=== PATIENT | male | born 1945 | race Caucasian/White ===

== ENCOUNTER → 2016-12-25 | Outpatient (CLI) | payer MEDICARE | END | disposition home or self-care (01) | LOC: LABWHC1 13:49 | PROVIDERS: ATTEND Orthopaedic Surgery | DX: Z01.812 Encounter for preprocedural laboratory examination (principal) | CPT/HCPCS: 87070 ==

== ENCOUNTER 2017-01-03 06:58 | Inpatient (IN) | payer MEDICARE ==
[2017-01-02 08:53] VITALS: BMI 37.3
[~2017-01-03 06:58] MED LIST: ACETAMINOPHEN TAB 500 MG TAB PO ONE; DEXAMETHASONE SOD PHOSPHATE 10 MG/ML 1 ML VIAL IV ONE; HYDROmorphone 1 MG/ML 1 ML SYRINGE IVP PRN; LIDOCAINE 1% 20 ML VIAL (10MG/ML) FOR IV START INTRADERMA PRN; MELOXICAM 7.5 MG TAB PO ONE; MIDAZOLAM 2 MG/2 ML VIAL IV PRN; ONDANSETRON 4 MG/2 ML VIAL IVP ONE; SCOPOLAMINE 1.5MG/72HR PATCH TRANSDERM ONE; TRANEXAMIC ACID 1,000 MG in SODIUM CHLORIDE 0.9% 100 ML IVPB ONE; ceFAZolin 2 GM in SODIUM CHLORIDE 0.9% 100 ML IVPB ONE
[2017-01-03] MEDS ORDERED: FAMOTIDINE 20 MG/2 ML VIAL IV ONE (08:42)
[2017-01-03] MEDS: LACTATED RINGERS 1,000 ML IV SCH (08:45)
[2017-01-03 08:48] LABS: Glucose,Whole Blood 103 mg/dL (75-99)
[2017-01-03] MEDS ORDERED: MIDAZOLAM 2 MG/2 ML VIAL IVP ONE (08:52)
[2017-01-03] MEDS ORDERED: ROPIVACAINE 1,100 MG, SODIUM CHLORIDE 0.9% 330 ML MISCELLANE PRN ×2 (09:13)
--- NOTE | 2017-01-03 09:14 | P.ONQ ---
Anesthesiology Proc Note - PNB - Peripheral Nerve Block Performed Left Adductor Canal Infusion Time Out Performed: Yes Procedure Start Time: 09:00 Procedure Stop Time: 09:15 Indication: Analgesia Sedation Type: Sedate with meaningful contact maintained Preparation: Sterile Prep Position: Supine Catheter: Indwelling Needle Types: On-Q Needle Size: 100mm (4") Needle Gauge: 20 Technique: Ultrasound Injectate: 0.5% Ropivacaine (see comment for volume) Blood Aspirated: No Pain Paresthesia on Injection Noted: No Resistance on Injection: Normal Events: Uneventful and Well Tolerated
[2017-01-03] MEDS: LACTATED RINGERS 1,000 ML IV ONE ×2 (09:58→14:28)
[2017-01-03] MEDS ORDERED: SODIUM CHLORIDE 0.9% 100 ML BAG ONE (10:02)
[2017-01-03] MEDS ORDERED: PROPOFOL 10 MG/ML 20 ML VIAL IV ONE (10:02)
[2017-01-03] MEDS ORDERED: SUCCINYLCHOLINE CHLORIDE 100 MG/5 ML SYR IV ONE (10:02)
[2017-01-03] MEDS ORDERED: fentaNYL (PF) 50 MCG/ML 2 ML AMP ONE (10:02)
[2017-01-03] MEDS ORDERED: MIDAZOLAM 2 MG/2 ML VIAL ONE (10:02)
[2017-01-03] MEDS ORDERED: TRANEXAMIC ACID 1,000 MG/10 ML VIAL ONE (10:02)
[2017-01-03] MEDS ORDERED: HYDROmorphone (PF) 1 MG/ML ONE (10:02)
[2017-01-03] MEDS ORDERED: ceFAZolin 3,000 MG in SODIUM CHLORIDE 0.9% IRRIGATIO 3,000 ML IRRIGATION ONE (10:02)
[2017-01-03] MEDS ORDERED: KETOROLAC 30 MG/ML 1 ML VIAL ONE (10:02)
[2017-01-03] MEDS ORDERED: LIDOCAINE 1% INJ 10MG/ML (20 ML MDV) ONE (10:02)
[2017-01-03] MEDS: ROPIVACAINE 246.25 MG, EPINEPHrine 0.5 MG, KETOROLAC 30 MG, cloNIDine HCL/PF 80 MCG, WA... MISCELLANE ONE ×10 (10:22→11:01)
--- NOTE | 2017-01-03 11:18 | P.OP ---
Date of Procedure: 01/03/17 Preoperative Diagnosis: Severe osteoarthritis left knee Postoperative Diagnosis: Severe Osteoarthritis left knee Procedure(s) Performed: Left total knee arthroplasty Implants: Galo and Nephew Oxinium femoral component size 7, left Galo & Nephew Padma II left nonporous tibial baseplate size 7 Galo [employer] Nephew size 9 mm Legion XLPE high flexion articular insert, size 7-8 Galo [employer] Nephew Padma II resurfacing patellar component, 35 mm All components were cemented using Mi bone cement.. The articulation is ceramic on polyethylene. Anesthesia: spinal Surgeon: Benji Paulino 3Rd Mate #1: Beba Henderson 3Rd Mate #2: Andreina Keyes Estimated Blood Loss (ml): 50 Pathology: other (Bone and cartilage) Condition: stable Disposition: PACU Indications for Procedure: After failure of conservative treatment we discussed the surgical and nonsurgical treatment options at length. Patient wishes to proceed with a total knee arthroplasty. Complications specific to this procedure were discussed at length, including but not limited to infection, bleeding, stiffness , and nerve injury. Patient is aware of all these complications and informed consent was obtained Operative Findings: The operative findings are consistent with severe osteoarthritis of the left knee Description of Procedure: Patient was seen in the preoperative area consent was reviewed and operative site was marked with a skin marker. An adductor canal pain catheter was placed by anesthesia in the preoperative area. Patient was then brought to the operating room and given preoperative antibiotics intravenously. A spinal anesthetic was administered by the anesthesia department. A Jaquez catheter was then placed by the nursing staff. A tourniquet was placed on the upper thigh and the lower extremity was prepped and draped in usual sterile fashion. A gram of transexamic acid was given. A universal timeout was then performed which confirmed the patient's name, surgical site, ALLERGIES, and consent. The lower extremity was then exsanguinated and tourniquet was inflated to 250 mmHg. A standard and anterior midline approach to the knee was performed. The skin and subcutaneous tissue was dissected down to the patellar tendon. A medial parapatellar arthrotomy was then performed. The knee was then extended, the patellar was everted, and the knee was again flexed. Anterior horns of both menisci were excised, and a release was performed to the posterior medial aspect of the knee. On gross visual inspection, there was complete loss of articular cartilage in the medial and patellofemoral joint spaces. There was also significant cartilage damage in the lateral compartment. There were multiple periarticular osteophytes which were then removed with a Ronguer. The femoral canal was then opened with the appropriate drill, and the intramedullary femoral cutting guide was then placed and set for 4 of valgus. The distal femoral cutting block was then pinned in place, and the distal femur was then cut. The cutting block was then removed and the cut was checked for flatness. Next, the sizing guide was then placed and set for 3 external rotation based off of the epicondylar axis and Whitesides line. After the femur was sized, the appropriate 4-in-1 cutting block was then pinned in place. The anterior condyles were cut without notching. The posterior and chamfer cuts were performed while protecting the collateral ligaments. The cutting block was then removed, and the femoral canal was plugged with autologous bone. Attention was then directed to the tibia. The remaining ACL was removed with a Ronguer, and the tibia was then gently subluxed forward with a large bent knee retractor. Any remaining menisci was excised. The posterior lateral corner was cauterized in order to cauterize the lateral geniculate artery. The extra medullary tibial cutting guide was then placed, set for the appropriate rotation , slope, and depth of resection. The proximal tibia cutting guide was then pinned in place. Proximal tibia was then cut and sized. Next trials were then placed with the appropriate-sized insert. The knee was able to fully extend and flex to 130 and was stable throughout all range of motion. The knee was then extended, patella everted. Patella was then measured, and then using an osteotomy guide, the patella was cut at the appropriate level. The patella was then measured and drilled and the patella trial was then placed. The knee was then taken through range of motion with the patella trial and the patella tracked normally. The knee was then extended patella trial was then removed and the patella was everted. Knee was then flexed and lug holes were drilled through the femoral trial and the femoral trial was then removed. The tibial was then exposed, and the tibial broach guide was then pinned in place after it was set for the appropriate rotation to allow for the most coverage without overhang. The tibia was then reamed and broached. The cut surfaces of bone were then irrigated with pulsatile lavage. The posterior structures were injected with the ropivacaine solution. The knee was also irrigated with Irrisept solution. The components were then opened, the cement was mixed, and the components were then cemented in place. The cement was allowed to harden with the knee in full extension. While the cement was hardening, the remaining soft tissues were then injected with a ropivacaine solution, which consisted of 246.25 mg of ropivacaine, 0.5 mg of epinephrine, 30 mg of Toradol, 80 g of clonidine, and 48.45 mL of sterile water, for a total of 100 mL of fluid injected. After the cemented hardened. The tourniquet was released, and hemostasis was obtained. A second gram of transexamic acid was given. The knee was again irrigated. The knee was again taken through range of motion and found to be stable throughout all range of motion of 0-130 , and the patella tracked normally. The fascia was then closed with #2 strata fix suture. The subcutaneous tissue was closed with 3-0 Vicryl and 3-0 strata fix. Dermabond tape was used for the skin and placed with the knee in flexion. The patient was placed in a sterile dressing. Patient was then transferred to recovery room in stable condition. The assistant brand manager MARYAM Machuca was required due the complexity surgery and the need for a skilled surgical attendant. She assisted in positioning, draping , retraction, and closure of the wound.
[2017-01-03] MEDS ORDERED: MAGNESIUM HYDROXIDE 2,400 MG/10 ML CUP PO PRN (11:41)
[2017-01-03] MEDS ORDERED: BISACODYL 10 MG SUPP RECTAL PRN (11:41)
[2017-01-03] MEDS ORDERED: HYDROmorphone 1 MG/ML 1 ML SYRINGE IVP PRN ×3 (11:41)
[2017-01-03] MEDS ORDERED: HYDROcodone/APAP 5-325MG 1 EACH TAB PO PRN (11:41)
[2017-01-03] MEDS ORDERED: DIAZEPAM 5 MG TAB PO PRN ×2 (11:41)
[2017-01-03] MEDS ORDERED: NA PHOS,M-B/NA PHOS,DI-BA 133 ML ENEMA RECTAL PRN (11:41)
[2017-01-03] MEDS ORDERED: ONDANSETRON 4 MG/2 ML VIAL IVP PRN (11:41)
[2017-01-03] MEDS ORDERED: NALOXONE 0.4 MG/ML 1 ML VIAL IV PRN (11:41)
[2017-01-03] MEDS ORDERED: hydrOXYzine PAMOATE 25 MG CAP PO PRN (11:41)
--- NOTE | 2017-01-03 12:09 | XR ---
EXAMINATION TYPE: XR knee limited LT DATE OF EXAM: 01/03/2017 12:03 PM CLINICAL HISTORY: Left knee pain and arthritis status post total knee replacement. TECHNIQUE: Portable AP and crosstable lateral views of the left knee are obtained immediately postop eratively. COMPARISON: None FINDINGS: Metallic hardware from total left knee arthroplasty is seen and appears satisfactory in al ignment and position. There is evidence of recent surgery with diffuse subcutaneous gas and soft tis elisabeth swelling noted. Prominent spur from the superior anterior patella is noted. IMPRESSION: METALLIC HARDWARE FROM TOTAL LEFT KNEE ARTHROPLASTY IS SATISFACTORY IN ALIGNMENT.
[2017-01-03] MEDS: SODIUM CHLORIDE 0.9% 1,000 ML IV SCH (15:46)
[2017-01-03] MEDS: ceFAZolin 2 GM in SODIUM CHLORIDE 0.9% 100 ML IVPB SCH (15:47)
--- NOTE | 2017-01-03 17:13 | CONS ---
DATE OF CONSULTATION: REASON FOR CONSULTATION: Perioperative complication management. Patient underwent left knee arthroplasty. Patient is clinically doing well post surgery. Patient's pain has been being managed by primary service and Anesthesiology. Patient denied any fever or chills. Patient denied any nausea or vomiting or dysuria. REVIEW OF SYSTEMS: CONSTITUTIONAL: No fever, no malaise, no fatigue. HEENT: No recent visual problems or hearing problems. Denied any sore throat. CARDIOVASCULAR: No chest pain, orthopnea, PND, no palpitations, no syncope. PULMONARY: No shortness of breath, no cough, no hemoptysis. GASTROINTESTINAL: No diarrhea, no nausea, no vomiting, no abdominal pain. Normoactive bowel sounds. NEUROLOGICAL: No headaches, no weakness, no numbness. HEMATOLOGICAL: Denies any bleeding or petechiae. GENITOURINARY: Denies any burning micturition, frequency, or urgency. MUSCULOSKELETAL/RHEUMATOLOGICAL: Denies any joint pain, swelling, or any muscle pain. ENDOCRINE: Denies any polyuria or polydipsia. The rest of the 14 point review of systems is negative. Past medical history is significant for: 1. Obesity. 2. Patient apparently had diabetes mellitus, although patient is not on any medications at this point of time. Hemoglobin A1c will be obtained. 3. Osteoarthritis. 4. Hernia repair. 5. Joint replacement surgery. 6. Orthopedic surgery. SOCIAL HISTORY: Denied any smoking, alcohol abuse or any drug abuse. FAMILY HISTORY: Denied any family history of hypertension or diabetes mellitus. PHYSICAL EXAMINATION: VITAL SIGNS: Temperature 97.7, pulse of 88, respiratory rate of 18. Blood pressure is 148/72. Saturating at 96% on 2 L of oxygen by nasal cannula. GENERAL: The patient is alert and oriented x3, not in any acute distress. Well developed, well nourished. HEENT: Pupils are round and equally reacting to light. EOMI. No scleral icterus. No conjunctival pallor. Normocephalic, atraumatic. No pharyngeal erythema. No thyromegaly. CARDIOVASCULAR: S1 and S2 present. No murmurs, rubs, or gallops. PULMONARY: Chest is clear to auscultation, no wheezing or crackles. ABDOMEN: Soft, nontender, nondistended, normoactive bowel sounds. No palpable organomegaly. MUSCULOSKELETAL: Deferred to Orthopedic Surgery. EXTREMITIES: No cyanosis, clubbing, or pedal edema. NEUROLOGICAL: Gross neurological examination did not reveal any focal deficits. SKIN: No rashes. LABORATORY DATA: None available. ASSESSMENT AND PLAN: 1. Right knee arthroplasty, postoperative day #1. Pain management and DVT prophylaxis as per primary service. Considering his age, probably we need to cut down on the narcotic medications he is taking. 2. Questionable history of diabetes mellitus. Will obtain hemoglobin A1c. 3. Obesity. Counseling was provided. Patient may need sleep study as an outpatient. Will continue to follow the patient only on an as-needed basis. Thank you for letting me participate in this patient's care.
[2017-01-03] MEDS: HYDROcodone/APAP 5-325MG 1 EACH TAB PO PRN (20:12)
[2017-01-03] MEDS: ASPIRIN 325 MG TAB PO SCH (20:12)
[2017-01-03] MEDS ORDERED: SENNOSIDES-DOCUSATE SODIUM 1 EACH TAB PO SCH (21:00)
[2017-01-04] MEDS: ceFAZolin 2 GM in SODIUM CHLORIDE 0.9% 100 ML IVPB SCH (00:18)
[2017-01-04] MEDS: HYDROcodone/APAP 5-325MG 1 EACH TAB PO PRN ×2 (05:11→14:33)
[2017-01-04] MEDS: SODIUM CHLORIDE 0.9% 1,000 ML IV SCH (05:40)
[2017-01-04] MEDS: LACTATED RINGERS 1,000 ML IV SCH (05:40)
[2017-01-04] MEDS: ASPIRIN 325 MG TAB PO SCH (07:26)
[2017-01-04] MEDS ORDERED: MELOXICAM 7.5 MG TAB PO SCH (09:00)
--- NOTE | 2017-01-04 09:13 | P.PN ---
Subjective pod 1 with on q pump in place; doing ok Objective - Vital Signs Vital signs: Vital Signs Temp 97.9 F 01/04/17 01:45 Pulse 85 01/04/17 01:45 Resp 16 01/04/17 01:45 BP 134/64 01/04/17 01:45 Pulse Ox 95 01/04/17 01:45 Intake & Output 01/03/17 01/04/17 01/04/17 18:59 06:59 18:59 Intake Total 1701 590 Output Total 50 Balance 1651 590 Intake: IV 1701 Oral 590 Output: Estimated Blood Loss 50 Other: # Voids 1
[2017-01-04 09:19] VITALS: BP 140/67; PULSE 69; RESP 18; TEMP 97
[2017-01-04 10:23] LABS: Hemoglobin A1C 5.3 % (4.2-6.1)
[2017-01-04 11:20] LABS: Basophils % (A) 0 %; CHCM 33.3; Eosinophils % (A) 0 %; HCT 35.2 % (39.0-53.0); HDW 2.34; Luc # (Auto) 0.17; Luc % (Auto) 2; Lymphocytes # (A) 1.1 k/uL (1.0-4.8); Lymphocytes % (A) 10 %; MCHC 33.2 g/dL (31.0-37.0); MCV 96.5 fL (80.0-100.0); Mean Platelet Volume 7.6; Monocytes # (A) 0.7 k/uL (0-1.0); Monocytes % (A) 7 %; Neutrophils % (A) 82 %; RBC 3.65 m/uL (4.30-5.90); RDW 12.9 % (11.5-15.5); WBC (Perox) 10.99
[2017-01-04 11:21] LABS: HGB 11.7 gm/dL (13.0-17.5)
--- NOTE | 2017-01-04 11:41 | P.DS ---
Providers Date of admission: 01/03/17 07:49 Expected date of discharge: 01/04/17 Attending physician: Benji Paulino Consults: 01/03/17 11:41 Consult Physician Routine Consulting Provider: Yolette Porter Consult Reason/Comments: medical management Do you want consulting provider notified?: Yes Primary care physician: Stated None - Discharge Diagnosis(es) (1) Osteoarthritis of left knee Patient was admitted to the OR yesterday 01/03/2017 to undergo left total knee arthroplasty per Dr. Paulino. He had failed conservative measures as an outpatient and desired to proceed with surgical intervention after given informed consent. He underwent the above procedure which he tolerated well without complication. His postoperative hospital course has remained without complication. On day of discharge he is afebrile, vital signs stable, labs within acceptable ranges, wound is benign, neurovascular status is intact, calf is soft nontender, abdomen is soft and nontender and he is denying any new complaints. He is tolerating by mouth meds and diet. Voiding without difficulty and passing flatus. Pain is controlled with oral pain medication. He denies numbness and tingling. He denies abdomen pain or calf pain. Review of systems negative for fever, chills, chest pain, shortness breath, nausea, vomiting, dizziness, headaches, slurred speech or other. Current Visit: Yes Status: Acute Priority: Medium Procedures: Total left knee arthroplasty Patient Condition at Discharge: Good Plan - Discharge Summary New Discharge Prescriptions: Aspirin 325 mg PO BID #60 tab HYDROcodone/APAP 7.5-325MG [[place] 7.5-325] 1 - 2 each PO Q6HR PRN #90 tab PRN Reason: Pain Discharge Medication List Ascorbic Acid [Vitamin C] 500 mg PO DAILY 01/02/17 [History] Cholecalciferol [Vitamin D3] 1,000 unit PO DAILY 01/02/17 [History] Meloxicam [Mobic] 15 mg PO DAILY 01/02/17 [History] Multivitamins, Thera [Multivitamin (formulary)] 1 tab PO DAILY 01/02/17 [History ] [place]-3 Fatty Acids [[place]-3] 1,000 mg PO DAILY 01/02/17 [History] Vitamin B-12 (Unknown Dose) 1 tab PO DAILY 01/02/17 [History] Aspirin 325 mg PO BID #60 tab 01/04/17 [Rx] HYDROcodone/APAP 7.5-325MG [[place] 7.5-325] 1 - 2 each PO Q6HR PRN #90 tab [Rx] Follow up Appointment(s)/Referral(s): Benji Paulino DO [Doctor of Osteopathic Medicine] - 2 Weeks Ambulatory/Diagnostic Orders: Continuous Passive Motion (CPM) Machine [DME.AMB1] Location: Determined By Patient Patient Instructions/Handouts: Knee Replacement (DC) Activity/Diet/Wound Care/Special Instructions: Weight-bear as tolerated Take meds as directed Follow up with Dr. Paulino in office [phone] Keep wound clean and dry Discharge Disposition: HOME WITH HOME HEALTH SERVICES
== END 2017-01-04 15:15 | disposition home health service (06) | DRG 470 ==
LOC: 2ORMAIN 07:49 → 3SUR 11:58
PROVIDERS: ADMIT Orthopaedic Surgery; ATTEND Orthopaedic Surgery
PROC: 0SRD0J9 Replacement of Left Knee Joint with Synthetic Substitute, Cemented, Open Approach (ICD-10-PCS; principal; 2017-01-03 09:35)
DX: M17.12 Unilateral primary osteoarthritis, left knee (principal); E66.9 Obesity, unspecified
CPT/HCPCS: 83036; 85025; 88300

== ENCOUNTER 2024-10-29 05:57 | Day surgery (SDC) | payer MEDICARE ==
[2024-10-29] MEDS ORDERED: ALPRAZolam 0.5 MG TAB PO PRN (06:22)
[2024-10-29] MEDS ORDERED: NITROGLYCERIN SL TABS 0.4 MG TAB SUBLINGUAL PRN (06:22)
[2024-10-29] MEDS ORDERED: ALPRAZolam 0.25 MG TAB PO PRN (06:22)
[2024-10-29] MEDS: SODIUM CHLORIDE 0.9% 1,000 ML in EMPTY BAG 1 BAG IV SCH (06:41)
[2024-10-29] MEDS: ASPIRIN 325 MG TAB PO STA (06:41)
[2024-10-29] MEDS: IV FLUID CONTINUATION 1,000 ML IV ONE ×2 (06:43→10:21)
[2024-10-29] MEDS: MIDAZOLAM 2 MG/2 ML VIAL IVP ONE (07:33)
[2024-10-29] MEDS: LIDOCAINE 1% INJ 10MG/ML (20 ML MDV) SQ ONE (07:33)
[2024-10-29] MEDS: fentaNYL (PF) 50 MCG/1 ML VIAL IVP ONE (07:33)
[2024-10-29] MEDS: VERAPAMIL SYRINGE (5 MG/10 ML) INTRAARTER ONE (07:36)
[2024-10-29] MEDS: HEPARIN SODIUM,PORCINE (1 ML) 2,500 UNIT in SODIUM CHLORIDE 0.9% 250 ML IRRIGATION PRN (07:37)
[2024-10-29] MEDS: HEPARIN SODIUM,PORCINE 10,000 UNIT in SODIUM CHLORIDE 0.9% 1,000 ML IRRIGATION PRN (07:37)
[2024-10-29] MEDS: HEPARIN SODIUM 1,000 UN/ML (10ML VL) IVP ONE (07:41)
[2024-10-29] MEDS: IOPAMIDOL-370 100ML BTL INJ ONE (07:55)
[2024-10-29] MEDS ORDERED: RX INFO: IV CONTRAST WAS GIVEN 1 EACH MISC MISCELLANE PRN (08:01)
--- NOTE | 2024-10-29 08:25 | CC ---
CARDIAC CATHETERIZATION REPORT INDICATION: Unstable angina. PROCEDURE NOTE: After obtaining informed consent, left heart catheterization and coronary angiogram were performed via the right radial artery using standard Elia catheters. The patient tolerated the procedure well without any obvious immediate complications. The patient received moderate conscious sedation. Total sedation time was 15 minutes. Right radial artery access was obtained using Seldinger technique, 6-[place] sheath was placed. Catheters and wires were floated into the ascending aorta under fluoroscopic guidance. Verapamil and heparin were given per protocol. FINDINGS: 1. HEMODYNAMICS: Left ventricular end-diastolic pressure is 20 mm. There is no significant gradient across the aortic valve. 2. LEFT VENTRICULOGRAM: Left ventriculogram is not performed. 3. ANGIOGRAPHIC DATA: a.Left main coronary artery appears calcified with diffuse disease, divides into left anterior descending coronary artery and circumflex coronary artery. There is a 90% stenosis right at the origin of the LAD and also a 90% stenosis involving the ostium of the circumflex coronary artery. The distal left main also has significant disease. b.Right coronary artery is a dominant vessel, small caliber with mild to moderate diffuse disease involving proximal and mid portion with the PDA very distally showing 60% stenosis. CONCLUSIONS: Three-vessel coronary artery disease as described above with distal left main ostial LAD and ostial circumflex coronary artery stenosis. PLAN: I reviewed angiographic data with the on-call medicine assistant. The patient ideally should undergo bypass surgery. I spoke to Dr. Reddy, the Cardiothoracic Surgeon, who is rounding here today to evaluate the patient and advise on surgical revascularization. MMODL / IJN: [id number] /
--- NOTE | 2024-10-29 11:16 | CA ---
Transthoracic Echo Report Name: Negrito Pederson Age: 79 Gender: M : 1945 Exam Date: 10/29/2024 08:08 Exam Location: [facility] Ht (in): 70 Wt (lb): 253 Ordering Physician: Imtiaz Baxter MD ([id number]) Attending/Referring Phys: Vee AKERS Design Chief Marti Macias RDCS Procedure CPT: Indications: Open heart consult Cardiac Hx: Technical Quality: Technically difficult study Contrast 1: Definity Total Dose (mL): 3 Contrast 2: Total Dose (mL): MEASUREMENTS (Male / Female) Normal Values 2D ECHO LV Diastolic Diameter PLAX 5.5 cm 4.2 - 5.9 / 3.9 - 5.3 cm LV Systolic Diameter PLAX 3.3 cm IVS Diastolic Thickness 0.8 cm 0.6 - 1.0 / 0.6 - 0.9 cm LVPW Diastolic Thickness 0.9 cm 0.6 - 1.0 / 0.6 - 0.9 cm LV Relative Wall Thickness 0.3 LVOT Diameter 2.1 cm LV Diastolic Volume MOD BP 126.9 cm??? 67 - 155 / 56 - 104 cm??? LV Systolic Volume MOD BP 47.4 cm??? 22 - 58 / 19 - 49 cm??? LV Ejection Fraction MOD BP 62.6 % >= 55 % LV Cardiac Index MOD BP 2360.9 cm???/min???m??? LV Diastolic Volume MOD 4C 138.2 cm??? LV Systolic Volume MOD 4C 47.4 cm??? LV Ejection Fraction MOD 4C 65.7 % LV Cardiac Index MOD 4C 2696.6 cm???/min???m??? LV Diastolic Length 4C 8.0 cm LV Systolic Length 4C 6.5 cm LV Diastolic Volume MOD 2C 113.0 cm??? LV Systolic Volume MOD 2C 42.9 cm??? LV Ejection Fraction MOD 2C 62.0 % LV Cardiac Index MOD 2C 2081.0 cm???/min???m??? LV Diastolic Length 2C 8.3 cm LV Systolic Length 2C 7.2 cm LA Volume 68.0 cm??? 18 - 58 / 22 - 52 cm??? LA Volume Index 28.0 cm???/m??? 16 - 28 cm???/m??? Ascending Aorta Diameter 3.8 cm DOPPLER AV Peak Velocity 166.9 cm/s AV Peak Gradient 11.1 mmHg AV Mean Velocity 112.6 cm/s AV Mean Gradient 5.9 mmHg AV Velocity Time Integral 38.7 cm LVOT Peak Velocity 109.3 cm/s LVOT Peak Gradient 4.8 mmHg LVOT Velocity Time Integral 28.0 cm LVOT Stroke Volume 100.7 cm??? LVOT Stroke Volume Index 43.7 ml/m??? LVOT Cardiac Index 2990.5 cm???/min???m??? AV Area Cont Eq vti 2.6 cm??? AV Area Cont Eq pk 2.4 cm??? MV Peak Velocity 111.9 cm/s MV Peak Gradient 5.0 mmHg MV Mean Velocity 59.7 cm/s MV Mean Gradient 1.8 mmHg MV Velocity Time Integral 34.0 cm MV Area PHT 4.4 cm??? Mitral E Point Velocity 76.1 cm/s Mitral A Point Velocity 87.0 cm/s Mitral E to A Ratio 0.9 MV Deceleration Time 170.9 ms TR Peak Velocity 220.0 cm/s TR Peak Gradient 19.4 mmHg PV Peak Velocity 85.2 cm/s PV Peak Gradient 2.9 mmHg FINDINGS Left Ventricle Left ventricular ejection fraction is estimated at 60 %. Left ventricular cavity size normal. Left ventricular wall thickness normal. No obvious regional wall motion abnormalities. Right Ventricle Mild right ventricular dilatation. Normal right ventricular global systolic function. Right Atrium Normal right atrial size. Left Atrium Mildly increased left atrial volume. Mildly increased left atrial area. Mitral Valve Structurally normal mitral valve. No mitral stenosis, regurgitation or prolapse. Aortic Valve Trileaflet aortic valve. No aortic valve stenosis or regurgitation. Tricuspid Valve Structurally normal tricuspid valve. No tricuspid stenosis. Mild tricuspid regurgitation. Pulmonic Valve Structurally normal pulmonic valve. No pulmonic stenosis. Trace pulmonic regurgitation. Pericardium No pericardial effusion. Aorta Normal size aortic root and proximal ascending aorta. CONCLUSIONS Normal biventricular systolic function No significant valvular abnormalities noted. The aortic valve is sclerotic Mild RV enlargement No pericardial effusion Previewed by: Dr. David Ricardo MD (Electronically Signed) Final Date: 29 October 2024 11:15
[2024-10-29] MEDS: SODIUM CHLORIDE 0.9% 1,000 ML IV SCH (11:18)
[2024-10-29 12:04] LABS: Basophils % (A) 0 %; Eosinophils # (A) 0.2 k/uL (0-0.7); Eosinophils % (A) 3 %; HCT 36.2 % (39.0-53.0); HGB 12.3 gm/dL (13.0-17.5); Lymphocytes # (A) 1.6 k/uL (1.0-4.8); Lymphocytes % (A) 27 %; MCH 31.9 pg (25.0-35.0); MCV 93.7 fL (80.0-100.0); Mean Platelet Volume 7.5; Monocytes # (A) 0.3 k/uL (0-1.0); Monocytes % (A) 5 %; Neutrophils # (A) 3.5 k/uL (1.3-7.7); Neutrophils % (A) 62 %; Platelet Count 163 k/uL (150-450); RBC 3.86 m/uL (4.30-5.90); RDW 12.8 % (11.5-15.5); WBC 5.7 k/uL (3.8-10.6)
[2024-10-29 12:14] LABS: Partial Thromboplastin Time 24.2 sec (22.0-30.0); Prothrombin Time 10.6 sec (10.0-12.5)
[2024-10-29 12:21] LABS: ALT 15 U/L (4-49); AST 32 U/L (17-59); African American GFR (CKD) >90 (>60 ml/min/1.73 sqM); Alkaline Phosphatase 69 U/L (38-126); Anion Gap 9 mmol/L; Blood Urea Nitrogen 19 mg/dL (9-20); Calcium 8.8 mg/dL (8.4-10.2); Carbon Dioxide 26 mmol/L (22-30); Chloride 105 mmol/L (98-107); Glucose 95 mg/dL (74-99); Magnesium 2.1 mg/dL (1.6-2.3); Non-African American GFR(CKD) 82 (>60 ml/min/1.73 sqM); Potassium 4.1 mmol/L (3.5-5.1); Sodium 140 mmol/L (137-145); Total Bilirubin 1.4 mg/dL (0.2-1.3); Total Protein 6.8 g/dL (6.3-8.2)
--- NOTE | 2024-10-29 12:48 | US ---
EXAMINATION TYPE: Pre-Operative Non-Invasive Evaluation of the hand for Potential Radial Artery Bennett rodriguez, Measurements only DATE OF EXAM: 10/29/2024 12:37 PM CLINICAL INDICATION: Male, 79 years old with history of Pre-Op Cardiac Surgery; , Preop- Cardiac Surg michael TECHNIQUE:Grayscale and color Doppler imaging of the radial artery(s) SIDE PERFORMED: Left FINDINGS: Dominant hand: Right Duplex Findings: Radial Artery: Color flow seen Measurements in mm, transverse view: Left Radial Proximal: 2.7 x 2.9 mm Mid: 2.9 x 3.0 mm Distal: 3.2 x 3.2 mm IMPRESSION: 1. No evidence for vascular occlusion. 2. Measurements as described above. [facility], , 10/29/2024 12:46 PM
--- NOTE | 2024-10-29 13:00 | US ---
EXAMINATION TYPE: US vein mapping BILAT DATE OF EXAM: 10/29/2024 12:37 PM COMPARISON: NONE CLINICAL INDICATION: Male, 79 years old with history of PreOp Cardiac Surgery; , Preop- Cardiac Surge ry TECHNIQUE: Grayscale and color Doppler imaging of the lower extremity venous system. SIDE PERFORMED: Bilateral FINDINGS: PATIENT HISTORY: Smoker: No Heart Disease: Yes Previous DVT: N/A Vascular Surgery: N/A Discoloration: bilateral Hypertension: N/A Diabetes: N/A Paralysis: N/A Edema: Seen bilateral ankles DUPLEX FINDINGS: Greater Saphenous: Color flow seen Lesser Saphenous: Color flow seen Measurements in mm: Right Greater Saphenous: Groin: 7.6 x 6.5 mm High Thigh: 4.2 x 3.9 mm Mid Thigh: 4.9 x 4.4 mm Above Knee: 4.8 x 4.4 mm Knee: 4.8 x 4.6 mm Below Knee: 4.6 x 3.3 mm Mid Calf: 2.3 x 1.9 mm At Ankle: 3.7 x 2.6 mm Left Greater Saphenous: Groin: 5.3 x 5.6 mm High Thigh: 5.4 x 5.6 mm Mid Thigh: 5.5 x 5.0 mm Above Knee: 6.2 x 4.6 mm Knee: 2.9 x 2.8 mm Below Knee: 2.6 x 2.6 mm Mid Calf: 3.2 x 3.5 mm- Possible calcs seen At Ankle: 3.2 x 2.5 mm IMPRESSION: 1. No evidence for occlusion. 2. GSV measurements listed above. 3. Performing surgeon to determine viability as conduit. [facility], , 10/29/2024 12:58 PM
--- NOTE | 2024-10-29 13:01 | US ---
EXAMINATION TYPE: US carotid duplex BILAT DATE OF EXAM: 10/29/2024 COMPARISON: NONE CLINICAL INDICATION: Male, 79 years old with history of Pre-Op Cardiac Surgery; PreOp, nonsmoker Additional History: .... TECHNIQUE: Grayscale, color Doppler and spectral Doppler evaluation of the bilateral carotid systems and vertebral arteries. Indirect Doppler criteria was utilized. FINDINGS: EXAM MEASUREMENTS: RIGHT: Peak Systolic Velocity (PSV) cm/sec ----- Right CCA: 93.4 ----- Right ICA: 99.5 ----- Right ECA: 185.6 ICA/CCA ratio: 1.1 RIGHT: End Diastole cm/sec ----- Right CCA: 8.6 ----- Right ICA: 21.9 ----- Right ECA: 11.4 LEFT: Peak Systolic Velocity (PSV) cm/sec ----- Left CCA: 91.9 ----- Left ICA: 302.6 ----- Left ECA: 222.7 ICA/CCA ratio: 3.3 LEFT: End Diastole cm/sec ----- Left CCA: 10.6 ----- Left ICA: 56.9 ----- Left ECA: 0.0 VERTEBRALS (direction of flow): Right Vertebral: Antegrade Left Vertebral: Antegrade Rhythm: Normal CONSTRUCTION GRIP NOTES: Elevated bilateral ECA and left ICA velocities. Wall thickening. Color Doppler imaging shows patency with blood flow throughout the carotid artery. Spectral waveforms are within normal limits. IMPRESSION: Right: Less than 50% stenosis of the carotid bifurcation. Left: Greater than 70% stenosis of the carotid bifurcation. Criteria for Assigning % of Stenosis / Diameter reduction (Estimation based on the indirect measurements of the internal carotid artery velocities (ICA PSV). 1. Normal (no stenosis)=ICA PSV < 125 cm/s: ratio < 2.0: ICA EDV<40 cm/s. 2. Less than 50% stenosis=ICA PSV < 125 cm/s: ratio < 2.0: ICA EDV<40 cm/s. 3. 50 to 69% stenosis=ICA PSV of 125 to 230 cm/s: ration 2.0 ? 4.0: ICA EDV 40-100 cm/s. 4. Greater than 70% stenosis to near occlusion= ICA PSV > 230 cm/s: ratio > 4.0: ICA EDV > 100 cm/s. 5. Near occlusion= ICA PSV velocities may be low or undetectable: variable ratio and ICA EDV. 6. Total occlusion=unable to detect flow. [facility], , 10/29/2024 12:59 PM
--- NOTE | 2024-10-29 13:20 | P.CONS ---
History of Present Illness - Reason for Consult Consult date: 10/29/24 Medical management Requesting physician: Imtiaz Baxter - Chief Complaint Chest pressure - History of Present Illness Very pleasant 79-year-old patient follows with Dr. Mendoza. Chronic stable medical condition include hypertension, osteoarthritis, prior history of prostate cancer, varicose veins, hard of hearing. Patient been having achiness in the chest for 6 to 8 months. Patient's exercise tolerance somewhat limited though patient is able to get around. Patient did have a scheduled catheterization by Dr. Lc Baxter. Patient was found to have three-vessel CAD with distal left main ostial disease more details in his notes. Patient being evaluated for coronary bypass. Review of systems: GEN.: None EYES: None HEENT: Hard of hearing NECK: None RESPIRATORY: None CARDIOVASCULAR: As above] GASTROINTESTINAL: None GENITOURINARY: None MUSCULOSKELETAL: [Joint pains LYMPHATICS: None HEMATOLOGICAL: None PSYCHIATRY: None NEUROLOGICAL: None Social history: Retired from [employer]. . Non-smoker. Alcohol rarely. Physical examination: VITAL SIGNS: Afebrile, 64, 16, 134 x 70, 94% room air GENERAL: BMI 36.3, reclining bed awake comfortable. EYES: Pupils equal. Conjunctiva julian l. HEENT: External appearance of nose and ears normal, oral cavity grossly normal. Hard of hearing NECK: JVD not raised; masses not palpable. HEART: First and second heart sounds are normal; no edema. LUNGS: Respiratory rate normal; clear to auscultation. ABDOMEN: Soft, nontender, liver spleen not palpable, no masses palpable. PSYCH: Alert and oriented x3; mood and affect julian l. MUSCULOSKELETAL:No Clubbing/cyanosis;muscles-grossly intact. OA in several r joints NEUROLOGICAL: Cranial nerves grossly intact; no facial asymmetry, power and sensation grossly intact. LYMPHATICS: No lymph nodes palpable in the axilla and neck INVESTIGATIONS, reviewed in the clinical context: October 29, 2024: White count 5.7 hemoglobin 12.3 platelets 163 sodium 140 potassium 4.1 BUN 19 creatinine 0.86 TSH 2.9 Carotid Doppler: Less than 50% stenosis of the carotid bifurcation on the right. Greater than 70% stenosis of the carotid bifurcation on the left. EKG tracing personally reviewed by me-normal sinus rhythm. 2D echocardiogram: EF 60%. Assessment plan: -Unstable angina. Patient been having cardiac symptoms for about 6 to 8 months. Decided to come in for a cardiac cath. Cardiac cath results as above -Triple-vessel coronary artery disease per cardiac cath by Dr. Lc Baxter. Cardiothoracic team has been consulted for coronary bypass -Essential hypertension Toprol-XL 25 mg a day. Imdur ER 30 mg a day benazepril -Prostate cancer Casodex -Hard of hearing, hearing aids that do not work too well -Obesity BMI 36.3 Weight loss measures -Primary osteoarthritis of multiple joints Tylenol as needed -Full code Care was discussed with patient. Questions answered. Past Medical History Past Medical History: Cancer, Chest Pain / Angina, Hypertension, Osteoarthritis (OA), Prostate Disorder Additional Past Medical History / Comment(s): VARICOSE VEINS. ELEVATED PSA. prostate cancer History of Any Multi-Drug Resistant Organisms: None Reported Past Surgical History: Cholecystectomy, Hernia Repair, Joint Replacement, Orthopedic Surgery Additional Past Surgical History / Comment(s): RIGHT SHOULDER, UMBILICAL HERNIA & ABDOMINAL HERNIA REPAIR, RIGHT TOTAL KNEE. Additional Past Anesthesia/Blood Transfusion Reaction / Comm: STATES DIFFICULTY BREATHING AFTER SHOULDER SURGERY. Smoking Status: Never smoker - Past Family History Mother Family Medical History: No Reported History Medications and Allergies Home Medications Medication Instructions Recorded Confirmed Type Ascorbic Acid [Vitamin C] 500 mg PO DAILY 01/02/17 10/29/24 History Cholecalciferol [Vitamin D3] 1,000 unit PO DAILY 01/02/17 10/29/24 History Multivitamins, Thera [Multivitamin 1 tab PO DAILY 01/02/17 10/29/24 History (formulary)] [place]-3 Fatty Acids [[place]-3] 1,000 mg PO DAILY 01/02/17 10/29/24 History Vitamin B-12 (Unknown Dose) 1 tab PO DAILY 01/02/17 10/29/24 History Aspirin 81 mg PO BID 10/27/24 10/29/24 History Benazepril HCl 40 mg PO DAILY 10/27/24 10/29/24 History Bicalutamide [Casodex] 50 mg PO DAILY 10/27/24 10/29/24 History Isosorbide Mononitrate ER [Imdur] 30 mg PO DAILY 10/27/24 10/29/24 History Metoprolol Succinate (ER) [Toprol 25 mg PO DAILY 10/27/24 10/29/24 History Xl] Nitroglycerin Sl Tabs [Nitrostat] 0.4 mg PO DIRECTED PRN 10/27/24 10/27/24 History Allergies Allergy/AdvReac Type Severity Reaction Status Date / Time No Known Allergies Allergy Verified 10/27/24 11:18 Physical Exam Vitals: Vital Signs Temp Pulse Resp BP BP Pulse Ox 10/29/24 12:00 64 134/70 10/29/24 10:46 59 L 138/78 94 L 10/29/24 10:35 59 L 16 10/29/24 10:15 62 16 138/63 97 10/29/24 09:42 63 16 135/63 98 10/29/24 09:16 60 16 131/61 98 10/29/24 09:00 60 16 132/63 97 10/29/24 08:46 58 L 16 113/63 97 10/29/24 08:26 60 16 103/55 97 10/29/24 08:05 81 16 145/63 98 10/29/24 06:49 97.1 F L 84 16 142/70 149/72 97 Intake and Output 10/28/24 10/29/24 10/29/24 22:59 06:59 14:59 Intake Total 450 580 Output Total 200 Balance 450 380 Intake: IV 450 580 Output: Urine 200 Other: Weight 114.9 kg Results CBC & Chem 7: 10/29/24 10:52 10/29/24 10:52 Labs: Abnormal Lab Results - Last 24 Hours (Table) 10/29/24 10/29/24 Range/Units 10:52 10:52 RBC 3.86 L (4.30-5.90) m/uL Hgb 12.3 L (13.0-17.5) gm/dL Hct 36.2 L (39.0-53.0) % Total Bilirubin 1.4 H (0.2-1.3) mg/dL
--- NOTE | 2024-10-29 13:52 | CT ---
EXAMINATION TYPE: CT chest wo con DATE OF EXAM: 10/29/2024 1:36 PM COMPARISON: Chest radiograph from same day. CLINICAL INDICATION: Male, 79 years old with history of Evaluate aorta pre op CABG;, Evaluate aorta p re op CABG TECHNIQUE: Multiple axial images were obtained through the chest. Sagittal and coronal reformats were created for review. MIP was performed on a separate workstation. Contrast used: mL of (None if empty) Oral contrast used: (None if empty) CT DLP: 557.1 mGycm, Automated exposure control for dose reduction was used. FINDINGS: LUNGS/ PLEURA: No focal consolidation, pneumothorax or pleural effusion. AIRWAY: Patent and unremarkable. HEART: Size within normal limits aortic valve calcifications. Moderate severe coronary artery calcifi ed plaque. MEDIASTINUM: No gross evidence of adenopathy. VASCULATURE: No aortic aneurysm. There is mild to moderate calcified plaque of the aortic arch and d escending thoracic aorta. MUSCULOSKELETAL: No acute osseous abnormalities SOFT TISSUES/LYMPH NODES: Unremarkable. LOWER NECK: No significant findings. UPPER ABDOMEN: Gallbladder surgically absent. IMPRESSION: 1. Mild to moderate atherosclerotic calcified plaque of the aortic arch and descending thoracic aort a. No evidence for aortic aneurysm. 2. Moderate severe calcified plaque of the coronary arteries. 3. Mild aortic valve calcifications. [facility], , 10/29/2024 1:49 PM
--- NOTE | 2024-10-29 14:24 | US ---
EXAMINATION TYPE: US arterial LE single level DATE OF EXAM: 10/29/2024 2:00 PM COMPARISONS: None. CLINICAL INDICATION: Male, 79 years old with history of Ankle Brachial Index (JERRI) ; JERRI TECHNIQUE: Systolic pressures were taken of the upper and lower extremity arteries with ankle-brachia l indices and toe brachial indices calculated bilaterally. History of: Smoker: No Hypertension: NO Diabetic: No Hyperlipidemia: No TIA/CVA: No Previous Vascular Surgery: No CAD: No VT: No Vascular Ulcers: No Claudication: No Gangrene: No FINDINGS: Doppler Waveforms: Right: Multiphasic Left: Multiphasic Brachial Artery systolic pressure: Right: def due to heart cath this morning Left: 126 Posterior Tibial artery systolic pressure: Right: 105 Left: 109 Dorsalis Pedis artery systolic pressure: Right: 117 Left: 98 Ankle-Brachial Indices: Right: 0.93 Left: 0.87 IMPRESSION: JERRI: Right: Normal 0.9 - 1.4, Recommendation: None Left: Mild Arterial Disease 0.8 - 0.9, Recommendation: None [facility], , 10/29/2024 2:22 PM
--- NOTE | 2024-10-29 14:57 | P.GSCN ---
History of Present Illness Consult date: 10/29/24 Reason for Consult: 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 Requesting physician: Imtiaz Baxter History of present illness: This is an 79-year-old gentleman who follows on an outpatient basis for his primary care with Dr. Iam Mendoza and follows with Dr. Satish Baxter for his cardiology care. The patient has a past medical history significant for hypertension, hard of hearing wearing bilateral hearing aids, prostate cancer with hormone therapy, osteoarthritis, is a lifetime non-smoker and obesity with a BMI of 36.3 kg/m. The patient reports over the past 6 months he has been having some soreness to the middle of his chest, denies any recent fever, chills, nausea, vomiting, diarrhea, constipation, palpitations, diaphoresis, presyncope, syncope, headache, or visual disturbances. The patient states when he is doing activity he gets this soreness to the middle of his chest, which is usually relieved by rest. He denies any episodes of chest soreness when resting. He also reports the pain did not radiate to his jaw, back, or to his arms. The patient states that the episodes of soreness to his chest have been present off and on for the past 6 months. He recently saw Dr. Baxter in the [facility] due to the episodes of chest pain, and he was started on [facility] medical management. The patient reports since he has been started on the medicines he has had no further episodes of chest soreness. While being evaluated by Dr. Baxter he was recommended to undergo an elective cardiac catheterization which was completed today. The cardiac catheterization revealed his left main coronary artery appears calcified with diffuse disease, divides into the left anterior descending coronary artery and circumflex coronary artery. It showed a 90% stenosis right at the origin of the LAD and a 90% stenosis involving the ostium of the circumflex coronary artery with significant distal left main di sease. The right coronary artery revealed mild to moderate diffuse disease involving the proximal and midportion with the PDA very distally showing a 60% stenosis. The patient also underwent a transthoracic 2D echocardiogram which demonstrated his left ventricular ejection fraction to be estimated at 60%, no obvious regional wall motion abnormalities, mild tricuspid valve regurgitation, trace pulmonic valve regurgitation, and no pericardial effusion. It also demonstrated a normal size aortic root and proximal ascending aorta. Subsequently, due to the findings on the cardiac catheterization a consult was placed to Dr. Manohar Reddy for further evaluation and treatment recommendations including myocardial vascularization surgery. Review of Systems A review of systems was completed and was negative except as mentioned in the HPI. Past Medical History Past Medical History: Cancer, Chest Pain / Angina, Hypertension, Osteoarthritis (OA), Prostate Disorder Additional Past Medical History / Comment(s): VARICOSE VEINS. ELEVATED PSA. prostate cancer History of Any Multi-Drug Resistant Organisms: None Reported Past Surgical History: Cholecystectomy, Hernia Repair, Joint Replacement, Orthopedic Surgery Additional Past Surgical History / Comment(s): RIGHT SHOULDER, UMBILICAL HERNIA & ABDOMINAL HERNIA REPAIR, RIGHT TOTAL KNEE. Additional Past Anesthesia/Blood Transfusion Reaction / Comm: STATES DIFFICULTY BREATHING AFTER SHOULDER SURGERY. Smoking Status: Never smoker Past Alcohol Use History: Rare Past Drug Use History: None Reported - Past Family History Mother Family Medical History: Respiratory Disorder (Pulmonary fibrosis) Father Family Medical History: Vascular Disorder Additional Family Medical History / Comment(s): Abdominal aortic aneurysm rupture Medications and Allergies Home Medications Medication Instructions Recorded Confirmed Type Ascorbic Acid [Vitamin C] 500 mg PO DAILY 01/02/17 10/29/24 History Cholecalciferol [Vitamin D3] 1,000 unit PO DAILY 01/02/17 10/29/24 History Multivitamins, Thera [Multivitamin 1 tab PO DAILY 01/02/17 10/29/24 History (formulary)] [place]-3 Fatty Acids [[place]-3] 1,000 mg PO DAILY 01/02/17 10/29/24 History Vitamin B-12 (Unknown Dose) 1 tab PO DAILY 01/02/17 10/29/24 History Aspirin 81 mg PO BID 10/27/24 10/29/24 History Benazepril HCl 40 mg PO DAILY 10/27/24 10/29/24 History Bicalutamide [Casodex] 50 mg PO DAILY 10/27/24 10/29/24 History Isosorbide Mononitrate ER [Imdur] 30 mg PO DAILY 10/27/24 10/29/24 History Metoprolol Succinate (ER) [Toprol 25 mg PO DAILY 10/27/24 10/29/24 History Xl] Nitroglycerin Sl Tabs [Nitrostat] 0.4 mg PO DIRECTED PRN 10/27/24 10/27/24 History Allergies Allergy/AdvReac Type Severity Reaction Status Date / Time No Known Allergies Allergy Verified 10/27/24 11:18 Surgical - Exam Vital Signs Temp Pulse Resp BP Pulse Ox 97.1 F L 84 16 142/70 97 10/29/24 06:49 10/29/24 06:49 10/29/24 06:49 10/29/24 06:49 10/29/24 06:49 - General well developed, well nourished, no distress, no pain, obese - Eyes PERRL, normal ocular movement, no pale, no icteric - ENT normal pinna, normal nares, normal mucosa, decreased hearing, dentures - Neck Neck is supple, no lymphadenopathy. no masses, no bruits, trachea midline, no venous distension - Respiratory Lung sounds essentially clear throughout. No wheezes, rhonchi or crackles. Respirations are symmetrical and nonlabored. - Cardiovascular Regular rhythm and rate. S1 and S2 present, negative for S3, gallop or murmur. - Abdomen Abdomen is soft, nontender and nondistended. Active bowel sounds present all 4 abdominal quadrants. No guarding or rigidity. No organomegaly appreciated. - Genitourinary Deferred - Rectum Deferred - Integumentary Skin is warm and dry. No clubbing or cyanosis is present. Hemosiderin staining staining to his lower extremities. no rash, no growths, no abnormal pigmentation - Neurologic No focal deficits. normal coordination, normal sensation - Musculoskeletal Moves all 4 extremities with equal strength bilateral. normal gait - Psychiatric oriented to time, oriented to person, oriented to place, speech is normal, memory intact Results - Labs 10/29/24 10:52 10/29/24 10:52 Abnormal Lab Results - Last 24 Hours (Table) 10/29/24 10/29/24 Range/Units 10:52 10:52 RBC 3.86 L (4.30-5.90) m/uL Hgb 12.3 L (13.0-17.5) gm/dL Hct 36.2 L (39.0-53.0) % Total Bilirubin 1.4 H (0.2-1.3) mg/dL Diabetes panel 10/29/24 Range/Units 10:52 Sodium 140 (137-145) mmol/L Potassium 4.1 (3.5-5.1) mmol/L Chloride 105 (98-107) mmol/L Carbon Dioxide 26 (22-30) mmol/L BUN 19 (9-20) mg/dL Creatinine 0.86 (0.66-1.25) mg/dL Glucose 95 (74-99) mg/dL Calcium 8.8 (8.4-10.2) mg/dL AST 32 (17-59) U/L ALT 15 (4-49) U/L Alkaline Phosphatase 69 (38-126) U/L Total Protein 6.8 (6.3-8.2) g/dL Albumin 4.0 (3.5-5.0) g/dL Thyroid panel 10/29/24 Range/Units 10:52 TSH 2.930 (0.465-4.680) mIU/L Calcium panel 10/29/24 Range/Units 10:52 Calcium 8.8 (8.4-10.2) mg/dL Albumin 4.0 (3.5-5.0) g/dL Pituitary panel 10/29/24 Range/Units 10:52 Sodium 140 (137-145) mmol/L Potassium 4.1 (3.5-5.1) mmol/L Chloride 105 (98-107) mmol/L Carbon Dioxide 26 (22-30) mmol/L BUN 19 (9-20) mg/dL Creatinine 0.86 (0.66-1.25) mg/dL Glucose 95 (74-99) mg/dL Calcium 8.8 (8.4-10.2) mg/dL TSH 2.930 (0.465-4.680) mIU/L Adrenal panel 10/29/24 Range/Units 10:52 Sodium 140 (137-145) mmol/L Potassium 4.1 (3.5-5.1) mmol/L Chloride 105 (98-107) mmol/L Carbon Dioxide 26 (22-30) mmol/L BUN 19 (9-20) mg/dL Creatinine 0.86 (0.66-1.25) mg/dL Glucose 95 (74-99) mg/dL Calcium 8.8 (8.4-10.2) mg/dL Total Bilirubin 1.4 H (0.2-1.3) mg/dL AST 32 (17-59) U/L ALT 15 (4-49) U/L Alkaline Phosphatase 69 (38-126) U/L Total Protein 6.8 (6.3-8.2) g/dL Albumin 4.0 (3.5-5.0) g/dL - Imaging Additional studies: Cardiac catheterization films reviewed by Dr. Manohar Reddy. Assessment and Plan Assessment: 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 Hypertension Prostate cancer history with current hormone therapy treatment Lifetime non-smoker Osteoarthritis Obesity with a BMI of 36.3 kg/m Hard of hearing Plan: The patient was seen and examined at his bedside in the extended stay unit in conjunction with Dr. Manohar Reddy. His chart and diagnostics were reviewed. Dr. Reddy met with the patient and his family members present at his bedside, Dr. Reddy discussed the findings on the cardiac catheterization with the patient and the family. Treatment options were discussed with the patient including myocardial revascularization surgery. Risks and benefits of surgery were discussed with the patient, and knowing and understanding the risks the patient would like to proceed with the surgical option. Preoperative testing and preoperative teaching have been initiated. Timing of surgery pending results of preoperative testing. Once his preoperative testing has been collected and obtained an STS risk or will be calculated and discussed with the patient. A clinical frailty score was calculated which equals 3. Once the patient is able to ambulate a 5 m walk test will be completed with the patient. Continue to maximize medical management with aspirin statin and beta-phillip. Medical management per internal medicine and cardiology for other comorbidities. More recommendations to follow based on patient's clinical course and once his preoperative testing has been completed. Thank you Dr. Baxter for this consult and we look forward to working with you in the care of this patient. I have personally seen and examined the patient, performed the documentation and the assessment and plan as written. Number of minutes spent on the visit: 30. LAURENCE Ruiz
--- NOTE | 2024-10-29 15:46 | XR ---
EXAMINATION TYPE: XR chest 2V DATE OF EXAM: 10/29/2024 3:42 PM COMPARISON: Chest radiographs from 04/10/2010, CT chest 10/29/2024 TECHNIQUE: XR chest 2V Frontal and lateral views of the chest. CLINICAL INDICATION:Male, 79 years old with history of PreOp Cardiac Surgery; FINDINGS: Lungs/Pleura: There is no evidence of pleural effusion, focal consolidation, or pneumothorax. Pulmonary vascularity: Unremarkable. Heart/mediastinum: Cardiomediastinal silhouette is unremarkable. Atherosclerotic calcifications are seen in the aorta. Musculoskeletal: Multiple level degenerative disc disease changes seen throughout the spine. IMPRESSION: No acute cardiopulmonary disease/process. [facility], , 10/29/2024 3:43 PM
[2024-10-29] MEDS: ENOXAPARIN 40 MG/0.4 ML SYRINGE SQ SCH (17:25)
[2024-10-29 17:41] LABS: Appearance,Urine Clear (Clear); Bilirubin,Urine Negative (Negative); Blood,Urine Negative (Negative); Color,Urine Yellow; Glucose,Urine (UA) Negative (Negative); Ketones,Urine Negative (Negative); Leukocyte Esterase,Urine Negative (Negative); Nitrite,Urine Negative (Negative); PH, Urine 5.5 (5.0-8.0); Protein,Urine Negative (Negative); Specific Gravity,Urine 1.033 (1.001-1.035); Urobilinogen,Urine <2.0 mg/dL (<2.0)
[2024-10-29 18:52] LABS: Chol/HDL Ratio 3.88 Ratio; LDL Cholesterol,Calculated 93.2 mg/dL (0.0-131.0)
[2024-10-29 19:06] LABS: Hepatitis A Antibody IgM Nonreactive (Nonreactive); Hepatitis B Core IgM Nonreactive (Nonreactive); Hepatitis B Surface Antigen Nonreactive (Nonreactive); Hepatitis C IgG Antibody Nonreactive (Nonreactive)
[2024-10-29] MEDS: ATORVASTATIN 80 MG TAB PO SCH (20:12)
[2024-10-29] MEDS: MUPIROCIN 2% OINT 22 GM TUBE NASAL SCH (20:40)
[2024-10-30 07:26] LABS: HCT 39.3 % (39.0-53.0); HGB 12.9 gm/dL (13.0-17.5); MCH 30.9 pg (25.0-35.0); MCHC 32.7 g/dL (31.0-37.0); MCV 94.5 fL (80.0-100.0); Mean Platelet Volume 7.2; Platelet Count 174 k/uL (150-450); RBC 4.15 m/uL (4.30-5.90); RDW 12.4 % (11.5-15.5); WBC 5.2 k/uL (3.8-10.6)
[2024-10-30 07:45] LABS: African American GFR (CKD) >90 (>60 ml/min/1.73 sqM); Anion Gap 7 mmol/L; Blood Urea Nitrogen 14 mg/dL (9-20); Calcium 9.1 mg/dL (8.4-10.2); Carbon Dioxide 27 mmol/L (22-30); Chloride 107 mmol/L (98-107); Glucose 110 mg/dL (74-99); Non-African American GFR(CKD) 82 (>60 ml/min/1.73 sqM); Potassium 4.5 mmol/L (3.5-5.1); Sodium 141 mmol/L (137-145)
[2024-10-30 08:35] VITALS: RESP 16; TEMP 98.1
[2024-10-30] MEDS: CYANOCOBALAMIN 500 MCG TAB PO SCH (08:35)
[2024-10-30] MEDS: METOPROLOL SUCCINATE (ER) 25 MG TAB.ER.24H PO SCH (08:35)
[2024-10-30] MEDS: ASPIRIN 81 MG PO SCH (08:35)
[2024-10-30] MEDS: ISOSORBIDE MONONITRATE ER 30 MG TAB.ER.24H PO SCH (08:35)
[2024-10-30] MEDS: MULTIVITAMINS, THERA 1 EACH TAB PO SCH (08:35)
[2024-10-30] MEDS: ASCORBIC ACID 500 MG TAB PO SCH (08:35)
[2024-10-30] MEDS: lisinopriL 20 MG TAB PO SCH (08:35)
[2024-10-30] MEDS: BICALUTAMIDE 50 MG TAB PO SCH (08:36)
[2024-10-30] MEDS ORDERED: CHOLECALCIFEROL 25 MCG (1000 IU) TABLET PO SCH (09:00)
--- NOTE | 2024-10-30 11:28 | P.PN ---
Subjective Progress Note Date: 10/30/24 Principal diagnosis: 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. Medical history significant for hypertension, hard of hearing wearing bilateral hearing aids, prostate cancer on hormone therapy, osteoarthritis, is a lifetime non-smoker and obesity with a BMI of 36.3 kg/m. The patient was seen and examined in follow-up today October 30, 2024 at his bedside on the third floor cardiac stepdown unit. He is currently sitting up to the bedside edge, is awake, alert, oriented x 3 and is in no acute apparent distress. He denies any episodes of chest pain, pain or shortness of breath. He reports he has been asymptomatic with any type of chest pain or chest pressure since he was started on medical management by Dr. Baxter. Dr. Brennan met with the patient this morning, treatment options were discussed with the patient including off-pump myocardial vascularization surgery. Risks and benefits of surgery were discussed with the patient by Dr. Brennan and knowing and understanding the risks the patient wishes to proceed with the surgical option. The patient reports he would like to go home to tie up some loose ends and come back for surgery on November 08, 2024. He will be scheduled for surgery on November 08, 2024, and is scheduled to undergo an off-pump myocardial revascularization surgery, with left internal mammary artery, endoscopic left radial artery harvest, possible endoscopic greater saphenous vein harvest, exclusion of left atrial appendage and intraoperative transesophageal echocardiogram to be completed by Dr. Iam Brennan. Remote telemetry is showing normal sinus rhythm heart rate 79 bpm. Oxygen saturations are 97% on room air and he is achieving 2500 mL on his incentive spirometry with encouragement. Bedside FEV1 was completed which showed 1.95 L which is 83% of predicted value. A 5 m walk test was completed with the patient yesterday October 29 by logistics operations manager, time 1: 4.26 seconds, time 2: 4.30 seconds and time 3: 4.56 seconds. The patient tolerated the 5 m walk test without any complaints of pain or shortness of breath. An STS risk or was completed and discussed with the patient and his present at his bedside. Preoperative testing has been completed, his carotid duplex study revealed a less than 50% stenosis to his right ICA and a greater than 70% stenosis to his left ICA. Objective - Vital Signs Vital signs: Vital Signs Temp 98.1 F 10/30/24 08:32 Pulse 74 10/30/24 08:32 Resp 16 10/30/24 08:32 BP 151/69 10/30/24 08:32 Pulse Ox 97 10/30/24 08:32 FiO2 Intake & Output 10/29/24 10/30/24 10/30/24 18:59 06:59 18:59 Intake Total 580 Output Total 200 Balance 380 Weight 113.6 kg Intake: IV 580 Output: Urine 200 Other: # Voids 3 - Exam CONSTITUTIONAL: Appears comfortable, cooperative, no acute distress RESPIRATORY: Lungs sounds clear bilaterally. Respirations symmetrical, nonlabored. Currently on room air with oxygen saturation 97%. Strong cough. Achieving 2500 mL on his incentive spirometry with encouragement. CARDIOVASCULAR: S1, S2 present. Regular rate and rhythm, sinus rhythm on telemetry. Palpable peripheral pulses bilaterally. 1+ edema present to his bilateral lower extremities. No calf pain or tenderness noted. GASTROINTESTINAL: Abdomen soft, nontender, nondistended. Active bowel sounds present 4 quadrants. Bowel movement this a.m. GENITOURINARY: Continues to void. INTEGUMENTARY: Skin is warm and dry. No clubbing or cyanosis present. Hemosiderin staining to his bilateral lower extremities. NEUROLOGIC: Cranial nerves II through XII intact; essential tremors present MUSKULOSKELETAL: Able to move all extremities, strength equal bilaterally, gait normal. PSYCHIATRIC: Alert and oriented to person place and time, appropriate affect, intact judgment and insight. - Allied health notes Allied health notes reviewed: nursing - Labs CBC & Chem 7: 10/30/24 07:01 10/30/24 07:01 Labs: Abnormal Lab Results - Last 24 Hours (Table) 10/29/24 10/29/24 10/30/24 Range/Units 10:52 10:52 07:01 RBC 3.86 L (4.30-5.90) m/uL Hgb 12.3 L (13.0-17.5) gm/dL Hct 36.2 L (39.0-53.0) % Glucose 110 H (74-99) mg/dL Total Bilirubin 1.4 H (0.2-1.3) mg/dL Triglycerides 165.00 H (0.00-149.00) mg/dL 10/30/24 Range/Units 07:01 RBC 4.15 L (4.30-5.90) m/uL Hgb 12.9 L (13.0-17.5) gm/dL Hct (39.0-53.0) % Glucose (74-99) mg/dL Total Bilirubin (0.2-1.3) mg/dL Triglycerides (0.00-149.00) mg/dL - Imaging and Cardiology Chest x-ray: report reviewed, image reviewed CT scan - chest: report reviewed, image reviewed Transthoracic 2D echocardiogram results reviewed. FEV1 results reviewed. Carotid duplex study results reviewed. 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 Iam Brennan, he will be scheduled for off-pump myocardial vascularization surgery with left internal mammary artery, endoscopic left radial artery harvest, possible endoscopic greater saphenous vein harvest, exclusion left atrial appendage and intraoperative transesophageal echocardiogram. STS risk or has been calculated and discussed with the patient and his family. Encourage use of incentive spirometry 10 times every hour while awake. Continue to maximize medical management with aspirin, statin, beta-phillip and Imdur. The patient is requesting to be discharged home as he has some things to take care of prior to surgery. A 5 m walk test was completed and documented by logistics operations manager. A clinical frailty score was calculated which equaled 3. An left Fernando's test was completed and was positive with return of circulation less than 8 seconds. Preoperative teaching has been completed with the patient and family members, preoperative cardiac surgery booklet given to the patient and reviewed. More recommendations to follow based on patient's clinical course. Time with Patient: Greater than 30
[2024-10-30 12:06] VITALS: BP 130/60; PULSE 78
[2024-10-30] MEDS: METOPROLOL SUCCINATE (ER) 25 MG TAB.ER.24H PO STA (12:06)
[2024-10-30] MEDS: ISOSORBIDE MONONITRATE ER 30 MG TAB.ER.24H PO STA (12:06)
[2024-10-30] MEDS: CHOLECALCIFEROL 25 MCG (1000 IU) TABLET PO SCH (12:06)
--- NOTE | 2024-10-30 13:04 | P.DS ---
Providers Attending physician: Imtiaz Baxter Consults: 10/29/24 08:02 Consult Physician Routine Consulting Provider: Manohar Reddy Consult Reason/Comments: triple vessel disease Do you want consulting provider notified?: Yes 10/29/24 10:34 Consult to Anesthesia Routine Consulting Provider: Anesthesia,Services Consult Reason/Comments: Cardiac Surgery Pre-Op 10/29/24 11:45 Consult Physician Routine Consulting Provider: Alonzo Branch Consult Reason/Comments: medical mangment, pt of Dr. Mendoza Do you want consulting provider notified?: Yes Primary care physician: [facility] Course: This is an 79-year-old male who underwent elective cardiac catheterization yesterday with Dr. Baxter revealing three-vessel coronary artery disease with distal left main ostial LAD and ostial circumflex coronary arteries. Patient stayed overnight and was evaluated by CT surgery. Plan is for patient to be discharged home today and return on 11/08/2024 for CABG. Echocardiogram completed revealing ejection fraction 60%, mild TR. Patient examined this morning. He is doing well. He denies chest pain or pressure. Denies shortness of breath. Vital signs are stable. Patient's Imdur was increased to 60 mg daily and his metoprolol succinate was increased to 50 mg daily. The patient was deemed stable for discharge home today from a cardiac standpoint. Please see EMR for further hospital course details. Discharge diagnosis Chest pain, status post cardiac catheterization revealing three-vessel coronary artery disease with distal left main ostial LAD and ostial circumflex coronary arteries Hypertension Hyperlipidemia Carotid stenosis, Doppler revealed 50% right ICA stenosis and greater than 70% left ICA stenosis History of prostate cancer Obesity: BMI 35.9 Hard of hearing Nurse practitioner note has been reviewed by physician. Signing provider agrees with the documented findings, assessment, and plan of care documented by MVA REACTOR OPERATOR as a scribe. Plan - Discharge Summary Discharge Rx Participant: No New Discharge Prescriptions: New Isosorbide Mononitrate ER [Imdur] 60 mg PO DAILY #30 tab Aspirin 81 mg PO DAILY #30 tab Atorvastatin [Lipitor] 80 mg PO HS #30 tab Metoprolol Succinate (ER) [Toprol XL] 50 mg PO DAILY #30 tab Continue Nitroglycerin Sl Tabs [Nitrostat] 0.4 mg PO DIRECTED PRN PRN Reason: Chest Pain Benazepril HCl 40 mg PO DAILY Discontinued Aspirin 81 mg PO BID Isosorbide Mononitrate ER [Imdur] 30 mg PO DAILY Metoprolol Succinate (ER) [Toprol Xl] 25 mg PO DAILY No Action Cholecalciferol [Vitamin D3] 1,000 unit PO DAILY Ascorbic Acid [Vitamin C] 500 mg PO DAILY Multivitamins, Thera [Multivitamin (formulary)] 1 tab PO DAILY Vitamin B-12 (Unknown Dose) 1 tab PO DAILY Rocky Comfort-3 Fatty Acids [Rocky Comfort-3] 1,000 mg PO DAILY Bicalutamide [Casodex] 50 mg PO DAILY Discharge Medication List Ascorbic Acid [Vitamin C] 500 mg PO DAILY 01/02/17 [History] Cholecalciferol [Vitamin D3] 1,000 unit PO DAILY 01/02/17 [History] Multivitamins, Thera [Multivitamin (formulary)] 1 tab PO DAILY 01/02/17 [History] Rocky Comfort-3 Fatty Acids [Rocky Comfort-3] 1,000 mg PO DAILY 01/02/17 [History] Vitamin B-12 (Unknown Dose) 1 tab PO DAILY 01/02/17 [History] Benazepril HCl 40 mg PO DAILY 10/27/24 [History] Bicalutamide [Casodex] 50 mg PO DAILY 10/27/24 [History] Nitroglycerin Sl Tabs [Nitrostat] 0.4 mg PO DIRECTED PRN 10/27/24 [History] Aspirin 81 mg PO DAILY #30 tab 10/30/24 [Rx] Atorvastatin [Lipitor] 80 mg PO HS #30 tab 10/30/24 [Rx] Isosorbide Mononitrate ER [Imdur] 60 mg PO DAILY #30 tab 10/30/24 [Rx] Metoprolol Succinate (ER) [Toprol XL] 50 mg PO DAILY #30 tab 10/30/24 [Rx] Follow up Appointment(s)/Referral(s): Imtiaz Baxter MD [STAFF PHYSICIAN] - 11/04/24 3:45 pm (FOLLOW UP APPOINTMENT MADE. ) Patient Instructions/Handouts: *Surgery [facility] - After Heart Catheterization - Screw Machine Setter Instructions, Moderate Sedation (DC), After Radial Heart Catheterization (GEN)
[2024-10-31] MEDS ORDERED: ISOSORBIDE MONONITRATE ER 60 MG TAB.ER.24H PO SCH (09:00)
[2024-10-31] MEDS ORDERED: METOPROLOL SUCCINATE (ER) 50 MG TAB.ER.24H PO SCH (09:00)
== END 2024-10-30 14:08 | disposition home or self-care (01) ==
LOC: CATHCVL 05:57 → 3SCARD 10:13 → CATHCVL 10-30 14:08
PROVIDERS: ATTEND Internal Medicine Cardiovascular Disease
DX: I25.110 Atherosclerotic heart disease of native coronary artery with unstable angina pectoris (principal); I65.23 Occlusion and stenosis of bilateral carotid arteries; I70.0 Atherosclerosis of aorta; I11.9 Hypertensive heart disease without heart failure; E78.5 Hyperlipidemia, unspecified; E66.9 Obesity, unspecified; M19.90 Unspecified osteoarthritis, unspecified site; Z85.46 Personal history of malignant neoplasm of prostate; Z90.49 Acquired absence of other specified parts of digestive tract; Z98.890 Other specified postprocedural states; Z79.899 Other long term (current) drug therapy
CPT/HCPCS: 94150; 93458; 80061; 80053; 80048; 80074; 84443; 83735; 85025; 85027; 85610; 85730; 81003; 87070; 83036; 71046; 93931; 93970; 93922; 93880; 71250; 99152; C8929; C1769; C1894; J2250; J1644 ×3; J2003; J1650 ×2; Q9957; Q9967; J3010; 93306

== ENCOUNTER → 2024-11-04 | Outpatient (CLI) | payer MEDICARE | END | disposition home or self-care (01) | LOC: LABWHC1 14:20 | PROVIDERS: ATTEND Thoracic Surgery (Cardiothoracic Vascular Surgery) | DX: Z53.9 Procedure and treatment not carried out, unspecified reason (principal) | CPT/HCPCS: 86850; 86900; 86901; 86920 ==

== ENCOUNTER 2024-11-08 05:37 | Inpatient (IN) | payer MEDICARE ==
[2024-11-08] MEDS: IV FLUID CONTINUATION 1,000 ML IV ONE (06:30)
[2024-11-08 06:31] LABS: Glucose,Whole Blood 101 mg/dL (70-110)
[2024-11-08] MEDS: LACTATED RINGERS 1,000 ML IV ONE (06:48)
[2024-11-08] MEDS ORDERED: POTASSIUM CHLORIDE OPEN HEART 20 MEQ/50 ML BAG IVPB ONE (07:44)
[2024-11-08] MEDS ORDERED: VECURONIUM 10 MG VIAL IV ONE (07:44)
[2024-11-08] MEDS ORDERED: PROTAMINE SULFATE 10 MG/ML 25 ML VIAL IV ONE (07:44)
[2024-11-08] MEDS ORDERED: PROPOFOL 10 MG/ML 20 ML VIAL IV ONE (07:44)
[2024-11-08] MEDS ORDERED: HEPARIN SODIUM,PORCINE 10,000 UNIT/ML 1 ML VIAL ONE (07:44)
[2024-11-08] MEDS ORDERED: fentaNYL (PF) 50 MCG/ML 50 ML VIAL ONE (07:44)
[2024-11-08] MEDS ORDERED: HEPARIN SODIUM,PORCINE 5,000 UNIT/ML 1 ML VIAL ONE (07:44)
[2024-11-08] MEDS ORDERED: ALBUMIN HUMAN 5% (25gm) 500 ML VIAL IVPB ONE (07:44)
[2024-11-08] MEDS ORDERED: ePHEDrine 50 MG/ML 1 ML VIAL ONE (07:44)
[2024-11-08] MEDS ORDERED: MIDAZOLAM HCL 10 MG/10 ML VIAL ONE (07:44)
[2024-11-08] MEDS: SODIUM CHLORIDE 0.9% 500 ML 500 ML with HEPARIN SODIUM,PORCINE (1 ML) 5,000 UNIT IV ONE (09:08)
[2024-11-08] MEDS: ceFAZolin 1,000 MG in SODIUM CHLORIDE 0.9% 1,000 ML IRRIGATION ONE (09:09)
[2024-11-08] MEDS: PAPAVERINE 360 MG in SODIUM CHLORIDE 0.9% 90 ML IV ONE (09:09)
[2024-11-08] MEDS: DILTIAZEM 125 MG in SODIUM CHLORIDE 0.9% 100 ML IV ONE (09:09)
[2024-11-08 09:23] LABS: Glucose,Whole Blood 114 mg/dL (70-110)
[2024-11-08 09:53] LABS: ABG Hematocrit 31 % (34.0-46.0); ABG Oxygen Saturation 98.5 % (94-97); ABG PH 7.39 (7.35-7.45); ABG PO2 124 mmHg (83-108); ABG Sodium Whole Blood 143 mmol/L (135-146); Allen Test Performed? Yes
--- NOTE | 2024-11-08 10:09 | P.ANPRN ---
Procedure Note - Anesthesia - Invasive Line Right Central Line Time Out Performed: Yes (0731) Date of Procedure: 11/08/24 Time of Procedure: 07:32 Location of Patient: Phase I Preparation: Sterile Prep, Sterile Dressing Arterial Line Location: Radial Central Line Location: Internal Jugular (right) Ultrasound Used: Yes Purpose - Visualization and Identification of Vasculature: Yes Needle Guage: 18g angio Narrative: Invasive line placement per sterile protocol utilized. Anesthesia note Procedure: Right internal jugular central venous catheter insertion: 8.5-Marshallese Cordis Sterile protocol followed. Right neck prepped. Ultrasound used. Lidocaine 1% used. Using ultrasound local anesthetic was instilled site over right Internal Jugular vein. Angiocath was used to gain access via ultrasound. Once free flow non-pulsatile blood flow was confirmed, 12 inch extension tubing was then placed on Angiocath. Once central venous pressure was confirmed, J-wire was then placed through Angiocath. Angiocath was then withdrawn. Local was instilled at J-wire site. Small skin paco was then made with provided sterile scalpel. 8.5- Marshallese Cordis was then inserted over the wire while maintaining control of wire at all times. Uneventful insertion with dilation. Free flow nonpulsatile blood flow through Cordis. Hooked up to IV tubing. Secured with suture. Dressings applied. Drapes Removed. Attempts x1.
--- NOTE | 2024-11-08 10:11 | P.ANPRN ---
Procedure Note - Anesthesia - Invasive Line Right Sharon Cecilia Time Out Performed: Yes (0731) Date of Procedure: 11/08/24 Time of Procedure: 07:41 Location of Patient: PreOp Preparation: Sterile Prep, Sterile Dressing Sharon Cecilia Line Location: Internal Jugular (Right) Ultrasound Used: No Purpose - Visualization and Identification of Vasculature: No Image Stored and Saved: No Narrative: Invasive line placement per sterile protocol utilized. Anesthesia note Procedure right Sharon-Cecilia catheter placed through right internal jugular central venous catheter Sterile protocol maintained from previous procedure. Sharon-Cecilia catheter sterilely placed in sheath and flushed prior to insertion. After advancing 15 cm Sharon-Cecilia catheter was then slowly inserted with balloon up. Advanced through CVP, RV to PA waveform. Sharon-Cecilia catheter wedged around 55cm. Balloon down. Catheter withdrawn 5 cm. . No wedge. Proximal and distal sites locked on sheath. Attempts x4. Sterile drapes removed and dressings applied. Patient tolerated procedure well
--- NOTE | 2024-11-08 10:12 | P.ANPRN ---
Procedure Note - Anesthesia - AYAZ Intraop Pre Bypass AYAZ Intraop - Anesthesia Indication: Coronary artery disease Date of Procedure: 11/08/24 Pre-operative Diagnosis: Coronary artery disease Post-operative Diagnosis: Same Surgeon: Iam Brennan Left Ventricle: wnl Ejection Fraction: Normal Regional Wall Motion Abnormalities: None Left Ventricle Hypertrophy: No R. Ventricle Function: Normal Anatomy: Trileaflet Aortic Stenosis: None Aortic Regurgitation: None Mitral Stenosis: None Mitral Regurgitation: None Tricuspid Stenosis: None Tricuspid Regurgitation: None Pulmonic Stenosis: None Pulmonic Regurgitation: None R. Atrial Dilation: No R. Atrial PFO: No L. Atrial Dilation: No Aortic Dissection: No Aortic Calcification: Mild Plural Effusion: None
[2024-11-08 10:26] LABS: Glucose,Whole Blood 122 mg/dL (70-110)
[2024-11-08 10:31] LABS: ABG Hematocrit 31 % (34.0-46.0); ABG Oxygen Saturation 98.4 % (94-97); ABG PH 7.36 (7.35-7.45); ABG PO2 147 mmHg (83-108); ABG Potassium Whole Blood 3.9 mmol/L (3.4-4.5); ABG Sodium Whole Blood 143 mmol/L (135-146); Allen Test Performed? Yes
[2024-11-08 11:28] LABS: ABG Hematocrit 29 % (34.0-46.0); ABG Oxygen Saturation 94.1 % (94-97); ABG PH 7.37 (7.35-7.45); ABG PO2 68 mmHg (83-108); ABG Potassium Whole Blood 3.8 mmol/L (3.4-4.5); ABG Sodium Whole Blood 142 mmol/L (135-146); Allen Test Performed? Yes
[2024-11-08 11:36] LABS: ABG Glucose Whole Blood 117 mg/dL (75-99); ABG HCO3 25 mmol/L (21-25); ABG PCO2 42 mmHg (35-45); ABG TCO2 24 mmol/L (19-24)
[2024-11-08 11:37] LABS: ABG Ionized Calcium 4.6 mg/dL (4.5-5.3)
[2024-11-08 11:38] LABS: ABG Base Excess -1.1 mmol/L; ABG Glucose Whole Blood 125 mg/dL (75-99); ABG HCO3 25 mmol/L (21-25); ABG Ionized Calcium 4.6 mg/dL (4.5-5.3); ABG PCO2 44 mmHg (35-45); ABG TCO2 23 mmol/L (19-24)
[2024-11-08 11:39] LABS: ABG HCO3 25 mmol/L (21-25); ABG PCO2 43 mmHg (35-45); ABG TCO2 24 mmol/L (19-24)
[2024-11-08 11:40] LABS: ABG Base Excess -0.4 mmol/L; ABG Glucose Whole Blood 123 mg/dL (75-99); ABG Ionized Calcium 4.9 mg/dL (4.5-5.3); ABG Lactic Acid Whole Blood 1.1 mmol/L (0.5-1.6)
[2024-11-08] MEDS ORDERED: ONDANSETRON 4 MG/2 ML VIAL IVP PRN (12:01)
[2024-11-08] MEDS ORDERED: DEXMEDETOMIDINE/0.9% NACL(PMX) 400 MCG in EMPTY BAG 1 BAG IV SCH (12:01)
[2024-11-08] MEDS ORDERED: Magnesium Replacement Protocol 1 EACH MISC MISCELLANE PRN (12:01)
[2024-11-08] MEDS ORDERED: Potassium Replacement Protocol 1 EACH MISC MISCELLANE PRN (12:01)
[2024-11-08] MEDS ORDERED: DEXTROSE 50% SYRINGE 50 ML IVP PRN ×2 (12:01)
[2024-11-08] MEDS ORDERED: METOCLOPRAMIDE 5 MG/ML 2 ML VIAL IVP PRN (12:01)
[2024-11-08] MEDS ORDERED: hydrALAZINE HCL 20 MG/ML 1 ML VIAL IVP PRN (12:01)
[2024-11-08] MEDS ORDERED: IPRATROPIUM-ALBUTEROL 3 ML NEB INHALATION PRN (12:01)
--- NOTE | 2024-11-08 12:15 | P.ANPRN ---
Procedure Note - Anesthesia - AYAZ Intraop Post Bypass AYAZ Intraop Post Bypass Procedure Performed: off pump cabg Left Ventricle: wnl Ejection Fraction: Normal Regional Wall Motion Abnormalities: None R. Ventricle Function: Normal Aortic Valve: Unchanged Mitral Valve: Unchanged Tricuspid: Unchanged Pulmonic: Unchanged Aortic Dissection: No
--- NOTE | 2024-11-08 12:38 | P.OP ---
Date of Procedure: 11/08/24 Preoperative Diagnosis: Coronary artery disease Postoperative Diagnosis: Same Procedure(s) Performed: Off-pump coronary artery bypass grafting x 3 with PIERSON to LAD, sequential radial artery graft to first and second obtuse marginal coronary arteries as T graft off PIERSON, left radial artery endovascular harvest, occlusion of the left atrial appendage with 35mm AtriCure clip. Implants: 35 mm AtriCure clip. Anesthesia: GETA Surgeon: Iam Brennan Senior Data Mining Analyst #1: Geoff Espinal Senior Data Mining Analyst #2: Torsten Dennis Estimated Blood Loss (ml): 200 IV fluids (ml): 1,800 Urine output (ml): 500 Pathology: none sent Condition: stable Disposition: ICU Indications for Procedure: 79-year-old male who presented with chest discomfort. He was on minimal medication. He was stabilized medically. Cardiac catheterization revealed distal left main, tight ostial LAD and circumflex disease with moderate disease of the right coronary artery system. Patient requested discharge home prior to surgery and this was felt to be medically appropriate. The patient was scheduled for surgery early the following week. Radial artery testing was good but the saphenous vein was extremely large. The patient has chronic venous stasis disease. Operative Findings: Arterial conduits were excellent. Coronary targets were good. Left ventricular function and valvular function were normal by AYAZ. Left atrial clip was placed with complete occlusion of the base of the left atrial appendage. Description of Procedure: Patient was brought to the operating room and placed supine on the operating table. General anesthesia was induced. Patient was intubated. AYAZ probe was placed. The anterior torso bilateral lower extremities and left upper extremity were sterilely prepped and draped in standard fashion. Left radial artery was harvested with endovascular technique and was an excellent conduit. On completion of the harvest the incision sites were closed and dressed and the arm was tucked at the side after completion of the mammary artery harvest. Simultaneous sternotomy was performed the left hemisternum retracted upwards and the left internal mammary artery harvested on a vascularized pedicle left intact on its origin from the subclavian and divided distally. It was an excellent conduit. Left pleural space was drained with a 32 Hebrew chest tube. Standard sternal retractor was placed. The pericardium was opened the midline of the heart was exposed with pericardial sutures. Patient was systemically hepa rinized and ACT's were maintained greater than 250 during grafting. We began by placing the left atrial appendage clip at the base of the left atrial appendage. A 35 mm AtriCure clip was used. Next the PIERSON was tunneled into the pericardial space. The end was prepared appropriately. The LAD was grafted in its midportion. Here it was a soft anterior vessel with some back wall disease and had a 2 mm lumen. Blood flow was controlled with a 2 mm flow-through. End-to-side anastomosis between the PIERSON and the LAD was performed with running 8-0 Prolene suture. On completion the anastomosis the flow through was removed effectively probing the proximal and distal portion of the anastomosis. Suture was tied with good resultant hemostasis. Inflow was opened. The TAMMI pedicle was tacked surrounding epicardium with 6-0 silk sutures. Next the inferior lateral wall of the heart was exposed. Second obtuse marginal was a large vessel just on the lateral inferior surface of the heart. The PDA was a small vessel which was diffusely diseased. We we stabilized and opened the posterior lateral branch of the circumflex (OM 2). He had a 1.75 mm lumen. Blood flow was controlled a 1.5 mm flow-through. End-to-side anastomosis between the radial artery and the OM 2 was performed with running 7-0 Prolene suture. On completion the anastomosis the flow through was removed effectively probing the proximal distal portion of the anastomosis. Suture was tied with good result and hemostasis. Good backbleeding was noted into the radial artery. There was no kinking. Next the stabilizer was moved to the first obtuse marginal coronary artery. Bulldog clamp was placed on the radial artery distally near the OM 2 anastomosis and it was opened longitudinally in an appropriate distance for a sequential graft to the OM1. The OM1 was opened longitudinally and blood flow controlled with a 1.5 mm flow-through was a good 1.75 mm vessel [id number] anastomosis between the radial artery and the OM1 was performed with running 7-0 Prolene suture. On completion the anastomosis the flow through was removed effectively probing the proximal distal portion of the anastomosis. Suture was tied with good result and hemostasis. Good backbleeding was noted into the radial artery. Bulldog clamp was removed from distally. The heart was lowered in anatomic position. The bulldog clamp was replaced proximally. The radial artery was a little short to reach the ascending aorta and it was decided to drop it off the PIERSON. It was cut to appropriate length. Bulldog clamps were placed proximally and distally on the PIERSON and it was opened longitudinally as it entered the pericardial space. Side to end anastomosis between the PIERSON and the left radial artery was performed with running 8-0 Prolene suture. On completion of the anastomosis it was de-aired by backbleeding from both the radial and the PIERSON and the suture was tied. The inflow was opened. The graft was noted to lay well with good hemostasis. Distal anastomoses were checked. Good hemostasis was present throughout. Heparin was reversed with protamine. Mediastinum was drained with a 36 Hebrew chest tube. Chest was irrigated with antibiotic solution. Sternum was closed with 8 sternal wires. Fascia was closed with 0 Ethibond. Subcutaneous and subcuticular layers were closed with layers of Vicryl suture. Patient was transferred to ICU in stable condition. He was on no inotropic support having received no blood transfusions.
[2024-11-08 12:51] LABS: Glucose,Whole Blood 122 mg/dL (70-110)
[2024-11-08] MEDS: IPRATROPIUM-ALBUTEROL 3 ML NEB INHALATION SCH ×2 (13:01→20:59)
[2024-11-08 13:10] LABS: Ionized Calcium 5.2 mg/dL (4.5-5.3)
[2024-11-08 13:14] LABS: INR 1.2 (<1.2); Partial Thromboplastin Time 23.4 sec (22.0-30.0); Prothrombin Time 12.8 sec (10.0-12.5)
--- NOTE | 2024-11-08 13:15 | XR ---
EXAMINATION TYPE: XR chest 1V portable DATE OF EXAM: 11/08/2024 1:08 PM COMPARISON: Chest radiographs from 10/29/2024 TECHNIQUE: XR chest 1V portable Portable AP radiograph of the chest. CLINICAL INDICATION:Male, 79 years old with history of Post Operative Cardiac Surgery; FINDINGS: Lungs/Pleura: Blunting of both costophrenic angles with pulmonary vascular congestion. Bibasilar atel ectasis. No sizable pneumothorax. Heart/mediastinum: Cardiomediastinal silhouette is enlarged. Postsurgical changes. Atherosclerotic ca lcifications are seen in the aorta. Left atrial appendage occlusion devices present. Musculoskeletal: No acute osseous pathology. Midline sternotomy wires. Other findings: None Lines/Tubes: Endotracheal tube with distal tip 2.1 cm above the dominga Nasogastric tube with its distal tip and side-port within the mid to distal esophagus. Left sided chest tube directed towards the lung apex. Right IJ Coinjock-Cecilia catheter with distal tip in the region of the main pulmonary artery. Inferior approach mediastinal drain is identified. IMPRESSION: 1. Post cardiac surgery change without evidence of pneumothorax. 2. Support lines and tubes as described above. NG tube needs to be advanced approximately 20 cm. 3. Small bilateral pleural effusions with pulmonary vascular congestion and associated atelectasis. [facility], , 11/08/2024 1:13 PM
[2024-11-08] MEDS: ACETAMINOPHEN IV (For NPO) 1,000 MG in EMPTY BAG 1 BAG IVPB SCH (13:17)
[2024-11-08] MEDS: NITROGLYCERIN-D5W PMX 50 MG in DEXTROSE/WATER 1 250ML.BAG IV SCH (13:19)
[2024-11-08] MEDS: SODIUM CHLORIDE 0.9% 1,000 ML IV SCH (13:19)
[2024-11-08] MEDS: ALBUMIN HUMAN 5% 250 ML in EMPTY BAG 1 BAG IVPB PRN (13:20)
[2024-11-08] MEDS: INSULIN REGULAR 100 UNIT in SODIUM CHLORIDE 0.9% 100 ML IV SCH (13:23)
[2024-11-08 13:32] LABS: ABG Base Excess -0.7 mmol/L; ABG HCO3 25 mmol/L (21-25); ABG Oxygen Saturation 99.9 % (94-97); ABG PCO2 43 mmHg (35-45); ABG PH 7.37 (7.35-7.45); ABG PO2 275 mmHg (83-108); ABG TCO2 26 mmol/L (19-24)
[2024-11-08 13:32] LABS: ALT 15 U/L (4-49); AST 30 U/L (17-59); African American GFR (CKD) >90 (>60 ml/min/1.73 sqM); Albumin 3.6 g/dL (3.5-5.0); Alkaline Phosphatase 49 U/L (38-126); Anion Gap 7 mmol/L; Blood Urea Nitrogen 19 mg/dL (9-20); Calcium 9.2 mg/dL (8.4-10.2); Carbon Dioxide 25 mmol/L (22-30); Chloride 107 mmol/L (98-107); Glucose 113 mg/dL (74-99); Magnesium 1.8 mg/dL (1.6-2.3); Non-African American GFR(CKD) 83 (>60 ml/min/1.73 sqM); Potassium 4.3 mmol/L (3.5-5.1); Sodium 139 mmol/L (137-145); Total Bilirubin 1.4 mg/dL (0.2-1.3); Total Protein 5.9 g/dL (6.3-8.2)
[2024-11-08 13:37] LABS: Glucose,Whole Blood 116 mg/dL (70-110)
[2024-11-08] MEDS: CLEVIDIPINE BUTYRATE 25 MG in EMPTY BAG 1 BAG IV PRN (13:45)
[2024-11-08 13:56] LABS: Basophils % (A) 0 %; Eosinophils # (A) 0.1 k/uL (0-0.7); Eosinophils % (A) 1 %; HCT 33.3 % (39.0-53.0); HGB 10.8 gm/dL (13.0-17.5); Lymphocytes # (A) 1.1 k/uL (1.0-4.8); Lymphocytes % (A) 11 %; MCH 30.9 pg (25.0-35.0); MCHC 32.5 g/dL (31.0-37.0); MCV 95.1 fL (80.0-100.0); Mean Platelet Volume 7.9; Monocytes # (A) 0.4 k/uL (0-1.0); Monocytes % (A) 4 %; Neutrophils # (A) 8.1 k/uL (1.3-7.7); Neutrophils % (A) 83 %; Platelet Count 115 k/uL (150-450); RBC 3.51 m/uL (4.30-5.90); WBC 9.7 k/uL (3.8-10.6)
[2024-11-08] MEDS: DEXTROSE 5% IN WATER 100 ML with AMIODARONE 150 MG IV PRN (14:12)
[2024-11-08 14:17] LABS: Glucose,Whole Blood 135 mg/dL (70-110)
[2024-11-08] MEDS: AMIODARONE 360 MG in DEXTROSE 5% IN WATER 200 ML IV PRN (14:22)
[2024-11-08 15:01] LABS: Glucose,Whole Blood 133 mg/dL (70-110)
--- NOTE | 2024-11-08 15:08 | P.CNPUL ---
History of Present Illness Consult date: 11/08/24 Requesting physician: Iam Brennan Reason for consult: other Chief complaint: ICU management. History of present illness: Pulmonary consult dated November 08, 2024. 79-year-old male status post three-vessel bypass surgery, done by Dr. Brennan today, off-pump. The patient is seen in the intensive care unit, room 267. The patient is currently on the ventilator, with settings of volume assist-control, rate 12, tidal volume 500, FiO2 100%, PEEP of 10. Initial blood gases show pO2 275, pCO2 33, pH is 7.37. The FiO2 was dropped from 100%, down to 50%. Currently, his cardiac output 6.4, index is 2.7. Pulmonary artery pressures 36/18 with a wedge pressure of 8. Currently, the patient is on propofol at 20 mcg/kg/min, 0.9 at 50 cc an hour, amiodarone at 1 mg/min, insulin at 1.5 units an hour, and nitroglycerin at 5 mcg/min. Current laboratory data includes a white count 9.7, hemoglobin 10.8, hematocrit 33.3, and a platelet count of 115,000. Sodium 139, potassium 4.3, chlorides 107, CO2 25, BUN 19, creatinine 0.82. Glucose is 133. Chest x-ray shows postsurgical changes, with appropriate support lines and endotracheal tube. Small bilateral pleural effusions are noted. Review of Systems REVIEW OF SYSTEMS: CONSTITUTIONAL: [Negative.] NEUROLOGIC: [ Negative.] HEENT: [ Negative.] CARDIAC: Chest pain. PULMONARY: [Negative.] GI: [Negative.] : [Negative.] RHEUMATOLOGIC: [ Negative.] IMMUNOLOGIC: [ Negative.] ENDOCRINE: [Negative. ] DERMATOLOGIC: [Negative.] Past Medical History Past Medical History: Cancer, Chest Pain / Angina, Hearing Disorder / Deafness, Hyperlipidemia, Hypertension, Osteoarthritis (OA), Prostate Disorder Additional Past Medical History / Comment(s): VARICOSE VEINS. hx. prostate cancer 6 yrs. ago-had tx., now PSA is elevated again-current hormone tx. for, ankle swelling History of Any Multi-Drug Resistant Organisms: None Reported Past Surgical History: Cholecystectomy, Heart Catheterization, Hernia Repair, Joint Replacement, Orthopedic Surgery Additional Past Surgical History / Comment(s): RIGHT SHOULDER, UMBILICAL HERNIA & ABDOMINAL HERNIA REPAIR, RIGHT TOTAL KNEE. recent cardiac cath. Past Anesthesia/Blood Transfusion Reactions: Previous Problems w/ Anesthesia Additional Past Anesthesia/Blood Transfusion Reaction / Comment(s): STATES DIFFICULTY BREATHING AFTER SHOULDER SURGERY-not sure why, other surgeries after had no problems Smoking Status: Never smoker - Past Family History Mother Family Medical History: Respiratory Disorder Father Family Medical History: Vascular Disorder Additional Family Medical History / Comment(s): Abdominal aortic aneurysm rupture Medications and Allergies Home Medications Medication Instructions Recorded Confirmed Type Cholecalciferol [Vitamin D3 (25 5,000 unit PO DAILY 01/02/17 11/08/24 History Mcg = 1000 Iu)] Multivitamins, Thera [Multivitamin 1 tab PO DAILY 01/02/17 11/08/24 History (formulary)] Benazepril HCl 40 mg PO DAILY 10/27/24 11/08/24 History Bicalutamide [Casodex] 50 mg PO DAILY 10/27/24 11/08/24 History Nitroglycerin Sl Tabs [Nitrostat] 0.4 mg PO DIRECTED PRN 10/27/24 11/08/24 History Aspirin 81 mg PO DAILY #30 tab 10/30/24 11/08/24 Rx Atorvastatin [Lipitor] 80 mg PO HS #30 tab 10/30/24 11/08/24 Rx Isosorbide Mononitrate ER [Imdur] 60 mg PO DAILY #30 tab 10/30/24 11/08/24 Rx Metoprolol Succinate (ER) [Toprol 50 mg PO DAILY #30 tab 10/30/24 11/08/24 Rx XL] Cider Vinegar [Apple Cider Vinegar] 450 mg PO DAILY 11/04/24 11/08/24 History Flaxseed Oil 1,000 mg PO DAILY 11/04/24 11/08/24 History L.acidoph,Paracasei, B.lactis 1 each PO DAILY 11/04/24 11/08/24 History [Probiotic] Magnesium Citrate and Oxide 400 mg PO DAILY 11/04/24 11/08/24 History [Magnesium] Potassium Citrate 99 mg PO DAILY 11/04/24 11/08/24 History Turmeric Root Extract [Turmeric] 1,500 mg PO DAILY 11/04/24 11/08/24 History Vitamin B Complex 1 each PO DAILY 11/04/24 11/08/24 History Allergies Allergy/AdvReac Type Severity Reaction Status Date / Time No Known Allergies Allergy Verified 11/08/24 05:58 Physical Exam Osteopathic Statement: *. No significant issues noted on an osteopathic structural exam other than those noted in the History and Physical/Consult. Vitals: Vital Signs Temp Pulse Pulse Resp BP Pulse Ox FiO2 11/08/24 14:43 50 11/08/24 14:00 96.8 F L 69 54 H 100 11/08/24 13:45 71 68 H 100 11/08/24 13:35 60 11/08/24 13:30 66 54 H 100 11/08/24 13:27 62 12 11/08/24 13:15 58 L 48 H 100 11/08/24 13:01 57 L 12 11/08/24 13:00 95.4 F L 60 16 100 100 11/08/24 12:55 100 11/08/24 12:40 100 11/08/24 06:00 97.3 F L 73 16 171/75 98 Intake and Output 11/08/24 11/08/24 11/08/24 06:59 14:59 22:59 Intake Total 413.333 Output Total 1215 Balance -801.667 Intake: IV 412 Albumin Human 5% 250 ml 250 In Empty Bag 1 bag @ 250 mls/hr IVPB Q1HR PRN Rx#: [id number] CO/CI 40 Lines 18 Sodium Chloride 0.9% 1, 100 000 ml @ 50 mls/hr IV . Q20H [facility] Rx#:[id number] Intake, IV Titration 1.333 Amount Clevidipine Butyrate 25 0.9 mg In Empty Bag 1 bag @ 1 MG/HR 2 mls/hr IV .Q24H PRN Rx#:[id number] Insulin Regular 100 unit 0.433 In Sodium Chloride 0.9% 100 ml @ Per Protocol IV .Q0M [facility] Rx#:[id number] Output: Chest Tube Drainage 300 Left Pleural 180 Mediastinal 120 Urine 615 Estimated Blood Loss 300 Other: Voiding Method Indwelling Catheter Weight 116.4 kg ABP, PAP, CO, CI - Last 8 Hours Arterial Blood Pressure 160/60 Arterial Blood Pressure 157/58 Arterial Blood Pressure 125/48 Arterial Blood Pressure 116/48 Arterial Blood Pressure 118/51 Pulmonary Artery Pressure 36/18 Pulmonary Artery Pressure 31/16 Pulmonary Artery Pressure 26/13 Pulmonary Artery Pressure 29/15 Cardiac Output 6.4 Cardiac Output 6.5 Cardiac Output 5.2 Cardiac Index 2.7 Cardiac Index 2.8 Cardiac Index 2.2 No acute distress, sedated, with an orally placed endotracheal tube. HEENT examination is grossly unremarkable. Mucous membranes are moist. No oral lesions. Neck supple. Full range of motion. No adenopathy thyromegaly or neck vein distention. Cardiovascular examination reveals regular rhythm rate. S1-S2 normal. No S3 or S4. No discernible murmur noted. Lungs reveal clear breath sounds. Breath sounds are equal bilaterally. No adv entitious lung sounds including wheezes rhonchi or crackles. Abdomen soft without bowel sounds. No masses. Extremities are intact. No cyanosis clubbing or edema. Skin is without rash or lesion. Neurologic examination cannot be evaluated at this time. Results - Laboratory Findings CBC and BMP: 11/08/24 12:50 11/08/24 12:50 ABG ABG pH 7.37 (7.35-7.45) 11/08/24 13:30 ABG pCO2 43 mmHg (35-45) 11/08/24 13:30 ABG pO2 275 mmHg (83-108) H 11/08/24 13:30 ABG O2 Saturation 99.9 % (94-97) H 11/08/24 13:30 PT/INR, D-dimer PT 12.8 sec (10.0-12.5) H 11/08/24 12:50 INR 1.2 (<1.2) H 11/08/24 12:50 Abnormal lab findings: Abnormal Labs 11/04/24 11/08/24 11/08/24 14:41 09:22 09:56 RBC Hgb Hct Plt Count Neutrophils # PT INR ABG pO2 124 H ABG Total CO2 ABG O2 Saturation 98.5 H ABG Hematocrit 31 L ABG Glucose 117 H Hemoglobin 10.2 L Glucose POC Glucose (mg/dL) 114 H Total Bilirubin Total Protein Arterial Blood Glucose 117 H Crossmatch See Detail 11/08/24 11/08/24 11/08/24 10:25 10:33 12:49 RBC Hgb Hct Plt Count Neutrophils # PT INR ABG pO2 147 H ABG Total CO2 ABG O2 Saturation 98.4 H ABG Hematocrit 31 L ABG Glucose 125 H Hemoglobin 10.1 L Glucose POC Glucose (mg/dL) 122 H 122 H Total Bilirubin Total Protein Arterial Blood Glucose 125 H Crossmatch 11/08/24 11/08/24 11/08/24 12:50 12:50 12:50 RBC 3.51 L Hgb 10.8 L Hct 33.3 L Plt Count 115 L Neutrophils # 8.1 H PT 12.8 H INR 1.2 H ABG pO2 ABG Total CO2 ABG O2 Saturation ABG Hematocrit ABG Glucose Hemoglobin Glucose 113 H POC Glucose (mg/dL) Total Bilirubin 1.4 H Total Protein 5.9 L Arterial Blood Glucose Crossmatch 11/08/24 11/08/24 11/08/24 13:30 13:35 14:15 RBC Hgb Hct Plt Count Neutrophils # PT INR ABG pO2 275 H ABG Total CO2 26 H ABG O2 Saturation 99.9 H ABG Hematocrit ABG Glucose Hemoglobin 10.6 L Glucose POC Glucose (mg/dL) 116 H 135 H Total Bilirubin Total Protein Arterial Blood Glucose Crossmatch - Diagnostic Findings Chest x-ray: image reviewed Assessment and Plan Assessment: Postoperative day # 0, S/P off-pump three-vessel bypass surgery, for coronary artery disease, in a patient with chest pain. Routine postoperative ventilator management. History of hypertension. History of osteoarthritis. History of prostate cancer. Lifelong non-smoker. Plan: Plan dated November 08, 2024. The patient is seen today in room 267. The patient's initial blood gases are excellent, and the FiO2 was, 100%, down to 50%. Labs, x-rays, and medications are reviewed. The patient is currently on propofol for sedation, amiodarone, for A-fib/flutter, insulin, for elevated blood glucose, and nitroglycerin. The patient is also on saline at 50 cc an hour. The patient was on Cleviprex for an elevated blood pressure, but that has been turned off. Cardiac output 6.4. In dex is 2.7. We will continue to follow make recommendations. All labs, x-rays, and medications are reviewed. Dictation was produced using [employer] software. Please excuse any grammatical, word or spelling errors. Time with Patient: Greater than 30
[2024-11-08 15:54] LABS: Glucose,Whole Blood 136 mg/dL (70-110)
[2024-11-08 16:03] LABS: Basophils % (A) 0 %; Eosinophils # (A) 0.1 k/uL (0-0.7); Eosinophils % (A) 1 %; HCT 33.2 % (39.0-53.0); Lymphocytes # (A) 1.3 k/uL (1.0-4.8); Lymphocytes % (A) 13 %; MCH 31.7 pg (25.0-35.0); MCHC 33.2 g/dL (31.0-37.0); MCV 95.4 fL (80.0-100.0); Mean Platelet Volume 8.8; Monocytes # (A) 0.5 k/uL (0-1.0); Monocytes % (A) 5 %; Neutrophils % (A) 80 %; Platelet Count 136 k/uL (150-450); RBC 3.48 m/uL (4.30-5.90); RDW 12.6 % (11.5-15.5)
[2024-11-08] MEDS: HEPARIN SODIUM,PORCINE 5,000 UNIT/ML 1 ML VIAL SQ SCH (16:17)
[2024-11-08] MEDS: MAGNESIUM SULFATE-D5W PMX 1 GM in DEXTROSE/WATER 1 100ML.BAG IVPB ONE (16:18)
[2024-11-08 16:42] LABS: ABG Base Excess -1.9 mmol/L; ABG HCO3 24 mmol/L (21-25); ABG Oxygen Saturation 94.5 % (94-97); ABG PCO2 45 mmHg (35-45); ABG PH 7.34 (7.35-7.45); ABG PO2 75 mmHg (83-108); ABG TCO2 26 mmol/L (19-24)
[2024-11-08 17:07] LABS: Glucose,Whole Blood 170 mg/dL (70-110)
[2024-11-08 18:01] LABS: Glucose,Whole Blood 161 mg/dL (70-110)
[2024-11-08 18:52] LABS: Glucose,Whole Blood 152 mg/dL (70-110)
[2024-11-08 19:04] LABS: Basophils % (A) 0 %; Eosinophils % (A) 0 %; HCT 34.1 % (39.0-53.0); HGB 11.3 gm/dL (13.0-17.5); Lymphocytes # (A) 0.5 k/uL (1.0-4.8); Lymphocytes % (A) 6 %; MCH 31.2 pg (25.0-35.0); MCHC 33.1 g/dL (31.0-37.0); MCV 94.1 fL (80.0-100.0); Mean Platelet Volume 9.2; Monocytes # (A) 0.4 k/uL (0-1.0); Monocytes % (A) 4 %; Neutrophils # (A) 7.4 k/uL (1.3-7.7); Neutrophils % (A) 89 %; Platelet Count 122 k/uL (150-450); RBC 3.63 m/uL (4.30-5.90); RDW 13.2 % (11.5-15.5); WBC 8.3 k/uL (3.8-10.6)
[2024-11-08 20:17] LABS: Glucose,Whole Blood 122 mg/dL (70-110)
[2024-11-08] MEDS: SENNOSIDES-DOCUSATE SODIUM 1 EACH TAB PO SCH (20:24)
[2024-11-08] MEDS: BENZOCAINE/MENTHOL LOZENG 1 EACH LOZENGE MUCOUS MEM PRN (20:25)
[2024-11-08] MEDS: AMIODARONE 450 MG in DEXTROSE 5% IN WATER 250 ML IV PRN (20:32)
[2024-11-08 21:18] LABS: Glucose,Whole Blood 112 mg/dL (70-110)
[2024-11-08 22:11] LABS: Glucose,Whole Blood 124 mg/dL (70-110)
[2024-11-08 23:16] LABS: Glucose,Whole Blood 131 mg/dL (70-110)
[2024-11-09 00:20] LABS: Glucose,Whole Blood 142 mg/dL (70-110)
[2024-11-09 01:10] LABS: Glucose,Whole Blood 142 mg/dL (70-110)
[2024-11-09 02:09] LABS: Glucose,Whole Blood 119 mg/dL (70-110)
[2024-11-09 02:58] LABS: Glucose,Whole Blood 110 mg/dL (70-110)
[2024-11-09 04:03] LABS: Glucose,Whole Blood 126 mg/dL (70-110)
[2024-11-09 04:36] LABS: Basophils % (A) 0 %; Eosinophils % (A) 0 %; HCT 34.2 % (39.0-53.0); HGB 11.3 gm/dL (13.0-17.5); Lymphocytes # (A) 0.9 k/uL (1.0-4.8); Lymphocytes % (A) 11 %; MCH 31.3 pg (25.0-35.0); MCV 94.7 fL (80.0-100.0); Mean Platelet Volume 8.1; Monocytes # (A) 0.6 k/uL (0-1.0); Monocytes % (A) 7 %; Neutrophils # (A) 6.6 k/uL (1.3-7.7); Neutrophils % (A) 80 %; Platelet Count 139 k/uL (150-450); RBC 3.61 m/uL (4.30-5.90); RDW 13.1 % (11.5-15.5); WBC 8.2 k/uL (3.8-10.6)
[2024-11-09 04:41] LABS: Ionized Calcium 4.7 mg/dL (4.5-5.3)
[2024-11-09 04:51] LABS: ALT 14 U/L (4-49); AST 43 U/L (17-59); African American GFR (CKD) >90 (>60 ml/min/1.73 sqM); Albumin 3.6 g/dL (3.5-5.0); Alkaline Phosphatase 51 U/L (38-126); Anion Gap 7 mmol/L; Blood Urea Nitrogen 17 mg/dL (9-20); Calcium 8.7 mg/dL (8.4-10.2); Carbon Dioxide 23 mmol/L (22-30); Chloride 104 mmol/L (98-107); Glucose 125 mg/dL (74-99); Magnesium 1.9 mg/dL (1.6-2.3); Non-African American GFR(CKD) 83 (>60 ml/min/1.73 sqM); Potassium 4.3 mmol/L (3.5-5.1); Sodium 134 mmol/L (137-145); Total Bilirubin 1.7 mg/dL (0.2-1.3); Total Protein 5.9 g/dL (6.3-8.2)
[2024-11-09] MEDS ORDERED: Magnesium Replacement Protocol 1 EACH MISC MISCELLANE PRN (05:11)
[2024-11-09] MEDS: MAGNESIUM SULFATE-D5W PMX 1 GM in DEXTROSE/WATER 1 100ML.BAG IVPB ONE (06:19)
[2024-11-09 06:54] LABS: Glucose,Whole Blood 144 mg/dL (70-110)
[2024-11-09] MEDS: KETOROLAC 15 MG/ML 1 ML VIAL IVP SCH (07:15)
--- NOTE | 2024-11-09 07:54 | P.PN ---
Subjective Progress Note Date: 11/09/24 Principal diagnosis: 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, unstable angina. History of hypertension, left internal carotid artery stenosis, mild peripheral arterial disease, prostate cancer with hormone therapy treatment, osteoarthritis, obesity, extremely hard of hearing, and lifelong non-smoker POD #1 off-pump coronary artery bypass grafting x 3 with PIERSON to LAD, sequential radial artery graft to first and second obtuse marginal coronary arteries as T graft off PIERSON, left radial artery endovascular harvest, occlusion of the left atrial appendage with 35mm AtriCure clip Postoperative acute blood loss anemia and thrombocytopenia, expected given he modilution Brief paroxysmal atrial fibrillation after surgery, somewhat expected as it is a known common occurrence after open heart surgery The patient was seen and examined this morning sitting up in recliner in the intensive care unit in no acute distress. He was successfully extubated last [facility] [place] at 1655. Remains in sinus rhythm, hemodynamically stable, currently on 2 L nasal cannula with oxygen saturation in the mid 90s. States pain is mostly controlled on current medication regimen, only achieving 500 mL on his incentive spirometry, very weak cough without great effort. Right internal jugular [place]/Cordis, right radial arterial line, mediastinal/left pleural chest tubes all remain. IV amiodarone infusing for A-fib prophylaxis. Objective - Vital Signs Vital signs: Vital Signs Temp 100.8 F H 11/09/24 00:00 Pulse 82 11/09/24 07:00 Resp 20 11/09/24 07:00 BP 102/48 11/09/24 06:00 Pulse Ox 94 L 11/09/24 07:00 FiO2 50 11/08/24 17:00 Intake & Output 11/08/24 11/09/24 11/09/24 18:59 06:59 18:59 Intake Total 8470.530 8249.941 Output Total 1865 1220 Balance -745.146 -117.059 Weight 114.8 kg Intake: IV 1057 758 ACETAMINOPHEN IV (For NPO 100 ) 1,000 mg In Empty Bag 1 bag @ 400 mls/hr IVPB Q6HR [facility] Rx#:[id number] Albumin Human 5% 250 ml 250 In Empty Bag 1 bag @ 250 mls/hr IVPB Q1HR PRN Rx#: [id number] CO/CI 140 100 Lines 63 108 Magnesium Sulfate-D5w Pmx 100 1 gm In Dextrose/Water 1 100ml.bag @ 100 mls/hr IVPB ONCE ONE Rx#: [id number] Sodium Chloride 0.9% 1, 350 550 000 ml @ 30 mls/hr IV . Q24H [facility] Rx#:[id number] ceFAZolin 2 gm In Sodium 50 Chloride 0.9% 50 ml @ 100 mls/hr IVPB Q8HR [facility] Rx# :[id number] Intake, IV Titration 62.854 44.941 Amount Clevidipine Butyrate 25 21.567 13.717 mg In Empty Bag 1 bag @ 1 MG/HR 2 mls/hr IV .Q24H PRN Rx#:[id number] Insulin Regular 100 unit 10.383 31.224 In Sodium Chloride 0.9% 100 ml @ Per Protocol IV .Q0M [facility] Rx#:[id number] propofoL 1,000 mg In 30.904 Empty Bag 1 bag @ Titrate IV .Q0M [facility] Rx#: [id number] Oral 50 Albumin 250 Albumin Human 5% 250 ml 250 In Empty Bag 1 bag @ 250 mls/hr IVPB Q1HR PRN Rx#: [id number] Output: Chest Tube Drainage 590 530 Left Pleural 300 250 Mediastinal 290 280 Urine 975 690 Estimated Blood Loss 300 Other: Voiding Method Indwelling Catheter Indwelling Catheter ABP, PAP, CO, CI - Last Documented Arterial Blood Pressure 115/41 Pulmonary Artery Pressure 27/14 Cardiac Output 5.5 Cardiac Index 2.4 - Exam CONSTITUTIONAL: Appears mostly comfortable, cooperative, no acute distress RESPIRATORY: Lungs sounds diminished bilaterally, left greater than right. Respirations even, nonlabored. Currently on 2 L nasal cannula with oxygen saturation 94%. Able to achieve 500 mL on incentive spirometry. Weak cough. CARDIOVASCULAR: S1, S2 present. Regular rate and rhythm, sinus rhythm on telemetry. Sternum stable. Palpable peripheral pulses bilaterally. Trace bilateral lower extremity edema present. No calf pain or tenderness noted. Heart hugger in place with patient demonstrating appropriate use. Antiembolism stockings, SCDs present. GASTROINTESTINAL: Abdomen soft, nontender, nondistended. Hypoactive bowel sounds present 4 quadrants. Tolerating clear liquids. Denies flatus GENITOURINARY: Jaquez present draining clear, yellow urine. Output overnight 40-75 mL per hour INTEGUMENTARY: Skin is warm and dry with evidence of good perfusion. Anterior chest incision well approximated and covered with dry intact dressing. Left radial artery harvest site well approximated without redness or drainage. NEUROLOGIC: Cranial nerves II through XII intact MUSKULOSKELETAL: Able to move all extremities, strength equal bilaterally PSYCHIATRIC: Alert and oriented to person place and time, appropriate affect, intact judgment and insight INVASIVE LINES AND TUBES: Mediastinal/left pleural chest tubes present and connected to wall suction, no air leaks present. Mediastinal tube with 150 mL serosanguineous drainage overnight, 550 mL since surgery. Left pleural chest tube with 200 mL serosanguineous drainage overnight, 570 mL since surgery. R ight internal jugular [place]/Cordis, right radial arterial line present. Last CO/CI 5.5/2.4, PA 02/06, CVP 5. - Allied health notes Allied health notes reviewed: nursing - Labs CBC & Chem 7: 11/09/24 04:10 11/09/24 04:10 Labs: Abnormal Lab Results - Last 24 Hours (Table) 11/04/24 11/08/24 11/08/24 Range/Units 14:41 09:22 09:56 RBC (4.30-5.90) m/uL Hgb (13.0-17.5) gm/dL Hct (39.0-53.0) % Plt Count (150-450) k/uL Neutrophils # (1.3-7.7) k/uL Lymphocytes # (1.0-4.8) k/uL PT (10.0-12.5) sec INR (<1.2) ABG pH (7.35-7.45) ABG pO2 124 H (83-108) mmHg ABG Total CO2 (19-24) mmol/L ABG O2 Saturation 98.5 H (94-97) % ABG Hematocrit 31 L (34.0-46.0) % ABG Glucose 117 H (75-99) mg/dL Hemoglobin 10.2 L (13.0-17.5) gm/dL Sodium (137-145) mmol/L Glucose (74-99) mg/dL POC Glucose (mg/dL) 114 H (70-110) mg/dL Total Bilirubin (0.2-1.3) mg/dL Total Protein (6.3-8.2) g/dL Arterial Blood Glucose 117 H (75-99) mg/dL Crossmatch See Detail 11/08/24 11/08/24 11/08/24 Range/Units 10:25 10:33 11:30 RBC (4.30-5.90) m/uL Hgb (13.0-17.5) gm/dL Hct (39.0-53.0) % Plt Count (150-450) k/uL Neutrophils # (1.3-7.7) k/uL Lymphocytes # (1.0-4.8) k/uL PT (10.0-12.5) sec INR (<1.2) ABG pH (7.35-7.45) ABG pO2 147 H 68 L (83-108) mmHg ABG Total CO2 (19-24) mmol/L ABG O2 Saturation 98.4 H (94-97) % ABG Hematocrit 31 L 29 L (34.0-46.0) % ABG Glucose 125 H 123 H (75-99) mg/dL Hemoglobin 10.1 L 9.6 L (13.0-17.5) gm/dL Sodium (137-145) mmol/L Glucose (74-99) mg/dL POC Glucose (mg/dL) 122 H (70-110) mg/dL Total Bilirubin (0.2-1.3) mg/dL Total Protein (6.3-8.2) g/dL Arterial Blood Glucose 125 H 123 H (75-99) mg/dL Crossmatch 11/08/24 11/08/24 11/08/24 Range/Units 12:49 12:50 12:50 RBC 3.51 L (4.30-5.90) m/uL Hgb 10.8 L (13.0-17.5) gm/dL Hct 33.3 L (39.0-53.0) % Plt Count 115 L (150-450) k/uL Neutrophils # 8.1 H (1.3-7.7) k/uL Lymphocytes # (1.0-4.8) k/uL PT 12.8 H (10.0-12.5) sec INR 1.2 H (<1.2) ABG pH (7.35-7.45) ABG pO2 (83-108) mmHg ABG Total CO2 (19-24) mmol/L ABG O2 Saturation (94-97) % ABG Hematocrit (34.0-46.0) % ABG Glucose (75-99) mg/dL Hemoglobin (13.0-17.5) gm/dL Sodium (137-145) mmol/L Glucose (74-99) mg/dL POC Glucose (mg/dL) 122 H (70-110) mg/dL Total Bilirubin (0.2-1.3) mg/dL Total Protein (6.3-8.2) g/dL Arterial Blood Glucose (75-99) mg/dL Crossmatch 11/08/24 11/08/24 11/08/24 Range/Units 12:50 13:30 13:35 RBC (4.30-5.90) m/uL Hgb (13.0-17.5) gm/dL Hct (39.0-53.0) % Plt Count (150-450) k/uL Neutrophils # (1.3-7.7) k/uL Lymphocytes # (1.0-4.8) k/uL PT (10.0-12.5) sec INR (<1.2) ABG pH (7.35-7.45) ABG pO2 275 H (83-108) mmHg ABG Total CO2 26 H (19-24) mmol/L ABG O2 Saturation 99.9 H (94-97) % ABG Hematocrit (34.0-46.0) % ABG Glucose (75-99) mg/dL Hemoglobin 10.6 L (13.0-17.5) gm/dL Sodium (137-145) mmol/L Glucose 113 H (74-99) mg/dL POC Glucose (mg/dL) 116 H (70-110) mg/dL Total Bilirubin 1.4 H (0.2-1.3) mg/dL Total Protein 5.9 L (6.3-8.2) g/dL Arterial Blood Glucose (75-99) mg/dL Crossmatch 11/08/24 11/08/24 11/08/24 Range/Units 14:15 14:59 15:53 RBC 3.48 L (4.30-5.90) m/uL Hgb 11.0 L (13.0-17.5) gm/dL Hct 33.2 L (39.0-53.0) % Plt Count 136 L (150-450) k/uL Neutrophils # 8.0 H (1.3-7.7) k/uL Lymphocytes # (1.0-4.8) k/uL PT (10.0-12.5) sec INR (<1.2) ABG pH (7.35-7.45) ABG pO2 (83-108) mmHg ABG Total CO2 (19-24) mmol/L ABG O2 Saturation (94-97) % ABG Hematocrit (34.0-46.0) % ABG Glucose (75-99) mg/dL Hemoglobin (13.0-17.5) gm/dL Sodium (137-145) mmol/L Glucose (74-99) mg/dL POC Glucose (mg/dL) 135 H 133 H (70-110) mg/dL Total Bilirubin (0.2-1.3) mg/dL Total Protein (6.3-8.2) g/dL Arterial Blood Glucose (75-99) mg/dL Crossmatch 11/08/24 11/08/24 11/08/24 Range/Units 15:53 16:38 17:06 RBC (4.30-5.90) m/uL Hgb (13.0-17.5) gm/dL Hct (39.0-53.0) % Plt Count (150-450) k/uL Neutrophils # (1.3-7.7) k/uL Lymphocytes # (1.0-4.8) k/uL PT (10.0-12.5) sec INR (<1.2) ABG pH 7.34 L (7.35-7.45) ABG pO2 75 L (83-108) mmHg ABG Total CO2 26 H (19-24) mmol/L ABG O2 Saturation (94-97) % ABG Hematocrit (34.0-46.0) % ABG Glucose (75-99) mg/dL Hemoglobin 11.6 L (13.0-17.5) gm/dL Sodium (137-145) mmol/L Glucose (74-99) mg/dL POC Glucose (mg/dL) 136 H 170 H (70-110) mg/dL Total Bilirubin (0.2-1.3) mg/dL Total Protein (6.3-8.2) g/dL Arterial Blood Glucose (75-99) mg/dL Crossmatch 11/08/24 11/08/24 11/08/24 Range/Units 18:00 18:50 18:51 RBC 3.63 L (4.30-5.90) m/uL Hgb 11.3 L (13.0-17.5) gm/dL Hct 34.1 L (39.0-53.0) % Plt Count 122 L (150-450) k/uL Neutrophils # (1.3-7.7) k/uL Lymphocytes # 0.5 L (1.0-4.8) k/uL PT (10.0-12.5) sec INR (<1.2) ABG pH (7.35-7.45) ABG pO2 (83-108) mmHg ABG Total CO2 (19-24) mmol/L ABG O2 Saturation (94-97) % ABG Hematocrit (34.0-46.0) % ABG Glucose (75-99) mg/dL Hemoglobin (13.0-17.5) gm/dL Sodium (137-145) mmol/L Glucose (74-99) mg/dL POC Glucose (mg/dL) 161 H 152 H (70-110) mg/dL Total Bilirubin (0.2-1.3) mg/dL Total Protein (6.3-8.2) g/dL Arterial Blood Glucose (75-99) mg/dL Crossmatch 11/08/24 11/08/24 11/08/24 Range/Units 20:16 21:16 22:09 RBC (4.30-5.90) m/uL Hgb (13.0-17.5) gm/dL Hct (39.0-53.0) % Plt Count (150-450) k/uL Neutrophils # (1.3-7.7) k/uL Lymphocytes # (1.0-4.8) k/uL PT (10.0-12.5) sec INR (<1.2) ABG pH (7.35-7.45) ABG pO2 (83-108) mmHg ABG Total CO2 (19-24) mmol/L ABG O2 Saturation (94-97) % ABG Hematocrit (34.0-46.0) % ABG Glucose (75-99) mg/dL Hemoglobin (13.0-17.5) gm/dL Sodium (137-145) mmol/L Glucose (74-99) mg/dL POC Glucose (mg/dL) 122 H 112 H 124 H (70-110) mg/dL Total Bilirubin (0.2-1.3) mg/dL Total Protein (6.3-8.2) g/dL Arterial Blood Glucose (75-99) mg/dL Crossmatch 11/08/24 11/09/24 11/09/24 Range/Units 23:04 00:19 01:08 RBC (4.30-5.90) m/uL Hgb (13.0-17.5) gm/dL Hct (39.0-53.0) % Plt Count (150-450) k/uL Neutrophils # (1.3-7.7) k/uL Lymphocytes # (1.0-4.8) k/uL PT (10.0-12.5) sec INR (<1.2) ABG pH (7.35-7.45) ABG pO2 (83-108) mmHg ABG Total CO2 (19-24) mmol/L ABG O2 Saturation (94-97) % ABG Hematocrit (34.0-46.0) % ABG Glucose (75-99) mg/dL Hemoglobin (13.0-17.5) gm/dL Sodium (137-145) mmol/L Glucose (74-99) mg/dL POC Glucose (mg/dL) 131 H 142 H 142 H (70-110) mg/dL Total Bilirubin (0.2-1.3) mg/dL Total Protein (6.3-8.2) g/dL Arterial Blood Glucose (75-99) mg/dL Crossmatch 11/09/24 11/09/24 11/09/24 Range/Units 02:07 04:00 04:10 RBC 3.61 L (4.30-5.90) m/uL Hgb 11.3 L (13.0-17.5) gm/dL Hct 34.2 L (39.0-53.0) % Plt Count 139 L (150-450) k/uL Neutrophils # (1.3-7.7) k/uL Lymphocytes # 0.9 L (1.0-4.8) k/uL PT (10.0-12.5) sec INR (<1.2) ABG pH (7.35-7.45) ABG pO2 (83-108) mmHg ABG Total CO2 (19-24) mmol/L ABG O2 Saturation (94-97) % ABG Hematocrit (34.0-46.0) % ABG Glucose (75-99) mg/dL Hemoglobin (13.0-17.5) gm/dL Sodium (137-145) mmol/L Glucose (74-99) mg/dL POC Glucose (mg/dL) 119 H 126 H (70-110) mg/dL Total Bilirubin (0.2-1.3) mg/dL Total Protein (6.3-8.2) g/dL Arterial Blood Glucose (75-99) mg/dL Crossmatch 11/09/24 11/09/24 Range/Units 04:10 06:53 RBC (4.30-5.90) m/uL Hgb (13.0-17.5) gm/dL Hct (39.0-53.0) % Plt Count (150-450) k/uL Neutrophils # (1.3-7.7) k/uL Lymphocytes # (1.0-4.8) k/uL PT (10.0-12.5) sec INR (<1.2) ABG pH (7.35-7.45) ABG pO2 (83-108) mmHg ABG Total CO2 (19-24) mmol/L ABG O2 Saturation (94-97) % ABG Hematocrit (34.0-46.0) % ABG Glucose (75-99) mg/dL Hemoglobin (13.0-17.5) gm/dL Sodium 134 L (137-145) mmol/L Glucose 125 H (74-99) mg/dL POC Glucose (mg/dL) 144 H (70-110) mg/dL Total Bilirubin 1.7 H (0.2-1.3) mg/dL Total Protein 5.9 L (6.3-8.2) g/dL Arterial Blood Glucose (75-99) mg/dL Crossmatch - Imaging and Cardiology Chest x-ray: image reviewed Assessment and Plan Assessment: 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, unstable angina, status post three-vessel off-pump CABG Postoperative acute blood loss anemia and thrombocytopenia, expected given hemodilution Brief paroxysmal atrial fibrillation after surgery, somewhat expected as it is a known common occurrence after open heart surgery, status post ligation of the left atrial appendage History of hypertension Hypertriglyceridemia Left internal carotid artery stenosis, > 70% per Doppler Mild peripheral arterial disease, left JERRI 0.87, right JERRI 0.93 Prostate cancer with hormone therapy treatment Osteoarthritis Obesity Extremely hard of hearing Lifelong non-smoker, preoperative FEV1 83% of predicted Plan: Continue to maximize medical therapy with aspirin, statin, Plavix, beta-phillip. Will increase beta-phillip therapy as tolerated Continue amiodarone for A-fib prophylaxis, will transition to oral. No anticoagulation at this point Will start low-dose calcium channel phillip for radial artery spasm prophylaxis with hold parameters Wean oxygen as tolerated. Encourage incentive spirometry use 10 times every hour while awake. Bronchodilators per pulmonology Will monitor daily labs and x-rays. Electrolyte replacement per protocol Increase activity, ambulate as tolerated. PT/OT/cardiac rehab consulted GI/DVT prophylaxis Pain control per current medication regimen. Will add Toradol for better pain control Insulin management per internal medicine. Patient is not diabetic, preoperative hemoglobin A1c 5.6%. Patient should remain on continuous IV insulin for 48 hours, then may transition to subcutaneous per protocol Will discontinue [place]. Connect Cordis to continuous CVP monitoring Continue chest tubes for another 24 hours, monitor and record output Continue Jaquez catheter for another 24 hours, continue to monitor record strict accurate intake and output Appropriate home medications reordered More recommendations to follow as patient progresses
[2024-11-09 07:56] LABS: Glucose,Whole Blood 127 mg/dL (70-110)
--- NOTE | 2024-11-09 07:59 | XR ---
EXAMINATION TYPE: XR chest 1V portable DATE OF EXAM: 11/09/2024 5:34 AM COMPARISON: Chest radiographs from 11/08/2024 TECHNIQUE: XR chest 1V portable Portable AP radiograph of the chest. CLINICAL INDICATION:Male, 79 years old with history of Post Operative Cardiac Surgery; FINDINGS: Lungs/Pleura: Blunting of both costophrenic angles with pulmonary vascular congestion. Bibasilar airs pace opacities. No sizable pneumothorax. Left apical pleural thickening. Heart/mediastinum: Cardiomediastinal silhouette is enlarged. Postsurgical changes. Atherosclerotic ca lcifications are seen in the aorta. Left atrial appendage occlusion devices present. Musculoskeletal: No acute osseous pathology. Midline sternotomy wires. Other findings: None Lines/Tubes: Interval removal of NG and enteric tubes. Left sided chest tube is redemonstrated and is slightly ret racted. Right IJ Dawes-Cecilia catheter with distal tip in the region of the main pulmonary artery. Inferior approach mediastinal drain is identified. IMPRESSION: 1. Post cardiac surgery change without evidence of pneumothorax. 2. Interval removal of NG and endotracheal tubes. Remaining support lines and tubes as described abo ve. 3. Small bilateral pleural effusions with cardiomegaly and pulmonary vascular congestion. Bibasilar patchy opacities probably representing atelectasis however pneumonia is not excluded. Correlate for C HF exacerbation/volume overload. [facility], , 11/09/2024 7:57 AM
[2024-11-09] MEDS ORDERED: NON FORMULARY DRUG (Vitamin B Complex [Vitamin B Complex] 1 EACH Capsule) PO SCH (09:00)
[2024-11-09] MEDS ORDERED: MAGNESIUM HYDROXIDE 2,400 MG/30 ML CUP PO PRN (09:00)
[2024-11-09 09:36] LABS: Glucose,Whole Blood 160 mg/dL (70-110)
[2024-11-09] MEDS: LACTOBACILLUS ACIDOPHILUS/PECT 1 EACH CAPSULE PO SCH (10:03)
[2024-11-09] MEDS: PANTOPRAZOLE 40 MG/10 ML VIAL IVP SCH (10:03)
[2024-11-09] MEDS: ATORVASTATIN 40 MG TAB PO SCH (10:03)
[2024-11-09] MEDS: CHOLECALCIFEROL 125 MCG (5000 IU) TABLET PO SCH (10:04)
[2024-11-09] MEDS: ASPIRIN 325 MG TAB PO SCH (10:04)
[2024-11-09] MEDS: BICALUTAMIDE 50 MG TAB PO SCH (10:04)
[2024-11-09] MEDS: METOPROLOL TARTRATE 12.5 MG TAB PO SCH (10:04)
[2024-11-09] MEDS: AMIODARONE 200 MG TAB PO SCH (10:04)
[2024-11-09] MEDS: CLOPIDOGREL 75 MG TAB PO SCH (10:04)
[2024-11-09] MEDS: MULTIVITAMINS, THERA 1 EACH TAB PO SCH (10:04)
[2024-11-09 10:15] LABS: Glucose,Whole Blood 151 mg/dL (70-110)
[2024-11-09 11:19] LABS: Glucose,Whole Blood 113 mg/dL (70-110)
[2024-11-09 11:41] VITALS: BMI 36.3
--- NOTE | 2024-11-09 12:07 | P.PN ---
Subjective Progress Note Date: 11/09/24 Principal diagnosis: CABG. Pulmonary consult dated November 08, 2024. 79-year-old male status post three-vessel bypass surgery, done by Dr. Brennan today, off-pump. The patient is seen in the intensive care unit, room 267. The patient is currently on the ventilator, with settings of volume assist-control, rate 12, tidal volume 500, FiO2 100%, PEEP of 10. Initial blood gases show pO2 275, pCO2 33, pH is 7.37. The FiO2 was dropped from 100%, down to 50%. Currently, his cardiac output 6.4, index is 2.7. Pulmonary artery pressures 36/18 with a wedge pressure of 8. Currently, the patient is on propofol at 20 mcg/kg/min, 0.9 at 50 cc an hour, amiodarone at 1 mg/min, insulin at 1.5 units an hour, and nitroglycerin at 5 mcg/min. Current laboratory data includes a white count 9.7, hemoglobin 10.8, hematocrit 33.3, and a platelet count of 115,000. Sodium 139, potassium 4.3, chlorides 107, CO2 25, BUN 19, creatinine 0.82. Glucose is 133. Chest x-ray shows postsurgical changes, with appropriate support lines and endotracheal tube. Small bilateral pleural effusions are noted. Progress note dated November 09, 2024. 79-year-old male seen yesterday in consultation. He had a three-vessel off-pump bypass. It was done by Dr. Brennan. Yesterday, he was successfully extubated. Currently, the patient is sitting in the chair next to his hospital bed, in room 267. He remains on room air. He is getting insulin at 5 units an hour, and amiodarone 0.5 mg/min. He is also getting saline at 50 cc an hour. As mentioned, he was extubated on November 08. Current labs: White count 8.2, hemoglobin 11.3, macro 34.2, and a platelet count of 139,000. Sodium 134, potassium 4.3, chlorides 104, CO2 23, BUN 17, creatinine 0.82. Glucose is 125. Total protein 5.9. Blood sugar 123. Chest x-ray from November 09 shows changes from recent cardiac surgery, removal of the NG tube and endotracheal tube, small bilateral pleural effusions, and cardiomegaly. There is also some bibasilar infiltrates or atelectasis. Objective - Vital Signs Vital signs: Vital Signs Temp 100.0 F H 11/09/24 08:00 Pulse 78 11/09/24 11:00 Resp 28 H 11/09/24 11:00 BP 106/55 11/09/24 11:00 Pulse Ox 96 11/09/24 11:00 FiO2 50 11/08/24 17:00 Intake & Output 11/08/24 11/09/24 11/09/24 18:59 06:59 18:59 Intake Total 8560.750 2177.941 965.834 Output Total 1865 1220 220 Balance -745.146 -117.059 745.834 Weight 114.8 kg 114.8 kg Intake: IV 1057 758 826 ACETAMINOPHEN IV (For NPO 100 ) 1,000 mg In Empty Bag 1 bag @ 400 mls/hr IVPB Q6HR MINDI Rx#:[id number] Albumin Human 5% 250 ml 250 500 In Empty Bag 1 bag @ 250 mls/hr IVPB Q1HR PRN Rx#: [id number] CO/CI 140 100 90 Lines 63 108 36 Magnesium Sulfate-D5w Pmx 100 1 gm In Dextrose/Water 1 100ml.bag @ 100 mls/hr IVPB ONCE ONE Rx#: [id number] Sodium Chloride 0.9% 1, 350 550 150 000 ml @ 30 mls/hr IV . Q24H MINDI Rx#:[id number] ceFAZolin 2 gm In Sodium 50 50 Chloride 0.9% 50 ml @ 100 mls/hr IVPB Q8HR MINDI Rx# :[id number] Intake, IV Titration 62.854 44.941 19.834 Amount Clevidipine Butyrate 25 21.567 13.717 mg In Empty Bag 1 bag @ 1 MG/HR 2 mls/hr IV .Q24H PRN Rx#:[id number] Insulin Regular 100 unit 10.383 31.224 19.834 In Sodium Chloride 0.9% 100 ml @ Per Protocol IV .Q0M MINDI Rx#:[id number] propofoL 1,000 mg In 30.904 Empty Bag 1 bag @ Titrate IV .Q0M MINDI Rx#: [id number] Oral 50 120 Albumin 250 Albumin Human 5% 250 ml 250 In Empty Bag 1 bag @ 250 mls/hr IVPB Q1HR PRN Rx#: [id number] Output: Chest Tube Drainage 590 530 120 Left Pleural 300 250 60 Mediastinal 290 280 60 Urine 975 690 100 Estimated Blood Loss 300 Other: Voiding Method Indwelling Catheter Indwelling Catheter ABP, PAP, CO, CI - Last Documented Arterial Blood Pressure 119/41 Pulmonary Artery Pressure 19/11 Cardiac Output 4.4 Cardiac Index 1.9 - Exam No acute distress, oriented 3. He on room air. Sitting in a chair next to his hospital bed. HEENT examination is grossly unremarkable. Mucous membranes are moist. No oral lesions. Neck supple. Full range of motion. No adenopathy thyromegaly or neck vein distention. Cardiovascular examination reveals regular rhythm rate. S1-S2 normal. No S3 or S4. No discernible murmur noted. Lungs reveal scattered bilateral. There are some basilar crackles. No wheezes. Breath sounds are equal bilaterally. The patient is on room air. Abdomen soft bowel sounds are heard. No masses or tenderness. Extremities are intact. No cyanosis clubbing or edema. Skin is without rash or lesion. Neurologic examination is brief but nonfocal. - Labs CBC & Chem 7: 11/09/24 04:10 11/09/24 04:10 Labs: Abnormal Lab Results - Last 24 Hours (Table) 11/04/24 11/08/24 11/08/24 Range/Units 14:41 11:30 12:49 RBC (4.30-5.90) m/uL Hgb (13.0-17.5) gm/dL Hct (39.0-53.0) % Plt Count (150-450) k/uL Neutrophils # (1.3-7.7) k/uL Lymphocytes # (1.0-4.8) k/uL PT (10.0-12.5) sec INR (<1.2) ABG pH (7.35-7.45) ABG pO2 68 L (83-108) mmHg ABG Total CO2 (19-24) mmol/L ABG O2 Saturation (94-97) % ABG Hematocrit 29 L (34.0-46.0) % ABG Glucose 123 H (75-99) mg/dL Hemoglobin 9.6 L (13.0-17.5) gm/dL Sodium (137-145) mmol/L Glucose (74-99) mg/dL POC Glucose (mg/dL) 122 H (70-110) mg/dL Total Bilirubin (0.2-1.3) mg/dL Total Protein (6.3-8.2) g/dL Arterial Blood Glucose 123 H (75-99) mg/dL Crossmatch See Detail 11/08/24 11/08/24 11/08/24 Range/Units 12:50 12:50 12:50 RBC 3.51 L (4.30-5.90) m/uL Hgb 10.8 L (13.0-17.5) gm/dL Hct 33.3 L (39.0-53.0) % Plt Count 115 L (150-450) k/uL Neutrophils # 8.1 H (1.3-7.7) k/uL Lymphocytes # (1.0-4.8) k/uL PT 12.8 H (10.0-12.5) sec INR 1.2 H (<1.2) ABG pH (7.35-7.45) ABG pO2 (83-108) mmHg ABG Total CO2 (19-24) mmol/L ABG O2 Saturation (94-97) % ABG Hematocrit (34.0-46.0) % ABG Glucose (75-99) mg/dL Hemoglobin (13.0-17.5) gm/dL Sodium (137-145) mmol/L Glucose 113 H (74-99) mg/dL POC Glucose (mg/dL) (70-110) mg/dL Total Bilirubin 1.4 H (0.2-1.3) mg/dL Total Protein 5.9 L (6.3-8.2) g/dL Arterial Blood Glucose (75-99) mg/dL Crossmatch 11/08/24 11/08/24 11/08/24 Range/Units 13:30 13:35 14:15 RBC (4.30-5.90) m/uL Hgb (13.0-17.5) gm/dL Hct (39.0-53.0) % Plt Count (150-450) k/uL Neutrophils # (1.3-7.7) k/uL Lymphocytes # (1.0-4.8) k/uL PT (10.0-12.5) sec INR (<1.2) ABG pH (7.35-7.45) ABG pO2 275 H (83-108) mmHg ABG Total CO2 26 H (19-24) mmol/L ABG O2 Saturation 99.9 H (94-97) % ABG Hematocrit (34.0-46.0) % ABG Glucose (75-99) mg/dL Hemoglobin 10.6 L (13.0-17.5) gm/dL Sodium (137-145) mmol/L Glucose (74-99) mg/dL POC Glucose (mg/dL) 116 H 135 H (70-110) mg/dL Total Bilirubin (0.2-1.3) mg/dL Total Protein (6.3-8.2) g/dL Arterial Blood Glucose (75-99) mg/dL Crossmatch 11/08/24 11/08/24 11/08/24 Range/Units 14:59 15:53 15:53 RBC 3.48 L (4.30-5.90) m/uL Hgb 11.0 L (13.0-17.5) gm/dL Hct 33.2 L (39.0-53.0) % Plt Count 136 L (150-450) k/uL Neutrophils # 8.0 H (1.3-7.7) k/uL Lymphocytes # (1.0-4.8) k/uL PT (10.0-12.5) sec INR (<1.2) ABG pH (7.35-7.45) ABG pO2 (83-108) mmHg ABG Total CO2 (19-24) mmol/L ABG O2 Saturation (94-97) % ABG Hematocrit (34.0-46.0) % ABG Glucose (75-99) mg/dL Hemoglobin (13.0-17.5) gm/dL Sodium (137-145) mmol/L Glucose (74-99) mg/dL POC Glucose (mg/dL) 133 H 136 H (70-110) mg/dL Total Bilirubin (0.2-1.3) mg/dL Total Protein (6.3-8.2) g/dL Arterial Blood Glucose (75-99) mg/dL Crossmatch 11/08/24 11/08/24 11/08/24 Range/Units 16:38 17:06 18:00 RBC (4.30-5.90) m/uL Hgb (13.0-17.5) gm/dL Hct (39.0-53.0) % Plt Count (150-450) k/uL Neutrophils # (1.3-7.7) k/uL Lymphocytes # (1.0-4.8) k/uL PT (10.0-12.5) sec INR (<1.2) ABG pH 7.34 L (7.35-7.45) ABG pO2 75 L (83-108) mmHg ABG Total CO2 26 H (19-24) mmol/L ABG O2 Saturation (94-97) % ABG Hematocrit (34.0-46.0) % ABG Glucose (75-99) mg/dL Hemoglobin 11.6 L (13.0-17.5) gm/dL Sodium (137-145) mmol/L Glucose (74-99) mg/dL POC Glucose (mg/dL) 170 H 161 H (70-110) mg/dL Total Bilirubin (0.2-1.3) mg/dL Total Protein (6.3-8.2) g/dL Arterial Blood Glucose (75-99) mg/dL Crossmatch 11/08/24 11/08/24 11/08/24 Range/Units 18:50 18:51 20:16 RBC 3.63 L (4.30-5.90) m/uL Hgb 11.3 L (13.0-17.5) gm/dL Hct 34.1 L (39.0-53.0) % Plt Count 122 L (150-450) k/uL Neutrophils # (1.3-7.7) k/uL Lymphocytes # 0.5 L (1.0-4.8) k/uL PT (10.0-12.5) sec INR (<1.2) ABG pH (7.35-7.45) ABG pO2 (83-108) mmHg ABG Total CO2 (19-24) mmol/L ABG O2 Saturation (94-97) % ABG Hematocrit (34.0-46.0) % ABG Glucose (75-99) mg/dL Hemoglobin (13.0-17.5) gm/dL Sodium (137-145) mmol/L Glucose (74-99) mg/dL POC Glucose (mg/dL) 152 H 122 H (70-110) mg/dL Total Bilirubin (0.2-1.3) mg/dL Total Protein (6.3-8.2) g/dL Arterial Blood Glucose (75-99) mg/dL Crossmatch 11/08/24 11/08/24 11/08/24 Range/Units 21:16 22:09 23:04 RBC (4.30-5.90) m/uL Hgb (13.0-17.5) gm/dL Hct (39.0-53.0) % Plt Count (150-450) k/uL Neutrophils # (1.3-7.7) k/uL Lymphocytes # (1.0-4.8) k/uL PT (10.0-12.5) sec INR (<1.2) ABG pH (7.35-7.45) ABG pO2 (83-108) mmHg ABG Total CO2 (19-24) mmol/L ABG O2 Saturation (94-97) % ABG Hematocrit (34.0-46.0) % ABG Glucose (75-99) mg/dL Hemoglobin (13.0-17.5) gm/dL Sodium (137-145) mmol/L Glucose (74-99) mg/dL POC Glucose (mg/dL) 112 H 124 H 131 H (70-110) mg/dL Total Bilirubin (0.2-1.3) mg/dL Total Protein (6.3-8.2) g/dL Arterial Blood Glucose (75-99) mg/dL Crossmatch 11/09/24 11/09/24 11/09/24 Range/Units 00:19 01:08 02:07 RBC (4.30-5.90) m/uL Hgb (13.0-17.5) gm/dL Hct (39.0-53.0) % Plt Count (150-450) k/uL Neutrophils # (1.3-7.7) k/uL Lymphocytes # (1.0-4.8) k/uL PT (10.0-12.5) sec INR (<1.2) ABG pH (7.35-7.45) ABG pO2 (83-108) mmHg ABG Total CO2 (19-24) mmol/L ABG O2 Saturation (94-97) % ABG Hematocrit (34.0-46.0) % ABG Glucose (75-99) mg/dL Hemoglobin (13.0-17.5) gm/dL Sodium (137-145) mmol/L Glucose (74-99) mg/dL POC Glucose (mg/dL) 142 H 142 H 119 H (70-110) mg/dL Total Bilirubin (0.2-1.3) mg/dL Total Protein (6.3-8.2) g/dL Arterial Blood Glucose (75-99) mg/dL Crossmatch 11/09/24 11/09/24 11/09/24 Range/Units 04:00 04:10 04:10 RBC 3.61 L (4.30-5.90) m/uL Hgb 11.3 L (13.0-17.5) gm/dL Hct 34.2 L (39.0-53.0) % Plt Count 139 L (150-450) k/uL Neutrophils # (1.3-7.7) k/uL Lymphocytes # 0.9 L (1.0-4.8) k/uL PT (10.0-12.5) sec INR (<1.2) ABG pH (7.35-7.45) ABG pO2 (83-108) mmHg ABG Total CO2 (19-24) mmol/L ABG O2 Saturation (94-97) % ABG Hematocrit (34.0-46.0) % ABG Glucose (75-99) mg/dL Hemoglobin (13.0-17.5) gm/dL Sodium 134 L (137-145) mmol/L Glucose 125 H (74-99) mg/dL POC Glucose (mg/dL) 126 H (70-110) mg/dL Total Bilirubin 1.7 H (0.2-1.3) mg/dL Total Protein 5.9 L (6.3-8.2) g/dL Arterial Blood Glucose (75-99) mg/dL Crossmatch 11/09/24 11/09/24 11/09/24 Range/Units 06:53 07:54 09:34 RBC (4.30-5.90) m/uL Hgb (13.0-17.5) gm/dL Hct (39.0-53.0) % Plt Count (150-450) k/uL Neutrophils # (1.3-7.7) k/uL Lymphocytes # (1.0-4.8) k/uL PT (10.0-12.5) sec INR (<1.2) ABG pH (7.35-7.45) ABG pO2 (83-108) mmHg ABG Total CO2 (19-24) mmol/L ABG O2 Saturation (94-97) % ABG Hematocrit (34.0-46.0) % ABG Glucose (75-99) mg/dL Hemoglobin (13.0-17.5) gm/dL Sodium (137-145) mmol/L Glucose (74-99) mg/dL POC Glucose (mg/dL) 144 H 127 H 160 H (70-110) mg/dL Total Bilirubin (0.2-1.3) mg/dL Total Protein (6.3-8.2) g/dL Arterial Blood Glucose (75-99) mg/dL Crossmatch 11/09/24 11/09/24 Range/Units 10:13 11:17 RBC (4.30-5.90) m/uL Hgb (13.0-17.5) gm/dL Hct (39.0-53.0) % Plt Count (150-450) k/uL Neutrophils # (1.3-7.7) k/uL Lymphocytes # (1.0-4.8) k/uL PT (10.0-12.5) sec INR (<1.2) ABG pH (7.35-7.45) ABG pO2 (83-108) mmHg ABG Total CO2 (19-24) mmol/L ABG O2 Saturation (94-97) % ABG Hematocrit (34.0-46.0) % ABG Glucose (75-99) mg/dL Hemoglobin (13.0-17.5) gm/dL Sodium (137-145) mmol/L Glucose (74-99) mg/dL POC Glucose (mg/dL) 151 H 113 H (70-110) mg/dL Total Bilirubin (0.2-1.3) mg/dL Total Protein (6.3-8.2) g/dL Arterial Blood Glucose (75-99) mg/dL Crossmatch Assessment and Plan Assessment: Postoperative day # 1, S/P off-pump three-vessel bypass surgery, for coronary artery disease, in a patient with chest pain. Routine postoperative ventilator management, with successful extubation on November 08, 2024. History of hypertension. History of osteoarthritis. History of prostate cancer. Lifelong non-smoker. Plan: Plan dated November 08, 2024. The patient is seen today in room 267. The patient's initial blood gases are excellent, and the FiO2 was, 100%, down to 50%. Labs, x-rays, and medications are reviewed. The patient is currently on propofol for sedation, amiodarone, for A-fib/flutter, insulin, for elevated blood glucose, and nitroglycerin. The patient is also on saline at 50 cc an hour. The patient was on Cleviprex for an elevated blood pressure, but that has been turned off. Cardiac output 6.4. Index is 2.7. We will continue to follow make recommendations. All labs, x- rays, and medications are reviewed. Dictation was produced using [employer] software. Please excuse any grammatical, word or spelling errors. Plan dated November 09, 2024. The patient is again seen in room 267. The patient was successfully extubated yesterday. He is currently on room air. He has no complaints. He is wearing his hearing aids, but despite that, he is very deaf. All labs, x-rays, and medications are reviewed. The patient continues on insulin drip at 5 units an hour, and amiodarone 0.5 mg/min. The patient is getting saline at 50 cc an hour. Labs, x-rays, and all medications are reviewed. Prognosis is guarded. Dictation was produced using [employer] software. Please excuse any grammatical, word or spelling errors. Time with Patient: Greater than 30
[2024-11-09 12:54] LABS: Glucose,Whole Blood 162 mg/dL (70-110)
--- NOTE | 2024-11-09 13:41 | P.CRDCN ---
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 Conley. He underwent three-vessel CABG with PIERSON to LAD, T graft using a radial artery to OM1 and OM 2 sequential. He has been extubated and is coming along well. Prior cardiac testing: Heart catheter October 2024 showed three-vessel disease involving distal left main, ostium of LAD, ostium of LCx, moderate diffuse disease in RCA with distal PDA having 60% stenosis. REVIEW OF SYSTEMS: 14 point review of system is negative except what is mentioned above in HPI. PHYSICAL EXAMINATION: Neck: [place] catheter in place, Lungs: Chest tube in place, respiratory effort, surgical scar healing well Heart: Regular rate and rhythm, S1-S2, , no murmur or rub. Abdomen: Soft nontender, positive bowel sounds. Extremities: 1+ pitting edema bilateral extremity Neuro: Alert, oritented, no focal deficits. Detailed neuro exam was not performed. ASSESSMENT: # Status post CABG 11/08/2024, PIERSON to LAD, sequential radial to first and second OM as a T graft from PIERSON, left atrial appendage occlusion 35mm atrial clip # Brief paroxysmal atrial fibrillation after surgery, currently in sinus rhythm # Hypertension # Dyslipidemia with hypercholesterolemia # Left ICA stenosis more than 70% # Mild PAD # Prostate cancer on hormone therapy # Obesity # Extremely hard of hearing PLAN: Continue current supportive care Continue aspirin, Plavix, statin, amiodarone, Continue hemodynamic monitoring with [place] catheter. If cardiac index and pressures are better, consider removal tomorrow. Forest Alcantar MD, FACC, RPVI Thank you for allowing [facility] to participate in this patient's care. Feel free to reach out in case of any followup questions. Past Medical History Past Medical History: Cancer, Chest Pain / Angina, Hearing Disorder / Deafness, Hyperlipidemia, Hypertension, Osteoarthritis (OA), Prostate Disorder Additional Past Medical History / Comment(s): VARICOSE VEINS. hx. prostate cancer 6 yrs. ago-had tx., now PSA is elevated again-current hormone tx. for, ankle swelling History of Any Multi-Drug Resistant Organisms: None Reported Past Surgical History: Cholecystectomy, Heart Catheterization, Hernia Repair, Joint Replacement, Orthopedic Surgery Additional Past Surgical History / Comment(s): RIGHT SHOULDER, UMBILICAL HERNIA & ABDOMINAL HERNIA REPAIR, RIGHT TOTAL KNEE. recent cardiac cath. Past Anesthesia/Blood Transfusion Reactions: Previous Problems w/ Anesthesia Additional Past Anesthesia/Blood Transfusion Reaction / Comment(s): STATES DIFFICULTY BREATHING AFTER SHOULDER SURGERY-not sure why, other surgeries after had no problems Smoking Status: Never smoker - Past Family History Mother Family Medical History: Respiratory Disorder Father Family Medical History: Vascular Disorder Additional Family Medical History / Comment(s): Abdominal aortic aneurysm ruptu re Medications and Allergies Home Medications Medication Instructions Recorded Confirmed Type Cholecalciferol [Vitamin D3 (25 5,000 unit PO DAILY 01/02/17 11/08/24 History Mcg = 1000 Iu)] Multivitamins, Thera [Multivitamin 1 tab PO DAILY 01/02/17 11/08/24 History (formulary)] Benazepril HCl 40 mg PO DAILY 10/27/24 11/08/24 History Bicalutamide [Casodex] 50 mg PO DAILY 10/27/24 11/08/24 History Nitroglycerin Sl Tabs [Nitrostat] 0.4 mg PO DIRECTED PRN 10/27/24 11/08/24 History Aspirin 81 mg PO DAILY #30 tab 10/30/24 11/08/24 Rx Atorvastatin [Lipitor] 80 mg PO HS #30 tab 10/30/24 11/08/24 Rx Isosorbide Mononitrate ER [Imdur] 60 mg PO DAILY #30 tab 10/30/24 11/08/24 Rx Metoprolol Succinate (ER) [Toprol 50 mg PO DAILY #30 tab 10/30/24 11/08/24 Rx XL] Cider Vinegar [Apple Cider Vinegar] 450 mg PO DAILY 11/04/24 11/08/24 History Flaxseed Oil 1,000 mg PO DAILY 11/04/24 11/08/24 History L.acidoph,Paracasei, B.lactis 1 each PO DAILY 11/04/24 11/08/24 History [Probiotic] Magnesium Citrate and Oxide 400 mg PO DAILY 11/04/24 11/08/24 History [Magnesium] Potassium Citrate 99 mg PO DAILY 11/04/24 11/08/24 History Turmeric Root Extract [Turmeric] 1,500 mg PO DAILY 11/04/24 11/08/24 History Vitamin B Complex 1 each PO DAILY 11/04/24 11/08/24 History Allergies Allergy/AdvReac Type Severity Reaction Status Date / Time No Known Allergies Allergy Verified 11/08/24 05:58 Physical Exam Vitals: Vital Signs Temp Pulse Resp BP Pulse Ox FiO2 11/09/24 13:11 78 18 11/09/24 13:02 78 18 11/09/24 12:30 74 111/45 96 11/09/24 12:00 100.6 F H 78 19 95 11/09/24 11:30 76 28 H 102/53 97 11/09/24 11:00 78 28 H 106/55 96 11/09/24 10:30 88 25 H 106/55 94 L 11/09/24 10:00 81 23 100/45 93 L 11/09/24 09:30 84 25 H 100/45 92 L 11/09/24 09:22 74 11/09/24 09:13 78 11/09/24 09:00 79 25 H 108/53 94 L 11/09/24 08:30 89 108/53 92 L 11/09/24 08:00 100.0 F H 83 16 96 11/09/24 07:30 79 26 H 94 L 11/09/24 07:00 82 20 94 L 11/09/24 06:30 80 19 93 L 11/09/24 06:00 84 23 102/48 92 L 11/09/24 05:30 105 H 19 101/46 81 L 11/09/24 05:00 100 22 93 L 11/09/24 04:30 89 21 94 L 11/09/24 04:00 96 18 93 L 11/09/24 03:30 83 21 93 L 11/09/24 03:00 89 24 93 L 11/09/24 02:30 86 23 93 L 11/09/24 02:00 86 23 93 L 11/09/24 01:30 88 21 94 L 11/09/24 01:00 85 24 95 11/09/24 00:30 84 24 95 11/09/24 00:00 100.8 F H 84 21 95 11/08/24 23:30 87 22 95 11/08/24 23:00 84 23 95 11/08/24 22:30 84 25 H 97 11/08/24 22:23 81 22 96 11/08/24 22:15 81 23 95 11/08/24 22:00 80 26 H 97 11/08/24 21:45 81 28 H 98 11/08/24 21:30 75 24 98 11/08/24 21:15 71 25 H 97 11/08/24 21:09 80 11/08/24 21:00 80 26 H 99 11/08/24 20:59 79 11/08/24 20:45 80 22 98 11/08/24 20:30 81 26 H 100 11/08/24 20:15 78 46 H 98 11/08/24 20:00 99.5 F 77 16 97 11/08/24 19:45 84 23 96 11/08/24 19:30 82 20 98 11/08/24 19:15 82 23 98 11/08/24 19:00 99.5 F 85 23 97 11/08/24 18:45 84 24 97 11/08/24 18:30 83 25 H 96 11/08/24 18:15 82 19 96 11/08/24 18:00 99.3 F 84 26 H 95 11/08/24 17:55 86 18 11/08/24 17:45 81 24 97 11/08/24 17:42 82 18 11/08/24 17:30 77 22 95 11/08/24 17:15 72 22 97 11/08/24 17:05 92 L 11/08/24 17:00 99.1 F 82 13 92 L 50 11/08/24 16:45 71 23 98 11/08/24 16:30 75 32 H 97 11/08/24 16:15 69 21 100 11/08/24 16:00 98.6 F 65 18 100 50 11/08/24 15:59 50 11/08/24 15:57 100 11/08/24 15:55 50 11/08/24 15:45 59 L 15 100 11/08/24 15:30 12 100 11/08/24 15:15 61 12 100 11/08/24 15:00 98.1 F 66 12 100 11/08/24 14:45 65 12 100 11/08/24 14:43 50 11/08/24 14:40 100 11/08/24 14:30 64 12 100 50 11/08/24 14:15 64 12 100 11/08/24 14:00 96.8 F L 69 12 100 11/08/24 13:45 71 12 100 Intake and Output 11/08/24 11/09/24 11/09/24 22:59 06:59 14:59 Intake Total 955.479 521.404 9643.834 Output Total 1040 830 230 Balance -84.521 22.283 794.834 Intake: IV 882 521 885 ACETAMINOPHEN IV (For NPO 100 ) 1,000 mg In Empty Bag 1 bag @ 400 mls/hr IVPB Q6HR [facility] Rx#:[id number] Albumin Human 5% 250 ml 500 In Empty Bag 1 bag @ 250 mls/hr IVPB Q1HR PRN Rx#: [id number] CO/CI 160 40 90 Lines 72 81 45 Magnesium Sulfate-D5w Pmx 100 1 gm In Dextrose/Water 1 100ml.bag @ 100 mls/hr IVPB ONCE ONE Rx#: [id number] Sodium Chloride 0.9% 1, 400 400 200 000 ml @ 30 mls/hr IV . Q24H [facility] Rx#:[id number] ceFAZolin 2 gm In Sodium 50 50 Chloride 0.9% 50 ml @ 100 mls/hr IVPB Q8HR [facility] Rx# :[id number] Intake, IV Titration 73.479 31.283 19.834 Amount Clevidipine Butyrate 25 24.434 8.250 mg In Empty Bag 1 bag @ 1 MG/HR 2 mls/hr IV .Q24H PRN Rx#:[id number] Insulin Regular 100 unit 18.141 23.033 19.834 In Sodium Chloride 0.9% 100 ml @ Per Protocol IV .Q0M [facility] Rx#:[id number] propofoL 1,000 mg In 30.904 Empty Bag 1 bag @ Titrate IV .Q0M [facility] Rx#: [id number] Oral 50 120 Albumin 250 Albumin Human 5% 250 ml 250 In Empty Bag 1 bag @ 250 mls/hr IVPB Q1HR PRN Rx#: [id number] Output: Chest Tube Drainage 440 380 120 Left Pleural 170 200 60 Mediastinal 270 180 60 Urine 600 450 110 Other: Voiding Method Indwelling Catheter Indwelling Catheter Weight 114.8 kg 114.8 kg ABP, PAP, CO, CI - Last 8 Hours Arterial Blood Pressure 123/43 Arterial Blood Pressure 129/44 Arterial Blood Pressure 127/45 Arterial Blood Pressure 119/41 Arterial Blood Pressure 135/48 Arterial Blood Pressure 117/41 Arterial Blood Pressure 111/40 Arterial Blood Pressure 105/39 Arterial Blood Pressure 109/47 Arterial Blood Pressure 102/41 Arterial Blood Pressure 114/43 Arterial Blood Pressure 115/41 Arterial Blood Pressure 106/40 Arterial Blood Pressure 107/40 Pulmonary Artery Pressure 27/14 Pulmonary Artery Pressure 23/11 Pulmonary Artery Pressure 22/12 Pulmonary Artery Pressure 19/11 Pulmonary Artery Pressure 24/12 Pulmonary Artery Pressure 20/9 Pulmonary Artery Pressure 18/9 Pulmonary Artery Pressure 23/11 Pulmonary Artery Pressure 23/10 Pulmonary Artery Pressure 19/12 Pulmonary Artery Pressure 25/11 Pulmonary Artery Pressure 27/14 Pulmonary Artery Pressure 26/12 Pulmonary Artery Pressure 20/11 Cardiac Output 4.4 Cardiac Output 4.4 Cardiac Output 5.5 Cardiac Output 4.2 Cardiac Index 1.9 Cardiac Index 1.9 Cardiac Index 2.4 Cardiac Index 1.9 Results 11/09/24 04:10 11/09/24 04:10 Cardiac Enzymes 11/09/24 Range/Units 04:10 AST 43 (17-59) U/L CBC 11/08/24 11/08/24 11/08/24 Range/Units 12:50 15:53 18:50 WBC 9.7 10.0 8.3 (3.8-10.6) k/uL RBC 3.51 L 3.48 L 3.63 L (4.30-5.90) m/uL Hgb 10.8 L 11.0 L 11.3 L (13.0-17.5) gm/dL Hct 33.3 L 33.2 L 34.1 L (39.0-53.0) % Plt Count 115 L 136 L 122 L (150-450) k/uL 11/09/24 Range/Units 04:10 WBC 8.2 (3.8-10.6) k/uL RBC 3.61 L (4.30-5.90) m/uL Hgb 11.3 L (13.0-17.5) gm/dL Hct 34.2 L (39.0-53.0) % Plt Count 139 L (150-450) k/uL Comprehensive Metabolic Panel 11/09/24 Range/Units 04:10 Sodium 134 L (137-145) mmol/L Potassium 4.3 (3.5-5.1) mmol/L Chloride 104 (98-107) mmol/L Carbon Dioxide 23 (22-30) mmol/L BUN 17 (9-20) mg/dL Creatinine 0.82 (0.66-1.25) mg/dL Glucose 125 H (74-99) mg/dL Calcium 8.7 (8.4-10.2) mg/dL AST 43 (17-59) U/L ALT 14 (4-49) U/L Alkaline Phosphatase 51 (38-126) U/L Total Protein 5.9 L (6.3-8.2) g/dL Albumin 3.6 (3.5-5.0) g/dL Current Medications Generic Name Dose Route Start Last Admin Trade Name Freq PRN Reason Stop Dose Admin Acetaminophen 1,000 mg 11/08/24 23:57 Acetaminophen Tab 500 Mg Tab PO Q6HR PRN Fever And/ Or Mild Pain (1-3) Albuterol/Ipratropium 3 ml 11/08/24 12:01 Ipratropium-Albuterol 3 Ml Neb INHALATION RT-Q2H PRN Shortness Of Breath Or Wheezing Albuterol/Ipratropium 3 ml 11/08/24 20:00 11/09/24 13:02 Ipratropium-Albuterol 3 Ml Neb INHALATION 3 ml RT-QID [facility] Administration Amiodarone HCl 400 mg 11/09/24 09:00 11/09/24 10:04 Amiodarone 200 Mg Tab PO 400 mg BID [facility] Administration Amlodipine Besylate 2.5 mg 11/09/24 12:00 Amlodipine 2.5 Mg Tab PO DAILY@1200 [facility] Aspirin 325 mg 11/09/24 09:00 11/09/24 10:04 Aspirin 325 Mg Tab PO 325 mg DAILY [facility] Administration Atorvastatin Calcium 40 mg 11/09/24 09:00 11/09/24 10:03 Atorvastatin 40 Mg Tab PO 40 mg DAILY [facility] Administration Benzocaine/Menthol 1 each 11/08/24 12:01 11/09/24 02:44 Benzocaine/Menthol Lozeng 1 Each Lozenge MUCOUS MEM 1 each Q2H PRN Administration Sore Throat Bicalutamide 50 mg 11/09/24 09:00 11/09/24 10:04 Bicalutamide 50 Mg Tab PO 50 mg DAILY [facility] Administration Bisacodyl 10 mg 11/09/24 09:00 Bisacodyl 10 Mg Supp RECTAL DAILY PRN Constipation Cholecalciferol 125 mcg 11/09/24 09:00 11/09/24 10:04 Cholecalciferol 125 Mcg (5000 Iu) Tablet PO 125 mcg DAILY [facility] Administration Clopidogrel Bisulfate 75 mg 11/09/24 09:00 11/09/24 10:04 Clopidogrel 75 Mg Tab PO 75 mg DAILY [facility] Administration Dextrose/Water 25 ml 11/08/24 12:01 Dextrose 50% Syringe 50 Ml IVP PER PROTOCOL PRN Hypoglycemia Protocol Dextrose/Water 50 ml 11/08/24 12:01 Dextrose 50% Syringe 50 Ml IVP PER PROTOCOL PRN Hypoglycemia Protocol Heparin Sodium (Porcine) 5,000 unit 11/08/24 16:00 11/09/24 07:47 Heparin Sodium,Porcine 5,000 Unit/Ml 1 Ml Vial SQ 5,000 unit Q8HR [facility] Administration Amiodarone HCl 150 mg/ 103 mls @ 618 mls/hr 11/08/24 12:01 11/08/24 14:12 Dextrose/Water IV 618 mls/hr .Q10M PRN Administration A.FIB/FLUTTER Protocol Amiodarone HCl 450 mg/ 250 mls @ 16.667 mls/hr 11/08/24 12:01 11/08/24 20:32 Dextrose/Water IV 0.5 mg/min .Q15H PRN 16.667 mls/hr A.FIB/FLUTTER Administration Protocol 0.5 MG/MIN Albumin Human 250 ml/ IV 250 mls @ 250 mls/hr 11/08/24 12:01 11/09/24 10:51 Solution IVPB 11/10/24 12:00 250 mls/hr Q1HR PRN Administration For Volume Protocol Insulin Human Regular 100 unit 101 mls @ 0 mls/hr 11/08/24 12:01 11/09/24 12:53 / Sodium Chloride IV 5.5 mls/hr .Q0M [facility] 5.5 mls/hr Titration Protocol Per Protocol Sodium Chloride 1,000 mls @ 30 mls/hr 11/08/24 12:01 11/08/24 13:19 Saline 0.9% IV 50 mls/hr .Q24H [facility] Administration Ketorolac Tromethamine 15 mg 11/09/24 07:00 11/09/24 12:46 Ketorolac 15 Mg/Ml 1 Ml Vial IVP 11/14/24 06:59 15 mg Q6H [facility] Administration Lactobacillus Acidophilus 1 each 11/09/24 09:00 11/09/24 10:03 Lactobacillus Acidophilus/Pect 1 Each Capsule PO 1 each DAILY [facility] Administration Magnesium Hydroxide 2,400 mg 11/09/24 09:00 Magnesium Hydroxide 2,400 Mg/30 Ml Cup PO BID PRN Constipation Metoclopramide HCl 10 mg 11/08/24 12:01 Metoclopramide 5 Mg/Ml 2 Ml Vial IVP Q4H PRN Nausea And Vomiting Metoprolol Tartrate 12.5 mg 11/09/24 09:00 11/09/24 10:04 Metoprolol Tartrate 12.5 Mg Tab PO 12.5 mg BID [facility] Administration Miscellaneous Information 1 each 11/08/24 12:01 Potassium Replacement Protocol 1 Each Misc MISCELLANE DAILY PRN Per Protocol Protocol Multivitamins 1 each 11/09/24 09:00 11/09/24 10:04 Multivitamins, Thera 1 Each Tab PO 1 each DAILY [facility] Administration Ondansetron HCl 4 mg 11/08/24 12:01 Ondansetron 4 Mg/2 Ml Vial IVP Q6HR PRN Nausea And Vomiting Oxycodone HCl 5 mg 11/08/24 12:01 11/09/24 12:47 Oxycodone Hcl 5 Mg Tab PO 5 mg Q4HR PRN Administration Moderate Pain (Scale 4 to 6) Oxycodone HCl 10 mg 11/08/24 12:01 Oxycodone Hcl 5 Mg Tab PO Q4HR PRN Severe Pain (Scale 7 to 10) Pantoprazole Sodium 40 mg 11/10/24 07:30 Pantoprazole 40 Mg Tablet PO [id number] [facility] Senna/Docusate Sodium 2 each 11/08/24 21:00 11/08/24 20:24 Sennosides-Docusate Sodium 1 Each Tab PO 2 each HS [facility] Administration Sodium Chloride 10 ml 11/08/24 21:00 11/09/24 10:11 Sodium Chloride 0.9% Flush 10 Ml Syringe IV 10 ml BID [facility] Administration Intake and Output 11/08/24 11/09/24 11/09/24 22:59 06:59 14:59 Intake Total 955.479 677.628 1266.834 Output Total 1040 830 230 Balance -84.521 22.283 794.834 Intake: IV 882 521 885 ACETAMINOPHEN IV (For NPO 100 ) 1,000 mg In Empty Bag 1 bag @ 400 mls/hr IVPB Q6HR [facility] Rx#:[id number] Albumin Human 5% 250 ml 500 In Empty Bag 1 bag @ 250 mls/hr IVPB Q1HR PRN Rx#: [id number] CO/CI 160 40 90 Lines 72 81 45 Magnesium Sulfate-D5w Pmx 100 1 gm In Dextrose/Water 1 100ml.bag @ 100 mls/hr IVPB ONCE ONE Rx#: [id number] Sodium Chloride 0.9% 1, 400 400 200 000 ml @ 30 mls/hr IV . Q24H [facility] Rx#:[id number] ceFAZolin 2 gm In Sodium 50 50 Chloride 0.9% 50 ml @ 100 mls/hr IVPB Q8HR [facility] Rx# :[id number] Intake, IV Titration 73.479 31.283 19.834 Amount Clevidipine Butyrate 25 24.434 8.250 mg In Empty Bag 1 bag @ 1 MG/HR 2 mls/hr IV .Q24H [facility] Rx#:[id number] Insulin Regular 100 unit 18.141 23.033 19.834 In Sodium Chloride 0.9% 100 ml @ Per Protocol IV .Q0M [facility] Rx#:[id number] propofoL 1,000 mg In 30.904 Empty Bag 1 bag @ Titrate IV .Q0M [facility] Rx#: [id number] Oral 50 120 Albumin 250 Albumin Human 5% 250 ml 250 In Empty Bag 1 bag @ 250 mls/hr IVPB Q1HR PRN Rx#: [id number] Output: Chest Tube Drainage 440 380 120 Left Pleural 170 200 60 Mediastinal 270 180 60 Urine 600 450 110 Other: Voiding Method Indwelling Catheter Indwelling Catheter Weight 114.8 kg 114.8 kg Patient Weight 11/10/24 06:59 Weight 114.8 kg 11/09/24 04:10 11/09/24 04:10
[2024-11-09 13:50] LABS: ABG Base Excess -1.7 mmol/L; ABG HCO3 24 mmol/L (21-25); ABG Oxygen Saturation 52.4 % (94-97); ABG PCO2 41 mmHg (35-45); ABG PH 7.37 (7.35-7.45); ABG TCO2 25 mmol/L (19-24)
[2024-11-09 13:52] LABS: ABG PO2 <30 mmHg (83-108)
[2024-11-09 14:13] LABS: Glucose,Whole Blood 156 mg/dL (70-110)
[2024-11-09] MEDS: DEXTROSE/WATER 1 250ML.BAG with DOPamine DRIP 800 MG IV SCH ×2 (14:22→14:51)
[2024-11-09] MEDS: amLODIPine 2.5 MG TAB PO SCH (14:57)
[2024-11-09] MEDS: ALBUMIN HUMAN 5% 250 ML in EMPTY BAG 1 BAG IVPB ONE (16:58)
[2024-11-09 17:20] LABS: Glucose,Whole Blood 87 mg/dL (70-110)
[2024-11-09 18:02] LABS: Glucose,Whole Blood 124 mg/dL (70-110)
--- NOTE | 2024-11-09 18:26 | P.CONS ---
History of Present Illness - Reason for Consult Consult date: 11/09/24 Insulin management Requesting physician: Matilde Ponce - History of Present Illness This is a pleasant 79 year old male with medical history of hypertension, hyperlipidemia, chest pain, osteoarthritis, cholecystectomy, Coronary artery disease. Patient comes in the hospital for scheduled off pump coronary artery bypass grafting x [address] Brennan. He is evaluated today in the intensive care unit currently sitting up in the chair with family at the bedside. He is having minimal pain. He has been extubated since 1629 yesterday. He remains on nasal cannula at 2L currently. Chest xray today reveals small bilateral pleural effusions with pulmonary vascular congestion and associated atelectasis. He remains on the IV insulin gtt protocol with plans to transition to Subcutaneous insulin tomorrow. Patient did develop a proximal atrial fibrillation post bypass and was started on IV amiodarone. labs today reveal a white blood cell count of 8.2, hemoglobin 11.3, sodium of 134, BUN is 17 creatinine 0.83. Total bilirubin of 1.7. REVIEW OF SYSTEMS: CONSTITUTIONAL: No fever, no malaise, no fatigue. HEENT: No recent visual problems or hearing problems. Denied any sore throat. CARDIOVASCULAR: No chest pain, orthopnea, PND, no palpitations, no syncope. PULMONARY: No shortness of breath, no cough, no hemoptysis. GASTROINTESTINAL: No diarrhea, no nausea, no vomiting, no abdominal pain. NEUROLOGICAL: No headaches, no weakness, no numbness. HEMATOLOGICAL: Denies any bleeding or petechiae. GENITOURINARY: Denies any burning micturition, frequency, or urgency. MUSCULOSKELETAL/RHEUMATOLOGICAL: Denies any joint pain, swelling, or any muscle pain. ENDOCRINE: Denies any polyuria or polydipsia. The rest of the 14-point review of systems is negative. PHYSICAL EXAMINATION: GENERAL: The patient is alert and oriented x3, not in any acute distress. Well developed, well nourished. [place]-n[place]iel in place HEENT: Pupils are round and equally reacting to light. EOMI. No scleral icterus. No conjunctival pallor. Normocephalic, atraumatic. No pharyngeal erythema. No thyromegaly. CARDIOVASCULAR: S1 and S2 present. No murmurs, rubs, or gallops. PULMONARY: Chest is clear to auscultation, no wheezing or crackles. ABDOMEN: Soft, nontender, nondistended, normoactive bowel sounds. No palpable organomegaly. MUSCULOSKELETAL: No joint swelling or deformity. EXTREMITIES: No cyanosis, clubbing, or pedal edema. NEUROLOGICAL: Gross neurological examination did not reveal any focal deficits. SKIN: No rashes. Assessment and plan Coronary artery disease s/p coronary artery bypass grafting three-vessel New onset paroxysmal atrial fibrillation can be expected patient currently on IV amiodarone Dyslipidemia Left ICA stenosis of 70% Prostate cancer maintained on Casodex Hypertension GI prophylaxis Full Code Plan Patient in the intensive care unit post CABG and has been successfully extubated Remains on IV Insulin with plans to transition to subcutaneous tomorrow Continues on IV amiodarone and patient is now in normal sinus rhythm Encourage incentive spirometer 10 x an hour while awake Repeat CBC, BMP in the AM The impression and plan of care has been dictated by Mary Palacio, Nurse Practitioner as directed. Dr. Madison MD I have performed a history and physical examination and medical decision making of this patient, discussed the same with the dictator, and agree with the dictators assessment and plan as written, documented as a scribe. Based on total visit time, I have performed more than 50% of this visit. Past Medical History Past Medical History: Cancer, Chest Pain / Angina, Hearing Disorder / Deafness, Hyperlipidemia, Hypertension, Osteoarthritis (OA), Prostate Disorder Additional Past Medical History / Comment(s): VARICOSE VEINS. hx. prostate cancer 6 yrs. ago-had tx., now PSA is elevated again-current hormone tx. for, ankle swelling History of Any Multi-Drug Resistant Organisms: None Reported Past Surgical History: Cholecystectomy, Heart Catheterization, Hernia Repair, Joint Replacement, Orthopedic Surgery Additional Past Surgical History / Comment(s): RIGHT SHOULDER, UMBILICAL HERNIA & ABDOMINAL HERNIA REPAIR, RIGHT TOTAL KNEE. recent cardiac cath. Past Anesthesia/Blood Transfusion Reactions: Previous Problems w/ Anesthesia Additional Past Anesthesia/Blood Transfusion Reaction / Comm: STATES DIFFICULTY BREATHING AFTER SHOULDER SURGERY-not sure why, other surgeries after had no problems Smoking Status: Never smoker - Past Family History Mother Family Medical History: Respiratory Disorder Father Family Medical History: Vascular Disorder Additional Family Medical History / Comment(s): Abdominal aortic aneurysm rupture Medications and Allergies Home Medications Medication Instructions Recorded Confirmed Type Cholecalciferol [Vitamin D3 (25 5,000 unit PO DAILY 01/02/17 11/08/24 History Mcg = 1000 Iu)] Multivitamins, Thera [Multivitamin 1 tab PO DAILY 01/02/17 11/08/24 History (formulary)] Benazepril HCl 40 mg PO DAILY 10/27/24 11/08/24 History Bicalutamide [Casodex] 50 mg PO DAILY 10/27/24 11/08/24 History Nitroglycerin Sl Tabs [Nitrostat] 0.4 mg PO DIRECTED PRN 10/27/24 11/08/24 History Aspirin 81 mg PO DAILY #30 tab 10/30/24 11/08/24 Rx Atorvastatin [Lipitor] 80 mg PO HS #30 tab 10/30/24 11/08/24 Rx Isosorbide Mononitrate ER [Imdur] 60 mg PO DAILY #30 tab 10/30/24 11/08/24 Rx Metoprolol Succinate (ER) [Toprol 50 mg PO DAILY #30 tab 10/30/24 11/08/24 Rx XL] Cider Vinegar [Apple Cider Vinegar] 450 mg PO DAILY 11/04/24 11/08/24 History Flaxseed Oil 1,000 mg PO DAILY 11/04/24 11/08/24 History L.acidoph,Paracasei, B.lactis 1 each PO DAILY 11/04/24 11/08/24 History [Probiotic] Magnesium Citrate and Oxide 400 mg PO DAILY 11/04/24 11/08/24 History [Magnesium] Potassium Citrate 99 mg PO DAILY 11/04/24 11/08/24 History Turmeric Root Extract [Turmeric] 1,500 mg PO DAILY 11/04/24 11/08/24 History Vitamin B Complex 1 each PO DAILY 11/04/24 11/08/24 History Allergies Allergy/AdvReac Type Severity Reaction Status Date / Time No Known Allergies Allergy Verified 11/08/24 05:58 Physical Exam Vitals: Vital Signs Temp Pulse Resp BP Pulse Ox FiO2 11/09/24 09:22 74 11/09/24 09:13 78 11/09/24 08:30 89 108/53 92 L 11/09/24 08:00 100.0 F H 83 16 96 11/09/24 07:30 79 26 H 94 L 11/09/24 07:00 82 20 94 L 11/09/24 06:30 80 19 93 L 11/09/24 06:00 84 23 102/48 92 L 11/09/24 05:30 105 H 19 101/46 81 L 11/09/24 05:00 100 22 93 L 11/09/24 04:30 89 21 94 L 11/09/24 04:00 96 18 93 L 11/09/24 03:30 83 21 93 L 11/09/24 03:00 89 24 93 L 11/09/24 02:30 86 23 93 L 11/09/24 02:00 86 23 93 L 11/09/24 01:30 88 21 94 L 11/09/24 01:00 85 24 95 11/09/24 00:30 84 24 95 11/09/24 00:00 100.8 F H 84 21 95 11/08/24 23:30 87 22 95 11/08/24 23:00 84 23 95 11/08/24 22:30 84 25 H 97 11/08/24 22:23 81 22 96 11/08/24 22:15 81 23 95 11/08/24 22:00 80 26 H 97 11/08/24 21:45 81 28 H 98 11/08/24 21:30 75 24 98 11/08/24 21:15 71 25 H 97 11/08/24 21:09 80 11/08/24 21:00 80 26 H 99 11/08/24 20:59 79 11/08/24 20:45 80 22 98 11/08/24 20:30 81 26 H 100 11/08/24 20:15 78 46 H 98 11/08/24 20:00 99.5 F 77 16 97 11/08/24 19:45 84 23 96 11/08/24 19:30 82 20 98 11/08/24 19:15 82 23 98 11/08/24 19:00 99.5 F 85 23 97 11/08/24 18:45 84 24 97 11/08/24 18:30 83 25 H 96 11/08/24 18:15 82 19 96 11/08/24 18:00 99.3 F 84 26 H 95 11/08/24 17:55 86 18 11/08/24 17:45 81 24 97 11/08/24 17:42 82 18 11/08/24 17:30 77 22 95 11/08/24 17:15 72 22 97 03/03/25 17:05 92 L 11/08/24 17:00 99.1 F 82 13 92 L 50 11/08/24 16:45 71 23 98 11/08/24 16:30 75 32 H 97 11/08/24 16:15 69 21 100 11/08/24 16:00 98.6 F 65 18 100 50 11/08/24 15:59 50 11/08/24 15:57 100 11/08/24 15:55 50 11/08/24 15:45 59 L 15 100 11/08/24 15:30 12 100 11/08/24 15:15 61 12 100 11/08/24 15:00 98.1 F 66 12 100 11/08/24 14:45 65 12 100 11/08/24 14:43 50 11/08/24 14:40 100 11/08/24 14:30 64 12 100 50 11/08/24 14:15 64 12 100 11/08/24 14:00 96.8 F L 69 12 100 11/08/24 13:45 71 12 100 11/08/24 13:35 60 11/08/24 13:30 66 12 100 11/08/24 13:27 62 12 11/08/24 13:15 58 L 12 100 11/08/24 13:01 57 L 12 11/08/24 13:00 95.4 F L 60 12 100 100 11/08/24 12:55 100 11/08/24 12:40 100 Intake and Output 11/08/24 11/09/24 11/09/24 22:59 06:59 14:59 Intake Total 955.479 852.283 143.5 Output Total 1040 830 55 Balance -84.521 22.283 88.5 Intake: IV 882 521 139 ACETAMINOPHEN IV (For NPO 100 ) 1,000 mg In Empty Bag 1 bag @ 400 mls/hr IVPB Q6HR M[facility]I Rx#:[id number] CO/CI 160 40 30 Lines 72 81 9 Magnesium Sulfate-D5w Pmx 100 1 gm In Dextrose/Water 1 100ml.bag @ 100 mls/hr IVPB ONCE ONE Rx#: [id number] Sodium Chloride 0.9% 1, 400 400 50 000 ml @ 30 mls/hr IV . Q24H MINDI Rx#:[id number] ceFAZolin 2 gm In Sodium 50 50 Chloride 0.9% 50 ml @ 100 mls/hr IVPB Q8HR ON LICENSE OF [facility] Rx# :[id number] Intake, IV Titration 73.479 31.283 4.5 Amount Clevidipine Butyrate 25 24.434 8.250 mg In Empty Bag 1 bag @ 1 MG/HR 2 mls/hr IV .Q24H PRN Rx#:[id number] Insulin Regular 100 unit 18.141 23.033 4.5 In Sodium Chloride 0.9% 100 ml @ Per Protocol IV .Q0M ON LICENSE OF [facility] Rx#:[id number] propofoL 1,000 mg In 30.904 Empty Bag 1 bag @ Titrate IV .Q0M ON LICENSE OF [facility] Rx#: [id number] Oral 50 Albumin 250 Albumin Human 5% 250 ml 250 In Empty Bag 1 bag @ 250 mls/hr IVPB Q1HR PRN Rx#: [id number] Output: Chest Tube Drainage 440 380 20 Left Pleural 170 200 10 Mediastinal 270 180 10 Urine 600 450 35 Other: Voiding Method Indwelling Catheter Indwelling Catheter Weight 114.8 kg ABP, PAP, CO, CI - Last 8 Hours Arterial Blood Pressure 109/47 Arterial Blood Pressure 102/41 Arterial Blood Pressure 114/43 Arterial Blood Pressure 115/41 Arterial Blood Pressure 106/40 Arterial Blood Pressure 107/40 Arterial Blood Pressure 111/44 Arterial Blood Pressure 114/40 Arterial Blood Pressure 111/45 Arterial Blood Pressure 200/199 Arterial Blood Pressure 115/42 Arterial Blood Pressure 101/62 Arterial Blood Pressure 104/43 Arterial Blood Pressure 123/45 Pulmonary Artery Pressure 23/10 Pulmonary Artery Pressure 19/12 Pulmonary Artery Pressure 25/11 Pulmonary Artery Pressure 27/14 Pulmonary Artery Pressure 26/12 Pulmonary Artery Pressure 20/11 Pulmonary Artery Pressure 23/10 Pulmonary Artery Pressure 19/1 Pulmonary Artery Pressure 33/15 Pulmonary Artery Pressure 40/12 Pulmonary Artery Pressure 26/15 Pulmonary Artery Pressure 42/12 Pulmonary Artery Pressure 23/12 Pulmonary Artery Pressure 28/13 Cardiac Output 4.4 Cardiac Output 5.5 Cardiac Output 4.2 Cardiac Output 7 Cardiac Index 1.9 Cardiac Index 2.4 Cardiac Index 1.9 Cardiac Index 3 Cardiac Index 3 Results CBC & Chem 7: 11/09/24 04:10 11/09/24 04:10 Labs: Abnormal Lab Results - Last 24 Hours (Table) 11/04/24 11/08/24 11/08/24 Range/Units 14:41 09:56 10:25 RBC (4.30-5.90) m/uL Hgb (13.0-17.5) gm/dL Hct (39.0-53.0) % Plt Count (150-450) k/uL Neutrophils # (1.3-7.7) k/uL Lymphocytes # (1.0-4.8) k/uL PT (10.0-12.5) sec INR (<1.2) ABG pH (7.35-7.45) ABG pO2 124 H (83-108) mmHg ABG Total CO2 (19-24) mmol/L ABG O2 Saturation 98.5 H (94-97) % ABG Hematocrit 31 L (34.0-46.0) % ABG Glucose 117 H (75-99) mg/dL Hemoglobin 10.2 L (13.0-17.5) gm/dL Sodium (137-145) mmol/L Glucose (74-99) mg/dL POC Glucose (mg/dL) 122 H (70-110) mg/dL Total Bilirubin (0.2-1.3) mg/dL Total Protein (6.3-8.2) g/dL Arterial Blood Glucose 117 H (75-99) mg/dL Crossmatch See Detail 11/08/24 11/08/24 11/08/24 Range/Units 10:33 11:30 12:49 RBC (4.30-5.90) m/uL Hgb (13.0-17.5) gm/dL Hct (39.0-53.0) % Plt Count (150-450) k/uL Neutrophils # (1.3-7.7) k/uL Lymphocytes # (1.0-4.8) k/uL PT (10.0-12.5) sec INR (<1.2) ABG pH (7.35-7.45) ABG pO2 147 H 68 L (83-108) mmHg ABG Total CO2 (19-24) mmol/L ABG O2 Saturation 98.4 H (94-97) % ABG Hematocrit 31 L 29 L (34.0-46.0) % ABG Glucose 125 H 123 H (75-99) mg/dL Hemoglobin 10.1 L 9.6 L (13.0-17.5) gm/dL Sodium (137-145) mmol/L Glucose (74-99) mg/dL POC Glucose (mg/dL) 122 H (70-110) mg/dL Total Bilirubin (0.2-1.3) mg/dL Total Protein (6.3-8.2) g/dL Arterial Blood Glucose 125 H 123 H (75-99) mg/dL Crossmatch 11/08/24 11/08/24 11/08/24 Range/Units 12:50 12:50 12:50 RBC 3.51 L (4.30-5.90) m/uL Hgb 10.8 L (13.0-17.5) gm/dL Hct 33.3 L (39.0-53.0) % Plt Count 115 L (150-450) k/uL Neutrophils # 8.1 H (1.3-7.7) k/uL Lymphocytes # (1.0-4.8) k/uL PT 12.8 H (10.0-12.5) sec INR 1.2 H (<1.2) ABG pH (7.35-7.45) ABG pO2 (83-108) mmHg ABG Total CO2 (19-24) mmol/L ABG O2 Saturation (94-97) % ABG Hematocrit (34.0-46.0) % ABG Glucose (75-99) mg/dL Hemoglobin (13.0-17.5) gm/dL Sodium (137-145) mmol/L Glucose 113 H (74-99) mg/dL POC Glucose (mg/dL) (70-110) mg/dL Total Bilirubin 1.4 H (0.2-1.3) mg/dL Total Protein 5.9 L (6.3-8.2) g/dL Arterial Blood Glucose (75-99) mg/dL Crossmatch 11/08/24 11/08/24 11/08/24 Range/Units 13:30 13:35 14:15 RBC (4.30-5.90) m/uL Hgb (13.0-17.5) gm/dL Hct (39.0-53.0) % Plt Count (150-450) k/uL Neutrophils # (1.3-7.7) k/uL Lymphocytes # (1.0-4.8) k/uL PT (10.0-12.5) sec INR (<1.2) ABG pH (7.35-7.45) ABG pO2 275 H (83-108) mmHg ABG Total CO2 26 H (19-24) mmol/L ABG O2 Saturation 99.9 H (94-97) % ABG Hematocrit (34.0-46.0) % ABG Glucose (75-99) mg/dL Hemoglobin 10.6 L (13.0-17.5) gm/dL Sodium (137-145) mmol/L Glucose (74-99) mg/dL POC Glucose (mg/dL) 116 H 135 H (70-110) mg/dL Total Bilirubin (0.2-1.3) mg/dL Total Protein (6.3-8.2) g/dL Arterial Blood Glucose (75-99) mg/dL Crossmatch 11/08/24 11/08/24 11/08/24 Range/Units 14:59 15:53 15:53 RBC 3.48 L (4.30-5.90) m/uL Hgb 11.0 L (13.0-17.5) gm/dL Hct 33.2 L (39.0-53.0) % Plt Count 136 L (150-450) k/uL Neutrophils # 8.0 H (1.3-7.7) k/uL Lymphocytes # (1.0-4.8) k/uL PT (10.0-12.5) sec INR (<1.2) ABG pH (7.35-7.45) ABG pO2 (83-108) mmHg ABG Total CO2 (19-24) mmol/L ABG O2 Saturation (94-97) % ABG Hematocrit (34.0-46.0) % ABG Glucose (75-99) mg/dL Hemoglobin (13.0-17.5) gm/dL Sodium (137-145) mmol/L Glucose (74-99) mg/dL POC Glucose (mg/dL) 133 H 136 H (70-110) mg/dL Total Bilirubin (0.2-1.3) mg/dL Total Protein (6.3-8.2) g/dL Arterial Blood Glucose (75-99) mg/dL Crossmatch 11/08/24 11/08/2411/08/25 Range/Units 16:38 17:06 18:00 RBC (4.30-5.90) m/uL Hgb (13.0-17.5) gm/dL Hct (39.0-53.0) % Plt Count (150-450) k/uL Neutrophils # (1.3-7.7) k/uL Lymphocytes # (1.0-4.8) k/uL PT (10.0-12.5) sec INR (<1.2) ABG pH 7.34 L (7.35-7.45) ABG pO2 75 L (83-108) mmHg ABG Total CO2 26 H (19-24) mmol/L ABG O2 Saturation (94-97) % ABG Hematocrit (34.0-46.0) % ABG Glucose (75-99) mg/dL Hemoglobin 11.6 L (13.0-17.5) gm/dL Sodium (137-145) mmol/L Glucose (74-99) mg/dL POC Glucose (mg/dL) 170 H 161 H (70-110) mg/dL Total Bilirubin (0.2-1.3) mg/dL Total Protein (6.3-8.2) g/dL Arterial Blood Glucose (75-99) mg/dL Crossmatch 11/08/24 11/08/24 11/08/24 Range/Units 18:50 18:51 20:16 RBC 3.63 L (4.30-5.90) m/uL Hgb 11.3 L (13.0-17.5) gm/dL Hct 34.1 L (39.0-53.0) % Plt Count 122 L (150-450) k/uL Neutrophils # (1.3-7.7) k/uL Lymphocytes # 0.5 L (1.0-4.8) k/uL PT (10.0-12.5) sec INR (<1.2) ABG pH (7.35-7.45) ABG pO2 (83-108) mmHg ABG Total CO2 (19-24) mmol/L ABG O2 Saturation (94-97) % ABG Hematocrit (34.0-46.0) % ABG Glucose (75-99) mg/dL Hemoglobin (13.0-17.5) gm/dL Sodium (137-145) mmol/L Glucose (74-99) mg/dL POC Glucose (mg/dL) 152 H 122 H (70-110) mg/dL Total Bilirubin (0.2-1.3) mg/dL Total Protein (6.3-8.2) g/dL Arterial Blood Glucose (75-99) mg/dL Crossmatch 11/08/24 11/08/24 11/08/24 Range/Units 21:16 22:09 23:04 RBC (4.30-5.90) m/uL Hgb (13.0-17.5) gm/dL Hct (39.0-53.0) % Plt Count (150-450) k/uL Neutrophils # (1.3-7.7) k/uL Lymphocytes # (1.0-4.8) k/uL PT (10.0-12.5) sec INR (<1.2) ABG pH (7.35-7.45) ABG pO2 (83-108) mmHg ABG Total CO2 (19-24) mmol/L ABG O2 Saturation (94-97) % ABG Hematocrit (34.0-46.0) % ABG Glucose (75-99) mg/dL Hemoglobin (13.0-17.5) gm/dL Sodium (137-145) mmol/L Glucose (74-99) mg/dL POC Glucose (mg/dL) 112 H 124 H 131 H (70-110) mg/dL Total Bilirubin (0.2-1.3) mg/dL Total Protein (6.3-8.2) g/dL Arterial Blood Glucose (75-99) mg/dL Crossmatch 11/09/24 11/09/24 11/09/24 Range/Units 00:19 01:08 02:07 RBC (4.30-5.90) m/uL Hgb (13.0-17.5) gm/dL Hct (39.0-53.0) % Plt Count (150-450) k/uL Neutrophils # (1.3-7.7) k/uL Lymphocytes # (1.0-4.8) k/uL PT (10.0-12.5) sec INR (<1.2) ABG pH (7.35-7.45) ABG pO2 (83-108) mmHg ABG Total CO2 (19-24) mmol/L ABG O2 Saturation (94-97) % ABG Hematocrit (34.0-46.0) % ABG Glucose (75-99) mg/dL Hemoglobin (13.0-17.5) gm/dL Sodium (137-145) mmol/L Glucose (74-99) mg/dL POC Glucose (mg/dL) 142 H 142 H 119 H (70-110) mg/dL Total Bilirubin (0.2-1.3) mg/dL Total Protein (6.3-8.2) g/dL Arterial Blood Glucose (75-99) mg/dL Crossmatch 11/09/24 11/09/24 11/09/24 Range/Units 04:00 04:10 04:10 RBC 3.61 L (4.30-5.90) m/uL Hgb 11.3 L (13.0-17.5) gm/dL Hct 34.2 L (39.0-53.0) % Plt Count 139 L (150-450) k/uL Neutrophils # (1.3-7.7) k/uL Lymphocytes # 0.9 L (1.0-4.8) k/uL PT (10.0-12.5) sec INR (<1.2) ABG pH (7.35-7.45) ABG pO2 (83-108) mmHg ABG Total CO2 (19-24) mmol/L ABG O2 Saturation (94-97) % ABG Hematocrit (34.0-46.0) % ABG Glucose (75-99) mg/dL Hemoglobin (13.0-17.5) gm/dL Sodium 134 L (137-145) mmol/L Glucose 125 H (74-99) mg/dL POC Glucose (mg/dL) 126 H (70-110) mg/dL Total Bilirubin 1.7 H (0.2-1.3) mg/dL Total Protein 5.9 L (6.3-8.2) g/dL Arterial Blood Glucose (75-99) mg/dL Crossmatch 11/09/24 11/09/24 Range/Units 06:53 07:54 RBC (4.30-5.90) m/uL Hgb (13.0-17.5) gm/dL Hct (39.0-53.0) % Plt Count (150-450) k/uL Neutrophils # (1.3-7.7) k/uL Lymphocytes # (1.0-4.8) k/uL PT (10.0-12.5) sec INR (<1.2) ABG pH (7.35-7.45) ABG pO2 (83-108) mmHg ABG Total CO2 (19-24) mmol/L ABG O2 Saturation (94-97) % ABG Hematocrit (34.0-46.0) % ABG Glucose (75-99) mg/dL Hemoglobin (13.0-17.5) gm/dL Sodium (137-145) mmol/L Glucose (74-99) mg/dL POC Glucose (mg/dL) 144 H 127 H (70-110) mg/dL Total Bilirubin (0.2-1.3) mg/dL Total Protein (6.3-8.2) g/dL Arterial Blood Glucose (75-99) mg/dL Crossmatch Assessment and Plan Time with Patient: Less than 30
[2024-11-09 19:11] LABS: Glucose,Whole Blood 140 mg/dL (70-110)
[2024-11-09] MEDS: ALBUMIN HUMAN 5% 500 ML in EMPTY BAG 1 BAG IVPB ONE (19:30)
[2024-11-09 20:24] LABS: Glucose,Whole Blood 102 mg/dL (70-110)
[2024-11-09 21:20] LABS: Glucose,Whole Blood 108 mg/dL (70-110)
[2024-11-09 22:08] LABS: Glucose,Whole Blood 122 mg/dL (70-110)
[2024-11-09 23:03] LABS: Glucose,Whole Blood 115 mg/dL (70-110)
[2024-11-10 00:34] LABS: Glucose,Whole Blood 98 mg/dL (70-110)
[2024-11-10 01:35] LABS: Glucose,Whole Blood 105 mg/dL (70-110)
[2024-11-10 02:04] LABS: Glucose,Whole Blood 104 mg/dL (70-110)
[2024-11-10 02:57] LABS: Glucose,Whole Blood 125 mg/dL (70-110)
[2024-11-10] MEDS: INSULIN REGULAR 100 UNIT in SODIUM CHLORIDE 0.9% 100 ML IV SCH (03:00)
[2024-11-10 03:33] LABS: Basophils % (A) 0 %; Eosinophils # (A) 0.1 k/uL (0-0.7); Eosinophils % (A) 1 %; HCT 27.5 % (39.0-53.0); Lymphocytes % (A) 14 %; MCH 31.6 pg (25.0-35.0); MCHC 33.3 g/dL (31.0-37.0); MCV 94.9 fL (80.0-100.0); Mean Platelet Volume 8.6; Monocytes # (A) 0.5 k/uL (0-1.0); Monocytes % (A) 7 %; Neutrophils # (A) 5.4 k/uL (1.3-7.7); Neutrophils % (A) 77 %; RDW 13.2 % (11.5-15.5); WBC 7.1 k/uL (3.8-10.6)
[2024-11-10 03:37] LABS: Ionized Calcium 4.6 mg/dL (4.5-5.3)
[2024-11-10 03:41] LABS: HGB 9.2 gm/dL (13.0-17.5)
[2024-11-10 03:42] LABS: Platelet Count 95 k/uL (150-450)
[2024-11-10 03:45] LABS: ALT 9 U/L (4-49); AST 33 U/L (17-59); African American GFR (CKD) 37 (>60 ml/min/1.73 sqM); Albumin 3.6 g/dL (3.5-5.0); Alkaline Phosphatase 39 U/L (38-126); Anion Gap 10 mmol/L; Blood Urea Nitrogen 32 mg/dL (9-20); Calcium 8.1 mg/dL (8.4-10.2); Carbon Dioxide 22 mmol/L (22-30); Chloride 101 mmol/L (98-107); Glucose 110 mg/dL (74-99); Magnesium 2.1 mg/dL (1.6-2.3); Non-African American GFR(CKD) 32 (>60 ml/min/1.73 sqM); Potassium 4.1 mmol/L (3.5-5.1); Sodium 133 mmol/L (137-145); Total Bilirubin 2.4 mg/dL (0.2-1.3); Total Protein 5.6 g/dL (6.3-8.2)
[2024-11-10 04:09] LABS: Glucose,Whole Blood 110 mg/dL (70-110)
[2024-11-10 05:08] LABS: Glucose,Whole Blood 109 mg/dL (70-110)
[2024-11-10] MEDS: PANTOPRAZOLE 40 MG TABLET PO SCH (06:34)
[2024-11-10 06:40] LABS: Glucose,Whole Blood 117 mg/dL (70-110)
[2024-11-10 07:10] LABS: Glucose,Whole Blood 119 mg/dL (70-110)
--- NOTE | 2024-11-10 07:58 | XR ---
EXAMINATION TYPE: XR chest 1V portable DATE OF EXAM: 11/10/2024 5:28 AM COMPARISON: Multiple radiographs, with the most recent on 11/09/2024 TECHNIQUE: XR chest 1V portable Portable AP radiograph of the chest. CLINICAL INDICATION:Male, 79 years old with history of Post Operative Cardiac Surgery; FINDINGS: Lungs/Pleura: Blunting of both costophrenic angles with pulmonary vascular congestion. Bibasilar airs pace opacities. No sizable pneumothorax. Biapical pleural thickening. Heart/mediastinum: Cardiomediastinal silhouette is enlarged. Postsurgical changes. Atherosclerotic ca lcifications are seen in the aorta. Left atrial appendage occlusion devices present. Musculoskeletal: No acute osseous pathology. Midline sternotomy wires. Other findings: None Lines/Tubes: Stable left-sided chest tube. Right IJ Henderson-Cecilia catheter with distal tip in the region of the main pulmonary artery. Inferior approach mediastinal drain is identified. IMPRESSION: 1. Small bilateral pleural effusions with cardiomegaly and pulmonary vascular congestion. Bibasilar patchy opacities probably representing atelectasis however pneumonia is not excluded. Correlate for C HF exacerbation/volume overload. 2. Stable support lines and tubes. [facility], , 11/10/2024 7:56 AM
--- NOTE | 2024-11-10 08:03 | P.PN ---
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 History of hypertension, left internal carotid artery stenosis, mild peripheral arterial disease, prostate cancer with hormone therapy treatment, osteoarthritis, obesity, extremely hard of hearing, and lifelong non-smoker POD #2 off-pump coronary artery bypass grafting x 3 with PIERSON to LAD, sequential radial artery graft to first and second obtuse marginal coronary arteries as T graft off PIERSON, left radial artery endovascular harvest, occlusion of the left atrial appendage with 35mm AtriCure clip Postoperative acute blood loss anemia and thrombocytopenia, expected given he modilution Brief paroxysmal atrial fibrillation after surgery, somewhat expected as it is a known common occurrence after open heart surgery The patient was seen and examined this morning sitting up in recliner in the intensive care unit in no acute distress. Remains in sinus rhythm, has had ela inal blood pressures since yesterday despite IV fluids boluses and initiation of IV dopamine. Currently on 5 L nasal cannula with oxygen saturation in the mid 90s. Only able to achieve 750 mL on his incentive spirometry, stronger cough than yesterday. States pain is mostly controlled on current medication regimen, Toradol stopped due to bump in creatinine this morning. Labs, chest x-ray reviewed with Dr. Brennan. Right internal jugular Lincoln/Cordis, right radial arterial line, mediastinal/left pleural chest tubes all remain. Urine output has been marginal although patient appears to be diuresing a bit through his chest tubes. Patient did ambulate a short distance in the hallway yesterday. Objective - Vital Signs Vital signs: Vital Signs Temp 99.9 F H 11/10/24 06:00 Pulse 82 11/10/24 06:30 Resp 21 11/10/24 07:00 BP 91/51 11/10/24 07:00 Pulse Ox 97 11/10/24 07:00 FiO2 50 11/08/24 17:00 Intake & Output 11/09/24 11/10/24 11/10/24 18:59 06:59 18:59 Intake Total 1883.493 959.900 36 Output Total 340 510 25 Balance 1543.493 449.900 11 Weight 114.8 kg 120.5 kg Intake: IV 1479 945 36 Albumin Human 5% 250 ml 750 500 In Empty Bag 1 bag @ 250 mls/hr IVPB Q1HR PRN Rx#: [id number] CO/CI 120 Lines 99 75 6 Sodium Chloride 0.9% 1, 460 370 30 000 ml @ 30 mls/hr IV . Q24H [facility] Rx#:[id number] ceFAZolin 2 gm In Sodium 50 Chloride 0.9% 50 ml @ 100 mls/hr IVPB Q8HR [facility] Rx# :[id number] Intake, IV Titration 44.493 14.900 Amount Insulin Regular 100 unit 44.493 14.900 In Sodium Chloride 0.9% 100 ml @ Per Protocol IV .Q0M [facility] Rx#:[id number] Oral 360 Output: Chest Tube Drainage 180 330 10 Left Pleural 32f 90 220 10 Mediastinal 36f 90 110 0 Urine 160 180 15 Other: Voiding Method Indwelling Catheter Indwelling Catheter ABP, PAP, CO, CI - Last Documented Arterial Blood Pressure 91/43 Pulmonary Artery Pressure 25/17 Cardiac Output 5.3 Cardiac Index 2.3 - Exam CONSTITUTIONAL: Appears comfortable, cooperative, no acute distress RESPIRATORY: Lungs sounds diminished bilaterally, left greater than right. Respirations even, nonlabored. Currently on 5 L nasal cannula with oxygen saturation 95%. Able to achieve 750 mL on incentive spirometry. Stronger cough. CARDIOVASCULAR: S1, S2 present. Regular rate and rhythm, sinus rhythm on t elemetry. Sternum stable. Palpable peripheral pulses bilaterally. Trace generalized edema present. No calf pain or tenderness noted. Heart hugger in place with patient demonstrating appropriate use. Antiembolism stockings, SCDs present. GASTROINTESTINAL: Abdomen soft, nontender, nondistended. Active bowel sounds present 4 quadrants. Tolerating diet. Positive flatus GENITOURINARY: Jaquez present draining clear, yellow urine. Output overnight 15-20 mL per hour, 340 mL in the last 24 hours INTEGUMENTARY: Skin is warm and dry with evidence of good perfusion. Anterior chest incision well approximated and covered with dry intact dressing. Left radial artery harvest site well approximated without redness or drainage. NEUROLOGIC: Cranial nerves II through XII intact MUSKULOSKELETAL: Able to move all extremities, strength equal bilaterally PSYCHIATRIC: Alert and oriented to person place and time, appropriate affect, intact judgment and insight INVASIVE LINES AND TUBES: Mediastinal/left pleural chest tubes present and connected to wall suction, no air leaks present. Mediastinal tube with 70 mL serosanguineous drainage overnight, 200 mL in the last 24 hours. Left pleural chest tube with 190 mL serosanguineous drainage overnight, 320 mL in the last 24 hours. Right internal jugular Lincoln/Cordis, right radial arterial line present. Last CO/CI 5.3/2.3, PA , CVP 13. - Allied health notes Allied health notes reviewed: nursing - Labs CBC & Chem 7: 11/10/24 02:55 11/10/24 02:55 Labs: Abnormal Lab Results - Last 24 Hours (Table) 11/09/24 11/09/24 11/09/24 Range/Units 07:54 09:34 10:13 RBC (4.30-5.90) m/uL Hgb (13.0-17.5) gm/dL Hct (39.0-53.0) % Plt Count (150-450) k/uL ABG pO2 (83-108) mmHg ABG Total CO2 (19-24) mmol/L ABG O2 Saturation (94-97) % Hemoglobin (13.0-17.5) gm/dL Sodium (137-145) mmol/L BUN (9-20) mg/dL Creatinine (0.66-1.25) mg/dL Glucose (74-99) mg/dL POC Glucose (mg/dL) 127 H 160 H 151 H (70-110) mg/dL Calcium (8.4-10.2) mg/dL Total Bilirubin (0.2-1.3) mg/dL Total Protein (6.3-8.2) g/dL 11/09/24 11/09/24 11/09/24 Range/Units 11:17 12:53 13:44 RBC (4.30-5.90) m/uL Hgb (13.0-17.5) gm/dL Hct (39.0-53.0) % Plt Count (150-450) k/uL ABG pO2 <30 L* (83-108) mmHg ABG Total CO2 25 H (19-24) mmol/L ABG O2 Saturation 52.4 L (94-97) % Hemoglobin 10.1 L (13.0-17.5) gm/dL Sodium (137-145) mmol/L BUN (9-20) mg/dL Creatinine (0.66-1.25) mg/dL Glucose (74-99) mg/dL POC Glucose (mg/dL) 113 H 162 H (70-110) mg/dL Calcium (8.4-10.2) mg/dL Total Bilirubin (0.2-1.3) mg/dL Total Protein (6.3-8.2) g/dL 11/09/24 11/09/24 11/09/24 Range/Units 14:12 18:00 19:09 RBC (4.30-5.90) m/uL Hgb (13.0-17.5) gm/dL Hct (39.0-53.0) % Plt Count (150-450) k/uL ABG pO2 (83-108) mmHg ABG Total CO2 (19-24) mmol/L ABG O2 Saturation (94-97) % Hemoglobin (13.0-17.5) gm/dL Sodium (137-145) mmol/L BUN (9-20) mg/dL Creatinine (0.66-1.25) mg/dL Glucose (74-99) mg/dL POC Glucose (mg/dL) 156 H 124 H 140 H (70-110) mg/dL Calcium (8.4-10.2) mg/dL Total Bilirubin (0.2-1.3) mg/dL Total Protein (6.3-8.2) g/dL 11/09/24 11/09/24 11/10/24 Range/Units 22:06 23:02 02:55 RBC 2.90 L (4.30-5.90) m/uL Hgb 9.2 L D (13.0-17.5) gm/dL Hct 27.5 L (39.0-53.0) % Plt Count 95 L (150-450) k/uL ABG pO2 (83-108) mmHg ABG Total CO2 (19-24) mmol/L ABG O2 Saturation (94-97) % Hemoglobin (13.0-17.5) gm/dL Sodium (137-145) mmol/L BUN (9-20) mg/dL Creatinine (0.66-1.25) mg/dL Glucose (74-99) mg/dL POC Glucose (mg/dL) 122 H 115 H (70-110) mg/dL Calcium (8.4-10.2) mg/dL Total Bilirubin (0.2-1.3) mg/dL Total Protein (6.3-8.2) g/dL 11/10/24 11/10/24 11/10/24 Range/Units 02:55 02:56 06:39 RBC (4.30-5.90) m/uL Hgb (13.0-17.5) gm/dL Hct (39.0-53.0) % Plt Count (150-450) k/uL ABG pO2 (83-108) mmHg ABG Total CO2 (19-24) mmol/L ABG O2 Saturation (94-97) % Hemoglobin (13.0-17.5) gm/dL Sodium 133 L (137-145) mmol/L BUN 32 H (9-20) mg/dL Creatinine 1.94 H (0.66-1.25) mg/dL Glucose 110 H (74-99) mg/dL POC Glucose (mg/dL) 125 H 117 H (70-110) mg/dL Calcium 8.1 L (8.4-10.2) mg/dL Total Bilirubin 2.4 H (0.2-1.3) mg/dL Total Protein 5.6 L (6.3-8.2) g/dL 11/10/24 Range/Units 07:09 RBC (4.30-5.90) m/uL Hgb (13.0-17.5) gm/dL Hct (39.0-53.0) % Plt Count (150-450) k/uL ABG pO2 (83-108) mmHg ABG Total CO2 (19-24) mmol/L ABG O2 Saturation (94-97) % Hemoglobin (13.0-17.5) gm/dL Sodium (137-145) mmol/L BUN (9-20) mg/dL Creatinine (0.66-1.25) mg/dL Glucose (74-99) mg/dL POC Glucose (mg/dL) 119 H (70-110) mg/dL Calcium (8.4-10.2) mg/dL Total Bilirubin (0.2-1.3) mg/dL Total Protein (6.3-8.2) g/dL - Imaging and Cardiology Chest x-ray: report reviewed, image reviewed Assessment and Plan Assessment: 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, unstable angina, status post three-vessel off-pump CABG Postoperative acute blood loss anemia and thrombocytopenia, expected given hemodilution Brief paroxysmal atrial fibrillation after surgery, somewhat expected as it is a known common occurrence after open heart surgery, status post ligation of the left atrial appendage History of hypertension Hypertriglyceridemia Left internal carotid artery stenosis, > 70% per Doppler Mild peripheral arterial disease, left JERRI 0.87, right JERRI 0.93 Prostate cancer with hormone therapy treatment Osteoarthritis Obesity Extremely hard of hearing Lifelong non-smoker, preoperative FEV1 83% of predicted Plan: Continue to maximize medical therapy with aspirin, statin, Plavix, low-dose beta-phillip. Will increase beta-phillip therapy when able Continue dopamine, will give concentrated albumin Continue amiodarone for A-fib prophylaxis. No anticoagulation at this point Wean oxygen as tolerated. Encourage incentive spirometry use 10 times every hour while awake. Bronchodilators per pulmonology Will monitor daily labs and x-rays. Electrolyte replacement per protocol Increase activity, ambulate as tolerated. PT/OT/cardiac rehab consulted GI/DVT prophylaxis Pain control per current medication regimen. Toradol discontinued due to bump in creatinine Insulin management per internal medicine. Patient is not diabetic, preoperative hemoglobin A1c 5.6% Continue Lincoln/Cordis for another 24 hours Continue chest tubes for another 24 hours, take off suction and keep to waterseal, monitor and record output Continue Jaquez catheter for another 24 hours, continue to monitor record strict accurate intake and output Appropriate home medications reordered More recommendations to follow as patient progresses
[2024-11-10] MEDS: ALBUMIN HUMAN 25% 50 ML in EMPTY BAG 1 BAG IVPB SCH (08:21)
[2024-11-10 11:11] LABS: Glucose,Whole Blood 247 mg/dL (70-110)
[2024-11-10 11:33] LABS: Glucose,Whole Blood 121 mg/dL (70-110)
[2024-11-10 11:33] LABS: Glucose,Whole Blood 145 mg/dL (70-110)
--- NOTE | 2024-11-10 11:48 | P.PN ---
Subjective Progress Note Date: 11/10/24 Principal diagnosis: CABG. Pulmonary consult dated November 08, 2024. 79-year-old male status post three-vessel bypass surgery, done by Dr. Brennan today, off-pump. The patient is seen in the intensive care unit, room 267. The patient is currently on the ventilator, with settings of volume assist-control, rate 12, tidal volume 500, FiO2 100%, PEEP of 10. Initial blood gases show pO2 275, pCO2 33, pH is 7.37. The FiO2 was dropped from 100%, down to 50%. Currently, his cardiac output 6.4, index is 2.7. Pulmonary artery pressures 36/18 with a wedge pressure of 8. Currently, the patient is on propofol at 20 mcg/kg/min, 0.9 at 50 cc an hour, amiodarone at 1 mg/min, insulin at 1.5 units an hour, and nitroglycerin at 5 mcg/min. Current laboratory data includes a white count 9.7, hemoglobin 10.8, hematocrit 33.3, and a platelet count of 115,000. Sodium 139, potassium 4.3, chlorides 107, CO2 25, BUN 19, creatinine 0.82. Glucose is 133. Chest x-ray shows postsurgical changes, with appropriate support lines and endotracheal tube. Small bilateral pleural effusions are noted. Progress note dated November 09, 2024. 79-year-old male seen yesterday in consultation. He had a three-vessel off-pump bypass. It was done by Dr. Brennan. Yesterday, he was successfully extubated. Currently, the patient is sitting in the chair next to his hospital bed, in room 267. He remains on room air. He is getting insulin at 5 units an hour, and amiodarone 0.5 mg/min. He is also getting saline at 50 cc an hour. As mentioned, he was extubated on November 08. Current labs: White count 8.2, hemoglobin 11.3, macro 34.2, and a platelet count of 139,000. Sodium 134, potassium 4.3, chlorides 104, CO2 23, BUN 17, creatinine 0.82. Glucose is 125. Total protein 5.9. Blood sugar 123. Chest x-ray from November 09 shows changes from recent cardiac surgery, removal of the NG tube and endotracheal tube, small bilateral pleural effusions, and cardiomegaly. There is also some bibasilar infiltrates or atelectasis. Progress note dated November 10, 2024. 79-year-old male who is postoperative day #2, status post bypass surgery. He had an off-pump three-vessel bypass, done by Dr. Brennan. The patient seen sitting in the chair next to the hospital bed. He continues on oxygen at 2 L. The patient is also on dopamine at 3 mcg/kg/min. Clinically, he appears relatively stable. He is awake and alert. Laboratory data includes a white count of 7.1, hemoglobin 9.2, hematocrit 27.5, and a platelet count of 95,000. Sodium 133, potassium 4.1, chlorides 101, CO2 22, anion gap 10, BUN 32, and creatinine 1.94. Calcium is 8.1. Chest x-ray shows some bibasilar atelectasis, and small pleural effusions. There may be a component of fluid overload. Objective - Vital Signs Vital signs: Vital Signs Temp 99.3 F 11/10/24 08:00 Pulse 84 11/10/24 11:00 Resp 25 H 11/10/24 11:00 BP 99/50 11/10/24 11:00 Pulse Ox 94 L 11/10/24 11:00 FiO2 50 11/08/24 17:00 Intake & Output 11/09/24 11/10/24 11/10/24 18:59 06:59 18:59 Intake Total 1883.493 959.900 560 Output Total 340 510 160 Balance 1543.493 449.900 400 Weight 114.8 kg 120.5 kg Intake: IV 1479 945 460 Albumin Human 25% 50 ml 200 In Empty Bag 1 bag @ 50 mls/hr IVPB Q1H [facility] Rx#: [id number] Albumin Human 5% 250 ml 750 500 In Empty Bag 1 bag @ 250 mls/hr IVPB Q1HR [facility] Rx#: [id number] CO/CI 120 40 Lines 99 75 30 Sodium Chloride 0.9% 1, 460 370 190 000 ml @ 30 mls/hr IV . Q24H [facility] Rx#:[id number] ceFAZolin 2 gm In Sodium 50 Chloride 0.9% 50 ml @ 100 mls/hr IVPB Q8HR [facility] Rx# :[id number] Intake, IV Titration 44.493 14.900 Amount Insulin Regular 100 unit 44.493 14.900 In Sodium Chloride 0.9% 100 ml @ Per Protocol IV .Q0M [facility] Rx#:[id number] Oral 360 100 Output: Chest Tube Drainage 180 330 80 Left Pleural 32f 90 220 50 Mediastinal 36f 90 110 30 Urine 160 180 80 Other: Voiding Method Indwelling Catheter Indwelling Catheter Indwelling Catheter ABP, PAP, CO, CI - Last Documented Arterial Blood Pressure 92/45 Pulmonary Artery Pressure 25/15 Cardiac Output 4.8 Cardiac Index 2.1 - Exam No acute distress, oriented 3. Currently on nasal O2. Sitting in a chair next to his hospital bed. HEENT examination is grossly unremarkable. Mucous membranes are moist. No oral lesions. Neck supple. Full range of motion. No adenopathy thyromegaly or neck vein distention. Cardiovascular examination reveals regular rhythm rate. S1-S2 normal. No S3 or S4. No discernible murmur noted. Lungs reveal scattered bilateral. There are some basilar crackles. No wheezes. Breath sounds are equal bilaterally. Abdomen soft bowel sounds are heard. No masses or tenderness. Extremities are intact. No cyanosis clubbing or edema. Skin is without rash or lesion. Neurologic examination is brief but nonfocal. - Labs CBC & Chem 7: 11/10/24 02:55 11/10/24 02:55 Labs: Abnormal Lab Results - Last 24 Hours (Table) 11/09/24 11/09/24 11/09/24 Range/Units 12:53 13:44 14:12 RBC (4.30-5.90) m/uL Hgb (13.0-17.5) gm/dL Hct (39.0-53.0) % Plt Count (150-450) k/uL ABG pO2 <30 L* (83-108) mmHg ABG Total CO2 25 H (19-24) mmol/L ABG O2 Saturation 52.4 L (94-97) % Hemoglobin 10.1 L (13.0-17.5) gm/dL Sodium (137-145) mmol/L BUN (9-20) mg/dL Creatinine (0.66-1.25) mg/dL Glucose (74-99) mg/dL POC Glucose (mg/dL) 162 H 156 H (70-110) mg/dL Calcium (8.4-10.2) mg/dL Total Bilirubin (0.2-1.3) mg/dL Total Protein (6.3-8.2) g/dL 11/09/24 11/09/24 11/09/24 Range/Units 18:00 19:09 22:06 RBC (4.30-5.90) m/uL Hgb (13.0-17.5) gm/dL Hct (39.0-53.0) % Plt Count (150-450) k/uL ABG pO2 (83-108) mmHg ABG Total CO2 (19-24) mmol/L ABG O2 Saturation (94-97) % Hemoglobin (13.0-17.5) gm/dL Sodium (137-145) mmol/L BUN (9-20) mg/dL Creatinine (0.66-1.25) mg/dL Glucose (74-99) mg/dL POC Glucose (mg/dL) 124 H 140 H 122 H (70-110) mg/dL Calcium (8.4-10.2) mg/dL Total Bilirubin (0.2-1.3) mg/dL Total Protein (6.3-8.2) g/dL 11/09/24 11/10/24 11/10/24 Range/Units 23:02 02:55 02:55 RBC 2.90 L (4.30-5.90) m/uL Hgb 9.2 L D (13.0-17.5) gm/dL Hct 27.5 L (39.0-53.0) % Plt Count 95 L (150-450) k/uL ABG pO2 (83-108) mmHg ABG Total CO2 (19-24) mmol/L ABG O2 Saturation (94-97) % Hemoglobin (13.0-17.5) gm/dL Sodium 133 L (137-145) mmol/L BUN 32 H (9-20) mg/dL Creatinine 1.94 H (0.66-1.25) mg/dL Glucose 110 H (74-99) mg/dL POC Glucose (mg/dL) 115 H (70-110) mg/dL Calcium 8.1 L (8.4-10.2) mg/dL Total Bilirubin 2.4 H (0.2-1.3) mg/dL Total Protein 5.6 L (6.3-8.2) g/dL 11/10/24 11/10/24 11/10/24 Range/Units 02:56 06:39 07:09 RBC (4.30-5.90) m/uL Hgb (13.0-17.5) gm/dL Hct (39.0-53.0) % Plt Count (150-450) k/uL ABG pO2 (83-108) mmHg ABG Total CO2 (19-24) mmol/L ABG O2 Saturation (94-97) % Hemoglobin (13.0-17.5) gm/dL Sodium (137-145) mmol/L BUN (9-20) mg/dL Creatinine (0.66-1.25) mg/dL Glucose (74-99) mg/dL POC Glucose (mg/dL) 125 H 117 H 119 H (70-110) mg/dL Calcium (8.4-10.2) mg/dL Total Bilirubin (0.2-1.3) mg/dL Total Protein (6.3-8.2) g/dL 11/10/24 11/10/24 11/10/24 Range/Units 11:10 11:29 11:31 RBC (4.30-5.90) m/uL Hgb (13.0-17.5) gm/dL Hct (39.0-53.0) % Plt Count (150-450) k/uL ABG pO2 (83-108) mmHg ABG Total CO2 (19-24) mmol/L ABG O2 Saturation (94-97) % Hemoglobin (13.0-17.5) gm/dL Sodium (137-145) mmol/L BUN (9-20) mg/dL Creatinine (0.66-1.25) mg/dL Glucose (74-99) mg/dL POC Glucose (mg/dL) 247 H 121 H 145 H (70-110) mg/dL Calcium (8.4-10.2) mg/dL Total Bilirubin (0.2-1.3) mg/dL Total Protein (6.3-8.2) g/dL Assessment and Plan Assessment: Postoperative day # 2, S/P off-pump three-vessel bypass surgery, for coronary artery disease, in a patient with chest pain. Routine postoperative ventilator management, with successful extubation on November 08, 2024. History of hypertension. History of osteoarthritis. History of prostate cancer. Lifelong non-smoker. Plan: Plan dated November 08, 2024. The patient is seen today in room 267. The patient's initial blood gases are excellent, and the FiO2 was, 100%, down to 50%. Labs, x-rays, and medications are reviewed. The patient is currently on propofol for sedation, amiodarone, for A-fib/flutter, insulin, for elevated blood glucose, and nitroglycerin. The patient is also on saline at 50 cc an hour. The patient was on Cleviprex for an elevated blood pressure, but that has been turned off. Cardiac output 6.4. Index is 2.7. We will continue to follow make recommendations. All labs, x- rays, and medications are reviewed. Dictation was produced using [employer] software. Please excuse any grammatical, word or spelling errors. Plan dated November 09, 2024. The patient is again seen in room 267. The patient was successfully extubated yesterday. He is currently on room air. He has no complaints. He is wearing his hearing aids, but despite that, he is very deaf. All labs, x-rays, and medications are reviewed. The patient continues on insulin drip at 5 units an hour, and amiodarone 0.5 mg/min. The patient is getting saline at 50 cc an hour. Labs, x-rays, and all medications are reviewed. Prognosis is guarded. Dictation was produced using [employer] software. Please excuse any g rammatical, word or spelling errors. Plan dated November 10, 2024. The patient is seen today in room 267. He continues on nasal O2 at 2 L. He also continues on dopamine at 3 mcg/kg/min, given for his hypotension. He is postoperative day #2, status post off-pump three-vessel bypass surgery done by Kateryna Brennan. All labs, x-rays, and medications are reviewed. We will continue to follow make recommendations. The patient's overall prognosis remains guarded. We recommend ongoing use of the incentive spirometer. Dictation was produced using [employer] software. Please excuse any grammatical, word or spelling errors. Time with Patient: Greater than 30
[2024-11-10] MEDS: INSULIN LISPRO (HumaLOG) 100 UNIT/ML 10 mL VL SQ SCH (13:28)
--- NOTE | 2024-11-10 15:26 | P.PN ---
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 Conley. He underwent three-vessel CABG with PIERSON to LAD, T graft using a radial artery to OM1 and OM 2 sequential. He has been extubated and is coming along well. Prior cardiac testing: Heart catheter October 2024 showed three-vessel disease involving distal left main, ostium of LAD, ostium of LCx, moderate diffuse disease in RCA with distal PDA having 60% stenosis. Progress note 11/10/2024 Patient was hypotensive, staying on low-dose dopamine drip also got IV albumin and fluids. Cardiac index 2.1, pulmonary arterial pressures within normal range, CVP around 10. No new arrhythmias on telemetry, appears sinus rhythm. PHYSICAL EXAMINATION: Neck: [place]-Cecilia catheter in place, Lungs: Chest tube in place, respiratory effort, surgical scar healing well Heart: Regular rate and rhythm, S1-S2, , no murmur or rub. Abdomen: Soft nontender, positive bowel sounds. Extremities: 1+ pitting edema bilateral extremity Neuro: Alert, oritented, no focal deficits. Detailed neuro exam was not performed. ASSESSMENT: # Status post CABG 11/08/2024, PIERSON to LAD, sequential radial to first and second OM as a T graft from PIERSON, left atrial appendage occlusion 35mm atrial clip # Brief paroxysmal atrial fibrillation after surgery, currently in sinus rhythm # Hypertension # Dyslipidemia with hypercholesterolemia # Left ICA stenosis more than 70% # Mild PAD # Prostate cancer on hormone therapy # Obesity # Extremely hard of hearing PLAN: Continue current supportive care Continue aspirin, Plavix, statin, amiodarone, Continue hemodynamic monitoring with [place]-Cecilia catheter. CT surgery team following. Objective - Vital Signs Vital signs: Vital Signs Temp 98.6 F 11/10/24 12:00 Pulse 72 11/10/24 13:14 Resp 16 11/10/24 13:14 BP 89/51 11/10/24 13:00 Pulse Ox 93 L 11/10/24 13:00 FiO2 50 11/08/24 17:00 Intake & Output 11/09/24 11/10/24 11/10/24 18:59 06:59 18:59 Intake Total 1883.493 959.900 592 Output Total 340 510 185 Balance 1543.493 449.900 407 Weight 114.8 kg 120.5 kg Intake: IV 1479 945 492 Albumin Human 25% 50 ml 100 In Empty Bag 1 bag @ 50 mls/hr IVPB Q1H MINDI Rx#: [id number] Albumin Human 5% 250 ml 750 500 In Empty Bag 1 bag @ 250 mls/hr IVPB Q1HR PRN Rx#: [id number] CO/CI 120 80 Lines 99 75 42 Sodium Chloride 0.9% 1, 460 370 270 000 ml @ 30 mls/hr IV . Q24H MINDI Rx#:[id number] ceFAZolin 2 gm In Sodium 50 Chloride 0.9% 50 ml @ 100 mls/hr IVPB Q8HR MINDI Rx# :[id number] Intake, IV Titration 44.493 14.900 Amount Insulin Regular 100 unit 44.493 14.900 In Sodium Chloride 0.9% 100 ml @ Per Protocol IV .Q0M MINDI Rx#:[id number] Oral 360 100 Output: Chest Tube Drainage 180 330 80 Left Pleural 32f 90 220 50 Mediastinal 36f 90 110 30 Urine 160 180 105 Other: Voiding Method Indwelling Catheter Indwelling Catheter Indwelling Catheter ABP, PAP, CO, CI - Last Documented Arterial Blood Pressure 92/45 Pulmonary Artery Pressure 24/15 Cardiac Output 4.8 Cardiac Index 2.1 - Labs CBC & Chem 7: 11/10/24 02:55 11/10/24 02:55 Labs: Abnormal Lab Results - Last 24 Hours (Table) 11/09/24 11/09/24 11/09/24 Range/Units 18:00 19:09 22:06 RBC (4.30-5.90) m/uL Hgb (13.0-17.5) gm/dL Hct (39.0-53.0) % Plt Count (150-450) k/uL Sodium (137-145) mmol/L BUN (9-20) mg/dL Creatinine (0.66-1.25) mg/dL Glucose (74-99) mg/dL POC Glucose (mg/dL) 124 H 140 H 122 H (70-110) mg/dL Calcium (8.4-10.2) mg/dL Total Bilirubin (0.2-1.3) mg/dL Total Protein (6.3-8.2) g/dL 11/09/24 11/10/24 11/10/24 Range/Units 23:02 02:55 02:55 RBC 2.90 L (4.30-5.90) m/uL Hgb 9.2 L D (13.0-17.5) gm/dL Hct 27.5 L (39.0-53.0) % Plt Count 95 L (150-450) k/uL Sodium 133 L (137-145) mmol/L BUN 32 H (9-20) mg/dL Creatinine 1.94 H (0.66-1.25) mg/dL Glucose 110 H (74-99) mg/dL POC Glucose (mg/dL) 115 H (70-110) mg/dL Calcium 8.1 L (8.4-10.2) mg/dL Total Bilirubin 2.4 H (0.2-1.3) mg/dL Total Protein 5.6 L (6.3-8.2) g/dL 11/10/24 11/10/24 11/10/24 Range/Units 02:56 06:39 07:09 RBC (4.30-5.90) m/uL Hgb (13.0-17.5) gm/dL Hct (39.0-53.0) % Plt Count (150-450) k/uL Sodium (137-145) mmol/L BUN (9-20) mg/dL Creatinine (0.66-1.25) mg/dL Glucose (74-99) mg/dL POC Glucose (mg/dL) 125 H 117 H 119 H (70-110) mg/dL Calcium (8.4-10.2) mg/dL Total Bilirubin (0.2-1.3) mg/dL Total Protein (6.3-8.2) g/dL 11/10/24 11/10/24 11/10/24 Range/Units 11:10 11:29 11:31 RBC (4.30-5.90) m/uL Hgb (13.0-17.5) gm/dL Hct (39.0-53.0) % Plt Count (150-450) k/uL Sodium (137-145) mmol/L BUN (9-20) mg/dL Creatinine (0.66-1.25) mg/dL Glucose (74-99) mg/dL POC Glucose (mg/dL) 247 H 121 H 145 H (70-110) mg/dL Calcium (8.4-10.2) mg/dL Total Bilirubin (0.2-1.3) mg/dL Total Protein (6.3-8.2) g/dL
[2024-11-10 16:10] LABS: Glucose,Whole Blood 354 mg/dL (70-110)
[2024-11-10 16:12] LABS: Glucose,Whole Blood 131 mg/dL (70-110)
--- NOTE | 2024-11-10 19:44 | P.PN ---
Subjective Progress Note Date: 11/10/24 This is a pleasant 79 year old male with medical history of hypertension, hyperlipidemia, chest pain, osteoarthritis, cholecystectomy, Coronary artery disease. Patient comes in the hospital for scheduled off pump coronary artery bypass grafting x [address] Brennan. He is evaluated today in the intensive care unit currently sitting up in the chair with family at the bedside. He is having minimal pain. He has been extubated since 1630 yesterday. He remains on nasal cannula at 2L currently. Chest xray today reveals small bilateral pleural effusions with pulmonary vascular congestion and associated atelectasis. He remains on the IV insulin gtt protocol with plans to transition to Subcutaneous insulin tomorrow. Patient did develop a proximal atrial fibrillation post bypass and was started on IV amiodarone. labs today reveal a white blood cell count of 8.2, hemoglobin 11.3, sodium of 134, BUN is 17 creatinine 0.83. Total bilirubin of 1.7. 11/10/2024 Patient evaluated today sitting up in the chair in the ICU. Postoperative day #2, 3 vessel CABG. Bilateral chest tubes remain place. Patient had decreased urine output and was started on IV dopamine. Creatinine today was increased up to 1.94, BUN 32. He has been taken off the insulin infusion and transitioned to humalog achs. Blood glucose is fairly well controlled and will continue to make adjustments pending trends. He has been transitioned to oral amiodarone. REVIEW OF SYSTEMS: CONSTITUTIONAL: No fever, no malaise, no fatigue. HEENT: No recent visual problems or hearing problems. Denied any sore throat. CARDIOVASCULAR: No chest pain, orthopnea, PND, no palpitations, no syncope. PULMONARY: No shortness of breath, no cough, no hemoptysis. GASTROINTESTINAL: No diarrhea, no nausea, no vomiting, no abdominal pain. NEUROLOGICAL: No headaches, no weakness, no numbness. PHYSICAL EXAMINATION: GENERAL: The patient is alert and oriented x3, not in any acute distress. Well developed, well nourished. [place]-n[place]iel in place HEENT: Pupils are round and equally reacting to light. EOMI. No scleral icterus. No conjunctival pallor. Normocephalic, atraumatic. No pharyngeal erythema. No thyromegaly. CARDIOVASCULAR: S1 and S2 present. No murmurs, rubs, or gallops. PULMONARY: Chest is clear to auscultation, no wheezing or crackles. ABDOMEN: Soft, nontender, nondistended, normoactive bowel sounds. No palpable organomegaly. MUSCULOSKELETAL: No joint swelling or deformity. EXTREMITIES: No cyanosis, clubbing, or pedal edema. NEUROLOGICAL: Gross neurological examination did not reveal any focal deficits. SKIN: No rashes. Assessment and plan Coronary artery disease s/p coronary artery bypass grafting three-vessel New onset paroxysmal atrial fibrillation can be expected Acute kidney injury, prerenal Dyslipidemia Left ICA stenosis of 70% Prostate cancer maintained on Casodex Hypertension GI prophylaxis Full Code Plan Patient in the intensive care unit post CABG and has been successfully extubated Patient has been transitioned to humalog ACHS with sliding scale coverage, will monitor blood glucose and make adjustments as needed. Continues on PO amiodarone and patient is now in normal sinus rhythm Continues on IV dopamine Encourage incentive spirometer 10 x an hour while awake Repeat CBC, BMP in the AM Thank you kindly for this consultation The impression and plan of care has been dictated by Mary Palacio, Nurse Practitioner as directed. Dr. Madison MD I have performed a history and physical examination and medical decision making of this patient, discussed the same with the dictator, and agree with the dictators assessment and plan as written, documented as a scribe. Based on total visit time, I have performed more than 50% of this visit. Objective - Vital Signs Vital signs: Vital Signs Temp 98.6 F 11/10/24 12:00 Pulse 79 11/10/24 19:00 Resp 20 11/10/24 19:00 BP 98/46 11/10/24 19:00 Pulse Ox 91 L 11/10/24 19:00 FiO2 50 11/08/24 17:00 Intake & Output 11/10/24 11/10/24 11/11/24 06:59 18:59 06:59 Intake Total 819.491 6198 Output Total 510 273 Balance 449.900 841 Weight 120.5 kg Intake: IV 945 774 Albumin Human 25% 50 ml 100 In Empty Bag 1 bag @ 50 mls/hr IVPB Q1H MINDI Rx#: [id number] Albumin Human 5% 250 ml 500 In Empty Bag 1 bag @ 250 mls/hr IVPB Q1HR PRN Rx#: [id number] CO/CI 80 Lines 75 84 Sodium Chloride 0.9% 1, 370 510 000 ml @ 30 mls/hr IV . Q24H MINDI Rx#:[id number] Intake, IV Titration 14.900 Amount Insulin Regular 100 unit 14.900 In Sodium Chloride 0.9% 100 ml @ Per Protocol IV .Q0M MINDI Rx#:[id number] Oral 340 Output: Chest Tube Drainage 330 120 Left Pleural 32f 220 80 Mediastinal 36f 110 40 Urine 180 153 Other: Voiding Method Indwelling Catheter Indwelling Catheter ABP, PAP, CO, CI - Last Documented Arterial Blood Pressure 92/45 Pulmonary Artery Pressure 31/08 Cardiac Output 4.9 Cardiac Index 2.1 - Labs CBC & Chem 7: 11/10/24 02:55 11/10/24 02:55 Labs: Abnormal Lab Results - Last 24 Hours (Table) 11/09/24 11/09/24 11/10/24 Range/Units 22:06 23:02 02:55 RBC 2.90 L (4.30-5.90) m/uL Hgb 9.2 L D (13.0-17.5) gm/dL Hct 27.5 L (39.0-53.0) % Plt Count 95 L (150-450) k/uL Sodium (137-145) mmol/L BUN (9-20) mg/dL Creatinine (0.66-1.25) mg/dL Glucose (74-99) mg/dL POC Glucose (mg/dL) 122 H 115 H (70-110) mg/dL Calcium (8.4-10.2) mg/dL Total Bilirubin (0.2-1.3) mg/dL Total Protein (6.3-8.2) g/dL 11/10/24 11/10/24 11/10/24 Range/Units 02:55 02:56 06:39 RBC (4.30-5.90) m/uL Hgb (13.0-17.5) gm/dL Hct (39.0-53.0) % Plt Count (150-450) k/uL Sodium 133 L (137-145) mmol/L BUN 32 H (9-20) mg/dL Creatinine 1.94 H (0.66-1.25) mg/dL Glucose 110 H (74-99) mg/dL POC Glucose (mg/dL) 125 H 117 H (70-110) mg/dL Calcium 8.1 L (8.4-10.2) mg/dL Total Bilirubin 2.4 H (0.2-1.3) mg/dL Total Protein 5.6 L (6.3-8.2) g/dL 11/10/24 11/10/24 11/10/24 Range/Units 07:09 11:10 11:29 RBC (4.30-5.90) m/uL Hgb (13.0-17.5) gm/dL Hct (39.0-53.0) % Plt Count (150-450) k/uL Sodium (137-145) mmol/L BUN (9-20) mg/dL Creatinine (0.66-1.25) mg/dL Glucose (74-99) mg/dL POC Glucose (mg/dL) 119 H 247 H 121 H (70-110) mg/dL Calcium (8.4-10.2) mg/dL Total Bilirubin (0.2-1.3) mg/dL Total Protein (6.3-8.2) g/dL 11/10/24 11/10/24 11/10/24 Range/Units 11:31 16:09 16:10 RBC (4.30-5.90) m/uL Hgb (13.0-17.5) gm/dL Hct (39.0-53.0) % Plt Count (150-450) k/uL Sodium (137-145) mmol/L BUN (9-20) mg/dL Creatinine (0.66-1.25) mg/dL Glucose (74-99) mg/dL POC Glucose (mg/dL) 145 H 354 H 131 H (70-110) mg/dL Calcium (8.4-10.2) mg/dL Total Bilirubin (0.2-1.3) mg/dL Total Protein (6.3-8.2) g/dL Assessment and Plan Time with Patient: Less than 30
[2024-11-10 20:43] LABS: Glucose,Whole Blood 149 mg/dL (70-110)
[2024-11-11 06:41] LABS: Glucose,Whole Blood 130 mg/dL (70-110)
[2024-11-11 06:45] LABS: ALT 9 U/L (4-49); AST 29 U/L (17-59); African American GFR (CKD) 27 (>60 ml/min/1.73 sqM); Albumin 3.5 g/dL (3.5-5.0); Alkaline Phosphatase 40 U/L (38-126); Anion Gap 11 mmol/L; Blood Urea Nitrogen 51 mg/dL (9-20); Calcium 8.5 mg/dL (8.4-10.2); Carbon Dioxide 21 mmol/L (22-30); Chloride 99 mmol/L (98-107); Glucose 127 mg/dL (74-99); Non-African American GFR(CKD) 23 (>60 ml/min/1.73 sqM); Potassium 4.1 mmol/L (3.5-5.1); Sodium 131 mmol/L (137-145); Total Bilirubin 1.8 mg/dL (0.2-1.3); Total Protein 5.8 g/dL (6.3-8.2)
[2024-11-11 07:39] LABS: Basophils % (A) 0 %; Eosinophils # (A) 0.2 k/uL (0-0.7); Eosinophils % (A) 2 %; HCT 29.2 % (39.0-53.0); HGB 9.1 gm/dL (13.0-17.5); Hypochromasia Slight; Lymphocytes # (A) 0.8 k/uL (1.0-4.8); Lymphocytes % (A) 10 %; MCH 31.1 pg (25.0-35.0); MCHC 31.3 g/dL (31.0-37.0); MCV 99.3 fL (80.0-100.0); Mean Platelet Volume 8.3; Monocytes # (A) 0.6 k/uL (0-1.0); Monocytes % (A) 8 %; Neutrophils % (A) 78 %; Platelet Count 116 k/uL (150-450); RBC 2.94 m/uL (4.30-5.90); RDW 12.5 % (11.5-15.5); WBC 7.8 k/uL (3.8-10.6)
--- NOTE | 2024-11-11 07:44 | XR ---
EXAMINATION TYPE: XR chest 1V portable DATE OF EXAM: 11/11/2024 4:33 AM COMPARISON: Chest radiograph from one day prior. CLINICAL INDICATION: Male, 79 years old with history of post cardiac surgery; [facility] TECHNIQUE: XR chest 1V portable Frontal view of the chest. FINDINGS: Lungs/Pleura: There is no evidence of pleural effusion, focal consolidation, or pneumothorax. Pulmonary vascularity: Pulmonary vascular congestion. Heart/mediastinum: Cardiomediastinal silhouette is unremarkable. Left atrial appendage occlusion weston ce is present. Musculoskeletal: No acute osseous pathology. Midline sternotomy wires are noted. Other findings: None Lines/Tubes: Drainage tubes with tips projecting over the mediastinum. Left thoracotomy tube is present without evidence of pneumothorax. There is a [place]-Cecilia catheter with tip projecting over the spine. IMPRESSION: Post op changes with pulmonary edema similar to prior. [facility], , 11/11/2024 7:42 AM
--- NOTE | 2024-11-11 10:50 | P.PN ---
Subjective Progress Note Date: 11/11/24 Principal diagnosis: 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, unstable angina. History of hypertension, left internal carotid artery stenosis, mild peripheral arterial disease, prostate cancer with hormone therapy treatment, osteoarthritis, obesity, extremely hard of hearing, and lifelong non-smoker POD #3 off-pump coronary artery bypass grafting x 3 with PIERSON to LAD, sequential radial artery graft to first and second obtuse marginal coronary arteries as T graft off PIERSON, left radial artery endovascular harvest, occlusion of the left atrial appendage with 35mm AtriCure clip. Postoperative acute blood loss anemia and thrombocytopenia, expected given h emodilution. Brief paroxysmal atrial fibrillation after surgery, somewhat expected as it is a known common occurrence after open heart surgery. The patient was seen and examined in follow-up today November 11, 2024 at his bedside in the intensive care unit. He is currently sitting up to the bedside c hair, is awake, alert, oriented x 3 and is in no acute apparent distress. He denies any complaints of pain or shortness of breath at this time, although is complaining of some generalized weakness to his bilateral lower extremities. Oxygen saturations are 97% on 4 L nasal cannula and he is achieving 750 to 1000 mL on his incentive spirometry with encouragement. Bedside telemetry is showing normal sinus rhythm with occasional PACs heart rate 86 bpm. Right IJ cordis and [place]-Cecilia catheter remain in place with current hemodynamic showing a cardiac output of 5.6, cardiac index 2.4, PA pressures 24/15, SVR 799 and CVP 10 mmHg. Dopamine drip remains infusing at 3 mcg/kg/min. His BUN and creatinine were trending up yesterday, and subsequently his Toradol was discontinued. His BUN today is 51 and creatinine is 2.51. Laboratory and chest x-ray results reviewed. Mediastinal and left pleural chest tubes remain in place to low continuous wall suction -20 cm H2O. No air leak is present. Draining thin serosanguineous drainage. Mediastinal chest tube drained 20 mL output in the last 8 hours and 80 mL output in 24 hours. Left pleural chest tube drained 90 mL output in the last 8 hours and 130 mL output in the last 24 hours. The patient has been up ambulating in the intensive care unit hallway with assistance from nursing and therapy staff and tolerating well, although again is complaining of some generalized weakness to his bilateral lower extremities. Objective - Vital Signs Vital signs: Vital Signs Temp 99.9 F H 11/11/24 08:00 Pulse 80 11/11/24 08:30 Resp 19 11/11/24 08:30 BP 89/22 11/11/24 08:30 Pulse Ox 94 L 11/11/24 08:30 FiO2 50 11/08/24 17:00 Intake & Output 11/10/24 11/11/24 11/11/24 18:59 06:59 18:59 Intake Total 1114 440 116 Output Total 273 605 170 Balance 841 -165 -54 Weight 120.1 kg Intake: IV 774 440 116 Albumin Human 25% 50 ml 100 In Empty Bag 1 bag @ 50 mls/hr IVPB Q1H MINDI Rx#: [id number] CO/CI 80 30 Lines 84 6 Sodium Chloride 0.9% 1, 510 440 80 000 ml @ 30 mls/hr IV . Q24H MINDI Rx#:[id number] Oral 340 Output: Chest Tube Drainage 120 110 90 Left Pleural 32f 80 90 70 Mediastinal 36f 40 20 20 Urine 153 495 80 Other: Voiding Method Indwelling Catheter Indwelling Catheter Indwelling Catheter ABP, PAP, CO, CI - Last Documented Arterial Blood Pressure 92/45 Pulmonary Artery Pressure 32/20 Cardiac Output 4.4 Cardiac Index 1.9 - Exam CONSTITUTIONAL: Appears comfortable, cooperative, no acute distress. RESPIRATORY: Lungs sounds diminished to his bilateral bases. Respirations symmetrical, nonlabored. Currently on 4 L nasal cannula with oxygen saturation 97%. Able to achieve 750-1000 mL on his incentive spirometry. Strong cough. CARDIOVASCULAR: S1, S2 present. Regular rate and rhythm, sinus rhythm, with occasional PACs on telemetry, heart rate 86 bpm. Sternum stable. Palpable peripheral pulses bilaterally. Trace generalized edema present. No calf pain or tenderness noted. Heart hugger in place with patient demonstrating appropriate use. Antiembolism stockings, SCDs present. GASTROINTESTINAL: Abdomen soft, nontender, nondistended. Active bowel sounds present 4 quadrants. Tolerating diet. Passing flatus. GENITOURINARY: Jaquez present draining clear, yellow urine. Urine output 390 mL in the last 8 hours. INTEGUMENTARY: Skin is warm and dry with no clubbing or cyanosis present. Midline sternal chest incision well approximated and covered with dry intact dressing. Left radial artery harvest site well approximated without redness or drainage. NEUROLOGIC: Cranial nerves II through XII intact. No focal deficits. MUSKULOSKELETAL: Able to move all extremities, strength equal bilaterally, generalized weakness. PSYCHIATRIC: Alert and oriented to person place and time, appropriate affect, intact judgment and insight. INVASIVE LINES AND TUBES: Mediastinal/left pleural chest tubes present and connected to wall suction, no air leaks present. Mediastinal tube with 20 mL serosanguineous drainage overnight, 80 mL in the last 24 hours. Left pleural chest tube with 90 mL serosanguineous drainage overnight, 130 mL in the last 24 hours. Right internal jugular [place]/Cordis, right radial arterial line present. Last CO/CI 5.6/2.4, PA 24/, CVP 10, and SVR 799. - Labs CBC & Chem 7: 11/11/24 05:46 11/11/24 05:46 Labs: Abnormal Lab Results - Last 24 Hours (Table) 11/10/24 11/10/24 11/10/24 Range/Units 11:10 11:29 11:31 RBC (4.30-5.90) m/uL Hgb (13.0-17.5) gm/dL Hct (39.0-53.0) % Plt Count (150-450) k/uL Lymphocytes # (1.0-4.8) k/uL Sodium (137-145) mmol/L Carbon Dioxide (22-30) mmol/L BUN (9-20) mg/dL Creatinine (0.66-1.25) mg/dL Glucose (74-99) mg/dL POC Glucose (mg/dL) 247 H 121 H 145 H (70-110) mg/dL Total Bilirubin (0.2-1.3) mg/dL Total Protein (6.3-8.2) g/dL 11/10/24 11/10/24 11/10/24 Range/Units 16:09 16:10 20:41 RBC (4.30-5.90) m/uL Hgb (13.0-17.5) gm/dL Hct (39.0-53.0) % Plt Count (150-450) k/uL Lymphocytes # (1.0-4.8) k/uL Sodium (137-145) mmol/L Carbon Dioxide (22-30) mmol/L BUN (9-20) mg/dL Creatinine (0.66-1.25) mg/dL Glucose (74-99) mg/dL POC Glucose (mg/dL) 354 H 131 H 149 H (70-110) mg/dL Total Bilirubin (0.2-1.3) mg/dL Total Protein (6.3-8.2) g/dL 11/11/24 11/11/24 11/11/24 Range/Units 05:46 05:46 06:39 RBC 2.94 L (4.30-5.90) m/uL Hgb 9.1 L (13.0-17.5) gm/dL Hct 29.2 L (39.0-53.0) % Plt Count 116 L (150-450) k/uL Lymphocytes # 0.8 L (1.0-4.8) k/uL Sodium 131 L (137-145) mmol/L Carbon Dioxide 21 L (22-30) mmol/L BUN 51 H (9-20) mg/dL Creatinine 2.51 H (0.66-1.25) mg/dL Glucose 127 H (74-99) mg/dL POC Glucose (mg/dL) 130 H (70-110) mg/dL Total Bilirubin 1.8 H (0.2-1.3) mg/dL Total Protein 5.8 L (6.3-8.2) g/dL - Imaging and Cardiology Chest x-ray: report reviewed, image reviewed Assessment and Plan Assessment: 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, unstable angina, status post three-vessel off-pump CABG Postoperative acute blood loss anemia and thrombocytopenia, expected given hemodilution Brief paroxysmal atrial fibrillation after surgery, somewhat expected as it is a known common occurrence after open heart surgery, status post ligation of the left atrial appendage History of hypertension Dyslipidemia Left internal carotid artery stenosis, > 70% per Doppler Mild peripheral arterial disease, left JERRI 0.87, right JERRI 0.93 Prostate cancer with hormone therapy treatment Osteoarthritis Obesity with a BMI of 38.0 kg/m Extremely hard of hearing Lifelong non-smoker, preoperative FEV1 83% of predicted Plan: Continue to maximize medical therapy with aspirin, statin, Plavix, low-dose beta-phillip. Will increase beta-phillip therapy when able. Continue dopamine at 3 mcg/kg/min. Continue amiodarone for atrial fibrillation prophylaxis. No anticoagulation at this point. Wean oxygen as tolerated. Encourage incentive spirometry use 10 times every hour while awake. Bronchodilators per pulmonology. Will monitor daily labs and chest x-rays. Electrolyte replacement per protocol. Increase activity, ambulate as tolerated. PT/OT/cardiac rehab following. GI/DVT prophylaxis. Pain control per current medication regimen. Continue to hold Toradol due to bump in his creatinine. Insulin management per internal medicine. Patient is not diabetic, preoperative hemoglobin A1c 5.6%. Continue [place]/Cordis for another 24 hours. We we will remove his mediastinal and left pleural chest tubes today. Continue Jaquez catheter for another 24 hours, continue to monitor record strict accurate intake and output. Appropriate home medications reordered. More recommendations to follow on patient's clinical course. Time with Patient: Greater than 30
[2024-11-11 11:15] LABS: Glucose,Whole Blood 117 mg/dL (70-110)
--- NOTE | 2024-11-11 12:58 | P.PN ---
Subjective Progress Note Date: 11/11/24 Principal diagnosis: CABG. Pulmonary consult dated November 08, 2024. 79-year-old male status post three-vessel bypass surgery, done by Dr. Brennan today, off-pump. The patient is seen in the intensive care unit, room 267. The patient is currently on the ventilator, with settings of volume assist-control, rate 12, tidal volume 500, FiO2 100%, PEEP of 10. Initial blood gases show pO2 275, pCO2 33, pH is 7.37. The FiO2 was dropped from 100%, down to 50%. Currently, his cardiac output 6.4, index is 2.7. Pulmonary artery pressures 36/18 with a wedge pressure of 8. Currently, the patient is on propofol at 20 mcg/kg/min, 0.9 at 50 cc an hour, amiodarone at 1 mg/min, insulin at 1.5 units an hour, and nitroglycerin at 5 mcg/min. Current laboratory data includes a white count 9.7, hemoglobin 10.8, hematocrit 33.3, and a platelet count of 115,000. Sodium 139, potassium 4.3, chlorides 107, CO2 25, BUN 19, creatinine 0.82. Glucose is 133. Chest x-ray shows postsurgical changes, with appropriate support lines and endotracheal tube. Small bilateral pleural effusions are noted. Progress note dated November 09, 2024. 79-year-old male seen yesterday in consultation. He had a three-vessel off-pump bypass. It was done by Dr. Brennan. Yesterday, he was successfully extubated. Currently, the patient is sitting in the chair next to his hospital bed, in room 267. He remains on room air. He is getting insulin at 5 units an hour, and amiodarone 0.5 mg/min. He is also getting saline at 50 cc an hour. As mentioned, he was extubated on November 08. Current labs: White count 8.2, hemoglobin 11.3, macro 34.2, and a platelet count of 139,000. Sodium 134, potassium 4.3, chlorides 104, CO2 23, BUN 17, creatinine 0.82. Glucose is 125. Total protein 5.9. Blood sugar 123. Chest x-ray from November 09 shows changes from recent cardiac surgery, removal of the NG tube and endotracheal tube, small bilateral pleural effusions, and cardiomegaly. There is also some bibasilar infiltrates or atelectasis. Progress note dated November 10, 2024. 79-year-old male who is postoperative day #2, status post bypass surgery. He had an off-pump three-vessel bypass, done by Dr. Brennan. The patient seen sitting in the chair next to the hospital bed. He continues on oxygen at 2 L. The patient is also on dopamine at 3 mcg/kg/min. Clinically, he appears relatively stable. He is awake and alert. Laboratory data includes a white count of 7.1, hemoglobin 9.2, hematocrit 27.5, and a platelet count of 95,000. Sodium 133, potassium 4.1, chlorides 101, CO2 22, anion gap 10, BUN 32, and creatinine 1.94. Calcium is 8.1. Chest x-ray shows some bibasilar atelectasis, and small pleural effusions. There may be a component of fluid overload. Progress note dated November 11, 2024. 79-year-old male seen today in room 267. He is postoperative day #3, status post bypass surgery. Currently, the patient is resting comfortably. He is sitting in the chair next to his hospital bed. He is on dopamine at 3 mcg/kg/min, and saline at 30 cc an hour. He is also getting nasal O2 at 2 L. Clinically he is doing about the same. White count 7.8, hemoglobin 9.1, hematocrit 29.2, platelet count 116,000. Sodium 131, potassium 4.1, chloride 99, CO2 21, BUN 51, creatinine 2.51. Glucose is 117. Bilirubin is 1.8. Chest x-ray shows postoperative changes, and mild fluid overload. Objective - Vital Signs Vital signs: Vital Signs Temp 99.9 F H 11/11/24 08:00 Pulse 77 11/11/24 12:00 Resp 16 11/11/24 12:00 BP 101/45 11/11/24 12:00 Pulse Ox 95 11/11/24 12:41 FiO2 50 11/08/24 17:00 Intake & Output 11/10/24 11/11/24 11/11/24 18:59 06:59 18:59 Intake Total 1114 440 320 Output Total 273 605 305 Balance 841 -165 15 Weight 120.1 kg Intake: IV 774 440 260 Albumin Human 25% 50 ml 100 In Empty Bag 1 bag @ 50 mls/hr IVPB Q1H [facility] Rx#: [id number] CO/CI 80 30 Lines 84 30 Sodium Chloride 0.9% 1, 510 440 200 000 ml @ 30 mls/hr IV . Q24H [facility] Rx#:[id number] Oral 340 60 Output: Chest Tube Drainage 120 110 90 Left Pleural 32f 80 90 70 Mediastinal 36f 40 20 20 Urine 153 495 215 Other: Voiding Method Indwelling Catheter Indwelling Catheter Indwelling Catheter ABP, PAP, CO, CI - Last Documented Arterial Blood Pressure 92/45 Pulmonary Artery Pressure 24/14 Cardiac Output 5.6 Cardiac Index 2.4 - Exam No acute distress, oriented 3. Currently on nasal O2. Sitting in a chair next to his hospital bed. HEENT examination is grossly unremarkable. Mucous membranes are moist. No oral lesions. Neck supple. Full range of motion. No adenopathy thyromegaly or neck vein distention. Cardiovascular examination reveals regular rhythm rate. S1-S2 normal. No S3 or S4. No discernible murmur noted. Lungs reveal scattered bilateral. There are some basilar crackles. No wheezes. Breath sounds are equal bilaterally. Abdomen soft bowel sounds are heard. No masses or tenderness. Extremities are intact. No cyanosis clubbing or edema. Skin is without rash or lesion. Neurologic examination is brief but nonfocal. - Labs CBC & Chem 7: 11/11/24 05:46 11/11/24 05:46 Labs: Abnormal Lab Results - Last 24 Hours (Table) 11/10/24 11/10/24 11/10/24 Range/Units 16:09 16:10 20:41 RBC (4.30-5.90) m/uL Hgb (13.0-17.5) gm/dL Hct (39.0-53.0) % Plt Count (150-450) k/uL Lymphocytes # (1.0-4.8) k/uL Sodium (137-145) mmol/L Carbon Dioxide (22-30) mmol/L BUN (9-20) mg/dL Creatinine (0.66-1.25) mg/dL Glucose (74-99) mg/dL POC Glucose (mg/dL) 354 H 131 H 149 H (70-110) mg/dL Total Bilirubin (0.2-1.3) mg/dL Total Protein (6.3-8.2) g/dL 11/11/24 11/11/24 11/11/24 Range/Units 05:46 05:46 06:39 RBC 2.94 L (4.30-5.90) m/uL Hgb 9.1 L (13.0-17.5) gm/dL Hct 29.2 L (39.0-53.0) % Plt Count 116 L (150-450) k/uL Lymphocytes # 0.8 L (1.0-4.8) k/uL Sodium 131 L (137-145) mmol/L Carbon Dioxide 21 L (22-30) mmol/L BUN 51 H (9-20) mg/dL Creatinine 2.51 H (0.66-1.25) mg/dL Glucose 127 H (74-99) mg/dL POC Glucose (mg/dL) 130 H (70-110) mg/dL Total Bilirubin 1.8 H (0.2-1.3) mg/dL Total Protein 5.8 L (6.3-8.2) g/dL 11/11/24 Range/Units 11:12 RBC (4.30-5.90) m/uL Hgb (13.0-17.5) gm/dL Hct (39.0-53.0) % Plt Count (150-450) k/uL Lymphocytes # (1.0-4.8) k/uL Sodium (137-145) mmol/L Carbon Dioxide (22-30) mmol/L BUN (9-20) mg/dL Creatinine (0.66-1.25) mg/dL Glucose (74-99) mg/dL POC Glucose (mg/dL) 117 H (70-110) mg/dL Total Bilirubin (0.2-1.3) mg/dL Total Protein (6.3-8.2) g/dL Assessment and Plan Assessment: Postoperative day # 3, S/P off-pump three-vessel bypass surgery, for coronary artery disease, in a patient with chest pain. Routine postoperative ventilator management, with successful extubation on November 08, 2024. History of hypertension. History of osteoarthritis. History of prostate cancer. Lifelong non-smoker. Plan: Plan dated November 08, 2024. The patient is seen today in room 267. The patient's initial blood gases are excellent, and the FiO2 was, 100%, down to 50%. Labs, x-rays, and medications are reviewed. The patient is currently on propofol for sedation, amiodarone, for A-fib/flutter, insulin, for elevated blood glucose, and nitroglycerin. The patient is also on saline at 50 cc an hour. The patient was on Cleviprex for an elevated blood pressure, but that has been turned off. Cardiac output 6.4. Index is 2.7. We will continue to follow make recommendations. All labs, x- rays, and medications are reviewed. Dictation was produced using invi software. Please excuse any grammatical, word or spelling errors. Plan dated November 09, 2024. The patient is again seen in room 267. The patient was successfully extubated yesterday. He is currently on room air. He has no complaints. He is wearing his hearing aids, but despite that, he is very deaf. All labs, x-rays, and medications are reviewed. The patient continues on insulin drip at 5 units an hour, and amiodarone 0.5 mg/min. The patient is getting saline at 50 cc an hour. Labs, x-rays, and all medications are reviewed. Prognosis is guarded. Dictation was produced using invi software. Please excuse any grammatical, word or spelling errors. Plan dated November 10, 2024. The patient is seen today in room 267. He continues on nasal O2 at 2 L. He also continues on dopamine at 3 mcg/kg/min, given for his hypotension. He is postoperative day #2, status post off-pump three-vessel bypass surgery done by Dr. Brennan. All labs, x-rays, and medications are reviewed. We will continue to follow make recommendations. The patient's overall prognosis remains guarded. We recommend ongoing use of the incentive spirometer. Dictation was produced using invi software. Please excuse any grammatical, word or spelling errors. Plan dated November 11, 2024. This patient is postop day #3, status post off-pump three-vessel bypass surgery. Labs, x-rays, and all medications are reviewed. The patient remains on dopamin e, both for renal function, and hypotension. The patient is also getting saline at 30 cc an hour. He is on nasal O2 at 2 L. The dopamine is at 3 mcg/kg/min. We will continue to follow the patient, make recommendations along the way. We encouraged the patient to continue to use his incentive spirometer, every hour while awake. We also recommend deep breathing, coughing, clearing of secretions . The patient's prognosis remains guarded. We will continue to follow the patient. Dictation was produced using [employer] dictation software. Please excuse any grammatical, word or spelling errors. Time with Patient: Greater than 30
[2024-11-11 16:02] LABS: Glucose,Whole Blood 147 mg/dL (70-110)
--- NOTE | 2024-11-11 20:25 | P.PN ---
Subjective Progress Note Date: 11/11/24 This is a pleasant 79 year old male with medical history of hypertension, hyperlipidemia, chest pain, osteoarthritis, cholecystectomy, Coronary artery disease. Patient comes in the hospital for scheduled off pump coronary artery bypass grafting x [address] Brennan. He is evaluated today in the intensive care unit currently sitting up in the chair with family at the bedside. He is having minimal pain. He has been extubated since 1630 yesterday. He remains on nasal cannula at 2L currently. Chest xray today reveals small bilateral pleural effusions with pulmonary vascular congestion and associated atelectasis. He remains on the IV insulin gtt protocol with plans to transition to Subcutaneous insulin tomorrow. Patient did develop a proximal atrial fibrillation post bypass and was started on IV amiodarone. labs today reveal a white blood cell count of 8.2, hemoglobin 11.3, sodium of 134, BUN is 17 creatinine 0.83. Total bilirubin of 1.7. 11/10/2024 Patient evaluated today sitting up in the chair in the ICU. Postoperative day #2, 3 vessel CABG. Bilateral chest tubes remain place. Patient had decreased urine output and was started on IV dopamine. Creatinine today was increased up to 1.94, BUN 32. He has been taken off the insulin infusion and transitioned to humalog achs. Blood glucose is fairly well controlled and will continue to make adjustments pending trends. He has been transitioned to oral amiodarone. 11/11/2024 Patient is eval today in the intensive care unit sitting up in the chair he is postoperative day #3, three-vessel CABG. Chest tubes have been removed [place]- Cecilia catheter remains in place. He continues with indwelling Jaquez catheter. Urine output remains marginal. His creatinine is up to 2.51 today patient remains on dopamine infusion. Chest x-ray reveals pulmonary edema similar to prior. He has been continued on Humalog ACHS and sliding scale insulin blood kathleen gars are in the 110s to 140s and controlled with current regimen we will continue to monitor closely. REVIEW OF SYSTEMS: CONSTITUTIONAL: No fever, no malaise, no fatigue. HEENT: No recent visual problems or hearing problems. Denied any sore throat. CARDIOVASCULAR: No chest pain, orthopnea, PND, no palpitations, no syncope. PULMONARY: No shortness of breath, no cough, no hemoptysis. GASTROINTESTINAL: No diarrhea, no nausea, no vomiting, no abdominal pain. NEUROLOGICAL: No headaches, no weakness, no numbness. PHYSICAL EXAMINATION: GENERAL: The patient is alert and oriented x3, not in any acute distress. Well developed, well nourished. [place]-cecilia in place HEENT: Pupils are round and equally reacting to light. EOMI. No scleral icterus. No conjunctival pallor. Normocephalic, atraumatic. No pharyngeal erythema. No thyromegaly. CARDIOVASCULAR: S1 and S2 present. No murmurs, rubs, or gallops. PULMONARY: Chest is clear to auscultation, no wheezing or crackles. ABDOMEN: Soft, nontender, nondistended, normoactive bowel sounds. No palpable organomegaly. MUSCULOSKELETAL: No joint swelling or deformity. EXTREMITIES: No cyanosis, clubbing, or pedal edema. NEUROLOGICAL: Gross neurological examination did not reveal any focal deficits. SKIN: No rashes. Assessment and plan Coronary artery disease s/p coronary artery bypass grafting three-vessel New onset paroxysmal atrial fibrillation can be expected Acute kidney injury, prerenal Dyslipidemia Left ICA stenosis of 70% Prostate cancer maintained on Casodex Hypertension GI prophylaxis Full Code Plan Patient in the intensive care unit post CABG and has been successfully extubated Patient has been transitioned to humalog ACHS with sliding scale coverage, will monitor blood glucose and make adjustments as needed. Continues on PO amiodarone and patient is now in normal sinus rhythm Continues on IV dopamine Encourage incentive spirometer 10 x an hour while awake Repeat CBC, BMP in the AM Thank you kindly for this consultation The impression and plan of care has been dictated by Mary Palacio, Nurse Practitioner as directed. Dr. Madison MD I have performed a history and physical examination and medical decision making of this patient, discussed the same with the dictator, and agree with the dictators assessment and plan as written, documented as a scribe. Based on total visit time, I have performed more than 50% of this visit. Objective - Vital Signs Vital signs: Vital Signs Temp 99.1 F 11/11/24 16:00 Pulse 79 11/11/24 19:00 Resp 18 11/11/24 19:00 BP 103/53 11/11/24 19:00 Pulse Ox 97 11/11/24 19:00 FiO2 50 11/08/24 17:00 Intake & Output 03/03/0211/11/24 11/12/24 06:59 18:59 06:59 Intake Total 440 626 36 Output Total 605 530 40 Balance -165 96 -4 Weight 120.1 kg Intake: IV 440 446 36 CO/CI 30 Lines 66 6 Sodium Chloride 0.9% 1, 440 350 30 000 ml @ 30 mls/hr IV . Q24H [facility] Rx#:[id number] Oral 180 Output: Chest Tube Drainage 110 90 Left Pleural 32f 90 70 Mediastinal 36f 20 20 Urine 495 440 40 Other: Voiding Method Indwelling Catheter Indwelling Catheter ABP, PAP, CO, CI - Last Documented Arterial Blood Pressure 92/45 Pulmonary Artery Pressure 21/12 Cardiac Output 4.8 Cardiac Index 2.1 - Labs CBC & Chem 7: 11/11/24 05:46 11/11/24 05:46 Labs: Abnormal Lab Results - Last 24 Hours (Table) 11/10/24 11/11/24 11/11/24 Range/Units 20:41 05:46 05:46 RBC 2.94 L (4.30-5.90) m/uL Hgb 9.1 L (13.0-17.5) gm/dL Hct 29.2 L (39.0-53.0) % Plt Count 116 L (150-450) k/uL Lymphocytes # 0.8 L (1.0-4.8) k/uL Sodium 131 L (137-145) mmol/L Carbon Dioxide 21 L (22-30) mmol/L BUN 51 H (9-20) mg/dL Creatinine 2.51 H (0.66-1.25) mg/dL Glucose 127 H (74-99) mg/dL POC Glucose (mg/dL) 149 H (70-110) mg/dL Total Bilirubin 1.8 H (0.2-1.3) mg/dL Total Protein 5.8 L (6.3-8.2) g/dL 11/11/24 11/11/24 11/11/24 Range/Units 06:39 11:12 16:01 RBC (4.30-5.90) m/uL Hgb (13.0-17.5) gm/dL Hct (39.0-53.0) % Plt Count (150-450) k/uL Lymphocytes # (1.0-4.8) k/uL Sodium (137-145) mmol/L Carbon Dioxide (22-30) mmol/L BUN (9-20) mg/dL Creatinine (0.66-1.25) mg/dL Glucose (74-99) mg/dL POC Glucose (mg/dL) 130 H 117 H 147 H (70-110) mg/dL Total Bilirubin (0.2-1.3) mg/dL Total Protein (6.3-8.2) g/dL Assessment and Plan Time with Patient: Less than 30
[2024-11-11 20:35] LABS: Glucose,Whole Blood 133 mg/dL (70-110)
[2024-11-12 06:13] LABS: HCT 27.7 % (39.0-53.0); MCH 31.5 pg (25.0-35.0); MCHC 32.4 g/dL (31.0-37.0); MCV 97.5 fL (80.0-100.0); Mean Platelet Volume 8.2; Platelet Count 134 k/uL (150-450); RBC 2.85 m/uL (4.30-5.90); RDW 12.6 % (11.5-15.5); WBC 7.6 k/uL (3.8-10.6)
[2024-11-12 06:25] LABS: ALT 11 U/L (4-49); AST 27 U/L (17-59); African American GFR (CKD) 37 (>60 ml/min/1.73 sqM); Albumin 3.6 g/dL (3.5-5.0); Alkaline Phosphatase 40 U/L (38-126); Anion Gap 15 mmol/L; Blood Urea Nitrogen 59 mg/dL (9-20); Calcium 8.4 mg/dL (8.4-10.2); Carbon Dioxide 18 mmol/L (22-30); Chloride 98 mmol/L (98-107); Glucose 124 mg/dL (74-99); Magnesium 2.5 mg/dL (1.6-2.3); Non-African American GFR(CKD) 32 (>60 ml/min/1.73 sqM); Potassium 4.3 mmol/L (3.5-5.1); Sodium 131 mmol/L (137-145); Total Bilirubin 1.8 mg/dL (0.2-1.3)
--- NOTE | 2024-11-12 08:23 | XR ---
EXAMINATION TYPE: XR chest 1V portable DATE OF EXAM: 11/12/2024 5:17 AM COMPARISON: Multiple radiographs, with the most recent on 11/11/2024 TECHNIQUE: XR chest 1V portable Portable AP radiograph of the chest. CLINICAL INDICATION:Male, 79 years old with history of post cardiac surgery; FINDINGS: Lungs/Pleura: Blunting of both costophrenic angles with bibasilar patchy opacities. No pneumothorax. Biapical pleural thickening. Pulmonary vascularity: Pulmonary vascular congestion. Heart/mediastinum: Cardiomediastinal silhouette is enlarged and stable. Atherosclerotic calcificatio ns are seen in the aorta. Left atrial appendage occlusion device is present. Musculoskeletal: No acute osseous pathology. Midline sternotomy wires are noted. Other findings: None Lines/Tubes:Removal of mediastinal drainage catheter. Left thoracotomy tube is no longer visualized. Stable position of right IJ approach [place]-Cecilia catheter distal tip in the region of the main pulmonar y artery. IMPRESSION: 1. Postsurgical changes with small bilateral pleural effusions and cardiomegaly and pulmonary vascul ar congestion. Suggests CHF exacerbation/volume overload. 2. Stable [place]-Cecilia catheter. Removal of left thoracotomy tube and mediastinal drain. No pneumothora x. [facility], , 11/12/2024 8:21 AM
[2024-11-12] MEDS: ACETAMINOPHEN TAB 500 MG TAB PO PRN (08:30)
--- NOTE | 2024-11-12 08:51 | P.PN ---
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 History of hypertension, left internal carotid artery stenosis, mild peripheral arterial disease, prostate cancer with hormone therapy treatment, osteoarthritis, obesity, extremely hard of hearing, and lifelong non-smoker POD #4 off-pump coronary artery bypass grafting x 3 with PIERSON to LAD, sequential radial artery graft to first and second obtuse marginal coronary arteries as T graft off PIERSON, left radial artery endovascular harvest, occlusion of the left atrial appendage with 35mm AtriCure clip. Postoperative acute blood loss anemia and thrombocytopenia, expected given h emodilution. Brief paroxysmal atrial fibrillation after surgery, somewhat expected as it is a known common occurrence after open heart surgery. The patient was seen and examined in follow-up today November 12, 2024 and his bedside in the intensive care unit. He is currently sitting up to the bedside chair, is awake, alert, oriented x 3 and is in no acute apparent distress. Denies any complaints of pain or shortness of breath at this time, although is complaining of some weakness to his bilateral lower extremities. Right IJ cordis and Colton-Cecilia catheter in place with current hemodynamic showing a cardiac output of 5.1, cardiac index 2.2, PA pressures 21/10 and CVP 10 mmHg. Oxygen saturations are 98% on room air and he is achieving 1000 mL on his incentive spirometry with encouragement. Bedside telemetry is showing normal sinus rhythm with a first-degree heart block heart rate 60 bpm. Chest x-ray and laboratory results reviewed with Dr. Brennan. The patient's BUN is 59 today, creatinine 1.91 and venous CO2 is 18. Nephrology has been consulted for his metabolic acidosis and his acute kidney injury. Objective - Vital Signs Vital signs: Vital Signs Temp 98.7 F 11/12/24 04:00 Pulse 86 11/12/24 05:30 Resp 19 11/12/24 06:00 BP 108/68 11/12/24 06:00 Pulse Ox 94 L 11/12/24 06:00 FiO2 50 11/08/24 17:00 Intake & Output 11/11/24 11/11/24 11/12/24 06:59 18:59 06:59 Intake Total 440 626 532 Output Total 605 530 625 Balance -165 96 -93 Weight 120.1 kg 121.7 kg Intake: IV 440 446 432 CO/CI 30 Lines 66 72 Sodium Chloride 0.9% 1, 440 350 360 000 ml @ 30 mls/hr IV . Q24H [facility] Rx#:[id number] Oral 180 100 Output: Chest Tube Drainage 110 90 Left Pleural 32f 90 70 Mediastinal 36f 20 20 Urine 495 440 625 Other: Voiding Method Indwelling Catheter Indwelling Catheter Indwelling Catheter ABP, PAP, CO, CI - Last Documented Arterial Blood Pressure 92/45 Pulmonary Artery Pressure 21/12 Cardiac Output 5.2 Cardiac Index 2.2 - Exam CONSTITUTIONAL: Appears comfortable, cooperative, no acute distress. RESPIRATORY: Lungs sounds diminished to his bilateral bases. Respirations symmetrical, nonlabored. Currently on room air with oxygen saturation 98%. Able to achieve 1000 mL on his incentive spirometry. Strong cough. CARDIOVASCULAR: S1, S2 present. Regular rate and rhythm, normal sinus rhythm, with a first-degree heart block on telemetry, heart rate 60 bpm. Sternum stable. Palpable peripheral pulses bilaterally. Trace generalized edema present. No calf pain or tenderness noted. Heart hugger in place with patient demonstrating appropriate use. Antiembolism stockings, SCDs present. GASTROINTESTINAL: Abdomen soft, nontender, nondistended. Active bowel sounds present 4 quadrants. Tolerating diet. Passing flatus. GENITOURINARY: Jaquez present draining clear, yellow urine. Urine output 495 mL in the last 8 hours. INTEGUMENTARY: Skin is warm and dry with no clubbing or cyanosis present. Midline sternal chest incision well approximated and covered with dry intact dressing. Left radial artery harvest site well approximated without redness or drainage. NEUROLOGIC: Cranial nerves II through XII intact. No focal deficits. MUSKULOSKELETAL: Able to move all extremities, strength equal bilaterally, generalized weakness. PSYCHIATRIC: Alert and oriented to person place and time, appropriate affect, intact judgment and insight. INVASIVE LINES AND TUBES: Right internal jugular Colton/Cordis, right radial arterial line present. Last CO/CI 5.1/2.2, PA 21/10, CVP 10. - Allied health notes Allied health notes reviewed: nursing - Labs CBC & Chem 7: 11/12/24 05:38 11/12/24 05:38 Labs: Abnormal Lab Results - Last 24 Hours (Table) 11/11/24 11/11/24 11/11/24 Range/Units 05:46 05:46 11:12 RBC 2.94 L (4.30-5.90) m/uL Hgb 9.1 L (13.0-17.5) gm/dL Hct 29.2 L (39.0-53.0) % Plt Count 116 L (150-450) k/uL Lymphocytes # 0.8 L (1.0-4.8) k/uL Sodium 131 L (137-145) mmol/L Carbon Dioxide 21 L (22-30) mmol/L BUN 51 H (9-20) mg/dL Creatinine 2.51 H (0.66-1.25) mg/dL Glucose 127 H (74-99) mg/dL POC Glucose (mg/dL) 117 H (70-110) mg/dL Magnesium (1.6-2.3) mg/dL Total Bilirubin 1.8 H (0.2-1.3) mg/dL Total Protein 5.8 L (6.3-8.2) g/dL 11/11/24 11/11/24 11/12/24 Range/Units 16:01 20:34 05:38 RBC 2.85 L (4.30-5.90) m/uL Hgb 9.0 L (13.0-17.5) gm/dL Hct 27.7 L (39.0-53.0) % Plt Count 134 L (150-450) k/uL Lymphocytes # (1.0-4.8) k/uL Sodium (137-145) mmol/L Carbon Dioxide (22-30) mmol/L BUN (9-20) mg/dL Creatinine (0.66-1.25) mg/dL Glucose (74-99) mg/dL POC Glucose (mg/dL) 147 H 133 H (70-110) mg/dL Magnesium (1.6-2.3) mg/dL Total Bilirubin (0.2-1.3) mg/dL Total Protein (6.3-8.2) g/dL 11/12/24 Range/Units 05:38 RBC (4.30-5.90) m/uL Hgb (13.0-17.5) gm/dL Hct (39.0-53.0) % Plt Count (150-450) k/uL Lymphocytes # (1.0-4.8) k/uL Sodium 131 L (137-145) mmol/L Carbon Dioxide 18 L (22-30) mmol/L BUN 59 H (9-20) mg/dL Creatinine 1.91 H (0.66-1.25) mg/dL Glucose 124 H (74-99) mg/dL POC Glucose (mg/dL) (70-110) mg/dL Magnesium 2.5 H (1.6-2.3) mg/dL Total Bilirubin 1.8 H (0.2-1.3) mg/dL Total Protein 6.0 L (6.3-8.2) g/dL - Imaging and Cardiology Chest x-ray: report reviewed, image reviewed Assessment and Plan Assessment: 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, unstable angina, status post three-vessel off-pump CABG Postoperative acute blood loss anemia and thrombocytopenia, expected given hemodilution Brief paroxysmal atrial fibrillation after surgery, somewhat expected as it is a known common occurrence after open heart surgery, status post ligation of the left atrial appendage Acute kidney injury, prerenal History of hypertension Dyslipidemia Left internal carotid artery stenosis, > 70% per Doppler Mild peripheral arterial disease, left JERRI 0.87, right JERRI 0.93 Prostate cancer with hormone therapy treatment Osteoarthritis Obesity with a BMI of 38.0 kg/m Extremely hard of hearing Lifelong non-smoker, preoperative FEV1 83% of predicted Plan: Continue to maximize medical therapy with aspirin, statin, Plavix, and low-dose beta-phillip. Will increase beta-phillip therapy when able. Continue dopamine at 3 mcg/kg/min. Continue amiodarone for atrial fibrillation prophylaxis. No anticoagulation at this point. Currently normal sinus rhythm on the monitor. Encourage incentive spirometry use 10 times every hour while awake. Bronchodilators per pulmonology. Will monitor daily labs and chest x-rays. Electrolyte replacement per protocol. Increase activity, ambulate as tolerated. PT/OT/cardiac rehab following. GI/DVT prophylaxis. Pain control per current medication regimen. Continue to hold Toradol due to bump in his creatinine. Consult nephrology for metabolic acidosis and acute kidney injury. Insulin management per internal medicine. Patient is not diabetic, preoperative hemoglobin A1c 5.6%. Continue Colton/Cordis for another 24 hours. Continue Jaquez catheter for another 24 hours, continue to monitor record strict accurate intake and output. Appropriate home medications reordered. More recommendations to follow on patient's clinical course. Time with Patient: Greater than 30
[2024-11-12] MEDS: bisacodyL 10 MG SUPP RECTAL PRN (09:00)
[2024-11-12] MEDS: MAGNESIUM OXIDE 400 MG TAB PO SCH (09:21)
--- NOTE | 2024-11-12 10:15 | P.NPCON ---
History of Present Illness - Reason for Consult acute renal failure - History of Present Illness Patient is an 79-year-old male admitted to the hospital for three-vessel coronary artery bypass surgery which was performed on 11/08/2024. He has been extubated. Patient has been maintained on dobutamine as his blood pressure has been low. Urine output at 35 to 70 cc an hour. Serum creatinine was 0.8 on initial admission and increased to 1.9 on 11/10/2024. Serum creatinine increased further to 2.5 yesterday and it is down to 1.9 today. CVP at 7 to 8 cm Chest x-ray from today shows bilateral pleural effusions and pulmonary vascular congestion. Currently maintained on room air patient is sitting in a bedside chair. Past Medical History Past Medical History: Cancer, Chest Pain / Angina, Hearing Disorder / Deafness, Hyperlipidemia, Hypertension, Osteoarthritis (OA), Prostate Disorder Additional Past Medical History / Comment(s): VARICOSE VEINS. hx. prostate cancer 6 yrs. ago-had tx., now PSA is elevated again-current hormone tx. for, ankle swelling History of Any Multi-Drug Resistant Organisms: None Reported Past Surgical History: Cholecystectomy, Heart Catheterization, Hernia Repair, Joint Replacement, Orthopedic Surgery Additional Past Surgical History / Comment(s): RIGHT SHOULDER, UMBILICAL HERNIA & ABDOMINAL HERNIA REPAIR, RIGHT TOTAL KNEE. recent cardiac cath. Past Anesthesia/Blood Transfusion Reactions: Previous Problems w/ Anesthesia Additional Past Anesthesia/Blood Transfusion Reaction / Comment(s): STATES DIFFICULTY BREATHING AFTER SHOULDER SURGERY-not sure why, other surgeries after had no problems Smoking Status: Never smoker - Past Family History Mother Family Medical History: Respiratory Disorder Father Family Medical History: Vascular Disorder Additional Family Medical History / Comment(s): Abdominal aortic aneurysm rupture Medications and Allergies Home Medications Medication Instructions Recorded Confirmed Type Cholecalciferol [Vitamin D3 (25 5,000 unit PO DAILY 01/02/17 11/08/24 History Mcg = 1000 Iu)] Multivitamins, Thera [Multivitamin 1 tab PO DAILY 01/02/17 11/08/24 History (formulary)] Benazepril HCl 40 mg PO DAILY 10/27/24 11/08/24 History Bicalutamide [Casodex] 50 mg PO DAILY 10/27/24 11/08/24 History Nitroglycerin Sl Tabs [Nitrostat] 0.4 mg PO DIRECTED PRN 10/27/24 11/08/24 History Aspirin 81 mg PO DAILY #30 tab 10/30/24 11/08/24 Rx Atorvastatin [Lipitor] 80 mg PO HS #30 tab 10/30/24 11/08/24 Rx Isosorbide Mononitrate ER [Imdur] 60 mg PO DAILY #30 tab 10/30/24 11/08/24 Rx Metoprolol Succinate (ER) [Toprol 50 mg PO DAILY #30 tab 10/30/24 11/08/24 Rx XL] Cider Vinegar [Apple Cider Vinegar] 450 mg PO DAILY 11/04/24 11/08/24 History Flaxseed Oil 1,000 mg PO DAILY 11/04/24 11/08/24 History L.acidoph,Paracasei, B.lactis 1 each PO DAILY 11/04/24 11/08/24 History [Probiotic] Magnesium Citrate and Oxide 400 mg PO DAILY 11/04/24 11/08/24 History [Magnesium] Potassium Citrate 99 mg PO DAILY 11/04/24 11/08/24 History Turmeric Root Extract [Turmeric] 1,500 mg PO DAILY 11/04/24 11/08/24 History Vitamin B Complex 1 each PO DAILY 11/04/24 11/08/24 History Allergies Allergy/AdvReac Type Severity Reaction Status Date / Time No Known Allergies Allergy Verified 11/08/24 05:58 Physical Exam Vitals: Vital Signs Temp Pulse Resp BP Pulse Ox 11/12/24 09:00 99.5 F 66 15 114/60 97 11/12/24 08:30 62 15 99 11/12/24 08:28 56 L 11/12/24 08:16 60 11/12/24 08:00 60 14 112/52 98 11/12/24 07:30 62 18 100/53 97 11/12/24 07:00 58 L 21 101/50 96 11/12/24 06:30 61 14 108/60 97 11/12/24 06:00 19 108/68 94 L 11/12/24 05:30 86 23 101/57 97 11/12/24 05:00 81 20 101/54 95 11/12/24 04:30 84 13 101/54 96 11/12/24 04:00 98.7 F 84 18 101/51 94 L 11/12/24 03:30 81 19 101/51 95 11/12/24 03:00 84 20 103/53 96 11/12/24 02:30 84 20 103/53 96 11/12/24 02:00 86 21 105/55 95 11/12/24 01:30 86 22 105/55 94 L 11/12/24 01:00 88 20 128/59 95 11/12/24 00:30 88 20 128/59 94 L 11/12/24 00:02 96 22 123/59 96 11/12/24 00:00 95 23 123/59 97 11/11/24 23:30 89 22 123/59 96 11/11/24 23:00 92 19 137/61 96 11/11/24 22:30 82 18 110/48 97 11/11/24 22:00 81 21 108/55 97 11/11/24 21:30 82 19 108/55 96 11/11/24 21:00 16 107/56 96 11/11/24 20:30 77 20 107/56 100 11/11/24 20:28 78 18 11/11/24 20:22 80 18 11/11/24 20:00 98.9 F 82 16 111/51 98 11/11/24 19:30 82 21 110/50 96 11/11/24 19:00 79 18 103/53 97 11/11/24 18:30 81 13 89/40 96 11/11/24 18:00 35 H 99/49 96 11/11/24 17:30 76 11 L 98 11/11/24 17:00 77 19 98 11/11/24 16:30 79 18 98 11/11/24 16:00 99.1 F 76 20 97 11/11/24 15:30 78 17 97 11/11/24 15:24 86 11/11/24 15:13 87 11/11/24 15:00 16 130/54 96 11/11/24 14:30 86 22 115/54 97 11/11/24 14:00 79 17 105/47 96 11/11/24 13:30 81 14 108/68 96 11/11/24 13:00 14 113/49 95 11/11/24 12:41 95 11/11/24 12:30 98.8 F 78 19 96/56 95 11/11/24 12:00 77 20 101/45 03/06/25 11:30 80 13 94/53 11/11/24 11:00 80 17 88/55 96 11/11/24 10:30 88/55 Intake and Output 11/11/24 11/12/24 11/12/24 22:59 06:59 14:59 Intake Total 418 288 232 Output Total 310 455 110 Balance 108 -167 122 Intake: IV 258 288 82 Lines 48 48 12 Sodium Chloride 0.9% 1, 210 240 70 000 ml @ 30 mls/hr IV . Q24H [facility] Rx#:[id number] Oral 160 Blood Product 150 Output: Urine 310 455 110 Other: Voiding Method Indwelling Catheter Indwelling Catheter Weight 121.7 kg ABP, PAP, CO, CI - Last 8 Hours Pulmonary Artery Pressure 21/9 Pulmonary Artery Pressure 22/9 Pulmonary Artery Pressure 19/9 Pulmonary Artery Pressure 20/8 Pulmonary Artery Pressure 21/12 Pulmonary Artery Pressure 37/25 Pulmonary Artery Pressure 23/11 Pulmonary Artery Pressure 21/13 Pulmonary Artery Pressure 26/11 Pulmonary Artery Pressure 21/11 Pulmonary Artery Pressure 21/12 Pulmonary Artery Pressure 21/10 Cardiac Output 4.6 Cardiac Output 5.2 Cardiac Output 5.1 Cardiac Output 4.9 Cardiac Output 4.9 Cardiac Index 2 Cardiac Index 2.2 Cardiac Index 2.2 Cardiac Index 2.1 Cardiac Index 2.1 Patient is awake, comfortable, no acute distress Examination of the heart S1 and S2 Examination of the lungs decreased breath sounds at the bases Abdomen is soft obese Examination of lower extremity shows edema 2+ bilaterally TEST LEAD exam grossly intact Results - Lab Results Most recent lab results ABG pH 7.37 (7.35-7.45) 11/09/24 13:44 ABG pCO2 41 mmHg (35-45) 11/09/24 13:44 ABG pO2 <30 mmHg (83-108) L* 11/09/24 13:44 ABG HCO3 24 mmol/L (21-25) 11/09/24 13:44 ABG O2 Saturation 52.4 % (94-97) L 11/09/24 13:44 Calcium 8.4 mg/dL (8.4-10.2) 11/12/24 05:38 Magnesium 2.5 mg/dL (1.6-2.3) H 11/12/24 05:38 11/12/24 05:38 11/12/24 05:38 Assessment and Plan Assessment: 1. Acute kidney injury, ischemic ATN, initially oliguric currently nonoliguric with improving renal function. Check UA. Check ultrasound of the kidneys. No nephrotoxic agents on board. 2. Status post coronary artery bypass surgery x 3 on 11/08/2024. Extubated. Remains on low-dose dopamine for low heart rate and low blood pressure 3. [place] metabolic acidosis secondary to acute kidney injury. No diarrhea noted. 4. Hypervolemic hyponatremia 5. Anemia, multifactorial including postop. Rule out iron deficiency Plan: Recommend to diurese patient. Add oral sodium bicarb. This will be discontinued once metabolic acidosis improved. Continue to avoid nephrotoxic agents Check iron profile Repeat labs in a.m. Check UA Check ultrasound of the kidneys Thank you for the consultation. We will continue to follow the patient with you during his hospitalization.
[2024-11-12 11:02] LABS: Glucose,Whole Blood 129 mg/dL (70-110)
[2024-11-12] MEDS: FUROSEMIDE 10 MG/ML 2 ML VIAL IV ONE (11:55)
--- NOTE | 2024-11-12 13:11 | P.PN ---
Subjective Progress Note Date: 11/12/24 Principal diagnosis: CABG. Pulmonary consult dated November 08, 2024. 79-year-old male status post three-vessel bypass surgery, done by Dr. Brennan today, off-pump. The patient is seen in the intensive care unit, room 267. The patient is currently on the ventilator, with settings of volume assist-control, rate 12, tidal volume 500, FiO2 100%, PEEP of 10. Initial blood gases show pO2 275, pCO2 33, pH is 7.37. The FiO2 was dropped from 100%, down to 50%. Currently, his cardiac output 6.4, index is 2.7. Pulmonary artery pressures 36/18 with a wedge pressure of 8. Currently, the patient is on propofol at 20 mcg/kg/min, 0.9 at 50 cc an hour, amiodarone at 1 mg/min, insulin at 1.5 units an hour, and nitroglycerin at 5 mcg/min. Current laboratory data includes a white count 9.7, hemoglobin 10.8, hematocrit 33.3, and a platelet count of 115,000. Sodium 139, potassium 4.3, chlorides 107, CO2 25, BUN 19, creatinine 0.82. Glucose is 133. Chest x-ray shows postsurgical changes, with appropriate support lines and endotracheal tube. Small bilateral pleural effusions are noted. Progress note dated November 09, 2024. 79-year-old male seen yesterday in consultation. He had a three-vessel off-pump bypass. It was done by Dr. Brennan. Yesterday, he was successfully extubated. Currently, the patient is sitting in the chair next to his hospital bed, in room 267. He remains on room air. He is getting insulin at 5 units an hour, and amiodarone 0.5 mg/min. He is also getting saline at 50 cc an hour. As mentioned, he was extubated on November 08. Current labs: White count 8.2, hemoglobin 11.3, macro 34.2, and a platelet count of 139,000. Sodium 134, potassium 4.3, chlorides 104, CO2 23, BUN 17, creatinine 0.82. Glucose is 125. Total protein 5.9. Blood sugar 123. Chest x-ray from November 09 shows changes from recent cardiac surgery, removal of the NG tube and endotracheal tube, small bilateral pleural effusions, and cardiomegaly. There is also some bibasilar infiltrates or atelectasis. Progress note dated November 10, 2024. 79-year-old male who is postoperative day #2, status post bypass surgery. He had an off-pump three-vessel bypass, done by Dr. Brennan. The patient seen sitting in the chair next to the hospital bed. He continues on oxygen at 2 L. The patient is also on dopamine at 3 mcg/kg/min. Clinically, he appears relatively stable. He is awake and alert. Laboratory data includes a white count of 7.1, hemoglobin 9.2, hematocrit 27.5, and a platelet count of 95,000. Sodium 133, potassium 4.1, chlorides 101, CO2 22, anion gap 10, BUN 32, and creatinine 1.94. Calcium is 8.1. Chest x-ray shows some bibasilar atelectasis, and small pleural effusions. There may be a component of fluid overload. Progress note dated November 11, 2024. 79-year-old male seen today in room 267. He is postoperative day #3, status post bypass surgery. Currently, the patient is resting comfortably. He is sitting in the chair next to his hospital bed. He is on dopamine at 3 mcg/kg/min, and saline at 30 cc an hour. He is also getting nasal O2 at 2 L. Clinically he is doing about the same. White count 7.8, hemoglobin 9.1, hematocrit 29.2, platelet count 116,000. Sodium 131, potassium 4.1, chloride 99, CO2 21, BUN 51, creatinine 2.51. Glucose is 117. Bilirubin is 1.8. Chest x-ray shows postoperative changes, and mild fluid overload. Progress note dated November 12, 2024. 79-year-old male seen today in room 267. He is postoperative day #4, status post bypass surgery. He is sitting in a chair next to the hospital bed. He is on room air. He is getting saline at 30 cc an hour. He continues on dopamine at 3 mcg/kg/min. Clinically, he is doing well. Current labs include a white count 7.6, hemoglobin 9, hematocrit 27.7, and a platelet count of 134,000. Sodium 141, potassium 4.3, chlorides 98, CO2 18, BUN 59, creatinine 1.91. Glucose is 129. Albumin is 3.6. Objective - Vital Signs Vital signs: Vital Signs Temp 99.0 F 11/12/24 12:00 Pulse 61 11/12/24 12:30 Resp 18 11/12/24 12:30 BP 111/64 11/12/24 12:30 Pulse Ox 97 11/12/24 12:30 FiO2 50 11/08/24 17:00 Intake & Output 11/11/24 11/12/24 11/12/24 18:59 06:59 18:59 Intake Total 626 532 308 Output Total 530 625 170 Balance 96 -93 138 Weight 121.7 kg Intake: IV 446 432 158 CO/CI 30 Lines 66 72 18 Sodium Chloride 0.9% 1, 350 360 140 000 ml @ 30 mls/hr IV . Q24H [facility] Rx#:[id number] Oral 180 100 Blood Product 150 Output: Chest Tube Drainage 90 Left Pleural 32f 70 Mediastinal 36f 20 Urine 440 625 170 Other: Voiding Method Indwelling Catheter Indwelling Catheter ABP, PAP, CO, CI - Last Documented Arterial Blood Pressure 92/45 Pulmonary Artery Pressure 24/11 Cardiac Output 5.0 Cardiac Index 2.1 - Exam No acute distress, oriented 3. Currently on room air. Sitting in a chair next to his hospital bed. HEENT examination is grossly unremarkable. Mucous membranes are moist. No oral lesions. Neck supple. Full range of motion. No adenopathy thyromegaly or neck vein distention. Cardiovascular examination reveals regular rhythm rate. S1-S2 normal. No S3 or S4. No discernible murmur noted. Lungs reveal scattered bilateral. There are some basilar crackles. No wheezes. Breath sounds are equal bilaterally. Abdomen soft bowel sounds are heard. No masses or tenderness. Extremities are intact. No cyanosis clubbing or edema. Skin is without rash or lesion. Neurologic examination is brief but nonfocal. - Labs CBC & Chem 7: 11/12/24 05:38 11/12/24 05:38 Labs: Abnormal Lab Results - Last 24 Hours (Table) 11/11/24 11/11/24 11/12/24 Range/Units 16:01 20:34 05:38 RBC 2.85 L (4.30-5.90) m/uL Hgb 9.0 L (13.0-17.5) gm/dL Hct 27.7 L (39.0-53.0) % Plt Count 134 L (150-450) k/uL Sodium (137-145) mmol/L Carbon Dioxide (22-30) mmol/L BUN (9-20) mg/dL Creatinine (0.66-1.25) mg/dL Glucose (74-99) mg/dL POC Glucose (mg/dL) 147 H 133 H (70-110) mg/dL Magnesium (1.6-2.3) mg/dL Total Bilirubin (0.2-1.3) mg/dL Total Protein (6.3-8.2) g/dL 11/12/24 11/12/24 Range/Units 05:38 11:01 RBC (4.30-5.90) m/uL Hgb (13.0-17.5) gm/dL Hct (39.0-53.0) % Plt Count (150-450) k/uL Sodium 131 L (137-145) mmol/L Carbon Dioxide 18 L (22-30) mmol/L BUN 59 H (9-20) mg/dL Creatinine 1.91 H (0.66-1.25) mg/dL Glucose 124 H (74-99) mg/dL POC Glucose (mg/dL) 129 H (70-110) mg/dL Magnesium 2.5 H (1.6-2.3) mg/dL Total Bilirubin 1.8 H (0.2-1.3) mg/dL Total Protein 6.0 L (6.3-8.2) g/dL Assessment and Plan Assessment: Postoperative day # 4, S/P off-pump three-vessel bypass surgery, for coronary artery disease, in a patient with chest pain. Routine postoperative ventilator management, with successful extubation on November 08, 2024. History of hypertension. History of osteoarthritis. History of prostate cancer. Lifelong non-smoker. Plan: Plan dated November 08, 2024. The patient is seen today in room 267. The patient's initial blood gases are excellent, and the FiO2 was, 100%, down to 50%. Labs, x-rays, and medications are reviewed. The patient is currently on propofol for sedation, amiodarone, for A-fib/flutter, insulin, for elevated blood glucose, and nitroglycerin. The patient is also on saline at 50 cc an hour. The patient was on Cleviprex for an elevated blood pressure, but that has been turned off. Cardiac output 6.4. Index is 2.7. We will continue to follow make recommendations. All labs, x- rays, and medications are reviewed. Dictation was produced using [employer] software. Please excuse any grammatical, word or spelling errors. Plan dated November 09, 2024. The patient is again seen in room 267. The patient was successfully extubated yesterday. He is currently on room air. He has no complaints. He is wearing his hearing aids, but despite that, he is very deaf. All labs, x-rays, and medi cations are reviewed. The patient continues on insulin drip at 5 units an hour, and amiodarone 0.5 mg/min. The patient is getting saline at 50 cc an hour. Labs, x-rays, and all medications are reviewed. Prognosis is guarded. Dictation was produced using [employer] software. Please excuse any grammatical, word or spelling errors. Plan dated November 10, 2024. The patient is seen today in room 267. He continues on nasal O2 at 2 L. He also continues on dopamine at 3 mcg/kg/min, given for his hypotension. He is postoperative day #2, status post off-pump three-vessel bypass surgery done by Dr. Brennan. All labs, x-rays, and medications are reviewed. We will continue to follow make recommendations. The patient's overall prognosis remains guarded. We recommend ongoing use of the incentive spirometer. Dictation was produced using [employer] software. Please excuse any grammatical, word or spelling errors. Plan dated November 11, 2024. This patient is postop day #3, status post off-pump three-vessel bypass surgery. Labs, x-rays, and all medications are reviewed. The patient remains on dopamine, both for renal function, and hypotension. The patient is also getting saline at 30 cc an hour. He is on nasal O2 at 2 L. The dopamine is at 3 mcg/kg/min. We will continue to follow the patient, make recommendations along the way. We encouraged the patient to continue to use his incentive spirometer, every hour while awake. We also recommend deep breathing, coughing, clearing of secretions. The patient's prognosis remains guarded. We will continue to follow the patient. Dictation was produced using [employer] software. Please excuse any grammatical, word or spelling errors. Plan dated November 12, 2024. The patient is postop day #4, and is doing relatively well. Labs, x-rays, and medications are reviewed. The patient continues on saline at 30 cc an hour. He is not requiring any supplemental oxygen. He continues on dopamine at 3 mcg/kg/min. We will continue to follow make recommendations. Prognosis is guarded. Dictation was produced using [employer] software. Please excuse any grammatical, word or spelling errors. Time with Patient: Less than 30
--- NOTE | 2024-11-12 13:53 | US ---
EXAMINATION TYPE: US kidneys/renal and bladder DATE OF EXAM: 11/12/2024 Exam done portable in ICU COMPARISON: CT chest 10/29/2024 CLINICAL INDICATION: Male, 79 years old with history of fernando; TECHNIQUE: Grayscale imaging of the bilateral kidneys and urinary bladder: FINDINGS: EXAM MEASUREMENTS: Right Kidney: length not done, 5.6 x 5.2 cm Left Kidney: 11.3 x 6.5 x 5.9 cm Right Kidney: 3.7cm hypoechoic area superior pole, inferior pole obscured by overlying bowel gas Left Kidney: visualized portions wnl, limited by overlying bowel gas Bladder: not distended, swan catheter There is no evidence for hydronephrosis at this point in time. No nephrolithiasis is seen. Right natalie al superior pole 3.7 cm hypoechoic lesion. Not consistent with a simple cyst on prior CT. No definiti ve left renal masses. Cortical medullary differentiation appears maintained. The urinary bladder is d ecompressed with Swan catheter which limits evaluation. IMPRESSION: Limited examination due to overlying bowel gas. 1. No hydronephrosis or nephrolithiasis. 2. Indeterminant right renal superior pole 3.7 cm hypoechoic lesion. Further evaluation with CT or MR abdomen renal mass protocol is recommended. [facility], , 11/12/2024 1:51 PM
[2024-11-12 14:32] LABS: Appearance,Urine Cloudy (Clear); Bilirubin,Urine Negative (Negative); Blood,Urine Large (Negative); Broad Casts,Urine 3 /lpf (0); Color,Urine Light Red; Glucose,Urine (UA) Negative (Negative); Ketones,Urine Negative (Negative); Leukocyte Esterase,Urine Small (Negative); Mucus,Urine Rare /hpf; Nitrite,Urine Negative (Negative); Protein,Urine 1+ (Negative); RBC,Urine >182 /hpf (0-5); Specific Gravity,Urine 1.015 (1.001-1.035); Urobilinogen,Urine <2.0 mg/dL (<2.0); WBC,Urine 10 /hpf (0-5)
[2024-11-12 16:11] LABS: Glucose,Whole Blood 106 mg/dL (70-110)
--- NOTE | 2024-11-12 19:44 | P.PN ---
Subjective Progress Note Date: 11/12/24 This is a pleasant 79 year old male with medical history of hypertension, hyperlipidemia, chest pain, osteoarthritis, cholecystectomy, Coronary artery disease. Patient comes in the hospital for scheduled off pump coronary artery bypass grafting x [address] Brennna. He is evaluated today in the intensive care unit currently sitting up in the chair with family at the bedside. He is having minimal pain. He has been extubated since 1630 yesterday. He remains on nasal cannula at 2L currently. Chest xray today reveals small bilateral pleural effusions with pulmonary vascular congestion and associated atelectasis. He remains on the IV insulin gtt protocol with plans to transition to Subcutaneous insulin tomorrow. Patient did develop a proximal atrial fibrillation post bypass and was started on IV amiodarone. labs today reveal a white blood cell count of 8.2, hemoglobin 11.3, sodium of 134, BUN is 17 creatinine 0.83. Total bilirubin of 1.7. 11/10/2024 Patient evaluated today sitting up in the chair in the ICU. Postoperative day #2, 3 vessel CABG. Bilateral chest tubes remain place. Patient had decreased urine output and was started on IV dopamine. Creatinine today was increased up to 1.94, BUN 32. He has been taken off the insulin infusion and transitioned to humalog achs. Blood glucose is fairly well controlled and will continue to make adjustments pending trends. He has been transitioned to oral amiodarone. 11/11/2024 Patient is eval today in the intensive care unit sitting up in the chair he is postoperative day #3, three-vessel CABG. Chest tubes have been removed Redig- Cecilia catheter remains in place. He continues with indwelling Jaquez catheter. Urine output remains marginal. His creatinine is up to 2.51 today patient remains on dopamine infusion. Chest x-ray reveals pulmonary edema similar to prior. He has been continued on Humalog ACHS and sliding scale insulin blood kathleen gars are in the 110s to 140s and controlled with current regimen we will continue to monitor closely. 11/12/2024 Patient evaluated today sitting up in the chair. Patient reports decreased appetite. He is postoperative day #4 three vessel CABG. Blood glucose remains well controlled at this time. He remains on IV dopamine. Magnesium 1.8, BUN 59, creatinine 1.91. REVIEW OF SYSTEMS: CONSTITUTIONAL: No fever, no malaise, no fatigue. HEENT: No recent visual problems or hearing problems. Denied any sore throat. CARDIOVASCULAR: No chest pain, orthopnea, PND, no palpitations, no syncope. PULMONARY: No shortness of breath, no cough, no hemoptysis. GASTROINTESTINAL: No diarrhea, no nausea, no vomiting, no abdominal pain. NEUROLOGICAL: No headaches, no weakness, no numbness. PHYSICAL EXAMINATION: GENERAL: The patient is alert and oriented x3, not in any acute distress. Well developed, well nourished. Redig-cecilia in place HEENT: Pupils are round and equally reacting to light. EOMI. No scleral icterus. No conjunctival pallor. Normocephalic, atraumatic. No pharyngeal erythema. No thyromegaly. CARDIOVASCULAR: S1 and S2 present. No murmurs, rubs, or gallops. PULMONARY: Chest is clear to auscultation, no wheezing or crackles. ABDOMEN: Soft, nontender, nondistended, normoactive bowel sounds. No palpable organomegaly. MUSCULOSKELETAL: No joint swelling or deformity. EXTREMITIES: No cyanosis, clubbing, or pedal edema. NEUROLOGICAL: Gross neurological examination did not reveal any focal deficits. SKIN: No rashes. Assessment and plan Coronary artery disease s/p coronary artery bypass grafting three-vessel New onset paroxysmal atrial fibrillation can be expected Acute kidney injury, prerenal Dyslipidemia Left ICA stenosis of 70% Prostate cancer maintained on Casodex Hypertension GI prophylaxis Full Code Plan Patient in the intensive care unit post CABG and has been successfully extubated Patient has been transitioned to humalog ACHS with sliding scale coverage, will monitor blood glucose and make adjustments as needed. Continues on PO amiodarone and patient is now in normal sinus rhythm Continues on IV dopamine Encourage incentive spirometer 10 x an hour while awake Repeat CBC, BMP in the AM Thank you kindly for this consultation The impression and plan of care has been dictated by Mary Palacio, Nurse Practitioner as directed. Dr. Madison MD I have performed a history and physical examination and medical decision making of this patient, discussed the same with the dictator, and agree with the dictators assessment and plan as written, documented as a scribe. Based on total visit time, I have performed more than 50% of this visit. Objective - Vital Signs Vital signs: Vital Signs Temp 99.0 F 11/12/24 12:00 Pulse 81 11/12/24 19:00 Resp 12 11/12/24 19:00 BP 124/53 11/12/24 19:00 Pulse Ox 96 11/12/24 19:00 FiO2 50 11/08/24 17:00 Intake & Output 11/12/24 11/12/24 11/13/24 06:59 18:59 06:59 Intake Total 532 566 36 Output Total 625 465 60 Balance -93 101 -24 Weight 121.7 kg Intake: IV 432 416 36 Lines 72 66 6 Sodium Chloride 0.9% 1, 360 350 30 000 ml @ 30 mls/hr IV . Q24H [facility] Rx#:[id number] Oral 100 Blood Product 150 Output: Urine 625 465 60 Other: Voiding Method Indwelling Catheter Indwelling Catheter # Bowel Movements 1 ABP, PAP, CO, CI - Last Documented Arterial Blood Pressure 92/45 Pulmonary Artery Pressure 38/20 Cardiac Output 7.2 Cardiac Index 3.1 - Labs CBC & Chem 7: 11/12/24 05:38 11/12/24 05:38 Labs: Abnormal Lab Results - Last 24 Hours (Table) 11/11/24 11/12/24 11/12/24 Range/Units 20:34 05:38 05:38 RBC 2.85 L (4.30-5.90) m/uL Hgb 9.0 L (13.0-17.5) gm/dL Hct 27.7 L (39.0-53.0) % Plt Count 134 L (150-450) k/uL Sodium 131 L (137-145) mmol/L Carbon Dioxide 18 L (22-30) mmol/L BUN 59 H (9-20) mg/dL Creatinine 1.91 H (0.66-1.25) mg/dL Glucose 124 H (74-99) mg/dL POC Glucose (mg/dL) 133 H (70-110) mg/dL Magnesium 2.5 H (1.6-2.3) mg/dL Total Bilirubin 1.8 H (0.2-1.3) mg/dL Total Protein 6.0 L (6.3-8.2) g/dL Urine Protein (Negative) Urine Blood (Negative) Ur Leukocyte Esterase (Negative) Urine RBC (0-5) /hpf Urine WBC (0-5) /hpf Urine Mucus (None) /hpf 11/12/24 11/12/24 Range/Units 11:01 11:50 RBC (4.30-5.90) m/uL Hgb (13.0-17.5) gm/dL Hct (39.0-53.0) % Plt Count (150-450) k/uL Sodium (137-145) mmol/L Carbon Dioxide (22-30) mmol/L BUN (9-20) mg/dL Creatinine (0.66-1.25) mg/dL Glucose (74-99) mg/dL POC Glucose (mg/dL) 129 H (70-110) mg/dL Magnesium (1.6-2.3) mg/dL Total Bilirubin (0.2-1.3) mg/dL Total Protein (6.3-8.2) g/dL Urine Protein 1+ H (Negative) Urine Blood Large H (Negative) Ur Leukocyte Esterase Small H (Negative) Urine RBC >182 H (0-5) /hpf Urine WBC 10 H (0-5) /hpf Urine Mucus Rare H (None) /hpf Assessment and Plan Time with Patient: Less than 30
[2024-11-12 20:24] LABS: Glucose,Whole Blood 117 mg/dL (70-110)
--- NOTE | 2024-11-12 20:49 | P.PN ---
Subjective Progress Note Date: 11/11/24 HISTORY OF PRESENTING ILLNESS: 79-year-old with possible history of multivessel disease, known to Dr. Conley. He underwent three-vessel CABG with PIERSON to LAD, T graft using a radial artery to OM1 and OM 2 sequential. He has been extubated and is coming along well. Prior cardiac testing: Heart catheter October 2024 showed three-vessel disease involving distal left main, ostium of LAD, ostium of LCx, moderate diffuse disease in RCA with distal PDA having 60% stenosis. Progress note 11/10/2024 Patient was hypotensive, staying on low-dose dopamine drip also got IV albumin and fluids. Cardiac index 2.1, pulmonary arterial pressures within normal range, CVP around 10. No new arrhythmias on telemetry, appears sinus rhythm. 11/11/2024 Patient's blood pressure has been stable however kidney function is declining No other cardiovascular events, sinus rhythm on telemetry. PHYSICAL EXAMINATION: Neck: Robbins-Cecilia catheter in place, Lungs: Chest tube in place, respiratory effort, surgical scar healing well Heart: Regular rate and rhythm, S1-S2, , no murmur or rub. Abdomen: Soft nontender, positive bowel sounds. Extremities: 1+ pitting edema bilateral extremity Neuro: Alert, oritented, no focal deficits. Detailed neuro exam was not performed. ASSESSMENT: # Status post CABG 11/08/2024, PIERSON to LAD, sequential radial to first and second OM as a T graft from PIERSON, left atrial appendage occlusion 35mm atrial clip # Brief paroxysmal atrial fibrillation after surgery, currently in sinus rhythm # Hypertension # Dyslipidemia with hypercholesterolemia # Left ICA stenosis more than 70% # Mild PAD # Prostate cancer on hormone therapy # Obesity # Extremely hard of hearing PLAN: Continue current supportive care Continue aspirin, Plavix, statin, amiodarone, Continue hemodynamic monitoring with Robbins-Cecilia catheter. CT surgery team following. Objective - Vital Signs Vital signs: Vital Signs Temp 99.0 F 11/12/24 12:00 Pulse 81 11/12/24 19:00 Resp 12 11/12/24 19:00 BP 124/53 11/12/24 19:00 Pulse Ox 96 11/12/24 19:00 FiO2 50 11/08/24 17:00 Intake & Output 03/07/25 03/07/25 03/08/25 06:59 18:59 06:59 Intake Total 532 566 36 Output Total 625 465 60 Balance -93 101 -24 Weight 121.7 kg Intake: IV 432 416 36 Lines 72 66 6 Sodium Chloride 0.9% 1, 360 350 30 000 ml @ 30 mls/hr IV . Q24H [facility] Rx#:[id number] Oral 100 Blood Product 150 Output: Urine 625 465 60 Other: Voiding Method Indwelling Catheter Indwelling Catheter # Bowel Movements 1 ABP, PAP, CO, CI - Last Documented Arterial Blood Pressure 92/45 Pulmonary Artery Pressure 38/20 Cardiac Output 7.2 Cardiac Index 3.1 - Labs CBC & Chem 7: 11/12/24 05:38 11/12/24 05:38 Labs: Abnormal Lab Results - Last 24 Hours (Table) 11/12/24 11/12/24 11/12/24 Range/Units 05:38 05:38 11:01 RBC 2.85 L (4.30-5.90) m/uL Hgb 9.0 L (13.0-17.5) gm/dL Hct 27.7 L (39.0-53.0) % Plt Count 134 L (150-450) k/uL Sodium 131 L (137-145) mmol/L Carbon Dioxide 18 L (22-30) mmol/L BUN 59 H (9-20) mg/dL Creatinine 1.91 H (0.66-1.25) mg/dL Glucose 124 H (74-99) mg/dL POC Glucose (mg/dL) 129 H (70-110) mg/dL Magnesium 2.5 H (1.6-2.3) mg/dL Total Bilirubin 1.8 H (0.2-1.3) mg/dL Total Protein 6.0 L (6.3-8.2) g/dL Urine Protein (Negative) Urine Blood (Negative) Ur Leukocyte Esterase (Negative) Urine RBC (0-5) /hpf Urine WBC (0-5) /hpf Urine Mucus (None) /hpf 11/12/24 11/12/24 Range/Units 11:50 20:23 RBC (4.30-5.90) m/uL Hgb (13.0-17.5) gm/dL Hct (39.0-53.0) % Plt Count (150-450) k/uL Sodium (137-145) mmol/L Carbon Dioxide (22-30) mmol/L BUN (9-20) mg/dL Creatinine (0.66-1.25) mg/dL Glucose (74-99) mg/dL POC Glucose (mg/dL) 117 H (70-110) mg/dL Magnesium (1.6-2.3) mg/dL Total Bilirubin (0.2-1.3) mg/dL Total Protein (6.3-8.2) g/dL Urine Protein 1+ H (Negative) Urine Blood Large H (Negative) Ur Leukocyte Esterase Small H (Negative) Urine RBC >182 H (0-5) /hpf Urine WBC 10 H (0-5) /hpf Urine Mucus Rare H (None) /hpf
--- NOTE | 2024-11-12 20:50 | P.PN ---
Subjective Progress Note Date: 11/12/24 HISTORY OF PRESENTING ILLNESS: 79-year-old with possible history of multivessel disease, known to Dr. Conley. He underwent three-vessel CABG with PIERSON to LAD, T graft using a radial artery to OM1 and OM 2 sequential. He has been extubated and is coming along well. Prior cardiac testing: Heart catheter October 2024 showed three-vessel disease involving distal left main, ostium of LAD, ostium of LCx, moderate diffuse disease in RCA with distal PDA having 60% stenosis. Progress note 11/10/2024 Patient was hypotensive, staying on low-dose dopamine drip also got IV albumin and fluids. Cardiac index 2.1, pulmonary arterial pressures within normal range, CVP around 10. No new arrhythmias on telemetry, appears sinus rhythm. 11/11/2024 Patient's blood pressure has been stable however kidney function is declining No other cardiovascular events, sinus rhythm on telemetry. 11/12/2024 Kidney function is somewhat stabilized and improving. No new cardiovascular events. Telemetry shows sinus rhythm. PHYSICAL EXAMINATION: Neck: Cut Off-Cecilia catheter in place, Lungs: Chest tube in place, respiratory effort, surgical scar healing well Heart: Regular rate and rhythm, S1-S2, , no murmur or rub. Abdomen: Soft nontender, positive bowel sounds. Extremities: 1+ pitting edema bilateral extremity Neuro: Alert, oritented, no focal deficits. Detailed neuro exam was not performed. ASSESSMENT: # Status post CABG 11/08/2024, PIERSON to LAD, sequential radial to first and second OM as a T graft from PIERSON, left atrial appendage occlusion 35mm atrial clip # Brief paroxysmal atrial fibrillation after surgery, currently in sinus rhythm # Hypertension # Dyslipidemia with hypercholesterolemia # Left ICA stenosis more than 70% # Mild PAD # Prostate cancer on hormone therapy # Obesity # Extremely hard of hearing PLAN: Continue current supportive care Nephrology team following for JENNA Continue aspirin, Plavix, statin, amiodarone, Continue hemodynamic monitoring with Cut Off-Cecilia catheter. CT surgery team following. Objective - Vital Signs Vital signs: Vital Signs Temp 99.0 F 11/12/24 12:00 Pulse 81 11/12/24 19:00 Resp 12 11/12/24 19:00 BP 124/53 11/12/24 19:00 Pulse Ox 96 11/12/24 19:00 FiO2 50 11/08/24 17:00 Intake & Output 11/12/24 11/12/24 11/13/24 06:59 18:59 06:59 Intake Total 532 566 36 Output Total 625 465 60 Balance -93 101 -24 Weight 121.7 kg Intake: IV 432 416 36 Lines 72 66 6 Sodium Chloride 0.9% 1, 360 350 30 000 ml @ 30 mls/hr IV . Q24H [facility] Rx#:[id number] Oral 100 Blood Product 150 Output: Urine 625 465 60 Other: Voiding Method Indwelling Catheter Indwelling Catheter # Bowel Movements 1 ABP, PAP, CO, CI - Last Documented Arterial Blood Pressure 92/45 Pulmonary Artery Pressure 38/20 Cardiac Output 7.2 Cardiac Index 3.1 - Labs CBC & Chem 7: 11/12/24 05:38 11/12/24 05:38 Labs: Abnormal Lab Results - Last 24 Hours (Table) 11/12/24 11/12/24 11/12/24 Range/Units 05:38 05:38 11:01 RBC 2.85 L (4.30-5.90) m/uL Hgb 9.0 L (13.0-17.5) gm/dL Hct 27.7 L (39.0-53.0) % Plt Count 134 L (150-450) k/uL Sodium 131 L (137-145) mmol/L Carbon Dioxide 18 L (22-30) mmol/L BUN 59 H (9-20) mg/dL Creatinine 1.91 H (0.66-1.25) mg/dL Glucose 124 H (74-99) mg/dL POC Glucose (mg/dL) 129 H (70-110) mg/dL Magnesium 2.5 H (1.6-2.3) mg/dL Total Bilirubin 1.8 H (0.2-1.3) mg/dL Total Protein 6.0 L (6.3-8.2) g/dL Urine Protein (Negative) Urine Blood (Negative) Ur Leukocyte Esterase (Negative) Urine RBC (0-5) /hpf Urine WBC (0-5) /hpf Urine Mucus (None) /hpf 11/12/24 11/12/24 Range/Units 11:50 20:23 RBC (4.30-5.90) m/uL Hgb (13.0-17.5) gm/dL Hct (39.0-53.0) % Plt Count (150-450) k/uL Sodium (137-145) mmol/L Carbon Dioxide (22-30) mmol/L BUN (9-20) mg/dL Creatinine (0.66-1.25) mg/dL Glucose (74-99) mg/dL POC Glucose (mg/dL) 117 H (70-110) mg/dL Magnesium (1.6-2.3) mg/dL Total Bilirubin (0.2-1.3) mg/dL Total Protein (6.3-8.2) g/dL Urine Protein 1+ H (Negative) Urine Blood Large H (Negative) Ur Leukocyte Esterase Small H (Negative) Urine RBC >182 H (0-5) /hpf Urine WBC 10 H (0-5) /hpf Urine Mucus Rare H (None) /hpf
--- NOTE | 2024-11-13 06:35 | XR ---
EXAMINATION TYPE: XR chest 1V portable DATE OF EXAM: 11/13/2024 COMPARISON: 11/12/2024 CLINICAL INDICATION: Male, 79 years old with history of Postop CABG; TECHNIQUE: Single frontal view of the chest is obtained. FINDINGS: There is no change in the position of the Chandler-Cecilia catheter. No change in the bilateral pleural effusions and mild bibasilar interstitial edema. There is no pneum othorax. There are median sternotomy wires and midline structures are intact. IMPRESSION: Stable postop changes as described above. [facility], , 11/13/2024 6:32 AM
[2024-11-13 06:55] LABS: Basophils % (A) 0 %; Eosinophils # (A) 0.2 k/uL (0-0.7); Eosinophils % (A) 3 %; HCT 27.9 % (39.0-53.0); HGB 9.1 gm/dL (13.0-17.5); Lymphocytes # (A) 0.7 k/uL (1.0-4.8); Lymphocytes % (A) 12 %; MCH 31.7 pg (25.0-35.0); MCHC 32.5 g/dL (31.0-37.0); MCV 97.7 fL (80.0-100.0); Mean Platelet Volume 8.6; Monocytes # (A) 0.5 k/uL (0-1.0); Monocytes % (A) 9 %; Neutrophils # (A) 4.5 k/uL (1.3-7.7); Neutrophils % (A) 73 %; Platelet Count 140 k/uL (150-450); RBC 2.86 m/uL (4.30-5.90); RDW 12.5 % (11.5-15.5); WBC 6.2 k/uL (3.8-10.6)
[2024-11-13 06:59] LABS: ALT 13 U/L (4-49); AST 29 U/L (17-59); African American GFR (CKD) 42 (>60 ml/min/1.73 sqM); Albumin 3.3 g/dL (3.5-5.0); Alkaline Phosphatase 47 U/L (38-126); Anion Gap 10 mmol/L; Blood Urea Nitrogen 57 mg/dL (9-20); Calcium 8.5 mg/dL (8.4-10.2); Carbon Dioxide 20 mmol/L (22-30); Chloride 105 mmol/L (98-107); Glucose 108 mg/dL (74-99); Non-African American GFR(CKD) 37 (>60 ml/min/1.73 sqM); Potassium 4.5 mmol/L (3.5-5.1); Sodium 135 mmol/L (137-145); Total Bilirubin 1.8 mg/dL (0.2-1.3); Total Protein 5.9 g/dL (6.3-8.2)
[2024-11-13] MEDS: SODIUM BICARBONATE TAB 650 MG TAB PO SCH (08:37)
--- NOTE | 2024-11-13 10:02 | P.PN ---
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 History of hypertension, left internal carotid artery stenosis, mild peripheral arterial disease, prostate cancer with hormone therapy treatment, osteoarthritis, obesity, extremely hard of hearing, and lifelong non-smoker POD #5 off-pump coronary artery bypass grafting x 3 with PIERSON to LAD, sequential radial artery graft to first and second obtuse marginal coronary arteries as T graft off PIERSON, left radial artery endovascular harvest, occlusion of the left atrial appendage with 35mm AtriCure clip. Postoperative acute blood loss anemia and thrombocytopenia, expected given h emodilution. Brief paroxysmal atrial fibrillation after surgery, somewhat expected as it is a known common occurrence after open heart surgery. The patient was seen and examined in follow-up today November 13, 2024 at his bedside in the intensive care unit. He is currently sitting up to the bedside c hair, is awake, alert, oriented x 3 and is in no acute apparent distress. Denies any complaints of pain or shortness of breath at this time, although continues to complain of some generalized weakness especially to his lower extremities. The patient reports although he is experiencing weakness to his bilateral lower extremities he continues to walk in the intensive care unit hallway with standby assistance from nursing and therapy staff and tolerating well. Oxygen saturations are 98% on room air and he is achieving 1000 mL on his incentive spirometry with much encouragement. Bedside telemetry is showing normal sinus rhythm heart rate 65 bpm. He remains on dopamine drip at 3 mcg/kg/min. Urine output in the last 8 hours was 1040 mL. Right IJ cordis and Northridge-Cecilia catheter remains in place with current hemodynamics showing a cardiac output of 5.4, cardiac index 2.3, SVR 940 and CVP 5 mmHg. He was seen by nephrology yesterday secondary to metabolic acidosis with a serum bicarbonate of 18, and acute kidney injury. An ultrasound of his kidneys was completed which revealed no hydronephrosis or nephrolithiasis, and an indeterminate right renal superior pole 3 point centimeter hypoechoic lesion. Chest x-ray and laboratory results were reviewed. Objective - Vital Signs Vital signs: Vital Signs Temp 98.0 F 11/13/24 04:00 Pulse 75 11/13/24 08:00 Resp 18 11/13/24 08:00 BP 124/55 11/13/24 08:00 Pulse Ox 98 03/08/25 08:00 FiO2 50 11/08/24 17:00 Intake & Output 11/12/24 11/13/24 11/13/24 18:59 06:59 18:59 Intake Total 566 838 692 Output Total 465 1430 250 Balance 101 -592 442 Weight 120.8 kg Intake: IV 416 488 92 CO/CI 20 20 Lines 66 78 12 Sodium Chloride 0.9% 1, 350 390 60 000 ml @ 30 mls/hr IV . Q24H [facility] Rx#:[id number] Oral 200 600 Blood Product 150 150 Output: Urine 465 1430 250 Other: Voiding Method Indwelling Catheter Indwelling Catheter # Bowel Movements 1 ABP, PAP, CO, CI - Last Documented Arterial Blood Pressure 92/45 Pulmonary Artery Pressure 43/38 Cardiac Output 6.3 Cardiac Index 2.7 - Exam CONSTITUTIONAL: Appears comfortable, cooperative, no acute distress. RESPIRATORY: Lungs sounds diminished to his bilateral bases. Respirations symmetrical, nonlabored. Currently on room air with oxygen saturation 98%. Able to achieve 1000 mL on his incentive spirometry. Strong cough. CARDIOVASCULAR: S1, S2 present. Regular rate and rhythm, normal sinus rhythm, with a first-degree heart block on telemetry, heart rate 65 bpm. Sternum stable. Palpable peripheral pulses bilaterally. Trace generalized edema present. No calf pain or tenderness noted. Heart hugger in place with patient demonstrating appropriate use. Antiembolism stockings, SCDs present. GASTROINTESTINAL: Abdomen soft, nontender, nondistended. Active bowel sounds present 4 quadrants. Tolerating diet. Passing flatus. GENITOURINARY: Jaquez present draining clear, yellow urine. Urine output 1040 mL in the last 8 hours. INTEGUMENTARY: Skin is warm and dry with no clubbing or cyanosis present. Midline sternal chest incision well approximated and covered with dry intact dressing. Left radial artery harvest site well approximated without redness or drainage. NEUROLOGIC: Cranial nerves II through XII intact. No focal deficits. MUSKULOSKELETAL: Able to move all extremities, strength equal bilaterally, generalized weakness. PSYCHIATRIC: Alert and oriented to person place and time, appropriate affect, intact judgment and insight. INVASIVE LINES AND TUBES: Right internal jugular Northridge/Cordis, right radial arterial line present. Last CO/CI 5.4/2.3, SVR 940 CVP 5. - Allied health notes Allied health notes reviewed: nursing - Labs CBC & Chem 7: 11/13/24 05:33 11/13/24 05:33 Labs: Abnormal Lab Results - Last 24 Hours (Table) 11/12/24 11/12/24 11/12/24 Range/Units 11:01 11:50 20:23 RBC (4.30-5.90) m/uL Hgb (13.0-17.5) gm/dL Hct (39.0-53.0) % Plt Count (150-450) k/uL Lymphocytes # (1.0-4.8) k/uL Sodium (137-145) mmol/L Carbon Dioxide (22-30) mmol/L BUN (9-20) mg/dL Creatinine (0.66-1.25) mg/dL Glucose (74-99) mg/dL POC Glucose (mg/dL) 129 H 117 H (70-110) mg/dL Total Bilirubin (0.2-1.3) mg/dL Total Protein (6.3-8.2) g/dL Albumin (3.5-5.0) g/dL Urine Protein 1+ H (Negative) Urine Blood Large H (Negative) Ur Leukocyte Esterase Small H (Negative) Urine RBC >182 H (0-5) /hpf Urine WBC 10 H (0-5) /hpf Urine Mucus Rare H (None) /hpf 11/13/24 11/13/24 Range/Units 05:33 05:33 RBC 2.86 L (4.30-5.90) m/uL Hgb 9.1 L (13.0-17.5) gm/dL Hct 27.9 L (39.0-53.0) % Plt Count 140 L (150-450) k/uL Lymphocytes # 0.7 L (1.0-4.8) k/uL Sodium 135 L (137-145) mmol/L Carbon Dioxide 20 L (22-30) mmol/L BUN 57 H (9-20) mg/dL Creatinine 1.71 H (0.66-1.25) mg/dL Glucose 108 H (74-99) mg/dL POC Glucose (mg/dL) (70-110) mg/dL Total Bilirubin 1.8 H (0.2-1.3) mg/dL Total Protein 5.9 L (6.3-8.2) g/dL Albumin 3.3 L (3.5-5.0) g/dL Urine Protein (Negative) Urine Blood (Negative) Ur Leukocyte Esterase (Negative) Urine RBC (0-5) /hpf Urine WBC (0-5) /hpf Urine Mucus (None) /hpf - Imaging and Cardiology Chest x-ray: report reviewed, image reviewed Assessment and Plan Assessment: 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, unstable angina, status post three-vessel off-pump CABG Postoperative acute blood loss anemia and thrombocytopenia, expected given hemodilution Brief paroxysmal atrial fibrillation after surgery, somewhat expected as it is a known common occurrence after open heart surgery, status post ligation of the left atrial appendage Acute kidney injury, schemic ATN, initially oliguric currently nonoliguric with improving renal function History of hypertension Dyslipidemia Left internal carotid artery stenosis, > 70% per Doppler Mild peripheral arterial disease, left JERRI 0.87, right JERRI 0.93 Prostate cancer with hormone therapy treatment Osteoarthritis Obesity with a BMI of 38.0 kg/m Extremely hard of hearing Lifelong non-smoker, preoperative FEV1 83% of predicted Plan: Continue to maximize medical therapy with aspirin, statin, Plavix, and low-dose beta-phillip. Will increase beta-phillip therapy when able. Discontinue dopamine drip. Continue amiodarone for atrial fibrillation prophylaxis. No anticoagulation at this point. Currently normal sinus rhythm on the monitor. Encourage incentive spirometry use 10 times every hour while awake. Bronchodilators per pulmonology. Will monitor daily labs and chest x-rays. Electrolyte replacement per protocol. Increase activity, ambulate as tolerated. PT/OT/cardiac rehab following. GI/DVT prophylaxis. Pain control per current medication regimen. Continue to hold Toradol due to bump in his creatinine. Consult from nephrology noted and appreciated. Insulin management per internal medicine. Patient is not diabetic, preoperative hemoglobin A1c 5.6%. Remove Northridge-Cecilia catheter, keep right IJ cordis Cordis for another 24 hours with continuous CVP monitoring. Discontinue Jaquez catheter, continue to monitor record strict accurate intake and output. May bladder scan every 6 hours and as needed postvoid residuals. If greater than 300 mL of urine may straight cath. Consult inpatient rehab. No diuretics today. More recommendations to follow on patient's clinical course. Time with Patient: Greater than 30
[2024-11-13 11:41] LABS: Glucose,Whole Blood 144 mg/dL (70-110)
--- NOTE | 2024-11-13 12:07 | P.PN ---
Subjective Progress Note Date: 11/13/24 Following for JENNA patient is seen today, he was walking around with PT help, he did feel SOB with walking but O2 sat remained above 95% on room air, he s feeling better today cr. improved to 1.7 from 1.9 , he remains on low dose dobutamine making urine 1 L charted today received 1 unit platelets Objective - Vital Signs Vital signs: Vital Signs Temp 98.0 F 11/13/24 04:00 Pulse 74 11/13/24 11:00 Resp 23 11/13/24 11:00 BP 123/57 11/13/24 11:00 Pulse Ox 98 11/13/24 11:00 FiO2 50 11/08/24 17:00 Intake & Output 11/12/24 11/13/24 11/13/24 18:59 06:59 18:59 Intake Total 566 838 738 Output Total 465 1430 500 Balance 101 -592 238 Weight 120.8 kg Intake: IV 416 488 138 CO/CI 20 20 Lines 66 78 18 Sodium Chloride 0.9% 1, 350 390 100 000 ml @ 30 mls/hr IV . Q24H [facility] Rx#:[id number] Oral 200 600 Blood Product 150 150 Output: Urine 465 1430 500 Other: Voiding Method Indwelling Catheter Indwelling Catheter Indwelling Catheter # Bowel Movements 1 ABP, PAP, CO, CI - Last Documented Arterial Blood Pressure 92/45 Pulmonary Artery Pressure 17/6 Cardiac Output 6.3 Cardiac Index 2.7 - Exam Patient is awake, comfortable, no acute distress Examination of the heart S1 and S2 Examination of the lungs decreased breath sounds at the bases Abdomen is soft obese Examination of lower extremity shows edema 2+ bilaterally ACCOUNT ENGINEER exam grossly intact - Labs CBC & Chem 7: 11/13/24 05:33 11/13/24 05:33 Labs: Abnormal Lab Results - Last 24 Hours (Table) 11/12/24 11/12/24 11/13/24 Range/Units 11:50 20:23 05:33 RBC 2.86 L (4.30-5.90) m/uL Hgb 9.1 L (13.0-17.5) gm/dL Hct 27.9 L (39.0-53.0) % Plt Count 140 L (150-450) k/uL Lymphocytes # 0.7 L (1.0-4.8) k/uL Sodium (137-145) mmol/L Carbon Dioxide (22-30) mmol/L BUN (9-20) mg/dL Creatinine (0.66-1.25) mg/dL Glucose (74-99) mg/dL POC Glucose (mg/dL) 117 H (70-110) mg/dL Total Bilirubin (0.2-1.3) mg/dL Total Protein (6.3-8.2) g/dL Albumin (3.5-5.0) g/dL Urine Protein 1+ H (Negative) Urine Blood Large H (Negative) Ur Leukocyte Esterase Small H (Negative) Urine RBC >182 H (0-5) /hpf Urine WBC 10 H (0-5) /hpf Urine Mucus Rare H (None) /hpf 11/13/24 11/13/24 Range/Units 05:33 11:39 RBC (4.30-5.90) m/uL Hgb (13.0-17.5) gm/dL Hct (39.0-53.0) % Plt Count (150-450) k/uL Lymphocytes # (1.0-4.8) k/uL Sodium 135 L (137-145) mmol/L Carbon Dioxide 20 L (22-30) mmol/L BUN 57 H (9-20) mg/dL Creatinine 1.71 H (0.66-1.25) mg/dL Glucose 108 H (74-99) mg/dL POC Glucose (mg/dL) 144 H (70-110) mg/dL Total Bilirubin 1.8 H (0.2-1.3) mg/dL Total Protein 5.9 L (6.3-8.2) g/dL Albumin 3.3 L (3.5-5.0) g/dL Urine Protein (Negative) Urine Blood (Negative) Ur Leukocyte Esterase (Negative) Urine RBC (0-5) /hpf Urine WBC (0-5) /hpf Urine Mucus (None) /hpf Assessment and Plan Assessment: 1. Acute kidney injury, ischemic ATN, initially oliguric currently nonoliguric with improving renal function. creatinine trend 2.5->1.9-> 1.7 , baseline cr. 0.8 , UA +RBC/WBC/ proteins. ultrasound of the kidneys ruled out hydronephrosis. No nephrotoxic agents on board. 2. Status post coronary artery bypass surgery x 3 on 11/08/2024. Extubated. Remains on low-dose dopamine for low heart rate and low blood pressure 3. [place] metabolic acidosis secondary to acute kidney injury. No diarrhea noted. 4. Hypervolemic hyponatremia 5. Anemia, multifactorial including postop. Rule out iron deficiency Plan: Improving renal function, ok to start diuretics, can give Lasix 20 mg IV monitor UO monitor weight continue oral sodium bicarb. This will be discontinued once metabolic acidosis improved. Continue to avoid nephrotoxic agents Check iron profile Repeat labs in a.m.
--- NOTE | 2024-11-13 13:39 | P.PN ---
Subjective Progress Note Date: 11/13/24 Principal diagnosis: CABG. Pulmonary consult dated November 08, 2024. 79-year-old male status post three-vessel bypass surgery, done by Dr. Brennan today, off-pump. The patient is seen in the intensive care unit, room 267. The patient is currently on the ventilator, with settings of volume assist-control, rate 12, tidal volume 500, FiO2 100%, PEEP of 10. Initial blood gases show pO2 275, pCO2 33, pH is 7.37. The FiO2 was dropped from 100%, down to 50%. Currently, his cardiac output 6.4, index is 2.7. Pulmonary artery pressures 36/18 with a wedge pressure of 8. Currently, the patient is on propofol at 20 mcg/kg/min, 0.9 at 50 cc an hour, amiodarone at 1 mg/min, insulin at 1.5 units an hour, and nitroglycerin at 5 mcg/min. Current laboratory data includes a white count 9.7, hemoglobin 10.8, hematocrit 33.3, and a platelet count of 115,000. Sodium 139, potassium 4.3, chlorides 107, CO2 25, BUN 19, creatinine 0.82. Glucose is 133. Chest x-ray shows postsurgical changes, with appropriate support lines and endotracheal tube. Small bilateral pleural effusions are noted. Progress note dated November 09, 2024. 79-year-old male seen yesterday in consultation. He had a three-vessel off-pump bypass. It was done by Dr. Brennan. Yesterday, he was successfully extubated. Currently, the patient is sitting in the chair next to his hospital bed, in room 267. He remains on room air. He is getting insulin at 5 units an hour, and amiodarone 0.5 mg/min. He is also getting saline at 50 cc an hour. As mentioned, he was extubated on November 08. Current labs: White count 8.2, hemoglobin 11.3, macro 34.2, and a platelet count of 139,000. Sodium 134, potassium 4.3, chlorides 104, CO2 23, BUN 17, creatinine 0.82. Glucose is 125. Total protein 5.9. Blood sugar 123. Chest x-ray from November 09 shows changes from recent cardiac surgery, removal of the NG tube and endotracheal tube, small bilateral pleural effusions, and cardiomegaly. There is also some bibasilar infiltrates or atelectasis. Progress note dated November 10, 2024. 79-year-old male who is postoperative day #2, status post bypass surgery. He had an off-pump three-vessel bypass, done by Dr. Brennan. The patient seen sitting in the chair next to the hospital bed. He continues on oxygen at 2 L. The patient is also on dopamine at 3 mcg/kg/min. Clinically, he appears relatively stable. He is awake and alert. Laboratory data includes a white count of 7.1, hemoglobin 9.2, hematocrit 27.5, and a platelet count of 95,000. Sodium 133, potassium 4.1, chlorides 101, CO2 22, anion gap 10, BUN 32, and creatinine 1.94. Calcium is 8.1. Chest x-ray shows some bibasilar atelectasis, and small pleural effusions. There may be a component of fluid overload. Progress note dated November 11, 2024. 79-year-old male seen today in room 267. He is postoperative day #3, status post bypass surgery. Currently, the patient is resting comfortably. He is sitting in the chair next to his hospital bed. He is on dopamine at 3 mcg/kg/min, and saline at 30 cc an hour. He is also getting nasal O2 at 2 L. Clinically he is doing about the same. White count 7.8, hemoglobin 9.1, hematocrit 29.2, platelet count 116,000. Sodium 131, potassium 4.1, chloride 99, CO2 21, BUN 51, creatinine 2.51. Glucose is 117. Bilirubin is 1.8. Chest x-ray shows postoperative changes, and mild fluid overload. Progress note dated November 12, 2024. 79-year-old male seen today in room 267. He is postoperative day #4, status post bypass surgery. He is sitting in a chair next to the hospital bed. He is on room air. He is getting saline at 30 cc an hour. He continues on dopamine at 3 mcg/kg/min. Clinically, he is doing well. Current labs include a white count 7.6, hemoglobin 9, hematocrit 27.7, and a platelet count of 134,000. Sodium 141, potassium 4.3, chlorides 98, CO2 18, BUN 59, creatinine 1.91. Glucose is 129. Albumin is 3.6. Progress note dated November 13, 2024. 79-year-old male seen today in room 267. The patient is postoperative day #5. He had previous bypass surgery. He is sitting in a chair next to his hospital bed. The patient is on room air. He continues on dopamine at 2 mcg/kg/min. He is getting saline at KVO. White count 6.2, hemoglobin 9.1, hematocrit 27.9, and platelet count 140,000. Sodium 135, potassium 4.5, chlorides 105, CO2 20, BUN 57, creatinine 1.71. Glucose 144. Albumin 3.3. Chest x-ray is largely unchanged. There is some minimal basilar atelectasis. Objective - Vital Signs Vital signs: Vital Signs Temp 97.6 F 11/13/24 12:00 Pulse 75 11/13/24 13:00 Resp 24 11/13/24 13:00 BP 137/60 11/13/24 13:00 Pulse Ox 99 11/13/24 13:00 FiO2 50 11/08/24 17:00 Intake & Output 11/12/24 11/13/24 11/13/24 18:59 06:59 18:59 Intake Total 566 838 784 Output Total 465 1430 630 Balance 101 -592 154 Weight 120.8 kg Intake: IV 416 488 184 CO/CI 20 20 Lines 66 78 24 Sodium Chloride 0.9% 1, 350 390 140 000 ml @ 30 mls/hr IV . Q24H [facility] Rx#:[id number] Oral 200 600 Blood Product 150 150 Output: Urine 465 1430 630 Other: Voiding Method Indwelling Catheter Indwelling Catheter Indwelling Catheter # Bowel Movements 1 ABP, PAP, CO, CI - Last Documented Arterial Blood Pressure 92/45 Pulmonary Artery Pressure 17/6 Cardiac Output 6.3 Cardiac Index 2.7 - Exam No acute distress, oriented 3. Currently on room air. Sitting in a chair next to his hospital bed. HEENT examination is grossly unremarkable. Mucous membranes are moist. No oral lesions. Neck supple. Full range of motion. No adenopathy thyromegaly or neck vein distention. Cardiovascular examination reveals regular rhythm rate. S1-S2 normal. No S3 or S4. No discernible murmur noted. Lungs reveal scattered bilateral. There are some basilar crackles. No wheezes. Breath sounds are equal bilaterally. Abdomen soft bowel sounds are heard. No masses or tenderness. Extremities are intact. No cyanosis clubbing or edema. Skin is without rash or lesion. Neurologic examination is brief but nonfocal. - Labs CBC & Chem 7: 11/13/24 05:33 11/13/24 05:33 Labs: Abnormal Lab Results - Last 24 Hours (Table) 11/12/24 11/12/24 11/13/24 Range/Units 11:50 20:23 05:33 RBC 2.86 L (4.30-5.90) m/uL Hgb 9.1 L (13.0-17.5) gm/dL Hct 27.9 L (39.0-53.0) % Plt Count 140 L (150-450) k/uL Lymphocytes # 0.7 L (1.0-4.8) k/uL Sodium (137-145) mmol/L Carbon Dioxide (22-30) mmol/L BUN (9-20) mg/dL Creatinine (0.66-1.25) mg/dL Glucose (74-99) mg/dL POC Glucose (mg/dL) 117 H (70-110) mg/dL Total Bilirubin (0.2-1.3) mg/dL Total Protein (6.3-8.2) g/dL Albumin (3.5-5.0) g/dL Urine Protein 1+ H (Negative) Urine Blood Large H (Negative) Ur Leukocyte Esterase Small H (Negative) Urine RBC >182 H (0-5) /hpf Urine WBC 10 H (0-5) /hpf Urine Mucus Rare H (None) /hpf 11/13/24 11/13/24 Range/Units 05:33 11:39 RBC (4.30-5.90) m/uL Hgb (13.0-17.5) gm/dL Hct (39.0-53.0) % Plt Count (150-450) k/uL Lymphocytes # (1.0-4.8) k/uL Sodium 135 L (137-145) mmol/L Carbon Dioxide 20 L (22-30) mmol/L BUN 57 H (9-20) mg/dL Creatinine 1.71 H (0.66-1.25) mg/dL Glucose 108 H (74-99) mg/dL POC Glucose (mg/dL) 144 H (70-110) mg/dL Total Bilirubin 1.8 H (0.2-1.3) mg/dL Total Protein 5.9 L (6.3-8.2) g/dL Albumin 3.3 L (3.5-5.0) g/dL Urine Protein (Negative) Urine Blood (Negative) Ur Leukocyte Esterase (Negative) Urine RBC (0-5) /hpf Urine WBC (0-5) /hpf Urine Mucus (None) /hpf Assessment and Plan Assessment: Postoperative day # 5, S/P off-pump three-vessel bypass surgery, for coronary artery disease, in a patient with chest pain. Routine postoperative ventilator management, with successful extubation on November 08, 2024. History of hypertension. History of osteoarthritis. History of prostate cancer. Lifelong non-smoker. Plan: Plan dated November 08, 2024. The patient is seen today in room 267. The patient's initial blood gases are excellent, and the FiO2 was, 100%, down to 50%. Labs, x-rays, and medications are reviewed. The patient is currently on propofol for sedation, amiodarone, for A-fib/flutter, insulin, for elevated blood glucose, and nitroglycerin. The patient is also on saline at 50 cc an hour. The patient was on Cleviprex for an elevated blood pressure, but that has been turned off. Cardiac output 6.4. Index is 2.7. We will continue to follow make recommendations. All labs, x- rays, and medications are reviewed. Dictation was produced using [employer] software. Please excuse any grammatical, word or spelling errors. Plan dated November 09, 2024. The patient is again seen in room 267. The patient was successfully extubated yesterday. He is currently on room air. He has no complaints. He is wearing his hearing aids, but despite that, he is very deaf. All labs, x-rays, and medications are reviewed. The patient continues on insulin drip at 5 units an hour, and amiodarone 0.5 mg/min. The patient is getting saline at 50 cc an hour. Labs, x-rays, and all medications are reviewed. Prognosis is guarded. Dictation was produced using [employer] software. Please excuse any grammatical, word or spelling errors. Plan dated November 10, 2024. The patient is seen today in room 267. He continues on nasal O2 at 2 L. He also continues on dopamine at 3 mcg/kg/min, given for his hypotension. He is postoperative day #2, status post off-pump three-vessel bypass surgery done by Dr. Brennan. All labs, x-rays, and medications are reviewed. We will continue to follow make recommendations. The patient's overall prognosis remains guarded. We recommend ongoing use of the incentive spirometer. Dictation was produced using [employer] (deja mi)ation software. Please excuse any grammatical, word or spelling errors. Plan dated November 11, 2024. This patient is postop day #3, status post off-pump three-vessel bypass surgery. Labs, x-rays, and all medications are reviewed. The patient remains on dopamine, both for renal function, and hypotension. The patient is also getting saline at 30 cc an hour. He is on nasal O2 at 2 L. The dopamine is at 3 mcg/kg/min. We will continue to follow the patient, make recommendations along the way. We encouraged the patient to continue to use his incentive spirometer, every hour while awake. We also recommend deep breathing, coughing, clearing of secretions. The patient's prognosis remains guarded. We will continue to follow the patient. Dictation was produced using [employer] software. Please excuse any grammatical, word or spelling errors. Plan dated November 12, 2024. The patient is postop day #4, and is doing relatively well. Labs, x-rays, and medications are reviewed. The patient continues on saline at 30 cc an hour. He is not requiring any supplemental oxygen. He continues on dopamine at 3 mcg/kg/min. We will continue to follow make recommendations. Prognosis is guarded. Dictation was produced using [employer] software. Please excuse any grammatical, word or spelling errors. Plan dated November 13, 2024. The patient is postoperative day #5. He is doing reasonably well. He is on room air. He continues on dopamine at 2 mcg/kg/min. All labs, x-rays, and medications are reviewed. We will continue to follow the patient. We encourage deep breathing, coughing, clearing of secretions, and hourly use of the incentive spirometer. All labs, x-rays, and medications have been reviewed. We will continue to follow. Prognosis is guarded. Dictation was produced using [employer] (deja mi)ation software. Please excuse any grammatical, word or spelling errors. Time with Patient: Less than 30
[2024-11-13 16:09] LABS: Glucose,Whole Blood 100 mg/dL (70-110)
[2024-11-13 19:33] LABS: Glucose,Whole Blood 118 mg/dL (70-110)
[2024-11-14 06:09] LABS: Glucose,Whole Blood 133 mg/dL (70-110)
--- NOTE | 2024-11-14 07:21 | XR ---
Chest, 2 view. CLINICAL INDICATION: Male, 79 years old with history of Postop CABG COMPARISON: 11/13/2024 TECHNIQUE: PA and lateral views the chest are obtained. FINDINGS: There is been interval removal of the Whittemore-Cecilia catheter. There is mild interval improvement in the s mall effusions and mild bibasilar interstitial edema or atelectasis. There is no pneumothorax. There is a prior CABG surgery and there is an atrial occlusion device. The osseous structures are intact. IMPRESSION: 1. Removal of the Whittemore-Cecilia catheter. 2. Postsurgical changes of CABG surgery. 3 mild interval improvement in the acute cardiopulmonary process [facility], , 11/14/2024 7:19 AM
[2024-11-14 07:28] LABS: HCT 27.7 % (39.0-53.0); Hypochromasia Slight; MCH 31.8 pg (25.0-35.0); MCHC 32.5 g/dL (31.0-37.0); MCV 97.9 fL (80.0-100.0); Mean Platelet Volume 7.9; Platelet Count 177 k/uL (150-450); RBC 2.83 m/uL (4.30-5.90); RDW 12.9 % (11.5-15.5); WBC 7.4 k/uL (3.8-10.6)
[2024-11-14 08:10] LABS: ALT 19 U/L (4-49); AST 34 U/L (17-59); African American GFR (CKD) 52 (>60 ml/min/1.73 sqM); Albumin 3.6 g/dL (3.5-5.0); Alkaline Phosphatase 52 U/L (38-126); Anion Gap 10 mmol/L; Blood Urea Nitrogen 46 mg/dL (9-20); Carbon Dioxide 22 mmol/L (22-30); Chloride 108 mmol/L (98-107); Glucose 111 mg/dL (74-99); Non-African American GFR(CKD) 45 (>60 ml/min/1.73 sqM); Potassium 4.2 mmol/L (3.5-5.1); Sodium 140 mmol/L (137-145); Total Bilirubin 1.7 mg/dL (0.2-1.3); Total Protein 6.3 g/dL (6.3-8.2)
--- NOTE | 2024-11-14 09:07 | P.PN ---
Subjective Progress Note Date: 11/14/24 Principal diagnosis: 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, unstable angina. History of hypertension, left internal carotid artery stenosis, mild peripheral arterial disease, prostate cancer with hormone therapy treatment, osteoarthritis, obesity, extremely hard of hearing, and lifelong non-smoker POD #6 off-pump coronary artery bypass grafting x 3 with PIERSON to LAD, sequential radial artery graft to first and second obtuse marginal coronary arteries as T graft off PIERSON, left radial artery endovascular harvest, occlusion of the left atrial appendage with 35mm AtriCure clip. Postoperative acute blood loss anemia and thrombocytopenia, expected given h emodilution. Brief paroxysmal atrial fibrillation after surgery, somewhat expected as it is a known common occurrence after open heart surgery. The patient was seen and examined in follow-up today November 14, 2024 at his bedside in the intensive care unit. He is currently sitting up to the bedside c hair, is awake, alert, oriented x 3 and is in no acute apparent distress. He denies any complaints of shortness of breath or pain at this time, although he continues to complain of some generalized weakness. He states he has been up ambulating in the intensive care unit hallway with standby assistance nursing and therapy staff and tolerating well. Oxygen saturations are 97% on room air and he is achieving 1500 mL on his incentive spirometry with encouragement. Bedside telemetry is showing normal sinus rhythm heart rate 79 bpm. His Jaquez catheter was discontinued yesterday and he has been urinating without difficulty and his urine output in the last 8 hours was 750 mL. His BUN and creatinine are trending down and today his BUN is 46 creatinine is 1.44. Dopamine drip remains infusing per renal dose at 2 mcg/kg/min. Laboratory and chest x-ray results were reviewed. Right IJ cordis remains in place with continuous CVP monitoring, current CVP pressure is 7 mmHg. Objective - Vital Signs Vital signs: Vital Signs Temp 98.7 F 11/14/24 04:00 Pulse 73 11/14/24 05:00 Resp 36 H 11/14/24 06:00 BP 126/59 11/14/24 06:00 Pulse Ox 96 11/14/24 06:00 FiO2 50 11/08/24 17:00 Intake & Output 11/13/24 11/14/24 11/14/24 17:59 06:59 18:59 Intake Total Output Total Balance Weight Intake: IV CO/CI Lines Sodium Chloride 0.9% 1, 000 ml @ 30 mls/hr IV . Q24H [facility] Rx#:[id number] Oral Output: Urine Other: Voiding Method # Voids ABP, PAP, CO, CI - Last Documented Arterial Blood Pressure 92/45 Pulmonary Artery Pressure 17/6 Cardiac Output 6.3 Cardiac Index 2.7 - Exam CONSTITUTIONAL: Appears comfortable, cooperative, no acute distress. RESPIRATORY: Lungs sounds diminished to his bilateral bases, right greater than left. Respirations symmetrical, nonlabored. Currently on room air with oxygen saturation 97%. Able to achieve 1500 mL on his incentive spirometry. Strong cough. CARDIOVASCULAR: S1, S2 present. Regular rate and rhythm, normal sinus rhythm, with a first-degree heart block on telemetry, heart rate 79 bpm. Sternum stable. Palpable peripheral pulses bilaterally. Trace generalized edema present. No calf pain or tenderness noted. Heart hugger in place with patient demonstrating appropriate use. Antiembolism stockings, SCDs present. GASTROINTESTINAL: Abdomen soft, nontender, nondistended. Active bowel sounds present 4 quadrants. Tolerating diet. Passing flatus. Last bowel movement on November 12, 2024. GENITOURINARY: Continues to void. Urine output 750 mL in the last 8 hours. INTEGUMENTARY: Skin is warm and dry with no clubbing or cyanosis present. Midline sternal chest incision well approximated and covered with dry intact dressing. Left radial artery harvest site well approximated without redness or drainage. NEUROLOGIC: Cranial nerves II through XII intact. No focal deficits. MUSKULOSKELETAL: Able to move all extremities, strength equal bilaterally, generalized weakness. PSYCHIATRIC: Alert and oriented to person place and time, appropriate affect, intact judgment and insight. INVASIVE LINES AND TUBES: Right internal jugular Cordis, current CVP 7. - Allied health notes Allied health notes reviewed: nursing - Labs CBC & Chem 7: 11/14/24 06:40 11/14/24 06:40 Labs: Abnormal Lab Results - Last 24 Hours (Table) 11/13/24 11/13/24 11/14/24 Range/Units 11:39 19:32 06:08 RBC (4.30-5.90) m/uL Hgb (13.0-17.5) gm/dL Hct (39.0-53.0) % Chloride (98-107) mmol/L BUN (9-20) mg/dL Creatinine (0.66-1.25) mg/dL Glucose (74-99) mg/dL POC Glucose (mg/dL) 144 H 118 H 133 H (70-110) mg/dL Total Bilirubin (0.2-1.3) mg/dL 11/14/24 11/14/24 Range/Units 06:40 06:40 RBC 2.83 L (4.30-5.90) m/uL Hgb 9.0 L (13.0-17.5) gm/dL Hct 27.7 L (39.0-53.0) % Chloride 108 H (98-107) mmol/L BUN 46 H (9-20) mg/dL Creatinine 1.44 H (0.66-1.25) mg/dL Glucose 111 H (74-99) mg/dL POC Glucose (mg/dL) (70-110) mg/dL Total Bilirubin 1.7 H (0.2-1.3) mg/dL - Imaging and Cardiology Chest x-ray: report reviewed, image reviewed Assessment and Plan Assessment: 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, unstable angina, status post three-vessel off-pump CABG Postoperative acute blood loss anemia and thrombocytopenia, expected given hemodilution Brief paroxysmal atrial fibrillation after surgery, somewhat expected as it is a known common occurrence after open heart surgery, status post ligation of the left atrial appendage Acute kidney injury, schemic ATN, initially oliguric currently nonoliguric with improving renal function Medical debility History of hypertension Dyslipidemia Left internal carotid artery stenosis, > 70% per Doppler Mild peripheral arterial disease, left JERRI 0.87, right JERRI 0.93 Prostate cancer with hormone therapy treatment Osteoarthritis Obesity with a BMI of 38.0 kg/m Extremely hard of hearing Lifelong non-smoker, preoperative FEV1 83% of predicted Plan: Continue to maximize medical therapy with aspirin, statin, Plavix, and low-dose beta-phillip. Will increase beta-phillip therapy when able. Decrease dopamine drip to 1 mcg/kg/min this morning, discontinue dopamine drip at noon. Continue amiodarone for atrial fibrillation prophylaxis. No anticoagulation at this point. Currently normal sinus rhythm on the monitor. Encourage incentive spirometry use 10 times every hour while awake. Bronchodilators per pulmonology. Will monitor daily labs and chest x-rays. Electrolyte replacement per protocol. Increase activity, ambulate as tolerated. PT/OT/cardiac rehab following. GI/DVT prophylaxis. Pain control per current medication regimen. Insulin management per internal medicine. Patient is not diabetic, preoperative hemoglobin A1c 5.6%. Remove right IJ cordis Cordis today. Continue to monitor record strict accurate intake and output. May bladder scan every 6 hours and as needed postvoid residuals. If greater than 300 mL of urine may straight cath. Consult inpatient rehab, consult pending. The patient will need inpatient rehab due to his medical debility. No diuretics today. Shower daily. More recommendations to follow on patient's clinical course. Time with Patient: Greater than 30
--- NOTE | 2024-11-14 11:00 | US ---
EXAMINATION TYPE: US chest DATE OF EXAM: 11/14/2024 COMPARISON: NONE CLINICAL INDICATION: Male, 79 years old with history of Right pleural effusion; right effusion TECHNIQUE: Grayscale imaging of the chest. Targeted ultrasound of the posterior lower right hemithor ax FINDINGS: EXAM MEASUREMENTS: Right Pleural Effusion pocket size: Right pleural effusion noted with lung 2cm below chest not marked due to close proximity of lung to chest wall Pulmonologists are able to review the images in the patient?s EMR. IMPRESSIONS: Right pleural effusion as described above. [facility], , 11/14/2024 10:57 AM
[2024-11-14 11:31] LABS: Glucose,Whole Blood 96 mg/dL (70-110)
--- NOTE | 2024-11-14 12:25 | P.PN ---
Subjective Progress Note Date: 11/14/24 Principal diagnosis: CABG. Pulmonary consult dated November 08, 2024. 79-year-old male status post three-vessel bypass surgery, done by Dr. Brennan today, off-pump. The patient is seen in the intensive care unit, room 267. The patient is currently on the ventilator, with settings of volume assist-control, rate 12, tidal volume 500, FiO2 100%, PEEP of 10. Initial blood gases show pO2 275, pCO2 33, pH is 7.37. The FiO2 was dropped from 100%, down to 50%. Currently, his cardiac output 6.4, index is 2.7. Pulmonary artery pressures 36/18 with a wedge pressure of 8. Currently, the patient is on propofol at 20 mcg/kg/min, 0.9 at 50 cc an hour, amiodarone at 1 mg/min, insulin at 1.5 units an hour, and nitroglycerin at 5 mcg/min. Current laboratory data includes a white count 9.7, hemoglobin 10.8, hematocrit 33.3, and a platelet count of 115,000. Sodium 139, potassium 4.3, chlorides 107, CO2 25, BUN 19, creatinine 0.82. Glucose is 133. Chest x-ray shows postsurgical changes, with appropriate support lines and endotracheal tube. Small bilateral pleural effusions are noted. Progress note dated November 09, 2024. 79-year-old male seen yesterday in consultation. He had a three-vessel off-pump bypass. It was done by Dr. Brennan. Yesterday, he was successfully extubated. Currently, the patient is sitting in the chair next to his hospital bed, in room 267. He remains on room air. He is getting insulin at 5 units an hour, and amiodarone 0.5 mg/min. He is also getting saline at 50 cc an hour. As mentioned, he was extubated on November 08. Current labs: White count 8.2, hemoglobin 11.3, macro 34.2, and a platelet count of 139,000. Sodium 134, potassium 4.3, chlorides 104, CO2 23, BUN 17, creatinine 0.82. Glucose is 125. Total protein 5.9. Blood sugar 123. Chest x-ray from November 09 shows changes from recent cardiac surgery, removal of the NG tube and endotracheal tube, small bilateral pleural effusions, and cardiomegaly. There is also some bibasilar infiltrates or atelectasis. Progress note dated November 10, 2024. 79-year-old male who is postoperative day #2, status post bypass surgery. He had an off-pump three-vessel bypass, done by Dr. Brennan. The patient seen sitting in the chair next to the hospital bed. He continues on oxygen at 2 L. The patient is also on dopamine at 3 mcg/kg/min. Clinically, he appears relatively stable. He is awake and alert. Laboratory data includes a white count of 7.1, hemoglobin 9.2, hematocrit 27.5, and a platelet count of 95,000. Sodium 133, potassium 4.1, chlorides 101, CO2 22, anion gap 10, BUN 32, and creatinine 1.94. Calcium is 8.1. Chest x-ray shows some bibasilar atelectasis, and small pleural effusions. There may be a component of fluid overload. Progress note dated November 11, 2024. 79-year-old male seen today in room 267. He is postoperative day #3, status post bypass surgery. Currently, the patient is resting comfortably. He is sitting in the chair next to his hospital bed. He is on dopamine at 3 mcg/kg/min, and saline at 30 cc an hour. He is also getting nasal O2 at 2 L. Clinically he is doing about the same. White count 7.8, hemoglobin 9.1, hematocrit 29.2, platelet count 116,000. Sodium 131, potassium 4.1, chloride 99, CO2 21, BUN 51, creatinine 2.51. Glucose is 117. Bilirubin is 1.8. Chest x-ray shows postoperative changes, and mild fluid overload. Progress note dated November 12, 2024. 79-year-old male seen today in room 267. He is postoperative day #4, status post bypass surgery. He is sitting in a chair next to the hospital bed. He is on room air. He is getting saline at 30 cc an hour. He continues on dopamine at 3 mcg/kg/min. Clinically, he is doing well. Current labs include a white count 7.6, hemoglobin 9, hematocrit 27.7, and a platelet count of 134,000. Sodium 141, potassium 4.3, chlorides 98, CO2 18, BUN 59, creatinine 1.91. Glucose is 129. Albumin is 3.6. Progress note dated November 13, 2024. 79-year-old male seen today in room 267. The patient is postoperative day #5. He had previous bypass surgery. He is sitting in a chair next to his hospital bed. The patient is on room air. He continues on dopamine at 2 mcg/kg/min. He is getting saline at KVO. White count 6.2, hemoglobin 9.1, hematocrit 27.9, and platelet count 140,000. Sodium 135, potassium 4.5, chlorides 105, CO2 20, BUN 57, creatinine 1.71. Glucose 144. Albumin 3.3. Chest x-ray is largely unchanged. There is some minimal basilar atelectasis. Progress note dated November 14, 2024. 79-year-old male seen today in room 267. The patient is postoperative day #6. The patient is doing relatively well. He is sitting up in a chair next to the hospital bed. He continues on room air. He is on dopamine at 1 mcg/kg/min. He is getting saline at 20 cc an hour. The patient is not yet ready for discharge from the intensive care unit. White count is 7.4, hemoglobin 11, hematocrit 27.7, and platelet count is 177,000. Sodium 140, potassium 4.2, chlorides 108, CO2 22, BUN 46, and creatinine 1.44. Glucose is 96. Chest x-ray shows postsurgical changes. There is mild pulmonary vascular congestion. Objective - Vital Signs Vital signs: Vital Signs Temp 97.9 F 11/14/24 12:00 Pulse 74 11/14/24 12:00 Resp 29 H 11/14/24 12:00 BP 113/54 11/14/24 12:00 Pulse Ox 96 11/14/24 12:00 FiO2 50 11/08/24 17:00 Intake & Output 11/13/24 11/14/24 11/14/24 17:59 06:59 18:59 Intake Total 138 Output Total 300 Balance -162 Weight Intake: IV 138 CO/CI Lines 18 Sodium Chloride 0.9% 1, 120 000 ml @ 30 mls/hr IV . Q24H [facility] Rx#:[id number] Oral Output: Urine 300 Other: Voiding Method # Voids ABP, PAP, CO, CI - Last Documented Arterial Blood Pressure 92/45 Pulmonary Artery Pressure 17/6 Cardiac Output 6.3 Cardiac Index 2.7 - Exam No acute distress, oriented 3. Currently on room air. Sitting in a chair next to his hospital bed. HEENT examination is grossly unremarkable. Mucous membranes are moist. No oral lesions. Neck supple. Full range of motion. No adenopathy thyromegaly or neck vein distention. Cardiovascular examination reveals regular rhythm rate. S1-S2 normal. No S3 or S4. No discernible murmur noted. Lungs reveal scattered bilateral. There are some basilar crackles. No wheezes. Breath sounds are equal bilaterally. Abdomen soft bowel sounds are heard. No masses or tenderness. Extremities are intact. No cyanosis clubbing or edema. Skin is without rash or lesion. Neurologic examination is brief but nonfocal. - Labs CBC & Chem 7: 11/14/24 06:40 11/14/24 06:40 Labs: Abnormal Lab Results - Last 24 Hours (Table) 11/13/24 11/13/24 11/14/24 Range/Units 11:39 19:32 06:08 RBC (4.30-5.90) m/uL Hgb (13.0-17.5) gm/dL Hct (39.0-53.0) % Chloride (98-107) mmol/L BUN (9-20) mg/dL Creatinine (0.66-1.25) mg/dL Glucose (74-99) mg/dL POC Glucose (mg/dL) 144 H 118 H 133 H (70-110) mg/dL Total Bilirubin (0.2-1.3) mg/dL 11/14/24 11/14/24 Range/Units 06:40 06:40 RBC 2.83 L (4.30-5.90) m/uL Hgb 9.0 L (13.0-17.5) gm/dL Hct 27.7 L (39.0-53.0) % Chloride 108 H (98-107) mmol/L BUN 46 H (9-20) mg/dL Creatinine 1.44 H (0.66-1.25) mg/dL Glucose 111 H (74-99) mg/dL POC Glucose (mg/dL) (70-110) mg/dL Total Bilirubin 1.7 H (0.2-1.3) mg/dL Assessment and Plan Assessment: Postoperative day # 6, S/P off-pump three-vessel bypass surgery, for coronary artery disease, in a patient with chest pain. Routine postoperative ventilator management, with successful extubation on November 08, 2024. History of hypertension. History of osteoarthritis. History of prostate cancer. Lifelong non-smoker. Plan: Plan dated November 08, 2024. The patient is seen today in room 267. The patient's initial blood gases are excellent, and the FiO2 was, 100%, down to 50%. Labs, x-rays, and medications are reviewed. The patient is currently on propofol for sedation, amiodarone, for A-fib/flutter, insulin, for elevated blood glucose, and nitroglycerin. The patient is also on saline at 50 cc an hour. The patient was on Cleviprex for an elevated blood pressure, but that has been turned off. Cardiac output 6.4. Index is 2.7. We will continue to follow make recommendations. All labs, x- rays, and medications are reviewed. Dictation was produced using [employer] software. Please excuse any grammatical, word or spelling errors. Plan dated November 09, 2024. The patient is again seen in room 267. The patient was successfully extubated yesterday. He is currently on room air. He has no complaints. He is wearing his hearing aids, but despite that, he is very deaf. All labs, x-rays, and medications are reviewed. The patient continues on insulin drip at 5 units an hour, and amiodarone 0.5 mg/min. The patient is getting saline at 50 cc an hour. Labs, x-rays, and all medications are reviewed. Prognosis is guarded. Dictation was produced using [employer] software. Please excuse any grammatical, word or spelling errors. Plan dated November 10, 2024. The patient is seen today in room 267. He continues on nasal O2 at 2 L. He also continues on dopamine at 3 mcg/kg/min, given for his hypotension. He is postoperative day #2, status post off-pump three-vessel bypass surgery done by Dr. Brennan. All labs, x-rays, and medications are reviewed. We will continue to follow make recommendations. The patient's overall prognosis remains gu arded. We recommend ongoing use of the incentive spirometer. Dictation was produced using [employer] software. Please excuse any grammatical, word or spelling errors. Plan dated November 11, 2024. This patient is postop day #3, status post off-pump three-vessel bypass surgery. Labs, x-rays, and all medications are reviewed. The patient remains on dopamine, both for renal function, and hypotension. The patient is also getting saline at 30 cc an hour. He is on nasal O2 at 2 L. The dopamine is at 3 mcg/kg/min. We will continue to follow the patient, make recommendations along the way. We encouraged the patient to continue to use his incentive spirometer, every hour while awake. We also recommend deep breathing, coughing, clearing of secretions. The patient's prognosis remains guarded. We will continue to follow the patient. Dictation was produced using [employer] software. Please excuse any grammatical, word or spelling errors. Plan dated November 12, 2024. The patient is postop day #4, and is doing relatively well. Labs, x-rays, and medications are reviewed. The patient continues on saline at 30 cc an hour. He is not requiring any supplemental oxygen. He continues on dopamine at 3 mcg/kg/min. We will continue to follow make recommendations. Prognosis is guarded. Dictation was produced using [employer] software. Please excuse any grammatical, word or spelling errors. Plan dated November 13, 2024. The patient is postoperative day #5. He is doing reasonably well. He is on room air. He continues on dopamine at 2 mcg/kg/min. All labs, x-rays, and medications are reviewed. We will continue to follow the patient. We encourage deep breathing, coughing, clearing of secretions, and hourly use of the incentive spirometer. All labs, x-rays, and medications have been reviewed. We will continue to follow. Prognosis is guarded. Dictation was produced using [employer] software. Please excuse any grammatical, word or spelling errors. Plan dated November 14, 2024. Today is postoperative day #6. The patient is currently on room air, but not yet ready to leave the intensive care unit. He continues on dopamine at 1 mcg/kg/min. Ultrasound of the chest did not reveal any significant fluid. Plain chest x-ray shows some slight improvement in the patient's fluid overload. All labs, x-rays, and medications are reviewed. The patient is doing so-so on the incentive spirometer. We do recommend deep breathing, coughing, clearing of secretions, and hourly use of the incentive spirometer. All labs, x-rays, and medications are reviewed. The patient's overall prognosis remains guarded. We will continue to follow the patient, make recommendations along the way. Dictation was produced using [employer] dictation software. Please excuse any grammatical, word or spelling errors. Time with Patient: Greater than 30
--- NOTE | 2024-11-14 12:34 | P.PN ---
Subjective Progress Note Date: 11/14/24 Following for JENNA patient is seen today, sitting on a chair, feeling slightly better today cr. improved to 1.4 from 1.7 , BP stable, off dobutamine making urine 1.8 L charted. O2 sat > 95% on room air Objective - Vital Signs Vital signs: Vital Signs Temp 97.9 F 11/14/24 12:00 Pulse 74 11/14/24 12:00 Resp 29 H 11/14/24 12:00 BP 113/54 11/14/24 12:00 Pulse Ox 96 11/14/24 12:00 FiO2 50 11/08/24 17:00 Intake & Output 11/13/24 11/14/24 11/14/24 17:59 06:59 18:59 Intake Total 138 Output Total 300 Balance -162 Weight Intake: IV 138 CO/CI Lines 18 Sodium Chloride 0.9% 1, 120 000 ml @ 30 mls/hr IV . Q24H [facility] Rx#:[id number] Oral Output: Urine 300 Other: Voiding Method # Voids ABP, PAP, CO, CI - Last Documented Arterial Blood Pressure 92/45 Pulmonary Artery Pressure 17/6 Cardiac Output 6.3 Cardiac Index 2.7 - Exam Patient is awake, comfortable, no acute distress Examination of the heart S1 and S2 Examination of the lungs decreased breath sounds at the bases Abdomen is soft obese Examination of lower extremity shows trace edema bilaterally [employer] exam grossly intact - Labs CBC & Chem 7: 11/14/24 06:40 11/14/24 06:40 Labs: Abnormal Lab Results - Last 24 Hours (Table) 11/13/24 11/13/24 11/14/24 Range/Units 11:39 19:32 06:08 RBC (4.30-5.90) m/uL Hgb (13.0-17.5) gm/dL Hct (39.0-53.0) % Chloride (98-107) mmol/L BUN (9-20) mg/dL Creatinine (0.66-1.25) mg/dL Glucose (74-99) mg/dL POC Glucose (mg/dL) 144 H 118 H 133 H (70-110) mg/dL Total Bilirubin (0.2-1.3) mg/dL 11/14/24 11/14/24 Range/Units 06:40 06:40 RBC 2.83 L (4.30-5.90) m/uL Hgb 9.0 L (13.0-17.5) gm/dL Hct 27.7 L (39.0-53.0) % Chloride 108 H (98-107) mmol/L BUN 46 H (9-20) mg/dL Creatinine 1.44 H (0.66-1.25) mg/dL Glucose 111 H (74-99) mg/dL POC Glucose (mg/dL) (70-110) mg/dL Total Bilirubin 1.7 H (0.2-1.3) mg/dL Assessment and Plan Assessment: 1. Acute kidney injury, ischemic ATN, initially oliguric currently nonoliguric with improving renal function. creatinine trend 2.5->1.9-> 1.7 , baseline cr. 0.8 , UA +RBC/WBC/ proteins. ultrasound of the kidneys ruled out hydronephrosis. No nephrotoxic agents on board. 2. Status post coronary artery bypass surgery x 3 on 11/08/2024. Extubated. s/p low-dose dopamine for low heart rate and low blood pressure 3. [place] metabolic acidosis secondary to acute kidney injury. No diarrhea noted. 4. Hypervolemic hyponatremia 5. Anemia, multifactorial including postop. Rule out iron deficiency Plan: Improving renal function, CVP 9 this morning, CXR with possible effusion, US chest done, ok to start diuretics if needed, can give Lasix 20 mg IV monitor UO monitor weight can discontinue oral sodium bicarb. Continue to avoid nephrotoxic agents Check iron profile Repeat labs in a.m.
[2024-11-14 14:16] LABS: Iron 20 UG/DL (65-175); Total Iron Binding Capacity 230 UG/DL (228-460)
--- NOTE | 2024-11-14 18:34 | P.PN ---
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 Conley. He underwent three-vessel CABG with PIERSON to LAD, T graft using a radial artery to OM1 and OM 2 sequential. He has been extubated and is coming along well. Prior cardiac testing: Heart catheter October 2024 showed three-vessel disease involving distal left main, ostium of LAD, ostium of LCx, moderate diffuse disease in RCA with distal PDA having 60% stenosis. Progress note 11/10/2024 Patient was hypotensive, staying on low-dose dopamine drip also got IV albumin and fluids. Cardiac index 2.1, pulmonary arterial pressures within normal range, CVP around 10. No new arrhythmias on telemetry, appears sinus rhythm. 11/11/2024 Patient's blood pressure has been stable however kidney function is declining No other cardiovascular events, sinus rhythm on telemetry. 11/12/2024 Kidney function is somewhat stabilized and improving. No new cardiovascular events. Telemetry shows sinus rhythm. 11/14/2024 Patient is seen and examined at bedside this a.m. No new cardiovascular events PHYSICAL EXAMINATION: Neck: [place] catheter in place, Lungs: Chest tube in place, respiratory effort, surgical scar healing well Heart: Regular rate and rhythm, S1-S2, , no murmur or rub. Abdomen: Soft nontender, positive bowel sounds. Extremities: 1+ pitting edema bilateral extremity Neuro: Alert, oritented, no focal deficits. Detailed neuro exam was not performed. ASSESSMENT: # Status post CABG 11/08/2024, PIERSON to LAD, sequential radial to first and second OM as a T graft from PIERSON, left atrial appendage occlusion 35mm atrial clip # Brief paroxysmal atrial fibrillation after surgery, currently in sinus rhythm # Hypertension # Dyslipidemia with hypercholesterolemia # Left ICA stenosis more than 70% # Mild PAD # Prostate cancer on hormone therapy # Obesity # Extremely hard of hearing PLAN: Continue current supportive care Nephrology team following for JENNA Continue aspirin, Plavix, statin, amiodarone, Continue hemodynamic monitoring with [place]-Cec[place] catheter. CT surgery team following. Objective - Vital Signs Vital signs: Vital Signs Temp 97.9 F 11/14/24 12:00 Pulse 84 11/14/24 17:00 Resp 13 11/14/24 17:00 BP 163/80 11/14/24 17:00 Pulse Ox 98 11/14/24 17:00 FiO2 50 11/08/24 17:00 Intake & Output 11/13/24 11/14/24 11/14/24 17:59 06:59 18:59 Intake Total 138 Output Total 750 Balance -612 Weight Intake: IV 138 CO/CI Lines 18 Sodium Chloride 0.9% 1, 120 000 ml @ 30 mls/hr IV . Q24H [facility] Rx#:[id number] Oral Output: Urine 750 Other: Voiding Method Urinal # Voids 1 ABP, PAP, CO, CI - Last Documented Arterial Blood Pressure 92/45 Pulmonary Artery Pressure 17/6 Cardiac Output 6.3 Cardiac Index 2.7 - Labs CBC & Chem 7: 11/14/24 06:40 11/14/24 06:40 Labs: Abnormal Lab Results - Last 24 Hours (Table) 11/13/24 11/14/24 11/14/24 Range/Units 19:32 06:08 06:40 RBC (4.30-5.90) m/uL Hgb (13.0-17.5) gm/dL Hct (39.0-53.0) % Chloride 108 H (98-107) mmol/L BUN 46 H (9-20) mg/dL Creatinine 1.44 H (0.66-1.25) mg/dL Glucose 111 H (74-99) mg/dL POC Glucose (mg/dL) 118 H 133 H (70-110) mg/dL Iron 20 L (65-175) UG/DL % Saturation 8.70 L (15.00-50.00) Transferrin 164.0 L (204.0-354.0) mg/dL Total Bilirubin 1.7 H (0.2-1.3) mg/dL 11/14/24 Range/Units 06:40 RBC 2.83 L (4.30-5.90) m/uL Hgb 9.0 L (13.0-17.5) gm/dL Hct 27.7 L (39.0-53.0) % Chloride (98-107) mmol/L BUN (9-20) mg/dL Creatinine (0.66-1.25) mg/dL Glucose (74-99) mg/dL POC Glucose (mg/dL) (70-110) mg/dL Iron (65-175) UG/DL % Saturation (15.00-50.00) Transferrin (204.0-354.0) mg/dL Total Bilirubin (0.2-1.3) mg/dL
[2024-11-14 20:09] LABS: Glucose,Whole Blood 148 mg/dL (70-110)
[2024-11-14] MEDS: ASPIRIN 325 MG TAB PO ONE (20:09)
[2024-11-14] MEDS: ALBUMIN HUMAN 25% 50 ML IV ONE (20:09)
[2024-11-14] MEDS: ATORVASTATIN 10 MG TAB PO ONE (20:09)
[2024-11-14] MEDS: ALBUMIN HUMAN 5% 500 ML IVPB ONE (20:09)
[2024-11-14] MEDS: ceFAZolin 1,000 MG in SODIUM CHLORIDE 0.9% IRRIGATIO 1,000 ML IRRIGATION ONE (20:10)
[2024-11-14] MEDS: HEPARIN SODIUM 1,000 UN/ML (10ML VL) IV ONE (20:10)
[2024-11-14] MEDS: CHLORHEXIDINE GLUCONATE 15 ML CUP MUCOUS MEM ONE (20:10)
[2024-11-14] MEDS: CALCIUM CHLORIDE 100 MG/ML 10 ML SYRINGE IV ONE (20:10)
[2024-11-14] MEDS: CLEVIDIPINE BUTYRATE 25 MG in EMPTY BAG 1 BAG IV ONE (20:10)
[2024-11-14] MEDS: CARDIOPLEGIC SOLN (K+ 16 MEQ/L 1,000 ML with SODIUM BICARB (1 MEQ/ML) 20 ML, LIDOCAINE ... PERFUSION ONE (20:10)
[2024-11-14] MEDS: MANNITOL 25% 12.5 GM/50 ML VIAL IV ONE (20:11)
[2024-11-14] MEDS: HEPARIN SODIUM,PORCINE (1 ML) 5,000 UNIT in SODIUM CHLORIDE 0.9% 500 ML 500 ML IV ONE (20:11)
[2024-11-14] MEDS: NITROGLYCERIN SL TABS 0.4 MG TAB SUBLINGUAL ONE (20:11)
[2024-11-14] MEDS: MAGNESIUM SULFATE 16.24 MEQ in EMPTY SYRINGE 1 SYR IV ONE (20:11)
[2024-11-14] MEDS: INSULIN REGULAR 100 UNIT in SODIUM CHLORIDE 0.9% 100 ML IV ONE (20:11)
[2024-11-14] MEDS: METOPROLOL TARTRATE 12.5 MG TAB PO ONE (20:11)
[2024-11-14] MEDS: NITROGLYCERIN-D5W PMX 25 MG/250 ML BTL IV ONE (20:12)
[2024-11-14] MEDS: PAPAVERINE 360 MG in SODIUM CHLORIDE 0.9% 90 ML IV ONE (20:12)
[2024-11-14] MEDS: PHENYLEPHRINE 40 MG in SODIUM CHLORIDE 0.9% 250 ML IV ONE (20:12)
[2024-11-14] MEDS: NITROGLYCERIN-D5W PMX 50 MG in DEXTROSE/WATER 1 250ML.BAG IV ONE (20:12)
[2024-11-14] MEDS: NOREPINEPHRINE 4 MG in SODIUM CHLORIDE 0.9% 250 ML IV ONE (20:12)
[2024-11-14] MEDS: PHENYLEPHRINE 10 MG/ML VIAL IV ONE (20:12)
[2024-11-14] MEDS: propofoL 1,000 MG/100 ML VIAL IV ONE (20:12)
[2024-11-14] MEDS: SODIUM BICARB 8.4% 50 ML SYR (1 MEQ/ML) IV ONE (20:13)
[2024-11-14] MEDS: PROTAMINE SULFATE 10 MG/ML 25 ML VIAL IV ONE (20:13)
[2024-11-14] MEDS: PROTAMINE SULFATE 250 MG in EMPTY BAG 1 BAG IV ONE (20:13)
[2024-11-14] MEDS: SODIUM CHLORIDE 0.9% 1,000 ML IV ONE (20:13)
[2024-11-14] MEDS: TRANEXAMIC ACID 2,000 MG in SODIUM CHLORIDE 0.9% 80 ML IV ONE (20:14)
[2024-11-14] MEDS: MUPIROCIN 2% OINT 22 GM TUBE NASAL ONE (20:14)
[2024-11-14] MEDS: DILTIAZEM 125 MG in SODIUM CHLORIDE 0.9% 100 ML IV SCH (20:14)
[2024-11-15 06:02] LABS: HCT 27.6 % (39.0-53.0); HGB 8.9 gm/dL (13.0-17.5); MCH 31.2 pg (25.0-35.0); MCHC 32.1 g/dL (31.0-37.0); MCV 97.2 fL (80.0-100.0); Mean Platelet Volume 8.3; Platelet Count 200 k/uL (150-450); RBC 2.84 m/uL (4.30-5.90); RDW 13.3 % (11.5-15.5); WBC 7.6 k/uL (3.8-10.6)
[2024-11-15 06:19] LABS: Glucose,Whole Blood 111 mg/dL (70-110)
[2024-11-15 06:21] LABS: African American GFR (CKD) 58 (>60 ml/min/1.73 sqM); Anion Gap 10 mmol/L; Blood Urea Nitrogen 37 mg/dL (9-20); Carbon Dioxide 24 mmol/L (22-30); Chloride 109 mmol/L (98-107); Glucose 119 mg/dL (74-99); Magnesium 2.2 mg/dL (1.6-2.3); Non-African American GFR(CKD) 50 (>60 ml/min/1.73 sqM); Potassium 4.2 mmol/L (3.5-5.1); Sodium 143 mmol/L (137-145)
--- NOTE | 2024-11-15 07:12 | P.PN ---
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 History of hypertension, left internal carotid artery stenosis, mild peripheral arterial disease, prostate cancer with hormone therapy treatment, osteoarthritis, obesity, extremely hard of hearing, and lifelong non-smoker POD #7 off-pump coronary artery bypass grafting x 3 with PIERSON to LAD, sequential radial artery graft to first and second obtuse marginal coronary arteries as T graft off PIERSON, left radial artery endovascular harvest, occlusion of the left atrial appendage with 35mm AtriCure clip. Postoperative acute blood loss anemia and thrombocytopenia, expected given h emodilution. Brief paroxysmal atrial fibrillation after surgery, somewhat expected as it is a known common occurrence after open heart surgery. The patient was seen and examined in follow-up today November 15, 2024 at his bedside in the intensive care unit. He is currently sitting up to the bedside chair, is awake, alert, oriented x 3 and is in no acute apparent distress. He denies any complaints of pain or shortness of breath at this time, although continues to complain of some generalized postoperative weakness. Oxygen saturations are 96% on room air and he is achieving 1250 mL on his incentive spirometry with encouragement. Bedside telemetry is showing normal sinus rhythm heart rate 80 bpm. He remains hemodynamically stable and is currently on no inotropic or pressor support. Laboratory and chest x-ray results reviewed. BUN and creatinine continue to trend down, BUN this morning is 37, creatinine is 1.33. He remains afebrile. Dopamine drip and Jaquez catheter have been discon tinued. He continues to void without difficulty urine output in the last 8 hours with 650 mL. Objective - Vital Signs Vital signs: Vital Signs Temp 98.6 F 11/15/24 04:00 Pulse 78 11/15/24 06:00 Resp 16 11/15/24 07:00 BP 143/62 11/15/24 07:00 Pulse Ox 98 11/15/24 07:00 FiO2 50 11/08/24 17:00 Intake & Output 11/14/24 11/15/24 11/15/24 18:59 06:59 18:59 Intake Total 138 0 0 Output Total 750 650 Balance -612 -650 0 Weight 120.8 kg Intake: IV 138 0 0 Lines 18 Sodium Chloride 0.9% 1, 120 0 0 000 ml @ 30 mls/hr IV . Q24H [facility] Rx#:[id number] Output: Urine 750 650 Other: Voiding Method Urinal Urinal # Voids 1 ABP, PAP, CO, CI - Last Documented Arterial Blood Pressure 92/45 Pulmonary Artery Pressure 17/6 Cardiac Output 6.3 Cardiac Index 2.7 - Exam CONSTITUTIONAL: Appears comfortable, cooperative, no acute distress. RESPIRATORY: Lungs sounds diminished to his bilateral bases, right greater than left, few scattered crackles to his left lower lobe. Respirations symmetrical, nonlabored. Currently on room air with oxygen saturation 96%. Able to achieve 1250 mL on his incentive spirometry. Strong cough. CARDIOVASCULAR: S1, S2 present. Regular rate and rhythm, normal sinus rhythm, with a first-degree heart block on telemetry, heart rate 80 bpm. Sternum stable. Palpable peripheral pulses bilaterally. Trace generalized edema present. No calf pain or tenderness noted. Heart hugger in place with patient demonstrating appropriate use. Antiembolism stockings, SCDs present. GASTROINTESTINAL: Abdomen soft, nontender, nondistended. Active bowel sounds present 4 quadrants. Tolerating diet. Passing flatus. Last bowel movement on November 12, 2024. GENITOURINARY: Continues to void. Urine output 650 mL in the last 8 hours. INTEGUMENTARY: Skin is warm and dry with no clubbing or cyanosis present. Midline sternal chest incision well approximated and covered with dry intact dressing. Left radial artery harvest site well approximated without redness or drainage. NEUROLOGIC: Cranial nerves II through XII intact. No focal deficits. MUSKULOSKELETAL: Able to move all extremities, strength equal bilaterally, generalized weakness. PSYCHIATRIC: Alert and oriented to person place and time, appropriate affect, intact judgment and insight. - Allied health notes Allied health notes reviewed: nursing - Labs CBC & Chem 7: 11/15/24 05:41 11/15/24 05:41 Labs: Abnormal Lab Results - Last 24 Hours (Table) 11/14/24 11/14/24 11/14/24 Range/Units 06:40 06:40 20:07 RBC 2.83 L (4.30-5.90) m/uL Hgb 9.0 L (13.0-17.5) gm/dL Hct 27.7 L (39.0-53.0) % Chloride 108 H (98-107) mmol/L BUN 46 H (9-20) mg/dL Creatinine 1.44 H (0.66-1.25) mg/dL Glucose 111 H (74-99) mg/dL POC Glucose (mg/dL) 148 H (70-110) mg/dL Iron 20 L (65-175) UG/DL % Saturation 8.70 L (15.00-50.00) Transferrin 164.0 L (204.0-354.0) mg/dL Total Bilirubin 1.7 H (0.2-1.3) mg/dL 11/15/24 11/15/24 11/15/24 Range/Units 05:41 05:41 06:18 RBC 2.84 L (4.30-5.90) m/uL Hgb 8.9 L (13.0-17.5) gm/dL Hct 27.6 L (39.0-53.0) % Chloride 109 H (98-107) mmol/L BUN 37 H (9-20) mg/dL Creatinine 1.33 H (0.66-1.25) mg/dL Glucose 119 H (74-99) mg/dL POC Glucose (mg/dL) 111 H (70-110) mg/dL Iron (65-175) UG/DL % Saturation (15.00-50.00) Transferrin (204.0-354.0) mg/dL Total Bilirubin (0.2-1.3) mg/dL - Imaging and Cardiology Chest x-ray: report reviewed, image reviewed Assessment and Plan Assessment: 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, unstable angina, status post three-vessel off-pump CABG Postoperative acute blood loss anemia and thrombocytopenia, expected given hemodilution Brief paroxysmal atrial fibrillation after surgery, somewhat expected as it is a known common occurrence after open heart surgery, status post ligation of the left atrial appendage Acute kidney injury, schemic ATN, initially oliguric currently nonoliguric with improving renal function Medical debility History of hypertension Dyslipidemia Left internal carotid artery stenosis, > 70% per Doppler Mild peripheral arterial disease, left JERRI 0.87, right JERRI 0.93 Prostate cancer with hormone therapy treatment Osteoarthritis Obesity with a BMI of 38.0 kg/m Extremely hard of hearing Lifelong non-smoker, preoperative FEV1 83% of predicted Plan: Continue to maximize medical therapy with aspirin, statin, Plavix, and low-dose beta-phillip. Will increase metoprolol tartrate to 25 mg p.o. twice daily. Continue amiodarone for atrial fibrillation prophylaxis. No anticoagulation at this point. Currently normal sinus rhythm on the monitor. Encourage incentive spirometry use 10 times every hour while awake. Bronchodilators per pulmonology. Will monitor daily labs and chest x-rays. Electrolyte replacement per protocol. Increase activity, ambulate as tolerated. PT/OT/cardiac rehab following. GI/DVT prophylaxis. Pain control per current medication regimen. Insulin management per internal medicine. Patient is not diabetic, preoperative hemoglobin A1c 5.6%. Continue to monitor record strict accurate intake and output. May bladder scan every 6 hours and as needed postvoid residuals. If greater than 300 mL of urine may straight cath. Consult inpatient rehab, consult pending. The patient will need inpatient rehab due to his medical debility. No diuretics today. Shower daily. Transferred to the third floor cardiac stepdown unit. More recommendations to follow on patient's clinical course. Time with Patient: Greater than 30
--- NOTE | 2024-11-15 07:47 | XR ---
EXAMINATION TYPE: XR chest 1V portable DATE OF EXAM: 11/15/2024 4:56 AM COMPARISON: Chest radiographs from 11/14/2024 CLINICAL INDICATION: Male, 79 years old with history of Postop CABG; TECHNIQUE: XR chest 1V portable Frontal view of the chest. FINDINGS: Lungs/Pleura: No evidence of focal consolidation or pneumothorax. Blunting of the costophrenic angles is present. Pulmonary vascularity: Pulmonary vascular congestion. Heart/mediastinum: Cardiomediastinal silhouette is enlarged and stable. Left atrial appendage occlusi on device is present. Musculoskeletal: Multiple level degenerative disc disease changes seen throughout the spine. Midline sternotomy wires are noted. IMPRESSION: Similar Cardiomegaly, pulmonary vascular congestion and bilateral pleural effusions. Correlate with B DA[employer]Y ASSOCIATE for congestive heart failure. [facility], , 11/15/2024 7:45 AM
[2024-11-15] MEDS: METOPROLOL TARTRATE 25 MG TAB PO SCH (08:17)
[2024-11-15] MEDS: metOLazone 5 MG TAB PO ONE (09:23)
[2024-11-15] MEDS: FUROSEMIDE 10 MG/ML 2 ML VIAL IV ONE (09:57)
[2024-11-15] MEDS: SODIUM FERRIC GLUCONAT-SUCROSE 125 MG in SODIUM CHLORIDE 0.9% 100 ML IVPB SCH (10:09)
--- NOTE | 2024-11-15 10:34 | P.PN ---
Subjective Patient is seen in follow-up for acute kidney injury. Renal function better. Sitting up in chair. On room air. Denies chest pain or shortness of breath. Has been voiding. Vital signs are stable. General: No acute distress. HEENT: Head exam is unremarkable. LUNGS: No audible rhonchi or wheezes. HEART: Rate and Rhythm are regular. Make ABDOMEN: Obese, nontender. EXTREMITITES: 2+ edema. Objective - Vital Signs Vital signs: Vital Signs Temp 98 F 11/15/24 08:08 Pulse 85 11/15/24 08:26 Resp 16 11/15/24 08:08 BP 157/64 11/15/24 08:08 Pulse Ox 98 11/15/24 08:08 FiO2 50 11/08/24 17:00 Intake & Output 11/14/24 11/15/24 11/15/24 18:59 06:59 18:59 Intake Total 138 0 0 Output Total 750 650 Balance -612 -650 0 Weight 120.8 kg Intake: IV 138 0 0 Lines 18 Sodium Chloride 0.9% 1, 120 0 0 000 ml @ 30 mls/hr IV . Q24H [facility] Rx#:[id number] Output: Urine 750 650 Other: Voiding Method Urinal Urinal # Voids 1 ABP, PAP, CO, CI - Last Documented Arterial Blood Pressure 92/45 Pulmonary Artery Pressure 17/6 Cardiac Output 6.3 Cardiac Index 2.7 - Labs CBC & Chem 7: 11/15/24 05:41 11/15/24 05:41 Labs: Abnormal Lab Results - Last 24 Hours (Table) 11/14/24 11/14/24 11/15/24 Range/Units 06:40 20:07 05:41 RBC 2.84 L (4.30-5.90) m/uL Hgb 8.9 L (13.0-17.5) gm/dL Hct 27.6 L (39.0-53.0) % Chloride (98-107) mmol/L BUN (9-20) mg/dL Creatinine (0.66-1.25) mg/dL Glucose (74-99) mg/dL POC Glucose (mg/dL) 148 H (70-110) mg/dL Iron 20 L (65-175) UG/DL % Saturation 8.70 L (15.00-50.00) Transferrin 164.0 L (204.0-354.0) mg/dL 11/15/24 11/15/24 Range/Units 05:41 06:18 RBC (4.30-5.90) m/uL Hgb (13.0-17.5) gm/dL Hct (39.0-53.0) % Chloride 109 H (98-107) mmol/L BUN 37 H (9-20) mg/dL Creatinine 1.33 H (0.66-1.25) mg/dL Glucose 119 H (74-99) mg/dL POC Glucose (mg/dL) 111 H (70-110) mg/dL Iron (65-175) UG/DL % Saturation (15.00-50.00) Transferrin (204.0-354.0) mg/dL Assessment and Plan Plan: Assessment: 1. Acute kidney injury secondary to ATN. Baseline creatinine 0.8. Creatinine peaked at 2.5 this admission and is 1.3 today. No hydronephrosis noted on kidney ultrasound. 2. Coronary artery disease status post coronary disease status post CABG November 08, 2024. 3. Volume overload. 4. Anemia, postoperative blood loss. Iron deficiency noted. 5. Benign hypertension. Plan: Lasix 20 mg IV once today. Maintain IV iron. Avoid nephrotoxins. Continue to monitor renal function and urine output.
--- NOTE | 2024-11-15 11:05 | P.CONS ---
History of Present Illness - Reason for Consult Consult date: 11/15/24 - Chief Complaint cardiac debility - History of Present Illness Mr Pederson is an 79 y/o , right handed male who lives with his in a SS home, 2-3 UZIEL. He is independent with mobility and ADLs. Patient presented to the hospital on 11/08/24 with multivessel CAD with left main disease. He underwent a 3 vessel CABG. He had post operative anemia which was expected. 11/10/2024 Patient was hypotensive, staying on low-dose dopamine drip also got IV albumin and fluids. Cardiac index 2.1, pulmonary arterial pressures within normal range, CVP around 10. 11/11/2024 kidney function is declining, nephrology following and started to have some improvements. PM&R consulted for rehab recommendations. 11/12-11/13 therapy evaluations: Max assist with bathing, UB dressing Min A, LB dressing Max A, grooming supervision, Bed mobility Max A, Gait 96 ft Mod A with 2 ppl for safety. 11/15/24 Today, resting in bed. Can be SOB with activity, has decreased endurance, is tired. Also has been constipated. Denies RADFORD, dizziness, CP, abdominal pain, other pain complaints. Looking forward to rehab, though co ncerned about possible insurance changes. Review of Systems reviewed, as above in subjective Past Medical History Past Medical History: Cancer, Chest Pain / Angina, Hearing Disorder / Deafness, Hyperlipidemia, Hypertension, Osteoarthritis (OA), Prostate Disorder Additional Past Medical History / Comment(s): VARICOSE VEINS. hx. prostate cancer 6 yrs. ago-had tx., now PSA is elevated again-current hormone tx. for, ankle swelling History of Any Multi-Drug Resistant Organisms: None Reported Past Surgical History: Cholecystectomy, Heart Catheterization, Hernia Repair, Joint Replacement, Orthopedic Surgery Additional Past Surgical History / Comment(s): RIGHT SHOULDER, UMBILICAL HERNIA & ABDOMINAL HERNIA REPAIR, RIGHT TOTAL KNEE. recent cardiac cath. Past Anesthesia/Blood Transfusion Reactions: Previous Problems w/ Anesthesia Additional Past Anesthesia/Blood Transfusion Reaction / Comm: STATES DIFFICULTY BREATHING AFTER SHOULDER SURGERY-not sure why, other surgeries after had no problems Smoking Status: Never smoker - Past Family History Mother Family Medical History: Respiratory Disorder Father Family Medical History: Vascular Disorder Additional Family Medical History / Comment(s): Abdominal aortic aneurysm rupture Medications and Allergies Home Medications Medication Instructions Recorded Confirmed Type Cholecalciferol [Vitamin D3 (25 5,000 unit PO DAILY 01/02/17 11/08/24 History Mcg = 1000 Iu)] Multivitamins, Thera [Multivitamin 1 tab PO DAILY 01/02/17 11/08/24 History (formulary)] Benazepril HCl 40 mg PO DAILY 10/27/24 11/08/24 History Bicalutamide [Casodex] 50 mg PO DAILY 10/27/24 11/08/24 History Nitroglycerin Sl Tabs [Nitrostat] 0.4 mg PO DIRECTED PRN 10/27/24 11/08/24 History Aspirin 81 mg PO DAILY #30 tab 10/30/24 11/08/24 Rx Atorvastatin [Lipitor] 80 mg PO HS #30 tab 10/30/24 11/08/24 Rx Isosorbide Mononitrate ER [Imdur] 60 mg PO DAILY #30 tab 10/30/24 11/08/24 Rx Metoprolol Succinate (ER) [Toprol 50 mg PO DAILY #30 tab 10/30/24 11/08/24 Rx XL] Cider Vinegar [Apple Cider Vinegar] 450 mg PO DAILY 11/04/24 11/08/24 History Flaxseed Oil 1,000 mg PO DAILY 11/04/24 11/08/24 History L.acidoph,Paracasei, B.lactis 1 each PO DAILY 11/04/24 11/08/24 History [Probiotic] Magnesium Citrate and Oxide 400 mg PO DAILY 11/04/24 11/08/24 History [Magnesium] Potassium Citrate 99 mg PO DAILY 11/04/24 11/08/24 History Turmeric Root Extract [Turmeric] 1,500 mg PO DAILY 11/04/24 11/08/24 History Vitamin B Complex 1 each PO DAILY 11/04/24 11/08/24 History Allergies Allergy/AdvReac Type Severity Reaction Status Date / Time No Known Allergies Allergy Verified 11/08/24 05:58 Physical Exam Vitals: Vital Signs Temp Pulse Pulse Resp BP BP Pulse Ox 11/15/24 08:26 85 11/15/24 08:17 84 11/15/24 08:08 98 F 86 16 157/64 98 11/15/24 07:00 16 143/62 98 11/15/24 06:00 78 26 H 150/64 97 11/15/24 05:00 93 22 150/75 96 11/15/24 04:00 98.6 F 75 23 143/61 93 L 11/15/24 03:00 20 124/53 97 11/15/24 02:00 76 26 H 147/67 95 11/15/24 01:00 82 27 H 136/54 95 11/15/24 00:00 79 24 145/59 94 L 11/14/24 23:00 90 22 142/66 96 11/14/24 22:30 20 142/66 96 11/14/24 22:00 77 15 134/64 96 11/14/24 21:30 78 29 H 133/56 94 L 11/14/24 21:00 80 26 H 121/69 94 L 11/14/24 20:30 81 26 H 119/76 97 11/14/24 20:00 98.2 F 79 20 135/55 87 L 11/14/24 19:30 79 18 144/62 96 11/14/24 19:00 85 29 H 129/51 100 11/14/24 18:30 80 30 H 130/59 98 11/14/24 18:00 79 28 H 169/54 99 11/14/24 17:30 84 29 H 156/71 99 11/14/24 17:00 84 13 163/80 98 11/14/24 16:30 82 24 120/89 98 11/14/24 16:02 77 11/14/24 16:00 74 25 H 132/58 100 11/14/24 15:53 75 11/14/24 15:30 75 24 98 11/14/24 15:00 74 24 138/86 11/14/24 14:30 72 24 132/57 99 11/14/24 14:00 70 21 141/52 97 11/14/24 13:00 82 17 141/52 100 11/14/24 12:00 97.9 F 74 29 H 113/54 96 11/14/24 11:30 69 15 99 11/14/24 10:30 69 25 H 113/54 98 Intake and Output 11/14/24 11/15/24 11/15/24 22:59 06:59 14:59 Intake Total 0 0 0 Output Total 250 650 Balance -250 -650 0 Intake: IV 0 0 0 Sodium Chloride 0.9% 1, 0 0 0 000 ml @ 30 mls/hr IV . Q24H [facility] Rx#:[id number] Output: Urine 250 650 Other: Voiding Method Urinal Urinal Weight 120.8 kg EXAM; General: WDWN, male, NAD Head: Normocephalic, atraumatic. Eyes: Symmetric Ears: Symmetric. Hearing within normal limits. Mouth: Clear. Cardiac: Regular rate and rhythm. Calves supple, non tender, + bilateral LE edema Lungs: Breathing comfortably on RA. Chest symmetric. Abdomen: Soft, nontender, mildly distended Extremities: Arthritic changes consistent with age. Neurological: Alert and oriented x 4 Speech is clear and fluent without paraphasic errors Cranial nerves: CN II-XII: intact. Sensation: Intact and symmetrical limbs. Musculoskeletal: ROM WFL EXCEPT: shoulders not tested MMT UE Sh Abd EE EF FABD WE HG Right nt 5 5 5 5 5 Left nt 5 5 5 5 5 MMT LE HF KE DF EHL Right 5 5 5 Left 5 5 5 Reflexes Biceps Triceps Brachioradialis Patella Achilles Babinski Hoffmans Right 2 2 2 decreased decreased Left 2 2 2 decreased decreased Skin: Skin intact where visible to head, neck, and bilateral upper and lower extremities EXCEPT: chest incision c/d/i; left arm incision c/d/i Psych: Calm, cooperative Results CBC & Chem 7: 11/15/24 05:41 11/15/24 05:41 Labs: Abnormal Lab Results - Last 24 Hours (Table) 11/14/24 11/14/24 11/15/24 Range/Units 06:40 20:07 05:41 RBC 2.84 L (4.30-5.90) m/uL Hgb 8.9 L (13.0-17.5) gm/dL Hct 27.6 L (39.0-53.0) % Chloride (98-107) mmol/L BUN (9-20) mg/dL Creatinine (0.66-1.25) mg/dL Glucose (74-99) mg/dL POC Glucose (mg/dL) 148 H (70-110) mg/dL Iron 20 L (65-175) UG/DL % Saturation 8.70 L (15.00-50.00) Transferrin 164.0 L (204.0-354.0) mg/dL 11/15/24 11/15/24 Range/Units 05:41 06:18 RBC (4.30-5.90) m/uL Hgb (13.0-17.5) gm/dL Hct (39.0-53.0) % Chloride 109 H (98-107) mmol/L BUN 37 H (9-20) mg/dL Creatinine 1.33 H (0.66-1.25) mg/dL Glucose 119 H (74-99) mg/dL POC Glucose (mg/dL) 111 H (70-110) mg/dL Iron (65-175) UG/DL % Saturation (15.00-50.00) Transferrin (204.0-354.0) mg/dL Assessment and Plan Assessment: # Cardiac debility secondary to 3 vessel CABG secondary to multivessel CAD with left main disease -cardiac precautions -Therapies #Post op anemia #P Afib #JENNA # Bowel/ Bladder: Nursing to monitor and report concerns if any. -Regimen per MAR # Skin/wound: Skin/Wound care to follow as needed # Pain Management -Tylenol 1000 mg Q 6 hrs prn # DVT Prophylaxis:ASA 325 mg, Heparin SQ # Comorbidities: HTN, HLD, L ICA stenosis, PAD, prostate cancer, OA, Obesity BMI 38.0, Tobacco # Your medical dx and mgt Goals: Modified Independent mobility and ADLS both basic and advanced; increased functional mobility/strength; increased balance, safety, endurance. Improvement in medical issues through your care. Barriers: endurance, cardiac precautions Discharge recommendation: Recommending [facility] for continued rehab, patient has qualifying diagnosis, is motivated and able to tolerate 3 hrs of therapy today. We will need updated therapy notes and an insurance authorization. Patient seen and examined in collaboration by Dr. Moura, note prepped by Juli Wang PA-C Thank you for consulting our services.
[2024-11-15 11:12] LABS: Glucose,Whole Blood 134 mg/dL (70-110)
--- NOTE | 2024-11-15 11:12 | P.PN ---
Subjective Progress Note Date: 11/15/24 On 11/15/2024, the patient is being seen for a follow-up. The patient is following up on three-vessel bypass surgery and the patient is recovering well from his surgery. Cardiac rhythm is sinus. The patient encountered brief atrial fibrillation after surgery and since then the patient has remained in si nus rhythm. He had an acute kidney injury and renal function improved. He has hypertension hyperlipidemia carotid artery stenosis 70%, and he also has history of prostate cancer, and obesity. He is a lifetime non-smoker with an FEV1 of 83% of predicted. Hemoglobin today is at 8.9. BUN 37 with a creatinine of 1.33 and renal function continues to improve. Sodium levels at 143 with a potassium level of 4.2. White cell count 7.6 with a hemoglobin of 8.9. For now, the patient remains on aspirin 325 mg p.o. daily, Plavix 25 mg p.o. daily, amiodarone 4 mg p.o. once a day, he is also on metoprolol 25 mg p.o. twice a day. He is on sliding scale insulin coverage. He is on statins and the patient is currently on Lipitor 40 mg p.o. daily. No other significant events overnight. Chest tube removed. Chest x-ray from today shows small bilateral pleural effusion and postthoracotomy changes. He also has some cardiomegaly. No respiratory distress for now. Using incentive spirometer. Objective - Vital Signs Vital signs: Vital Signs Temp 98 F 11/15/24 08:08 Pulse 85 11/15/24 08:26 Resp 16 11/15/24 08:08 BP 157/64 11/15/24 08:08 Pulse Ox 98 11/15/24 08:08 FiO2 50 11/08/24 17:00 Intake & Output 11/14/24 11/15/24 11/15/24 18:59 06:59 18:59 Intake Total 138 0 0 Output Total 750 650 Balance -612 -650 0 Weight 120.8 kg Intake: IV 138 0 0 Lines 18 Sodium Chloride 0.9% 1, 120 0 0 000 ml @ 30 mls/hr IV . Q24H [facility] Rx#:[id number] Output: Urine 750 650 Other: Voiding Method Urinal Urinal # Voids 1 ABP, PAP, CO, CI - Last Documented Arterial Blood Pressure 92/45 Pulmonary Artery Pressure 17/6 Cardiac Output 6.3 Cardiac Index 2.7 - Exam CONSTITUTIONAL: Appears comfortable, cooperative, no acute distress. RESPIRATORY: Lungs sounds diminished to his bilateral bases, right greater than left, few scattered crackles to his left lower lobe. Respirations symmetrical, nonlabored. Currently on room air with oxygen saturation 96%. Able to achieve 1250 mL on his incentive spirometry. Strong cough. CARDIOVASCULAR: S1, S2 present. Regular rate and rhythm, normal sinus rhythm, with a first-degree heart block on telemetry, heart rate 80 bpm. Sternum stable. Palpable peripheral pulses bilaterally. Trace generalized edema present. No calf pain or tenderness noted. Heart hugger in place with patient demonstrating appropriate use. Antiembolism stockings, SCDs present. GASTROINTESTINAL: Abdomen soft, nontender, nondistended. Active bowel sounds present 4 quadrants. Tolerating diet. Passing flatus. Last bowel movement on November 12, 2024. GENITOURINARY: Continues to void. Urine output 650 mL in the last 8 hours. INTEGUMENTARY: Skin is warm and dry with no clubbing or cyanosis present. Midline sternal chest incision well approximated and covered with dry intact dressing. Left radial artery harvest site well approximated without redness or drainage. NEUROLOGIC: Cranial nerves II through XII intact. No focal deficits. MUSKULOSKELETAL: Able to move all extremities, strength equal bilaterally, generalized weakness. PSYCHIATRIC: Alert and oriented to person place and time, appropriate affect, intact judgment and insight. - Labs CBC & Chem 7: 11/15/24 05:41 11/15/24 05:41 Labs: Abnormal Lab Results - Last 24 Hours (Table) 11/14/24 11/14/24 11/15/24 Range/Units 06:40 20:07 05:41 RBC 2.84 L (4.30-5.90) m/uL Hgb 8.9 L (13.0-17.5) gm/dL Hct 27.6 L (39.0-53.0) % Chloride (98-107) mmol/L BUN (9-20) mg/dL Creatinine (0.66-1.25) mg/dL Glucose (74-99) mg/dL POC Glucose (mg/dL) 148 H (70-110) mg/dL Iron 20 L (65-175) UG/DL % Saturation 8.70 L (15.00-50.00) Transferrin 164.0 L (204.0-354.0) mg/dL 11/15/24 11/15/24 Range/Units 05:41 06:18 RBC (4.30-5.90) m/uL Hgb (13.0-17.5) gm/dL Hct (39.0-53.0) % Chloride 109 H (98-107) mmol/L BUN 37 H (9-20) mg/dL Creatinine 1.33 H (0.66-1.25) mg/dL Glucose 119 H (74-99) mg/dL POC Glucose (mg/dL) 111 H (70-110) mg/dL Iron (65-175) UG/DL % Saturation (15.00-50.00) Transferrin (204.0-354.0) mg/dL Assessment and Plan Plan: Postoperative day # 7, S/P off-pump three-vessel bypass surgery, for coronary artery disease. Cardiac rhythm is sinus. Hemodynamically stable. Postthoracotomy and bypass surgery and the patient was extubated on 11/08/2024. Chest x-ray continues to show some small bilateral pleural effusions. Acute kidney injury, related to postop ATN, improving creatinine is down to 1.3, more than 70%, asymptomatic Carotid artery stenosis Obesity with a BMI of 38.2 History of hypertension. History of osteoarthritis. History of prostate cancer. Lifelong non-smoker. Plan: Continue aspirin and Plavix Amiodarone 400 mg p.o. once a day Cardiac rhythm is sinus Continues using incentive spirometer Increase mobility metoprolol 25 mg p.o. twice a day No issues with chest pain renal function continues to improve and the creatinine is down to 1.33 No diuretics for now we will transfer this patient to stepdown Time with Patient: Greater than 30
[2024-11-15] MEDS ORDERED: amLODIPine 2.5 MG TAB PO SCH (12:00)
[2024-11-15] MEDS: amLODIPine 5 MG TAB PO SCH (12:14)
[2024-11-15] MEDS: LACTULOSE 20 GM/30 ML CUP PO ONE (14:10)
[2024-11-15 16:56] LABS: Glucose,Whole Blood 121 mg/dL (70-110)
--- NOTE | 2024-11-15 19:29 | P.PN ---
Progress Note - Text Progress Note Date: 11/15/24 This is a pleasant 79 year old male with medical history of hypertension, hyperlipidemia, chest pain, osteoarthritis, cholecystectomy, Coronary artery disease. Patient comes in the hospital for scheduled off pump coronary artery bypass grafting x [address] Brennan. He is evaluated today in the intensive care unit currently sitting up in the chair with family at the bedside. He is having minimal pain. He has been extubated since 1630 yesterday. He remains on nasal cannula at 2L currently. Chest xray today reveals small bilateral pleural effusions with pulmonary vascular congestion and associated atelectasis. He remains on the IV insulin gtt protocol with plans to transition to Subcutaneous insulin tomorrow. Patient did develop a proximal atrial fibrillation post bypass and was started on IV amiodarone. labs today reveal a white blood cell count of 8.2, hemoglobin 11.3, sodium of 134, BUN is 17 creatinine 0.83. Total bilirubin of 1.7. 11/10/2024 Patient evaluated today sitting up in the chair in the ICU. Postoperative day #2, 3 vessel CABG. Bilateral chest tubes remain place. Patient had decreased urine output and was started on IV dopamine. Creatinine today was increased up to 1.94, BUN 32. He has been taken off the insulin infusion and transitioned to humalog achs. Blood glucose is fairly well controlled and will continue to make adjustments pending trends. He has been transitioned to oral amiodarone. 11/11/2024 Patient is eval today in the intensive care unit sitting up in the chair he is postoperative day #3, three-vessel CABG. Chest tubes have been removed [place]- Cecilia catheter remains in place. He continues with indwelling Jaquez catheter. Urine output remains marginal. His creatinine is up to 2.51 today patient remains on dopamine infusion. Chest x-ray reveals pulmonary edema similar to prior. He has been continued on Humalog ACHS and sliding scale insulin blood sugars are in the 110s to 140s and controlled with current regimen we will continue to monitor closely. 11/12/2024 Patient evaluated today sitting up in the chair. Patient reports decreased appetite. He is postoperative day #4 three vessel CABG. Blood glucose remains well controlled at this time. He remains on IV dopamine. Magnesium 1.8, BUN 59, creatinine 1.91. November 15: ICU. Sitting up in a chair. Did walk in the hallway. Mildly short of breath. Has passed flatus with no bowel movement. Lactulose ordered. Oral intake good. Active Medications Acetaminophen (Acetaminophen Tab 500 Mg Tab) 1,000 mg PO Q6HR PRN PRN Reason: Fever And/ Or Mild Pain (1-3) Last Admin: 11/13/24 22:03 Dose: 1,000 mg Albuterol/Ipratropium (Ipratropium-Albuterol 3 Ml Neb) 3 ml INHALATION RT-Q2H PRN PRN Reason: Shortness Of Breath Or Wheezing Albuterol/Ipratropium (Ipratropium-Albuterol 3 Ml Neb) 3 ml INHALATION RT-QID [facility] Last Admin: 11/15/24 15:47 Dose: Not Given Amiodarone HCl (Amiodarone 200 Mg Tab) 400 mg PO DAILY [facility] Amlodipine Besylate (Amlodipine 5 Mg Tab) 5 mg PO DAILY@1200 [facility] Last Admin: 11/15/24 12:14 Dose: 5 mg Aspirin (Aspirin 325 Mg Tab) 325 mg PO DAILY [facility] Last Admin: 11/15/24 08:18 Dose: 325 mg Atorvastatin Calcium (Atorvastatin 40 Mg Tab) 40 mg PO DAILY [facility] Last Admin: 11/15/24 08:17 Dose: 40 mg Benzocaine/Menthol (Benzocaine/Menthol Lozeng 1 Each Lozenge) 1 each MUCOUS MEM Q2H PRN PRN Reason: Sore Throat Last Admin: 11/15/24 00:18 Dose: 1 each Bicalutamide (Bicalutamide 50 Mg Tab) 50 mg PO DAILY [facility] Last Admin: 11/15/24 08:18 Dose: 50 mg Bisacodyl (Bisacodyl 10 Mg Supp) 10 mg RECTAL DAILY PRN PRN Reason: Constipation Last Admin: 11/12/24 09:00 Dose: 10 mg Cholecalciferol (Cholecalciferol 125 Mcg (5000 Iu) Tablet) 125 mcg PO DAILY [facility] Last Admin: 11/15/24 08:18 Dose: 125 mcg Clopidogrel Bisulfate (Clopidogrel 75 Mg Tab) 75 mg PO DAILY [facility] Last Admin: 11/15/24 08:17 Dose: 75 mg Dextrose/Water (Dextrose 50% Syringe 50 Ml) 25 ml IVP PER PROTOCOL PRN; Protocol PRN Reason: Hypoglycemia Dextrose/Water (Dextrose 50% Syringe 50 Ml) 50 ml IVP PER PROTOCOL PRN; Protocol PRN Reason: Hypoglycemia Heparin Sodium (Porcine) (Heparin Sodium,Porcine 5,000 Unit/Ml 1 Ml Vial) 5,000 unit SQ Q8HR [facility] Last Admin: 11/15/24 17:14 Dose: 5,000 unit Amiodarone HCl 150 mg/ (Dextrose/Water) 103 mls @ 618 mls/hr IV .Q10M PRN; Protocol PRN Reason: A.FIB/FLUTTER Last Admin: 11/08/24 14:12 Dose: 618 mls/hr Ferric Sodium Gluconate 125 mg (/ Sodium Chloride) 110 mls @ 100 mls/hr IVPB D AILY [facility] Stop: 11/18/24 09:59 Last Admin: 11/15/24 10:09 Dose: 100 mls/hr Insulin Human Lispro (Insulin Lispro (Humalog) 100 Unit/Ml 10 Ml Vl) 0 unit SQ ACHS MINDI; Protocol Last Admin: 11/15/24 17:03 Dose: Not Given Lactobacillus Acidophilus (Lactobacillus Acidophilus/Pect 1 Each Capsule) 1 each PO DAILY [facility] Last Admin: 11/15/24 08:17 Dose: 1 each Metoclopramide HCl (Metoclopramide 5 Mg/Ml 2 Ml Vial) 10 mg IVP Q4H PRN PRN Reason: Nausea And Vomiting Metoprolol Tartrate (Metoprolol Tartrate 25 Mg Tab) 25 mg PO BID [facility] Last Admin: 11/15/24 08:17 Dose: 25 mg Miscellaneous Information (Potassium Replacement Protocol 1 Each Misc) 1 each MISCELLANE DAILY PRN; Protocol PRN Reason: Per Protocol Multivitamins (Multivitamins, Thera 1 Each Tab) 1 each PO DAILY [facility] Last Admin: 11/15/24 08:17 Dose: 1 each Ondansetron HCl (Ondansetron 4 Mg/2 Ml Vial) 4 mg IVP Q6HR PRN PRN Reason: Nausea And Vomiting Pantoprazole Sodium (Pantoprazole 40 Mg Tablet) 40 mg PO AC-BRKFST [facility] Last Admin: 11/15/24 06:23 Dose: 40 mg Senna/Docusate Sodium (Sennosides-Docusate Sodium 1 Each Tab) 2 each PO HS [facility] Last Admin: 11/14/24 20:49 Dose: 2 each Sodium Chloride (Sodium Chloride 0.9% Flush 10 Ml Syringe) 10 ml IV BID MINDI Last Admin: 11/15/24 08:21 Dose: 10 ml On examination: VITAL SIGNS: [98.3, 77, 18, 155/70, 95% room air] GENERAL APPEARANCE: Sitting up in a chair, HEENT: Normal external appearance of nose and ear. Oral cavity normal EYES: Pupils equal. Conjunctiva normal. NECK: JVD not raised. Mass not palpable. RESPIRATORY: Respiratory effort increased l. Creased breath sounds on auscultation CARDIOVASCULAR: First and second sounds normal. No edema. ABDOMEN: Soft. Liver and spleen not palpable. No tenderness. No mass palpable. PSYCHIATRY: Alert and oriented x3. Mood and affect normal. INVESTIGATIONS, reviewed in the clinical context: November 15: White count 7.6 hemoglobin 8.9 platelets 200 sodium 143 potassium 4.2 BUN 37 creatinine 1.33 Assessment and plan Coronary artery disease s/p coronary artery bypass grafting three-vessel paroxysmal atrial fibrillation: Currently sinus rhythm Acute kidney injury, prerenal. Creatinine peaked at 2.5. Now down to 1.33. Baseline 0.8 to Dyslipidemia Left ICA stenosis of 70% Prostate cancer maintained on Casodex Hypertension Acute postop blood loss anemia expected from surgery Full Code Continues to improve. Ambulating. Received IV ferric sodium gluconate. Using incentive spirometry. Discussed.
[2024-11-15 20:11] LABS: Glucose,Whole Blood 115 mg/dL (70-110)
--- NOTE | 2024-11-15 20:20 | PN ---
PROGRESS NOTE SUBJECTIVE: Negrito is an 79-year-old gentleman with history of coronary artery disease, status post bypass surgery with PIERSON to LAD and radial artery graft sequentially to OM1 and OM2. He is making slow, but steady recovery. He remains in sinus rhythm. OBJECTIVE: VITAL SIGNS: Heart rate is 85 beats per minute. Blood pressure is 150/64, respiratory rate is 18. CHEST: Reveals diminished air entry at the bases. HEART: Reveals first and second heart sounds. No gallop. No murmur. ABDOMEN: Soft. EXTREMITIES: Reveals mild edema. Peripheral pulses are felt. MEDICATIONS: The patient is currently on, 1. Amiodarone 400 b.i.d. 2. Amlodipine 2.5 mg daily. 3. Aspirin. 4. Lipitor. 5. Plavix. 6. Lopressor. LABORATORY DATA: Labs today show a hemoglobin of 8.9, platelet count is 200, potassium is 4.2, BUN is 37, creatinine is 1.3. AST and ALT are within normal limits. ASSESSMENT: 1. Multivessel coronary artery disease, status post bypass surgery. 2. Paroxysmal episodes of atrial fibrillation. 3. Status post left atrial appendage occlusion. 4. Postop acute renal failure that is improving with creatinine down to 1.3. PLAN: I will increase the dose of amlodipine and continue rest of his medications and adjust the medications as needed. MMODL / IJN: [id number] /
[2024-11-16 05:59] LABS: Glucose,Whole Blood 124 mg/dL (70-110)
[2024-11-16 06:56] LABS: HCT 27.3 % (39.0-53.0); HGB 8.4 gm/dL (13.0-17.5); Hypochromasia Slight; MCH 30.3 pg (25.0-35.0); MCHC 30.8 g/dL (31.0-37.0); MCV 98.3 fL (80.0-100.0); Platelet Count 244 k/uL (150-450); RBC 2.78 m/uL (4.30-5.90); RDW 13.1 % (11.5-15.5)
[2024-11-16 07:12] LABS: ALT 20 U/L (4-49); AST 33 U/L (17-59); African American GFR (CKD) 55 (>60 ml/min/1.73 sqM); Albumin 3.9 g/dL (3.5-5.0); Alkaline Phosphatase 55 U/L (38-126); Anion Gap 11 mmol/L; Blood Urea Nitrogen 36 mg/dL (9-20); Calcium 9.2 mg/dL (8.4-10.2); Carbon Dioxide 24 mmol/L (22-30); Chloride 105 mmol/L (98-107); Glucose 111 mg/dL (74-99); Non-African American GFR(CKD) 47 (>60 ml/min/1.73 sqM); Potassium 4.2 mmol/L (3.5-5.1); Sodium 140 mmol/L (137-145); Total Bilirubin 1.7 mg/dL (0.2-1.3); Total Protein 6.6 g/dL (6.3-8.2)
--- NOTE | 2024-11-16 08:19 | XR ---
EXAMINATION TYPE: XR chest 2V DATE OF EXAM: 11/16/2024 6:22 AM COMPARISON: Chest radiograph from one day prior. CLINICAL INDICATION: Male, 79 years old with history of Postop CABG; [facility] TECHNIQUE: XR chest 2V Frontal and lateral views of the chest. FINDINGS: Lungs/Pleura: Prominent interstitial lung markings are seen scattered throughout the lungs with lam ening of the diaphragm and increased lucency of the lung apices. No evidence of focal consolidation, pneumothorax or pleural effusion. Pulmonary vascularity: Pulmonary vascular congestion. Heart/mediastinum: Cardiomediastinal silhouette is enlarged and stable. Left atrial appendage occlusi on device is present. Musculoskeletal: No acute osseous pathology. Other findings: None IMPRESSION: Cardiomegaly, pulmonary vascular congestion and bilateral pleural effusions. Correlate with BNP for c ongestive heart failure. [facility] Neha Treadwell, , 11/16/2024 8:17 AM
--- NOTE | 2024-11-16 08:54 | P.PN ---
Subjective Progress Note Date: 11/16/24 Principal diagnosis: 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, unstable angina. History of hypertension, left internal carotid artery stenosis, mild peripheral arterial disease, prostate cancer with hormone therapy treatment, osteoarthritis, obesity, extremely hard of hearing, and lifelong non-smoker POD #8 off-pump coronary artery bypass grafting x 3 with PIERSON to LAD, sequential radial artery graft to first and second obtuse marginal coronary arteries as T graft off PIERSON, left radial artery endovascular harvest, occlusion of the left atrial appendage with 35mm AtriCure clip. Postoperative acute blood loss anemia and thrombocytopenia, expected given h emodilution. Brief paroxysmal atrial fibrillation after surgery, somewhat expected as it is a known common occurrence after open heart surgery. The patient was seen in follow-up today November 16, 2024 at his bedside on the third floor cardiac stepdown unit. He is currently sitting up to the bedside chair, is awake, alert, oriented x 3 and in no acute apparent distress. He denies any complaints of pain or shortness of breath at this time, and reports he feels like he is improving with his strength. The patient seems to be in better spirits this morning. Oxygen saturation is 97% on room air and he is achieving 1250 mL on his incentive spirometry consistently. Remote telemetry is showing normal sinus rhythm heart rate 83 bpm. Urine output 675 mL in the last 8 hours. Discharge planning is in place, he is currently being evaluated for placement to inpatient rehab at [facility]. Chest x-ray and laboratory results were reviewed. Objective - Vital Signs Vital signs: Vital Signs Temp 98.4 F 11/16/24 07:29 Pulse 82 11/16/24 07:29 Resp 17 11/16/24 07:29 BP 143/70 11/16/24 07:29 Pulse Ox 94 L 11/16/24 07:29 FiO2 50 11/08/24 17:00 Intake & Output 11/15/24 11/16/24 11/16/24 18:59 06:59 18:59 Intake Total 128 10 Output Total 1200 675 Balance -1072 -665 Weight 118.5 kg Intake: IV 10 10 Invasive Line 5 10 10 Sodium Chloride 0.9% 1, 0 000 ml @ 30 mls/hr IV . Q24H [facility] Rx#:[id number] Oral 118 Output: Urine 1200 675 Other: Voiding Method Urinal Urinal # Bowel Movements 0 1 ABP, PAP, CO, CI - Last Documented Arterial Blood Pressure 92/45 Pulmonary Artery Pressure 17/6 Cardiac Output 6.3 Cardiac Index 2.7 - Exam CONSTITUTIONAL: Appears comfortable, cooperative, no acute distress. RESPIRATORY: Lungs sounds diminished to his bilateral bases, right greater than left. Respirations symmetrical, nonlabored. Currently on room air with oxygen saturation 97%. Able to achieve 1250 mL on his incentive spirometry. Strong cough. CARDIOVASCULAR: S1, S2 present. Regular rate and rhythm, normal sinus rhythm, with a first-degree heart block on telemetry, heart rate 83 bpm. Sternum stable. Palpable peripheral pulses bilaterally. Trace generalized edema present. No calf pain or tenderness noted. Heart hugger in place with patient demonstrating appropriate use. Antiembolism stockings, SCDs present. GASTROINTESTINAL: Abdomen soft, nontender, nondistended. Active bowel sounds present 4 quadrants. Tolerating diet. Passing flatus. Bowel movement yesterday November 15, 2024. GENITOURINARY: Continues to void. Urine output 675 mL in the last 8 hours. INTEGUMENTARY: Skin is warm and dry with no clubbing or cyanosis present. Midline sternal chest incision well approximated and covered with dry intact dressing. Left radial artery harvest site well approximated without redness or drainage. NEUROLOGIC: Cranial nerves II through XII intact. No focal deficits. MUSKULOSKELETAL: Able to move all extremities, strength equal bilaterally, generalized weakness. PSYCHIATRIC: Alert and oriented to person place and time, appropriate affect, intact judgment and insight. - Allied health notes Allied health notes reviewed: nursing - Labs CBC & Chem 7: 11/16/24 05:51 11/16/24 05:51 Labs: Abnormal Lab Results - Last 24 Hours (Table) 11/15/24 11/15/24 11/15/24 Range/Units 11:10 16:54 20:10 RBC (4.30-5.90) m/uL Hgb (13.0-17.5) gm/dL Hct (39.0-53.0) % MCHC (31.0-37.0) g/dL BUN (9-20) mg/dL Creatinine (0.66-1.25) mg/dL Glucose (74-99) mg/dL POC Glucose (mg/dL) 134 H 121 H 115 H (70-110) mg/dL Total Bilirubin (0.2-1.3) mg/dL 11/16/24 11/16/24 11/16/24 Range/Units 05:51 05:51 05:58 RBC 2.78 L (4.30-5.90) m/uL Hgb 8.4 L (13.0-17.5) gm/dL Hct 27.3 L (39.0-53.0) % MCHC 30.8 L (31.0-37.0) g/dL BUN 36 H (9-20) mg/dL Creatinine 1.39 H (0.66-1.25) mg/dL Glucose 111 H (74-99) mg/dL POC Glucose (mg/dL) 124 H (70-110) mg/dL Total Bilirubin 1.7 H (0.2-1.3) mg/dL - Imaging and Cardiology Chest x-ray: report reviewed, image reviewed Assessment and Plan Assessment: 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, unstable angina, status post three-vessel off-pump CABG Postoperative acute blood loss anemia and thrombocytopenia, expected given hemodilution Brief paroxysmal atrial fibrillation after surgery, somewhat expected as it is a known common occurrence after open heart surgery, status post ligation of the left atrial appendage Acute kidney injury, schemic ATN, initially oliguric currently nonoliguric with improving renal function Medical debility History of hypertension Dyslipidemia Left internal carotid artery stenosis, > 70% per Doppler Mild peripheral arterial disease, left JERRI 0.87, right JERRI 0.93 Prostate cancer with hormone therapy treatment Osteoarthritis Obesity with a BMI of 38.0 kg/m Extremely hard of hearing Lifelong non-smoker, preoperative FEV1 83% of predicted Plan: Continue to maximize medical therapy with aspirin, statin, Plavix, and low-dose beta-phillip. Will increase metoprolol tartrate as tolerated. Continue amiodarone for atrial fibrillation prophylaxis. Amiodarone decreased to 400 mg p.o. daily. No anticoagulation at this point. Currently normal sinus rhythm on the monitor. Encourage incentive spirometry use 10 times every hour while awake. Bronchodilators per pulmonology. Will monitor daily labs and chest x-rays. Electrolyte replacement per protocol. Increase activity, ambulate as tolerated. PT/OT/cardiac rehab following. GI/DVT prophylaxis. Pain control per current medication regimen. Insulin management per internal medicine. Patient is not diabetic, preoperative hemoglobin A1c 5.6%. Continue to monitor record strict accurate intake and output. May bladder scan every 6 hours and as needed postvoid residuals. If greater than 300 mL of urine may straight cath. Inpatient rehab consult noted and appreciated. The patient will need inpatient rehab due to his medical debility. No diuretics today. Shower daily. Discharge planning is in place, awaiting insurance approval for inpatient rehab. More recommendations to follow on patient's clinical course. Time with Patient: Greater than 30
[2024-11-16] MEDS: AMIODARONE 200 MG TAB PO SCH (09:24)
[2024-11-16 09:36] LABS: Glucose,Whole Blood 123 mg/dL (70-110)
[2024-11-16 11:41] LABS: Glucose,Whole Blood 119 mg/dL (70-110)
--- NOTE | 2024-11-16 11:50 | P.PN ---
Subjective Patient is seen in follow-up for acute kidney injury. Renal function stable. Transferred out of the ICU. Sitting up in chair. On room air. Denies chest pain or shortness of breath. Has been voiding. Vital signs are stable. General: No acute distress. HEENT: Head exam is unremarkable. LUNGS: No audible rhonchi or wheezes. HEART: Rate and Rhythm are regular. Make ABDOMEN: Obese, nontender. EXTREMITITES: 2+ edema. Objective - Vital Signs Vital signs: Vital Signs Temp 98.4 F 11/16/24 07:29 Pulse 88 11/16/24 09:11 Resp 17 11/16/24 07:29 BP 143/70 11/16/24 07:29 Pulse Ox 94 L 11/16/24 07:29 FiO2 50 11/08/24 17:00 Intake & Output 11/15/24 11/16/24 11/16/24 18:59 06:59 18:59 Intake Total 128 10 190 Output Total 1200 675 600 Balance -5896 -665 -410 Weight 118.5 kg Intake: IV 10 10 10 Invasive Line 5 10 10 10 Sodium Chloride 0.9% 1, 0 000 ml @ 30 mls/hr IV . Q24H [facility] Rx#:[id number] Oral 118 180 Output: Urine 1200 675 600 Other: Voiding Method Urinal Urinal Urinal # Bowel Movements 0 1 1 ABP, PAP, CO, CI - Last Documented Arterial Blood Pressure 92/45 Pulmonary Artery Pressure 17/6 Cardiac Output 6.3 Cardiac Index 2.7 - Labs CBC & Chem 7: 11/16/24 05:51 11/16/24 05:51 Labs: Abnormal Lab Results - Last 24 Hours (Table) 11/14/24 11/15/24 11/15/24 Range/Units 16:20 16:54 20:10 RBC (4.30-5.90) m/uL Hgb (13.0-17.5) gm/dL Hct (39.0-53.0) % MCHC (31.0-37.0) g/dL BUN (9-20) mg/dL Creatinine (0.66-1.25) mg/dL Glucose (74-99) mg/dL POC Glucose (mg/dL) 123 H 121 H 115 H (70-110) mg/dL Total Bilirubin (0.2-1.3) mg/dL 11/16/24 11/16/24 11/16/24 Range/Units 05:51 05:51 05:58 RBC 2.78 L (4.30-5.90) m/uL Hgb 8.4 L (13.0-17.5) gm/dL Hct 27.3 L (39.0-53.0) % MCHC 30.8 L (31.0-37.0) g/dL BUN 36 H (9-20) mg/dL Creatinine 1.39 H (0.66-1.25) mg/dL Glucose 111 H (74-99) mg/dL POC Glucose (mg/dL) 124 H (70-110) mg/dL Total Bilirubin 1.7 H (0.2-1.3) mg/dL 11/16/24 Range/Units 11:40 RBC (4.30-5.90) m/uL Hgb (13.0-17.5) gm/dL Hct (39.0-53.0) % MCHC (31.0-37.0) g/dL BUN (9-20) mg/dL Creatinine (0.66-1.25) mg/dL Glucose (74-99) mg/dL POC Glucose (mg/dL) 119 H (70-110) mg/dL Total Bilirubin (0.2-1.3) mg/dL Assessment and Plan Plan: Assessment: 1. Acute kidney injury secondary to ATN. Baseline creatinine 0.8. Creatinine peaked at 2.5 this admission and is 1.39 today. No hydronephrosis noted on kidney ultrasound. 2. Coronary artery disease status post coronary disease status post CABG November 08, 2024. 3. Volume overload. 4. Anemia, postoperative blood loss. Iron deficiency noted. 5. Benign hypertension. Stable. Plan: Add oral Lasix 20 mg once daily. Maintain IV iron. Avoid nephrotoxins. Continue to monitor renal function and urine output.
[2024-11-16] MEDS: FUROSEMIDE 20 MG TAB PO SCH (12:31)
[2024-11-16] MEDS: FUROSEMIDE 10 MG/ML 2 ML VIAL IV ONE (13:47)
[2024-11-16] MEDS: metOLazone 5 MG TAB PO SCH (13:56)
--- NOTE | 2024-11-16 14:00 | P.PN ---
Subjective Progress Note Date: 11/16/24 This is an 79-year-old male with history of coronary artery disease status post bypass surgery with PIERSON to LAD and radial artery graft sequentially to OM1 and OM 2. Patient has been transferred out of the intensive care unit and is seen today on the cardiac stepdown unit. Patient is doing well. Vital signs have been stable. He remains in a sinus rhythm. He is waiting for insurance authorization for IPR. Blood pressure 143/70, heart rate 88, pulse ox 94% on room air. Yesterday amlodipine was increased for blood pressure control. Physical examination: Gen: This rosette 79-year-old male in no acute distress VS: reviewed LUNGS: Diminished air entry at the bases. No intercostal retractions. HEART: Reveals first and second heart sounds. No gallop. No murmur. ABDOMEN: Soft No tenderness. EXTREMITIES: Mild pedal edema. Peripheral pulses are felt. NEUROLOGICAL: Patient is awake, alert and oriented x3. Assessment: Multivessel coronary artery disease status post micrographic surgery Paroxysmal episodes of atrial fibrillation Status post left atrial appendage occlusion Postop acute renal failure improving Plan: Continue current cardiac medications Continue current plan per cardiothoracic surgery Await insurance authorization for inpatient rehab Nurse practitioner note has been reviewed, I agree with documented findings and plan of care. Patient was seen and examined. Objective - Vital Signs Vital signs: Vital Signs Temp 98.4 F 11/16/24 07:29 Pulse 88 11/16/24 09:11 Resp 17 11/16/24 07:29 BP 143/70 11/16/24 07:29 Pulse Ox 94 L 11/16/24 07:29 FiO2 50 11/08/24 17:00 Intake & Output 11/15/24 11/16/24 11/16/24 18:59 06:59 18:59 Intake Total 128 10 180 Output Total 1200 675 Balance -1072 -665 180 Weight 118.5 kg Intake: IV 10 10 Invasive Line 5 10 10 Sodium Chloride 0.9% 1, 0 000 ml @ 30 mls/hr IV . Q24H [facility] Rx#:[id number] Oral 118 180 Output: Urine 1200 675 Other: Voiding Method Urinal Urinal # Bowel Movements 0 1 ABP, PAP, CO, CI - Last Documented Arterial Blood Pressure 92/45 Pulmonary Artery Pressure 17/6 Cardiac Output 6.3 Cardiac Index 2.7 - Labs CBC & Chem 7: 11/16/24 05:51 11/16/24 05:51 Labs: Abnormal Lab Results - Last 24 Hours (Table) 11/14/24 11/15/24 11/15/24 Range/Units 16:20 11:10 16:54 RBC (4.30-5.90) m/uL Hgb (13.0-17.5) gm/dL Hct (39.0-53.0) % MCHC (31.0-37.0) g/dL BUN (9-20) mg/dL Creatinine (0.66-1.25) mg/dL Glucose (74-99) mg/dL POC Glucose (mg/dL) 123 H 134 H 121 H (70-110) mg/dL Total Bilirubin (0.2-1.3) mg/dL 11/15/24 11/16/24 11/16/24 Range/Units 20:10 05:51 05:51 RBC 2.78 L (4.30-5.90) m/uL Hgb 8.4 L (13.0-17.5) gm/dL Hct 27.3 L (39.0-53.0) % MCHC 30.8 L (31.0-37.0) g/dL BUN 36 H (9-20) mg/dL Creatinine 1.39 H (0.66-1.25) mg/dL Glucose 111 H (74-99) mg/dL POC Glucose (mg/dL) 115 H (70-110) mg/dL Total Bilirubin 1.7 H (0.2-1.3) mg/dL 11/16/24 Range/Units 05:58 RBC (4.30-5.90) m/uL Hgb (13.0-17.5) gm/dL Hct (39.0-53.0) % MCHC (31.0-37.0) g/dL BUN (9-20) mg/dL Creatinine (0.66-1.25) mg/dL Glucose (74-99) mg/dL POC Glucose (mg/dL) 124 H (70-110) mg/dL Total Bilirubin (0.2-1.3) mg/dL
--- NOTE | 2024-11-16 16:20 | P.PN ---
Subjective Progress Note Date: 11/16/24 Principal diagnosis: cardiac debility Mr Pederson is an 79 y/o , right handed male who lives with his in a SS home, 2-3 UZIEL. He is independent with mobility and ADLs. Patient presented to the hospital on 11/08/24 with multivessel CAD with left main disease. He underwent a 3 vessel CABG. He had post operative anemia which was expected. 11/10/2024 Patient was hypotensive, staying on low-dose dopamine drip also got IV albumin and fluids. Cardiac index 2.1, pulmonary arterial pressures within normal range, CVP around 10. 11/11/2024 kidney function is declining, nephrology following and started to have some improvements. PM&R consulted for rehab recommendations. 11/12-11/13 therapy evaluations: Max assist with bathing, UB dressing Min A, LB dressing Max A, grooming supervision, Bed mobility Max A, Gait 96 ft Mod A with 2 ppl for safety. 11/15/24 Today, resting in bed. Can be SOB with activity, has decreased endurance, is tired. Also has been constipated. Denies RADFORD, dizziness, CP, abdominal pain, other pain complaints. Looking forward to rehab, though concerned about possible insurance changes. 11/16/24: Patient states he is doing a little bit better today. He still gets "winded" really easily. He can have chest pain if he coughs. He was able to have 3 BMs. Denies issues with urination. Therapy Progress: Transfers Min Assist, Gait 176 ft min Assist, Toileting min assist, bathing and LB dressing Mod Assist Objective - Vital Signs Vital signs: Vital Signs Temp 98.5 F 11/16/24 12:00 Pulse 69 11/16/24 12:00 Resp 17 11/16/24 12:00 BP 145/74 11/16/24 12:00 Pulse Ox 96 11/16/24 12:00 FiO2 50 11/08/24 17:00 Intake & Output 11/15/24 11/16/24 11/16/24 18:59 06:59 18:59 Intake Total 128 10 350 Output Total 1200 675 600 Balance -1072 -665 -250 Weight 118.5 kg Intake: IV 10 10 20 Invasive Line 5 10 10 20 Sodium Chloride 0.9% 1, 0 000 ml @ 30 mls/hr IV . Q24H [facility] Rx#:[id number] Oral 118 330 Output: Urine 1200 675 600 Other: Voiding Method Urinal Urinal Urinal # Bowel Movements 0 1 1 ABP, PAP, CO, CI - Last Documented Arterial Blood Pressure 92/45 Pulmonary Artery Pressure 17/6 Cardiac Output 6.3 Cardiac Index 2.7 - Exam General: WDWN, obese elderly male, sitting, NAD Head: Normocephalic, atraumatic. Eyes: Symmetric Ears: [place] Mouth: Clear. Cardiac: + bilateral LE edema Lungs: Breathing comfortably on RA. Chest symmetric. Abdomen: Rounded, Soft Extremities: Arthritic changes consistent with age. Neurological: Alert, conversational Speech is clear and fluent without paraphasic errors Musculoskeletal: ROM WFL EXCEPT: shoulders not tested as of 11/15 MMT UE Sh Abd EE EF FABD WE HG Right nt 5 5 5 5 5 Left nt 5 5 5 5 5 MMT LE HF KE DF EHL Right 5 5 5 Left 5 5 5 Skin: Skin intact where visible to head, neck, and bilateral upper and lower extremities EXCEPT: chest incision c/d/i; left arm incision c/d/i. multiple areas of scabbing and ecchymosis to arms, and chest/abdomen Psych: Calm, cooperative - Labs CBC & Chem 7: 11/16/24 05:51 11/16/24 05:51 Labs: Abnormal Lab Results - Last 24 Hours (Table) 11/14/24 11/15/24 11/15/24 Range/Units 16:20 16:54 20:10 RBC (4.30-5.90) m/uL Hgb (13.0-17.5) gm/dL Hct (39.0-53.0) % MCHC (31.0-37.0) g/dL BUN (9-20) mg/dL Creatinine (0.66-1.25) mg/dL Glucose (74-99) mg/dL POC Glucose (mg/dL) 123 H 121 H 115 H (70-110) mg/dL Total Bilirubin (0.2-1.3) mg/dL 11/16/24 11/16/24 11/16/24 Range/Units 05:51 05:51 05:58 RBC 2.78 L (4.30-5.90) m/uL Hgb 8.4 L (13.0-17.5) gm/dL Hct 27.3 L (39.0-53.0) % MCHC 30.8 L (31.0-37.0) g/dL BUN 36 H (9-20) mg/dL Creatinine 1.39 H (0.66-1.25) mg/dL Glucose 111 H (74-99) mg/dL POC Glucose (mg/dL) 124 H (70-110) mg/dL Total Bilirubin 1.7 H (0.2-1.3) mg/dL 11/16/24 Range/Units 11:40 RBC (4.30-5.90) m/uL Hgb (13.0-17.5) gm/dL Hct (39.0-53.0) % MCHC (31.0-37.0) g/dL BUN (9-20) mg/dL Creatinine (0.66-1.25) mg/dL Glucose (74-99) mg/dL POC Glucose (mg/dL) 119 H (70-110) mg/dL Total Bilirubin (0.2-1.3) mg/dL Assessment and Plan Assessment: # Cardiac debility secondary to 3 vessel CABG secondary to multivessel CAD with left main disease -cardiac precautions -Therapies #Post op anemia #P Afib #JENNA # Bowel/ Bladder: Nursing to monitor and report concerns if any. -Regimen per NOV -11/16 patient reports BM x3, no longer feels constipated # Skin/wound: Skin/Wound care to follow as needed # Pain Management -Tylenol 1000 mg Q 6 hrs prn # DVT Prophylaxis:ASA 325 mg, Heparin SQ # Comorbidities: HTN, HLD, L ICA stenosis, PAD, prostate cancer, OA, Obesity BMI 38.0, Tobacco # Your medical dx and mgt Goals: Modified Independent mobility and ADLS both basic and advanced; increased functional mobility/strength; increased balance, safety, endurance. Improvement in medical issues through your care. Barriers: endurance, cardiac precautions Discharge recommendation: Recommending IPR for continued rehab, patient has qualifying diagnosis, is motivated and able to tolerate 3 hrs of therapy today. He is pending insurance approval, anticipate d/c 11/17 to IPR Patient seen and examined in collaboration by Dr. Lora
[2024-11-16 16:59] LABS: Glucose,Whole Blood 103 mg/dL (70-110)
--- NOTE | 2024-11-16 17:13 | P.PN ---
Progress Note - Text Progress Note Date: 11/16/24 This is a pleasant 79 year old male with medical history of hypertension, hyperlipidemia, chest pain, osteoarthritis, cholecystectomy, Coronary artery disease. Patient comes in the hospital for scheduled off pump coronary artery bypass grafting x [address] Brennan. He is evaluated today in the intensive care unit currently sitting up in the chair with family at the bedside. He is having minimal pain. He has been extubated since 1630 yesterday. He remains on nasal cannula at 2L currently. Chest xray today reveals small bilateral pleural effusions with pulmonary vascular congestion and associated atelectasis. He remains on the IV insulin gtt protocol with plans to transition to Subcutaneous insulin tomorrow. Patient did develop a proximal atrial fibrillation post bypass and was started on IV amiodarone. labs today reveal a white blood cell count of 8.2, hemoglobin 11.3, sodium of 134, BUN is 17 creatinine 0.83. Total bilirubin of 1.7. 11/10/2024 Patient evaluated today sitting up in the chair in the ICU. Postoperative day #2, 3 vessel CABG. Bilateral chest tubes remain place. Patient had decreased urine output and was started on IV dopamine. Creatinine today was increased up to 1.94, BUN 32. He has been taken off the insulin infusion and transitioned to humalog achs. Blood glucose is fairly well controlled and will continue to make adjustments pending trends. He has been transitioned to oral amiodarone. 11/11/2024 Patient is eval today in the intensive care unit sitting up in the chair he is postoperative day #3, three-vessel CABG. Chest tubes have been removed [place]- Cecilia catheter remains in place. He continues with indwelling Jaquez catheter. Urine output remains marginal. His creatinine is up to 2.51 today patient remains on dopamine infusion. Chest x-ray reveals pulmonary edema similar to prior. He has been continued on Humalog ACHS and sliding scale insulin blood sugars are in the 110s to 140s and controlled with current regimen we will continue to monitor closely. 11/12/2024 Patient evaluated today sitting up in the chair. Patient reports decreased appetite. He is postoperative day #4 three vessel CABG. Blood glucose remains well controlled at this time. He remains on IV dopamine. Magnesium 1.8, BUN 59, creatinine 1.91. November 15: ICU. Sitting up in a chair. Did walk in the hallway. Mildly short of breath. Has passed flatus with no bowel movement. Lactulose ordered. Oral intake good. November 16: Did walk today. Breathing much better. Did have a good bowel movement. Eating well. Patient is pending going to [facility] for rehab. Active Medications Acetaminophen (Acetaminophen Tab 500 Mg Tab) 1,000 mg PO Q6HR PRN PRN Reason: Fever And/ Or Mild Pain (1-3) Last Admin: 11/13/24 22:03 Dose: 1,000 mg Albuterol/Ipratropium (Ipratropium-Albuterol 3 Ml Neb) 3 ml INHALATION RT-Q2H PRN PRN Reason: Shortness Of Breath Or Wheezing Albuterol/Ipratropium (Ipratropium-Albuterol 3 Ml Neb) 3 ml INHALATION RT-QID [facility] Last Admin: 11/16/24 16:03 Dose: Not Given Amiodarone HCl (Amiodarone 200 Mg Tab) 400 mg PO DAILY [facility] Last Admin: 11/16/24 09:24 Dose: 400 mg Amlodipine Besylate (Amlodipine 5 Mg Tab) 5 mg PO DAILY@1200 [facility] Last Admin: 11/16/24 12:31 Dose: 5 mg Aspirin (Aspirin 325 Mg Tab) 325 mg PO DAILY [facility] Last Admin: 11/16/24 09:24 Dose: 325 mg Atorvastatin Calcium (Atorvastatin 40 Mg Tab) 40 mg PO DAILY [facility] Last Admin: 11/16/24 09:24 Dose: 40 mg Benzocaine/Menthol (Benzocaine/Menthol Lozeng 1 Each Lozenge) 1 each MUCOUS MEM Q2H PRN PRN Reason: Sore Throat Last Admin: 11/15/24 00:18 Dose: 1 each Bicalutamide (Bicalutamide 50 Mg Tab) 50 mg PO DAILY [facility] Last Admin: 11/16/24 12:31 Dose: 50 mg Bisacodyl (Bisacodyl 10 Mg Supp) 10 mg RECTAL DAILY PRN PRN Reason: Constipation Last Admin: 11/12/24 09:00 Dose: 10 mg Cholecalciferol (Cholecalciferol 125 Mcg (5000 Iu) Tablet) 125 mcg PO DAILY [facility] Last Admin: 11/16/24 09:24 Dose: 125 mcg Clopidogrel Bisulfate (Clopidogrel 75 Mg Tab) 75 mg PO DAILY [facility] Last Admin: 11/16/24 09:24 Dose: 75 mg Dextrose/Water (Dextrose 50% Syringe 50 Ml) 25 ml IVP PER PROTOCOL PRN; Protocol PRN Reason: Hypoglycemia Dextrose/Water (Dextrose 50% Syringe 50 Ml) 50 ml IVP PER PROTOCOL PRN; Protocol PRN Reason: Hypoglycemia Heparin Sodium (Porcine) (Heparin Sodium,Porcine 5,000 Unit/Ml 1 Ml Vial) 5,000 unit SQ Q8HR [facility] Last Admin: 11/16/24 09:24 Dose: 5,000 unit Amiodarone HCl 150 mg/ (Dextrose/Water) 103 mls @ 618 mls/hr IV .Q10M PRN; Protocol PRN Reason: A.FIB/FLUTTER Last Admin: 11/08/24 14:12 Dose: 618 mls/hr Ferric Sodium Gluconate 125 mg (/ Sodium Chloride) 110 mls @ 100 mls/hr IVPB DAILY [facility] Stop: 11/18/24 09:59 Last Admin: 11/16/24 09:50 Dose: 100 mls/hr Insulin Human Lispro (Insulin Lispro (Humalog) 100 Unit/Ml 10 Ml Vl) 0 unit SQ ACHS [facility]; Protocol Last Admin: 11/16/24 11:45 Dose: Not Given Lactobacillus Acidophilus (Lactobacillus Acidophilus/Pect 1 Each Capsule) 1 each PO DAILY [facility] Last Admin: 11/16/24 09:24 Dose: 1 each Metoclopramide HCl (Metoclopramide 5 Mg/Ml 2 Ml Vial) 10 mg IVP Q4H PRN PRN Reason: Nausea And Vomiting Metolazone (Metolazone 5 Mg Tab) 5 mg PO DAILY [facility] Last Admin: 11/16/24 13:56 Dose: 5 mg Metoprolol Tartrate (Metoprolol Tartrate 25 Mg Tab) 25 mg PO BID [facility] Last Admin: 11/16/24 09:24 Dose: 25 mg Miscellaneous Information (Potassium Replacement Protocol 1 Each Misc) 1 each MISCELLANE DAILY PRN; Protocol PRN Reason: Per Protocol Multivitamins (Multivitamins, Thera 1 Each Tab) 1 each PO DAILY [facility] Last Admin: 11/16/24 09:24 Dose: 1 each Ondansetron HCl (Ondansetron 4 Mg/2 Ml Vial) 4 mg IVP Q6HR PRN PRN Reason: Nausea And Vomiting Pantoprazole Sodium (Pantoprazole 40 Mg Tablet) 40 mg PO AC-BRKFST [facility] Last Admin: 11/16/24 06:26 Dose: 40 mg Senna/Docusate Sodium (Sennosides-Docusate Sodium 1 Each Tab) 2 each PO HS [facility] Last Admin: 11/15/24 21:25 Dose: 2 each Sodium Chloride (Sodium Chloride 0.9% Flush 10 Ml Syringe) 10 ml IV BID [facility] Last Admin: 11/16/24 09:52 Dose: 10 ml On examination: VITAL SIGNS: 98.5, 69, 17, 145 x 74, 96% room air GENERAL APPEARANCE: Sitting up in a chair, HEENT: Normal external appearance of nose and ear. Oral cavity normal EYES: Pupils equal. Conjunctiva normal. NECK: JVD not raised. Mass not palpable. RESPIRATORY: Respiratory effort increased l. Decreased breath sounds CARDIOVASCULAR: First and second sounds normal. No edema. ABDOMEN: Soft. Liver and spleen not palpable. No tenderness. No mass palpable. PSYCHIATRY: Alert and oriented x3. Mood and affect normal. INVESTIGATIONS, reviewed in the clinical context: November 16: White count 8 hemoglobin 8.4 platelets 244 potassium 4.2 creatinine 1.39 November 15: White count 7.6 hemoglobin 8.9 platelets 200 sodium 143 potassium 4.2 BUN 37 creatinine 1.33 Assessment and plan Coronary artery disease s/p coronary artery bypass grafting three-vessel paroxysmal atrial fibrillation: Currently sinus rhythm. Amiodarone. Lopressor Acute kidney injury, prerenal. Creatinine peaked at 2.5. Coming down. Baseline 0.8 to Dyslipidemia Left ICA stenosis of 70% Prostate cancer maintained on Casodex Essential hypertension. Lopressor. Amlodipine. Acute postop blood loss anemia expected from surgery-IV iron given Full Code Improving. Pending inpatient rehab at [facility]
--- NOTE | 2024-11-16 17:41 | P.PN ---
Subjective Progress Note Date: 11/16/24 On 11/15/2024, the patient is being seen for a follow-up. The patient is following up on three-vessel bypass surgery and the patient is recovering well from his surgery. Cardiac rhythm is sinus. The patient encountered brief atrial fibrillation after surgery and since then the patient has remained in si nus rhythm. He had an acute kidney injury and renal function improved. He has hypertension hyperlipidemia carotid artery stenosis 70%, and he also has history of prostate cancer, and obesity. He is a lifetime non-smoker with an FEV1 of 83% of predicted. Hemoglobin today is at 8.9. BUN 37 with a creatinine of 1.33 and renal function continues to improve. Sodium levels at 143 with a potassium level of 4.2. White cell count 7.6 with a hemoglobin of 8.9. For now, the patient remains on aspirin 325 mg p.o. daily, Plavix 25 mg p.o. daily, amiodarone 4 mg p.o. once a day, he is also on metoprolol 25 mg p.o. twice a day. He is on sliding scale insulin coverage. He is on statins and the patient is currently on Lipitor 40 mg p.o. daily. No other significant events overnight. Chest tube removed. Chest x-ray from today shows small bilateral pleural effusion and postthoracotomy changes. He also has some cardiomegaly. No respiratory distress for now. Using incentive spirometer. On 11/16/2024, patient is doing well. No specific complaints. Calm and comfortable. He is on room air oxygen. Chest x-ray shows small bilateral pleural effusion. Urine output is adequate. Using incentive spirometer. Cardiac rhythm remains sinus. The white cell count is at 8 hemoglobin is 8.4 and a platelet count of 244. BUN 36 with a creatinine of 1.36 and the patient is recovering from his acute kidney injury. Remains on aspirin. Remains on Plavix. Remains on metoprolol 25 mg p.o. twice a day. Remains on high-dose statins with Lipitor 40 mg p.o. daily. Remains on Norvasc for blood pressure control 5 mg p.o. daily. Remains on amiodarone for A-fib prophylaxis 40 mg p.o. on a daily basis. No other significant events overnight. Objective - Vital Signs Vital signs: Vital Signs Temp 98.4 F 11/16/24 07:29 Pulse 88 11/16/24 09:11 Resp 17 11/16/24 07:29 BP 143/70 11/16/24 07:29 Pulse Ox 94 L 11/16/24 07:29 FiO2 50 11/08/24 17:00 Intake & Output 11/15/24 11/16/24 11/16/24 18:59 06:59 18:59 Intake Total 128 10 190 Output Total 1200 675 600 Balance -0134 -665 -461 Weight 118.5 kg Intake: IV 10 10 10 Invasive Line 5 10 10 10 Sodium Chloride 0.9% 1, 0 000 ml @ 30 mls/hr IV . Q24H MINDI Rx#:[id number] Oral 118 180 Output: Urine 1200 675 600 Other: Voiding Method Urinal Urinal Urinal # Bowel Movements 0 1 1 ABP, PAP, CO, CI - Last Documented Arterial Blood Pressure 92/45 Pulmonary Artery Pressure 17/6 Cardiac Output 6.3 Cardiac Index 2.7 - Exam CONSTITUTIONAL: Appears comfortable, cooperative, no acute distress. RESPIRATORY: Lungs sounds diminished to his bilateral bases, right greater than left. Respirations symmetrical, nonlabored. Currently on room air with oxygen saturation 97%. Able to achieve 1250 mL on his incentive spirometry. Strong cough. CARDIOVASCULAR: S1, S2 present. Regular rate and rhythm, normal sinus rhythm, with a first-degree heart block on telemetry, heart rate 83 bpm. Sternum stable. Palpable peripheral pulses bilaterally. Trace generalized edema present. No calf pain or tenderness noted. Heart hugger in place with patient demonstrating appropriate use. Antiembolism stockings, SCDs present. GASTROINTESTINAL: Abdomen soft, nontender, nondistended. Active bowel sounds present 4 quadrants. Tolerating diet. Passing flatus. Bowel movement yesterday November 15, 2024. GENITOURINARY: Continues to void. Urine output 675 mL in the last 8 hours. INTEGUMENTARY: Skin is warm and dry with no clubbing or cyanosis present. Midline sternal chest incision well approximated and covered with dry intact dressing. Left radial artery harvest site well approximated without redness or drainage. NEUROLOGIC: Cranial nerves II through XII intact. No focal deficits. MUSKULOSKELETAL: Able to move all extremities, strength equal bilaterally, generalized weakness. PSYCHIATRIC: Alert and oriented to person place and time, appropriate affect, intact judgment and insight. - Labs CBC & Chem 7: 11/16/24 05:51 11/16/24 05:51 Labs: Abnormal Lab Results - Last 24 Hours (Table) 11/14/24 11/15/24 11/15/24 Range/Units 16:20 16:54 20:10 RBC (4.30-5.90) m/uL Hgb (13.0-17.5) gm/dL Hct (39.0-53.0) % MCHC (31.0-37.0) g/dL BUN (9-20) mg/dL Creatinine (0.66-1.25) mg/dL Glucose (74-99) mg/dL POC Glucose (mg/dL) 123 H 121 H 115 H (70-110) mg/dL Total Bilirubin (0.2-1.3) mg/dL 11/16/24 11/16/24 11/16/24 Range/Units 05:51 05:51 05:58 RBC 2.78 L (4.30-5.90) m/uL Hgb 8.4 L (13.0-17.5) gm/dL Hct 27.3 L (39.0-53.0) % MCHC 30.8 L (31.0-37.0) g/dL BUN 36 H (9-20) mg/dL Creatinine 1.39 H (0.66-1.25) mg/dL Glucose 111 H (74-99) mg/dL POC Glucose (mg/dL) 124 H (70-110) mg/dL Total Bilirubin 1.7 H (0.2-1.3) mg/dL 11/16/24 Range/Units 11:40 RBC (4.30-5.90) m/uL Hgb (13.0-17.5) gm/dL Hct (39.0-53.0) % MCHC (31.0-37.0) g/dL BUN (9-20) mg/dL Creatinine (0.66-1.25) mg/dL Glucose (74-99) mg/dL POC Glucose (mg/dL) 119 H (70-110) mg/dL Total Bilirubin (0.2-1.3) mg/dL Assessment and Plan Plan: Postoperative day # 8, S/P off-pump three-vessel bypass surgery, for coronary artery disease. Cardiac rhythm is sinus. Hemodynamically stable. Postthoracotomy and bypass surgery and the patient was extubated on 11/08/2024. Chest x-ray continues to show some small bilateral pleural effusions. Acute kidney injury, related to postop ATN, improving creatinine is down to 1.3, more than 70%, asymptomatic Carotid artery stenosis, asymptomatic Obesity with a BMI of 38.2 History of hypertension. History of osteoarthritis. History of prostate cancer. Lifelong non-smoker. Plan: Continue aspirin and Plavix Continue metoprolol 25 mg p.o. twice a day Norvasc for blood pressure control Amiodarone 400 mg p.o. once a day Cardiac rhythm is sinus Continues using incentive spirometer Increase mobility No issues with chest pain renal function continues to improve Ambulating and will continue to follow
[2024-11-16 20:35] LABS: Glucose,Whole Blood 130 mg/dL (70-110)
[2024-11-17 06:17] LABS: Glucose,Whole Blood 121 mg/dL (70-110)
[2024-11-17 06:37] LABS: HCT 27.7 % (39.0-53.0); HGB 8.5 gm/dL (13.0-17.5); Hypochromasia Slight; MCHC 30.7 g/dL (31.0-37.0); MCV 97.7 fL (80.0-100.0); Mean Platelet Volume 8.1; Platelet Count 274 k/uL (150-450); RBC 2.84 m/uL (4.30-5.90); WBC 8.5 k/uL (3.8-10.6)
[2024-11-17 07:10] LABS: ALT 21 U/L (4-49); AST 32 U/L (17-59); African American GFR (CKD) 52 (>60 ml/min/1.73 sqM); Albumin 3.9 g/dL (3.5-5.0); Alkaline Phosphatase 64 U/L (38-126); Anion Gap 10 mmol/L; Blood Urea Nitrogen 34 mg/dL (9-20); Calcium 9.1 mg/dL (8.4-10.2); Carbon Dioxide 26 mmol/L (22-30); Chloride 102 mmol/L (98-107); Glucose 120 mg/dL (74-99); Non-African American GFR(CKD) 45 (>60 ml/min/1.73 sqM); Potassium 4.1 mmol/L (3.5-5.1); Sodium 138 mmol/L (137-145); Total Bilirubin 1.7 mg/dL (0.2-1.3); Total Protein 6.7 g/dL (6.3-8.2)
--- NOTE | 2024-11-17 07:53 | P.PN ---
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 History of hypertension, left internal carotid artery stenosis, mild peripheral arterial disease, prostate cancer with hormone therapy treatment, osteoarthritis, obesity, extremely hard of hearing, and lifelong non-smoker POD #9 off-pump coronary artery bypass grafting x 3 with PIERSON to LAD, sequential radial artery graft to first and second obtuse marginal coronary arteries as T graft off PIERSON, left radial artery endovascular harvest, occlusion of the left atrial appendage with 35mm AtriCure clip Postoperative acute blood loss anemia and thrombocytopenia, expected given he modilution Brief paroxysmal atrial fibrillation after surgery, somewhat expected as it is a known common occurrence after open heart surgery The patient was seen and examined this morning sitting up in recliner on the cardiac stepdown unit in no acute distress. Remains in sinus rhythm, hemodynami oswaldo stable. Remains on room air with oxygen saturation in the mid 90s, able to achieve 1500 mL on incentive spirometry. Patient has been ambulatory in the hallway with assistance although he does still require some breaks to catch his breath. States pain is controlled on current medication regimen. Anticipate discharge to inpatient rehab today if insurance authorization obtained. No other new concerns. Objective - Vital Signs Vital signs: Vital Signs Temp 98.0 F 11/17/24 04:47 Pulse 74 11/17/24 04:47 Resp 18 11/17/24 04:47 BP 141/78 11/17/24 04:47 Pulse Ox 95 11/17/24 04:47 FiO2 50 11/08/24 17:00 Intake & Output 11/16/24 11/17/24 11/17/24 18:59 06:59 18:59 Intake Total 550 10 Output Total 1100 1200 Balance -550 -1190 Weight 117.4 kg Intake: IV 20 10 Invasive Line 5 20 10 Oral 530 Output: Urine 1100 1200 Other: Voiding Method Urinal Urinal # Bowel Movements 1 ABP, PAP, CO, CI - Last Documented Arterial Blood Pressure 92/45 Pulmonary Artery Pressure 17/6 Cardiac Output 6.3 Cardiac Index 2.7 - Exam CONSTITUTIONAL: Appears comfortable, cooperative, no acute distress RESPIRATORY: Lungs sounds diminished bilaterally. Respirations even, nonlabored. Currently on room air with oxygen saturation 95%. Able to achieve 1500 mL on incentive spirometry. Strong cough. CARDIOVASCULAR: S1, S2 present. Regular rate and rhythm, sinus rhythm on telemetry. Sternum stable. Palpable peripheral pulses bilaterally. Bilateral lower extremity edema present. No calf pain or tenderness noted. Heart hugger in place with patient demonstrating appropriate use. Antiembolism stockings, SCDs present. GASTROINTESTINAL: Abdomen soft, nontender, nondistended. Active bowel sounds present 4 quadrants. Tolerating diet. Positive bowel movement 11/16/24 GENITOURINARY: Continues to void, output 2300 mL in the last 24 hours INTEGUMENTARY: Skin is warm and dry with evidence of good perfusion. Anterior chest incision well approximated. Left radial artery harvest site well approximated without redness or drainage. NEUROLOGIC: Cranial nerves II through XII intact MUSKULOSKELETAL: Able to move all extremities, strength equal bilaterally PSYCHIATRIC: Alert and oriented to person place and time, appropriate affect, intact judgment and insight - Allied health notes Allied health notes reviewed: nursing - Labs CBC & Chem 7: 11/17/24 05:39 11/17/24 05:39 Labs: Abnormal Lab Results - Last 24 Hours (Table) 11/14/24 11/16/24 11/16/24 Range/Units 16:20 11:40 20:34 RBC (4.30-5.90) m/uL Hgb (13.0-17.5) gm/dL Hct (39.0-53.0) % MCHC (31.0-37.0) g/dL BUN (9-20) mg/dL Creatinine (0.66-1.25) mg/dL Glucose (74-99) mg/dL POC Glucose (mg/dL) 123 H 119 H 130 H (70-110) mg/dL Total Bilirubin (0.2-1.3) mg/dL 11/17/24 11/17/24 11/17/24 Range/Units 05:39 05:39 06:16 RBC 2.84 L (4.30-5.90) m/uL Hgb 8.5 L (13.0-17.5) gm/dL Hct 27.7 L (39.0-53.0) % MCHC 30.7 L (31.0-37.0) g/dL BUN 34 H (9-20) mg/dL Creatinine 1.44 H (0.66-1.25) mg/dL Glucose 120 H (74-99) mg/dL POC Glucose (mg/dL) 121 H (70-110) mg/dL Total Bilirubin 1.7 H (0.2-1.3) mg/dL - Imaging and Cardiology Chest x-ray: image reviewed Assessment and Plan Assessment: 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87, right JERRI 0.93 Prostate cancer with hormone therapy treatment Osteoarthritis Obesity Extremely hard of hearing Lifelong non-smoker, preoperative FEV1 83% of predicted Plan: Continue to maximize medical therapy with aspirin, statin, Plavix, low-dose beta-phillip. Will increase beta-phillip therapy as tolerated Continue amiodarone for A-fib prophylaxis. No anticoagulation Encourage incentive spirometry use 10 times every hour while awake. Bronchodilators per pulmonology Will monitor daily labs and x-rays. Electrolyte replacement per protocol Increase activity, ambulate as tolerated. PT/OT/cardiac rehab following daily GI/DVT prophylaxis Pain control per current medication regimen Insulin management per internal medicine. Patient is not diabetic, preoperative hemoglobin A1c 5.6% Continue to monitor record strict accurate intake and output Appropriate home medications reordered Shower daily Discharge planning in progress. Anticipate discharge to inpatient rehab today once insurance authorization obtained More recommendations to follow as patient progresses
--- NOTE | 2024-11-17 08:03 | XR ---
EXAMINATION TYPE: XR chest 1V portable DATE OF EXAM: 11/17/2024 6:59 AM COMPARISON: Chest radiograph from one day prior. CLINICAL INDICATION: Male, 79 years old with history of Postop CABG; [facility] TECHNIQUE: XR chest 1V portable Frontal view of the chest. FINDINGS: Lungs/Pleura: Prominent interstitial lung markings are seen scattered throughout the lungs with lam ening of the diaphragm and increased lucency of the lung apices. No evidence of focal consolidation, pneumothorax or pleural effusion. Pulmonary vascularity: Pulmonary vascular congestion. Heart/mediastinum: Cardiomediastinal silhouette is enlarged and stable. Left atrial appendage occlusi on device is present. Musculoskeletal: No acute osseous pathology. Other findings: None IMPRESSION: Cardiomegaly, pulmonary vascular congestion and bilateral pleural effusions. Correlate with BNP for c ongestive heart failure. [facility] Neha Treadwell, , 11/17/2024 8:01 AM
[2024-11-17] MEDS: FUROSEMIDE 20 MG TAB PO SCH (08:47)
--- NOTE | 2024-11-17 10:24 | P.PN ---
Subjective Patient is seen in follow-up for acute kidney injury. Renal function stable. Sitting up in chair. On room air. Denies chest pain or shortness of breath. Has been voiding. Vital signs are stable. General: No acute distress. HEENT: Head exam is unremarkable. LUNGS: No audible rhonchi or wheezes. HEART: Rate and Rhythm are regular. ABDOMEN: Obese, nontender. EXTREMITITES: 2+ edema. Objective - Vital Signs Vital signs: Vital Signs Temp 98.2 F 11/17/24 08:36 Pulse 80 11/17/24 08:52 Resp 20 11/17/24 08:36 BP 145/71 11/17/24 08:36 Pulse Ox 94 L 11/17/24 08:43 FiO2 21 11/17/24 08:43 Intake & Output 11/16/24 11/17/24 11/17/24 18:59 06:59 18:59 Intake Total 550 10 720 Output Total 1100 1200 Balance -550 -1190 720 Weight 117.4 kg Intake: IV 20 10 Invasive Line 5 20 10 Oral 530 720 Output: Urine 1100 1200 Other: Voiding Method Urinal Urinal Urinal # Bowel Movements 1 ABP, PAP, CO, CI - Last Documented Arterial Blood Pressure 92/45 Pulmonary Artery Pressure 17/6 Cardiac Output 6.3 Cardiac Index 2.7 - Labs CBC & Chem 7: 11/17/24 05:39 11/17/24 05:39 Labs: Abnormal Lab Results - Last 24 Hours (Table) 11/16/24 11/16/24 11/17/24 Range/Units 11:40 20:34 05:39 RBC 2.84 L (4.30-5.90) m/uL Hgb 8.5 L (13.0-17.5) gm/dL Hct 27.7 L (39.0-53.0) % MCHC 30.7 L (31.0-37.0) g/dL BUN (9-20) mg/dL Creatinine (0.66-1.25) mg/dL Glucose (74-99) mg/dL POC Glucose (mg/dL) 119 H 130 H (70-110) mg/dL Total Bilirubin (0.2-1.3) mg/dL 11/17/24 11/17/24 Range/Units 05:39 06:16 RBC (4.30-5.90) m/uL Hgb (13.0-17.5) gm/dL Hct (39.0-53.0) % MCHC (31.0-37.0) g/dL BUN 34 H (9-20) mg/dL Creatinine 1.44 H (0.66-1.25) mg/dL Glucose 120 H (74-99) mg/dL POC Glucose (mg/dL) 121 H (70-110) mg/dL Total Bilirubin 1.7 H (0.2-1.3) mg/dL Assessment and Plan Plan: Assessment: 1. Acute kidney injury secondary to ATN. Baseline creatinine 0.8. Creatinine peaked at 2.5 this admission and is fairly stable at 1.44 today. No hydronephrosis noted on kidney ultrasound. 2. Coronary artery disease status post coronary disease status post CABG November 08, 2024. 3. Volume overload. On Lasix. 4. Anemia, postoperative blood loss. Iron deficiency noted. 5. Benign hypertension. Stable. Plan: Maintain Lasix. Maintain IV iron. Avoid nephrotoxins. Continue to monitor renal function and urine output.
[2024-11-17] MEDS: amLODIPine 10 MG TAB PO SCH (11:06)
[2024-11-17 11:35] LABS: Glucose,Whole Blood 147 mg/dL (70-110)
--- NOTE | 2024-11-17 14:15 | P.PN ---
Subjective Progress Note Date: 11/17/24 This is an 79-year-old male with history of coronary artery disease status post bypass surgery with PIERSON to LAD and radial artery graft sequentially to OM1 and OM 2. Patient has been transferred out of the intensive care unit and is seen today on the cardiac stepdown unit. Patient is doing well. Vital signs have been stable. He remains in a sinus rhythm. He is waiting for insurance authorization for IPR. Blood pressure 143/70, heart rate 88, pulse ox 94% on room air. Yesterday amlodipine was increased for blood pressure control. 11/18 Patient seen and examined. He is expecting to go to inpatient rehab today. Apparently authorization has been obtained from his insurance. No complaints of chest pain, lightheadedness or dizziness, shortness of breath. Patient has been ambulating in the hallway. Blood pressure 142/77, heart rate in the 70s, pulse ox 93% on room air. Repeat blood work reveals hemoglobin 8.5, BUN 34 creatinine 1.44. Physical examination: Gen: This rosette 79-year-old male in no acute distress VS: reviewed LUNGS: Diminished air entry at the bases. No intercostal retractions. HEART: Reveals first and second heart sounds. No gallop. No murmur. ABDOMEN: Soft No tenderness. EXTREMITIES: Mild pedal edema. Peripheral pulses are felt. NEUROLOGICAL: Patient is awake, alert and oriented x3. Assessment: Multivessel coronary artery disease status post micrographic surgery Paroxysmal episodes of atrial fibrillation Status post left atrial appendage occlusion Postop acute renal failure improving Plan: Continue current cardiac medications Continue current plan per cardiothoracic surgery Patient is scheduled for discharge to inpatient rehab. Follow-up with Dr. Satish Baxter in 1 week. Nurse practitioner note has been reviewed, I agree with documented findings and plan of care. Patient was seen and examined. Objective - Vital Signs Vital signs: Vital Signs Temp 98.0 F 11/17/24 04:47 Pulse 80 11/17/24 08:52 Resp 18 11/17/24 04:47 BP 141/78 11/17/24 04:47 Pulse Ox 94 L 11/17/24 08:43 FiO2 21 11/17/24 08:43 Intake & Output 11/16/24 11/17/24 11/17/24 18:59 06:59 18:59 Intake Total 550 10 720 Output Total 1100 1200 Balance -550 -1190 720 Weight 117.4 kg Intake: IV 20 10 Invasive Line 5 20 10 Oral 530 720 Output: Urine 1100 1200 Other: Voiding Method Urinal Urinal # Bowel Movements 1 ABP, PAP, CO, CI - Last Documented Arterial Blood Pressure 92/45 Pulmonary Artery Pressure 17/6 Cardiac Output 6.3 Cardiac Index 2.7 - Labs CBC & Chem 7: 11/17/24 05:39 11/17/24 05:39 Labs: Abnormal Lab Results - Last 24 Hours (Table) 11/14/24 11/16/24 11/16/24 Range/Units 16:20 11:40 20:34 RBC (4.30-5.90) m/uL Hgb (13.0-17.5) gm/dL Hct (39.0-53.0) % MCHC (31.0-37.0) g/dL BUN (9-20) mg/dL Creatinine (0.66-1.25) mg/dL Glucose (74-99) mg/dL POC Glucose (mg/dL) 123 H 119 H 130 H (70-110) mg/dL Total Bilirubin (0.2-1.3) mg/dL 11/17/24 11/17/24 11/17/24 Range/Units 05:39 05:39 06:16 RBC 2.84 L (4.30-5.90) m/uL Hgb 8.5 L (13.0-17.5) gm/dL Hct 27.7 L (39.0-53.0) % MCHC 30.7 L (31.0-37.0) g/dL BUN 34 H (9-20) mg/dL Creatinine 1.44 H (0.66-1.25) mg/dL Glucose 120 H (74-99) mg/dL POC Glucose (mg/dL) 121 H (70-110) mg/dL Total Bilirubin 1.7 H (0.2-1.3) mg/dL
[2024-11-17 17:00] LABS: Glucose,Whole Blood 120 mg/dL (70-110)
--- NOTE | 2024-11-17 18:14 | P.PN ---
Progress Note - Text Progress Note Date: 11/17/24 This is a pleasant 79 year old male with medical history of hypertension, hyperlipidemia, chest pain, osteoarthritis, cholecystectomy, Coronary artery disease. Patient comes in the hospital for scheduled off pump coronary artery bypass grafting x [address] Brennan. He is evaluated today in the intensive care unit currently sitting up in the chair with family at the bedside. He is having minimal pain. He has been extubated since 1630 yesterday. He remains on nasal cannula at 2L currently. Chest xray today reveals small bilateral pleural effusions with pulmonary vascular congestion and associated atelectasis. He remains on the IV insulin gtt protocol with plans to transition to Subcutaneous insulin tomorrow. Patient did develop a proximal atrial fibrillation post bypass and was started on IV amiodarone. labs today reveal a white blood cell count of 8.2, hemoglobin 11.3, sodium of 134, BUN is 17 creatinine 0.83. Total bilirubin of 1.7. 11/10/2024 Patient evaluated today sitting up in the chair in the ICU. Postoperative day #2, 3 vessel CABG. Bilateral chest tubes remain place. Patient had decreased urine output and was started on IV dopamine. Creatinine today was increased up to 1.94, BUN 32. He has been taken off the insulin infusion and transitioned to humalog achs. Blood glucose is fairly well controlled and will continue to make adjustments pending trends. He has been transitioned to oral amiodarone. 11/11/2024 Patient is eval today in the intensive care unit sitting up in the chair he is postoperative day #3, three-vessel CABG. Chest tubes have been removed Madison- Cecilia catheter remains in place. He continues with indwelling Jaquez catheter. Urine output remains marginal. His creatinine is up to 2.51 today patient remains on dopamine infusion. Chest x-ray reveals pulmonary edema similar to prior. He has been continued on Humalog ACHS and sliding scale insulin blood sugars are in the 110s to 140s and controlled with current regimen we will continue to monitor closely. 11/12/2024 Patient evaluated today sitting up in the chair. Patient reports decreased appetite. He is postoperative day #4 three vessel CABG. Blood glucose remains well controlled at this time. He remains on IV dopamine. Magnesium 1.8, BUN 59, creatinine 1.91. November 15: ICU. Sitting up in a chair. Did walk in the hallway. Mildly short of breath. Has passed flatus with no bowel movement. Lactulose ordered. Oral intake good. November 16: Did walk today. Breathing much better. Did have a good bowel movement. Eating well. Patient is pending going to [facility] for rehab. November 17: Continues to ambulate. Eating well. No new issues. Looks like patient will be getting discharged home. Breathing stable. Active Medications Acetaminophen (Acetaminophen Tab 500 Mg Tab) 1,000 mg PO Q6HR PRN PRN Reason: Fever And/ Or Mild Pain (1-3) Last Admin: 11/13/24 22:03 Dose: 1,000 mg Albuterol/Ipratropium (Ipratropium-Albuterol 3 Ml Neb) 3 ml INHALATION RT-Q2H PRN PRN Reason: Shortness Of Breath Or Wheezing Albuterol/Ipratropium (Ipratropium-Albuterol 3 Ml Neb) 3 ml INHALATION RT-QID [facility] Last Admin: 11/17/24 15:56 Dose: 3 ml Amiodarone HCl (Amiodarone 200 Mg Tab) 400 mg PO DAILY [facility] Last Admin: 11/17/24 08:47 Dose: 400 mg Amlodipine Besylate (Amlodipine 10 Mg Tab) 10 mg PO DAILY@1200 [facility] Last Admin: 11/17/24 11:06 Dose: 10 mg Aspirin (Aspirin 325 Mg Tab) 325 mg PO DAILY [facility] Last Admin: 11/17/24 08:47 Dose: 325 mg Atorvastatin Calcium (Atorvastatin 40 Mg Tab) 40 mg PO DAILY [facility] Last Admin: 11/17/24 08:47 Dose: 40 mg Benzocaine/Menthol (Benzocaine/Menthol Lozeng 1 Each Lozenge) 1 each MUCOUS MEM Q2H PRN PRN Reason: Sore Throat Last Admin: 11/15/24 00:18 Dose: 1 each Bicalutamide (Bicalutamide 50 Mg Tab) 50 mg PO DAILY [facility] Last Admin: 11/17/24 08:47 Dose: 50 mg Bisacodyl (Bisacodyl 10 Mg Supp) 10 mg RECTAL DAILY PRN PRN Reason: Constipation Last Admin: 11/12/24 09:00 Dose: 10 mg Cholecalciferol (Cholecalciferol 125 Mcg (5000 Iu) Tablet) 125 mcg PO DAILY [facility] Last Admin: 11/17/24 08:47 Dose: 125 mcg Clopidogrel Bisulfate (Clopidogrel 75 Mg Tab) 75 mg PO DAILY [facility] Last Admin: 11/17/24 08:47 Dose: 75 mg Dextrose/Water (Dextrose 50% Syringe 50 Ml) 25 ml IVP PER PROTOCOL PRN; Protocol PRN Reason: Hypoglycemia Dextrose/Water (Dextrose 50% Syringe 50 Ml) 50 ml IVP PER PROTOCOL PRN; Protocol PRN Reason: Hypoglycemia Furosemide (Furosemide 20 Mg Tab) 20 mg PO DAILY [facility] Last Admin: 11/17/24 08:47 Dose: 20 mg Heparin Sodium (Porcine) (Heparin Sodium,Porcine 5,000 Unit/Ml 1 Ml Vial) 5,000 unit SQ Q8HR [facility] Last Admin: 11/17/24 15:00 Dose: 5,000 unit Amiodarone HCl 150 mg/ (Dextrose/Water) 103 mls @ 618 mls/hr IV .Q10M PRN; Protocol PRN Reason: A.FIB/FLUTTER Last Admin: 11/08/24 14:12 Dose: 618 mls/hr Ferric Sodium Gluconate 125 mg (/ Sodium Chloride) 110 mls @ 100 mls/hr IVPB DAILY [facility] Stop: 11/18/24 09:59 Last Admin: 11/17/24 08:46 Dose: 100 mls/hr Insulin Human Lispro (Insulin Lispro (Humalog) 100 Unit/Ml 10 Ml Vl) 0 unit SQ ACHS [facility]; Protocol Last Admin: 11/17/24 17:05 Dose: Not Given Lactobacillus Acidophilus (Lactobacillus Acidophilus/Pect 1 Each Capsule) 1 each PO DAILY [facility] Last Admin: 11/17/24 08:47 Dose: 1 each Metoclopramide HCl (Metoclopramide 5 Mg/Ml 2 Ml Vial) 10 mg IVP Q4H PRN PRN Reason: Nausea And Vomiting Metoprolol Tartrate (Metoprolol Tartrate 25 Mg Tab) 25 mg PO BID [facility] Last Admin: 11/17/24 08:47 Dose: 25 mg Miscellaneous Information (Potassium Replacement Protocol 1 Each Misc) 1 each MISCELLANE DAILY PRN; Protocol PRN Reason: Per Protocol Multivitamins (Multivitamins, Thera 1 Each Tab) 1 each PO DAILY [facility] Last Admin: 11/17/24 08:47 Dose: 1 each Ondansetron HCl (Ondansetron 4 Mg/2 Ml Vial) 4 mg IVP Q6HR PRN PRN Reason: Nausea And Vomiting Pantoprazole Sodium (Pantoprazole 40 Mg Tablet) 40 mg PO AC-BRKFST [facility] Last Admin: 11/17/24 06:35 Dose: 40 mg Senna/Docusate Sodium (Sennosides-Docusate Sodium 1 Each Tab) 2 each PO HS [facility] Last Admin: 11/16/24 20:41 Dose: 2 each Sodium Chloride (Sodium Chloride 0.9% Flush 10 Ml Syringe) 10 ml IV BID [facility] Last Admin: 11/17/24 08:47 Dose: 10 ml On examination: VITAL SIGNS: 98.1, 74, 20, 144 x 68, 94% room air GENERAL APPEARANCE: Sitting up in a chair, HEENT: Normal external appearance of nose and ear. Oral cavity normal EYES: Pupils equal. Conjunctiva normal. NECK: JVD not raised. Mass not palpable. RESPIRATORY: Respiratory effort increased l. Decreased breath sounds CARDIOVASCULAR: First and second sounds normal. No edema. ABDOMEN: Soft. Liver and spleen not palpable. No tenderness. No mass palpable. PSYCHIATRY: Alert and oriented x3. Mood and affect normal. INVESTIGATIONS, reviewed in the clinical context: November 17: White count 8.5 hemoglobin 8.5 platelets 274 potassium 4.1 creatinine 1.44 November 16: White count 8 hemoglobin 8.4 platelets 244 potassium 4.2 creatinine 1.39 November 15: White count 7.6 hemoglobin 8.9 platelets 200 sodium 143 potassium 4.2 BUN 37 creatinine 1.33 Assessment and plan Coronary artery disease s/p coronary artery bypass grafting three-vessel paroxysmal atrial fibrillation: Currently sinus rhythm. Amiodarone. Lopressor Acute kidney injury, prerenal. Creatinine peaked at 2.5. Coming down. Baseline 0.8 to Dyslipidemia Left ICA stenosis of 70% Prostate cancer maintained on Casodex Essential hypertension. Lopressor. Amlodipine. Acute postop blood loss anemia expected from surgery-IV iron given Full Code Continues to improve. Looks likely going home with home health care.
--- NOTE | 2024-11-17 19:21 | P.PN ---
Subjective Progress Note Date: 11/17/24 On 11/15/2024, the patient is being seen for a follow-up. The patient is following up on three-vessel bypass surgery and the patient is recovering well from his surgery. Cardiac rhythm is sinus. The patient encountered brief atrial fibrillation after surgery and since then the patient has remained in si nus rhythm. He had an acute kidney injury and renal function improved. He has hypertension hyperlipidemia carotid artery stenosis 70%, and he also has history of prostate cancer, and obesity. He is a lifetime non-smoker with an FEV1 of 83% of predicted. Hemoglobin today is at 8.9. BUN 37 with a creatinine of 1.33 and renal function continues to improve. Sodium levels at 143 with a potassium level of 4.2. White cell count 7.6 with a hemoglobin of 8.9. For now, the patient remains on aspirin 325 mg p.o. daily, Plavix 25 mg p.o. daily, amiodarone 4 mg p.o. once a day, he is also on metoprolol 25 mg p.o. twice a day. He is on sliding scale insulin coverage. He is on statins and the patient is currently on Lipitor 40 mg p.o. daily. No other significant events overnight. Chest tube removed. Chest x-ray from today shows small bilateral pleural effusion and postthoracotomy changes. He also has some cardiomegaly. No respiratory distress for now. Using incentive spirometer. On 11/16/2024, patient is doing well. No specific complaints. Calm and comfortable. He is on room air oxygen. Chest x-ray shows small bilateral pleural effusion. Urine output is adequate. Using incentive spirometer. Cardiac rhythm remains sinus. The white cell count is at 8 hemoglobin is 8.4 and a platelet count of 244. BUN 36 with a creatinine of 1.36 and the patient is recovering from his acute kidney injury. Remains on aspirin. Remains on Plavix. Remains on metoprolol 25 mg p.o. twice a day. Remains on high-dose statins with Lipitor 40 mg p.o. daily. Remains on Norvasc for blood pressure control 5 mg p.o. daily. Remains on amiodarone for A-fib prophylaxis 40 mg p.o. on a daily basis. No other significant events overnight. On 11/17/2024, the patient is being seen for a follow-up. Denies having any specific complaints the patient is afebrile, on room air oxygen with a pulse ox of 94%. The chest x-ray from today shows postsurgical changes along with cardiomegaly and pulm vascular congestion and trace bilateral pleural effusion. The patient is in normal sinus rhythm. Hemodynamically stable. Using incentive spirometer. Ambulating. Anticipate discharge to rehabilitation, awaiting insurance authorization. Hemoglobin today 0.5. BUN 34 with a creatinine 1.44 which is essentially stable compared to yesterday. Sodium is 138 with a potassium level of 4.1. Remains on aspirin. Remains on Plavix. Remains on metoprolol 25 mg p.o. twice daily. Remains on Norvasc 10 mg p.o. daily. He is on Lasix 20 mg p.o. daily and high-dose statins. Objective - Vital Signs Vital signs: Vital Signs Temp 98.1 F 11/17/24 11:05 Pulse 72 11/17/24 11:05 Resp 18 11/17/24 11:05 BP 142/77 11/17/24 11:05 Pulse Ox 93 L 11/17/24 11:05 FiO2 21 11/17/24 08:43 Intake & Output 11/16/24 11/17/24 11/17/24 18:59 06:59 18:59 Intake Total 550 10 720 Output Total 1100 1200 Balance -550 -1190 720 Weight 117.4 kg Intake: IV 20 10 Invasive Line 5 20 10 Oral 530 720 Output: Urine 1100 1200 Other: Voiding Method Urinal Urinal Urinal # Bowel Movements 1 ABP, PAP, CO, CI - Last Documented Arterial Blood Pressure 92/45 Pulmonary Artery Pressure 17/6 Cardiac Output 6.3 Cardiac Index 2.7 - Exam CONSTITUTIONAL: Appears comfortable, cooperative, no acute distress. RESPIRATORY: Lungs sounds diminished to his bilateral bases, right greater than left. Respirations symmetrical, nonlabored. Currently on room air with oxygen saturation 97%. Able to achieve 1250 mL on his incentive spirometry. Strong cough. CARDIOVASCULAR: S1, S2 present. Regular rate and rhythm, normal sinus rhythm, with a first-degree heart block on telemetry, heart rate 83 bpm. Sternum stable. Palpable peripheral pulses bilaterally. Trace generalized edema present. No calf pain or tenderness noted. Heart hugger in place with patient demonstrating appropriate use. Antiembolism stockings, SCDs present. GASTROINTESTINAL: Abdomen soft, nontender, nondistended. Active bowel sounds present 4 quadrants. Tolerating diet. Passing flatus. Bowel movement yeste rday November 15, 2024. GENITOURINARY: Continues to void. Urine output 675 mL in the last 8 hours. INTEGUMENTARY: Skin is warm and dry with no clubbing or cyanosis present. Midline sternal chest incision well approximated and covered with dry intact dressing. Left radial artery harvest site well approximated without redness or drainage. NEUROLOGIC: Cranial nerves II through XII intact. No focal deficits. MUSKULOSKELETAL: Able to move all extremities, strength equal bilaterally, generalized weakness. PSYCHIATRIC: Alert and oriented to person place and time, appropriate affect, intact judgment and insight. - Labs CBC & Chem 7: 11/17/24 05:39 11/17/24 05:39 Labs: Abnormal Lab Results - Last 24 Hours (Table) 11/16/24 11/16/24 11/17/24 Range/Units 11:40 20:34 05:39 RBC 2.84 L (4.30-5.90) m/uL Hgb 8.5 L (13.0-17.5) gm/dL Hct 27.7 L (39.0-53.0) % MCHC 30.7 L (31.0-37.0) g/dL BUN (9-20) mg/dL Creatinine (0.66-1.25) mg/dL Glucose (74-99) mg/dL POC Glucose (mg/dL) 119 H 130 H (70-110) mg/dL Total Bilirubin (0.2-1.3) mg/dL 11/17/24 11/17/24 Range/Units 05:39 06:16 RBC (4.30-5.90) m/uL Hgb (13.0-17.5) gm/dL Hct (39.0-53.0) % MCHC (31.0-37.0) g/dL BUN 34 H (9-20) mg/dL Creatinine 1.44 H (0.66-1.25) mg/dL Glucose 120 H (74-99) mg/dL POC Glucose (mg/dL) 121 H (70-110) mg/dL Total Bilirubin 1.7 H (0.2-1.3) mg/dL Assessment and Plan Plan: Postoperative day # 8, S/P off-pump three-vessel bypass surgery, for coronary artery disease. Cardiac rhythm is sinus. Hemodynamically stable. Postthoracotomy and bypass surgery and the patient was extubated on 11/08/2024. Chest x-ray continues to show some small bilateral pleural effusions. Acute kidney injury, related to postop ATN, improving creatinine is stable for now Carotid artery stenosis, asymptomatic Obesity with a BMI of 38.2 History of hypertension. History of osteoarthritis. History of prostate cancer. Lifelong non-smoker. Plan: Clinically stable, awaiting authorization to be discharged to rehabilitation. Chest x-ray was noted and shows small bilateral pleural effusion and patient currently on Lasix 20 mg p.o. daily Continue aspirin and Plavix Continue metoprolol 25 mg p.o. twice a day Norvasc for blood pressure control Amiodarone 400 mg p.o. once a day Cardiac rhythm is sinus Continues using incentive spirometer Increase mobility No issues with chest pain renal function is stable compared to yesterday Ambulating and will continue to follow
[2024-11-17 19:53] LABS: Glucose,Whole Blood 177 mg/dL (70-110)
[2024-11-18 06:17] LABS: Glucose,Whole Blood 175 mg/dL (70-110)
[2024-11-18 07:55] LABS: HCT 26.7 % (39.0-53.0); HGB 8.4 gm/dL (13.0-17.5); Hypochromasia Slight; MCH 30.7 pg (25.0-35.0); MCHC 31.5 g/dL (31.0-37.0); MCV 97.4 fL (80.0-100.0); Mean Platelet Volume 7.9; Platelet Count 275 k/uL (150-450); RBC 2.74 m/uL (4.30-5.90); WBC 8.9 k/uL (3.8-10.6)
--- NOTE | 2024-11-18 08:18 | XR ---
EXAMINATION TYPE: XR chest 2V DATE OF EXAM: 11/18/2024 6:12 AM COMPARISON: Chest radiograph from one day prior. CLINICAL INDICATION: Male, 79 years old with history of post cardiac surgery; TECHNIQUE: XR chest 2V Frontal and lateral views of the chest. FINDINGS: Lungs/Pleura: No evidence of focal consolidation or pneumothorax. Blunting of the costophrenic angles is present. Pulmonary vascularity: Unremarkable. Heart/mediastinum: Cardiomediastinal silhouette is unremarkable. Left atrial appendage occlusion weston ce is present. Musculoskeletal: No acute osseous pathology. Midline sternotomy wires are noted. Other findings: None IMPRESSION: Similar cardiomegaly and bilateral pleural effusions. [facility], , 11/18/2024 8:15 AM
[2024-11-18 08:20] LABS: Chloride 99 mmol/L (98-107); Glucose 156 mg/dL (74-99); Sodium 137 mmol/L (137-145)
[2024-11-18 08:21] LABS: African American GFR (CKD) 46 (>60 ml/min/1.73 sqM); Anion Gap 11 mmol/L; Blood Urea Nitrogen 37 mg/dL (9-20); Calcium 8.9 mg/dL (8.4-10.2); Carbon Dioxide 27 mmol/L (22-30); Non-African American GFR(CKD) 40 (>60 ml/min/1.73 sqM)
--- NOTE | 2024-11-18 08:48 | P.PN ---
Subjective Progress Note Date: 11/18/24 Principal diagnosis: 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, unstable angina. History of hypertension, left internal carotid artery stenosis, mild peripheral arterial disease, prostate cancer with hormone therapy treatment, osteoarthritis, obesity, extremely hard of hearing, and lifelong non-smoker POD #10 off-pump coronary artery bypass grafting x 3 with PIERSON to LAD, sequential radial artery graft to first and second obtuse marginal coronary arteries as T graft off PIERSON, left radial artery endovascular harvest, occlusion of the left atrial appendage with 35mm AtriCure clip Postoperative acute blood loss anemia and thrombocytopenia, expected given h emodilution Brief paroxysmal atrial fibrillation after surgery, somewhat expected as it is a known common occurrence after open heart surgery The patient was seen and examined this morning sitting up in recliner on the cardiac stepdown unit in no acute distress. Remains in sinus rhythm, hemodynam ically stable. Remains on room air with oxygen saturation in the mid 90s, able to achieve 1500 mL on incentive spirometry. Patient has been ambulatory in the hallway with assistance although he does still require some breaks to catch his breath. Continues to leave legs dependant, refusing to elevate legs, explained that patient will continue to have lower extremity edema. States pain is control led on current medication regimen. Insurance would not approve IPR or LYNDSEY as patient is ambulating 176 feet, anticipate discharge to home with home care this afternoon. Patient is high risk for readmission as family feels he will be too much to handle at home. Objective - Vital Signs Vital signs: Vital Signs Temp 97.2 F L 11/18/24 04:11 Pulse 78 11/18/24 04:11 Resp 14 11/18/24 04:11 BP 149/62 11/18/24 04:11 Pulse Ox 95 11/18/24 04:11 FiO2 21 11/17/24 08:43 Intake & Output 11/17/24 11/18/24 11/18/24 18:59 06:59 18:59 Intake Total 2296 550 Output Total 725 1150 400 Balance 1571 -600 -400 Weight 116.5 kg Intake: IV 10 Invasive Line 5 10 Oral 2296 540 Output: Urine 725 1150 400 Other: Voiding Method Urinal Toilet Urinal ABP, PAP, CO, CI - Last Documented Arterial Blood Pressure 92/45 Pulmonary Artery Pressure 17/6 Cardiac Output 6.3 Cardiac Index 2.7 - Exam CONSTITUTIONAL: Appears comfortable, cooperative, no acute distress RESPIRATORY: Lungs sounds diminished bilaterally. Respirations even, nonlabored. Currently on room air with oxygen saturation 95%. Able to achieve 1500 mL on incentive spirometry. Strong cough. CARDIOVASCULAR: S1, S2 present. Regular rate and rhythm, sinus rhythm on telemetry. Sternum stable. Palpable peripheral pulses bilaterally. Bilateral lower extremity edema present. No calf pain or tenderness noted. Heart hugger in place with patient demonstrating appropriate use. Antiembolism stockings, SCDs present. GASTROINTESTINAL: Abdomen soft, nontender, nondistended. Active bowel sounds present 4 quadrants. Tolerating diet. Positive bowel movement 11/16/24 GENITOURINARY: Continues to void, output 1875 mL in the last 24 hours INTEGUMENTARY: Skin is warm and dry with evidence of good perfusion. Anterior chest incision well approximated. Left radial artery harvest site well approximated without redness or drainage. NEUROLOGIC: Cranial nerves II through XII intact MUSKULOSKELETAL: Able to move all extremities, strength equal bilaterally PSYCHIATRIC: Alert and oriented to person place and time, appropriate affect, intact judgment and insight - Allied health notes Allied health notes reviewed: nursing - Labs CBC & Chem 7: 11/18/24 06:55 11/18/24 06:55 Labs: Abnormal Lab Results - Last 24 Hours (Table) 11/17/24 11/17/24 11/17/24 Range/Units 11:34 16:58 19:51 RBC (4.30-5.90) m/uL Hgb (13.0-17.5) gm/dL Hct (39.0-53.0) % BUN (9-20) mg/dL Creatinine (0.66-1.25) mg/dL Glucose (74-99) mg/dL POC Glucose (mg/dL) 147 H 120 H 177 H (70-110) mg/dL 11/18/24 11/18/24 11/18/24 Range/Units 06:16 06:55 06:55 RBC 2.74 L (4.30-5.90) m/uL Hgb 8.4 L (13.0-17.5) gm/dL Hct 26.7 L (39.0-53.0) % BUN 37 H (9-20) mg/dL Creatinine 1.60 H (0.66-1.25) mg/dL Glucose 156 H (74-99) mg/dL POC Glucose (mg/dL) 175 H (70-110) mg/dL - Imaging and Cardiology Chest x-ray: report reviewed, image reviewed Assessment and Plan Assessment: 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87, right JERRI 0.93 Prostate cancer with hormone therapy treatment Osteoarthritis Obesity Extremely hard of hearing Lifelong non-smoker, preoperative FEV1 83% of predicted Plan: Continue to maximize medical therapy with aspirin, statin, Plavix, low-dose beta-phillip Continue amiodarone for A-fib prophylaxis. No anticoagulation Encourage incentive spirometry use 10 times every hour while awake. Bronchodilators per pulmonology Will monitor daily labs and x-rays. Electrolyte replacement per protocol Increase activity, ambulate as tolerated. PT/OT/cardiac rehab following daily GI/DVT prophylaxis Pain control per current medication regimen Insulin management per internal medicine. Patient is not diabetic, preoperative hemoglobin A1c 5.6% Continue to monitor record strict accurate intake and output Appropriate home medications reordered Shower daily Discharge planning in progress. Anticipate discharge to home with home care this afternoon More recommendations to follow as patient progresses
[2024-11-18 09:28] VITALS: TEMP 98.3
[2024-11-18] MEDS: FUROSEMIDE 10 MG/ML 4 ML VIAL IV STA (10:41)
[2024-11-18] MEDS: POTASSIUM CHLORIDE ER 10 MEQ TAB.ER.PRT PO SCH (10:41)
--- NOTE | 2024-11-18 11:31 | P.DS ---
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, unstable angina Postoperative acute blood loss anemia and thrombocytopenia, expected given hemodilution Brief paroxysmal atrial fibrillation after surgery, somewhat expected as it is a known common occurrence after open heart surgery Acute kidney injury, ischemic ATN, initially oliguric, currently nonoliguric with improving renal function Medical debility History of hypertension Hypertriglyceridemia Left internal carotid artery stenosis, > 70% per Doppler Mild peripheral arterial disease, left JERRI 0.87, right JERRI 0.93 Prostate cancer with hormone therapy treatment Osteoarthritis Obesity Extremely hard of hearing Lifelong non-smoker, preoperative FEV1 83% of predicted PRINCIPAL PROCEDURE: Off-pump coronary artery bypass grafting x 3 with PIERSON to LAD, sequential radial artery graft to first and second obtuse marginal coronary arteries as T graft off PIERSON Left radial artery endovascular harvest Occlusion of the left atrial appendage with 35mm AtriCure clip HISTORY OF PRESENT ILLNESS: This is an 79-year-old gentleman who follows outpatient with Dr. Iam Mendoza for primary care and Dr. Satish Baxter for cardiology. The patient reported symptoms of soreness to the middle of his chest with activity usually relieved by rest intermittently for the past 6 months. He recently saw Dr. Baxter in the office due to the episodes of chest pain, and he was started on maximize medical management. He was recommended to undergo elective cardiac catheterization which revealed left main coronary artery calcification with diffuse disease, 90% stenosis right at the origin of the LAD and 90% stenosis involving the ostium of the circumflex coronary artery with significant distal left main disease, mild to moderate diffuse disease involving the proximal and midportion with the PDA very distally showing a 60% stenosis. The patient also underwent a transthoracic 2D echocardiogram which demonstrated normal left ventricular systolic function with EF 60%, no obvious regional wall motion abnormalities, mild tricuspid valve regurgitation, trace pulmonic valve regurgitation, and no pericardial effusion. It also demonstrated a normal size aortic root and proximal ascending aorta. Consultation was placed for cardiothoracic surgery, the patient was seen by Dr. Reddy with recommendations for surgical myocardial revascularization. The usual perioperative course was discussed in detail with the patient and his family, all risks and benefits were explained, all questions were answered, and consent was obtained to proceed with surgery. The patient was discharged to home on maximal medical therapy to christina soto as an outpatient for elective surgery. HOSPITAL COURSE: The patient was brought to the hospital on 11/08/24, taken to the preoperative area, prepared in the usual fashion, and subsequently taken to the operating room where Dr. Brennan performed three-vessel off-pump CABG. Upon completion of surgery the patient was transferred to the cardiovascular intensive care unit where he was recovered and monitored hemodynamically. He was extubated, all lines, tubes, and drips were discontinued when appropriate, and he was transferred to 3 S. cardiac stepdown unit for further monitoring and rehabilitation. He did experience acute kidney injury which was improving at discharge. His oxygen was titrated down, he continued to work with physical and occupational therapy, he was tolerating oral diet, his pain was controlled, and he was ready to be discharged to home with [facility] on postoperative day #10. He received written and verbal instruction regarding his medications, activity restrictions, signs and symptoms requiring physician notification, and follow-up appointments. Patient Condition at Discharge: Stable Plan - Discharge Summary Discharge Rx Participant: No New Discharge Prescriptions: New Sennosides-Docusate Sodium [Senokot-S] 2 each PO HS #14 tab Acetaminophen Tab [Tylenol] 1,000 mg PO Q6HR PRN tab PRN Reason: Fever And/ Or Mild Pain (1-3) Amiodarone [Cordarone] 400 mg PO DAILY #24 tab Furosemide [Lasix] 40 mg PO DAILY #30 tab amLODIPine [Norvasc] 10 mg PO DAILY@1200 #30 tab Clopidogrel [Plavix] 75 mg PO DAILY #30 tab Pantoprazole [Protonix] 40 mg PO AC-BRKFST #30 tab Continue Cholecalciferol [Vitamin D3 (25 Mcg = 1000 Iu)] 5,000 unit PO DAILY Multivitamins, Thera [Multivitamin (formulary)] 1 tab PO DAILY Bicalutamide [Casodex] 50 mg PO DAILY Turmeric Root Extract [Turmeric] 1,500 mg PO DAILY Flaxseed Oil 1,000 mg PO DAILY Aspirin 81 mg PO DAILY #30 tab Atorvastatin [Lipitor] 80 mg PO HS #30 tab Metoprolol Succinate (ER) [Toprol XL] 50 mg PO DAILY #30 tab Vitamin B Complex 1 each PO DAILY L.acidoph,Paracasei, B.lactis [Probiotic] 1 each PO DAILY Magnesium Citrate and Oxide [Magnesium] 400 mg PO DAILY Potassium Citrate 99 mg PO DAILY Discontinued Nitroglycerin Sl Tabs [Nitrostat] 0.4 mg PO DIRECTED PRN PRN Reason: Chest Pain Benazepril HCl 40 mg PO DAILY Isosorbide Mononitrate ER [Imdur] 60 mg PO DAILY #30 tab Cider Vinegar [Apple Cider Vinegar] 450 mg PO DAILY Discharge Medication List Cholecalciferol [Vitamin D3 (25 Mcg = 1000 Iu)] 5,000 unit PO DAILY 01/02/17 [History] Multivitamins, Thera [Multivitamin (formulary)] 1 tab PO DAILY 01/02/17 [History] Bicalutamide [Casodex] 50 mg PO DAILY 10/27/24 [History] Aspirin 81 mg PO DAILY #30 tab 10/30/24 [Rx] Atorvastatin [Lipitor] 80 mg PO HS #30 tab 10/30/24 [Rx] Metoprolol Succinate (ER) [Toprol XL] 50 mg PO DAILY #30 tab 10/30/24 [Rx] Flaxseed Oil 1,000 mg PO DAILY 11/04/24 [History] L.acidoph,Paracasei, B.lactis [Probiotic] 1 each PO DAILY 11/04/24 [History] Magnesium Citrate and Oxide [Magnesium] 400 mg PO DAILY 11/04/24 [History] Potassium Citrate 99 mg PO DAILY 11/04/24 [History] Turmeric Root Extract [Turmeric] 1,500 mg PO DAILY 11/04/24 [History] Vitamin B Complex 1 each PO DAILY 11/04/24 [History] Acetaminophen Tab [Tylenol] 1,000 mg PO Q6HR PRN tab 11/18/24 [Rx] Amiodarone [Cordarone] 400 mg PO DAILY #24 tab 11/18/24 [Rx] Clopidogrel [Plavix] 75 mg PO DAILY #30 tab 11/18/24 [Rx] Furosemide [Lasix] 40 mg PO DAILY #30 tab 11/18/24 [Rx] Pantoprazole [Protonix] 40 mg PO AC-BRKFST #30 tab 11/18/24 [Rx] Sennosides-Docusate Sodium [Senokot-S] 2 each PO HS #14 tab 11/18/24 [Rx] amLODIPine [Norvasc] 10 mg PO DAILY@1200 #30 tab 11/18/24 [Rx] Follow up Appointment(s)/Referral(s): Rehab [facility],Cardiac [NON-STAFF] - 4 Weeks (You will receive a phone call in approximately 4-6 weeks for evaluation for cardiac rehab) Iam Brennan MD [STAFF PHYSICIAN] - 12/09/24 2:00 pm Iam Mendoza MD [Primary Care Provider] - 11/24/24 3:00 pm (You will be seen by Dr. Mendoza at the [facility] in [place]; office number is ) Geoff Espinal NPC [Nurse Practitioner] - 12/01/24 3:00 pm (You will be seen in the surgeon's office behind the hospital in [facility], [address] Office phone number is ) Jimi De León DO [Doctor of Osteopathic Medicine] - 12/09/24 1:[address] [facility],Health [NON-STAFF] - 1-2 Days (You should be seen by home care nurse the day after discharge, then 2-3 times per week until you start cardiac rehab. Physical and Occupational Therapy should visit at least once, may continue to visit if needed) Aakash Kelly DO [STAFF PHYSICIAN] - 1 Week (please get repeat BMP within 2-3 days and follow up in the office. ) Imtiaz Baxter MD [STAFF PHYSICIAN] - 12/01/24 3:45 pm Ambulatory/Diagnostic Orders: Complete Blood Count w/diff [LAB.AMB] Time Frame: 3 Days, Location: None Selected Comprehensive Metabolic Panel [LAB.AMB] Time Frame: 3 Days, Location: None Selected Activity/Diet/Wound Care/Special Instructions: DISCHARGE INSTRUCTIONS: 1. No driving for 4 weeks, or until physician gives their ok. 2. The patient should sleep in their own bed, no medical bed needed. 3. Stairs are not an issue. If the bedroom is upstairs, it is advised that the patient go up at night and down in the morning for the first week. Go slowly, using handrail and take 1 step at a time. 4. EVON hose are to be worn for 30 days post surgery or until physician discontinues. 5. Heart hugger is to be worn 100% of the time until physician discontinues.(except when showering) 6. No lifting, pushing, or pulling more than 10 pounds for 12 weeks. The physician will advise of any restriction changes. 7. The patient is expected to continue the prescribed walking program. 8. Continue pain control per as needed orders. 9. Continue with incentive spirometry and splinting/heart hugger until otherwise directed by the physician. 10. Must shower daily using liquid antibacterial soap 11. Routine sternal incision care. No powders, lotions, ointments on incisions. No dressings are necessary on incisions unless they are draining. Dermabond tape is to remain on sternal incision until surgeon follow-up. 12. Please call surgeon/PRODUCT MANAGENT INTERN for temp greater than 101 F or purulent drainage from incisions. 13. You should weigh yourself daily, record and bring log with you to follow up appointments. 14. All prescriptions given by surgeon for 30 days. Refills need to be filled through executive creative director/primary care physician. 15. A Red armband has been placed on the patient. It should be worn for 30 days post discharge from surgery and will be removed by the cardiac surgeons. If an ER visit is necessary, please make sure the number on the Red armband is called before going to ER. 16. You have been referred to and are expected to begin Cardiac Rehab in approximately 4-6 weeks. 17. Quitting smoking is the most important step you can take to improve your health. For additional information and assistance to quit smoking, please call the [place] tobacco quit line (0-747-ZRTS-NOW/ ) or online: [email or web address] [email or web address] HOME HEALTH SERVICES TO PROVIDE: RN SKILLED HOME CARE SERVICES FOR POST-OP SURGICAL PATIENTS WITH THE FOLLOWING: Coronary Artery Bypass Surgery (CABG), Mitral Valve Replacement/Repair ( MVR), Aortic Valve Replacement/Repair (AVR) RN TO CONTINUE EDUCATION FROM ``ROAD TO A HEALTH HEART PATIENT EDUCATION MANUAL (GIVEN TO PATIENT IN THE HOSPITAL) MEDICATION RECONCILIATION WITH EDUCATION NEEDED ON FIRST HOME VISIT EMPHASIZE IMPORTANCE OF WEARING BREAST SUPPORT/HEART HUGGER ENCOURAGE USE OF INCENTIVE SPIROMETER 10 X EVERY HOUR WHILE AWAKE ENCOURAGE UTILIZATION OF LOWER EXTREMITY COMPRESSION STOCKINGS/EVON HOSE and ELEVATE LEGS ABOVE LEVEL OF HEART WHILE AT REST. ENCOURAGE AMBULATION 3-5x/day INCREASING TOLERATES, WHILE AVOIDING EXTREMES IN TEMPERATURE FREQUENCY: RN TO OPEN THE PATIENT WITHIN 24 HOURS OF DISCHARGE FROM THE HOSPITAL WITH TELEHEALTH INSTALLED AT [facility], RN TO VISIT 2-3 X A WEEK FOR 4 WEEKS ESTABLISHED BY PATIENT NEEDS. LABORATORY: CBC, CMP TO BE DRAWN ON THE THIRD DAY HOME, (RAN STAT) FAX RESULTS TO [phone]. TELEHEALTH PARAMETERS: WEIGHT: NOTIFY MD OF WEIGHT GAIN OF 2 LBS IN 24 HOURS OR 5 LBS IN ONE WEEK HR: NOTIFY MD OF HR <55 BPM OR HR>100 BPM BP: NOTIFY MD IF BP <90/55 OR BP>140/100 O2 SAT: NOTIFY MD IF PO2<93% ON ROOM AIR SEND TELEHEALTH REPORT TO RIDE OPERATOR AND CARDIOVASCULAR SURGEON THE FIRST WEEK OF CARE AND THEN BI-WEEKLY. PLEASE ADDITIONALLY COMMUNICATE ANY ABNORMALS AND NEW FINDINGS TO THE SURGEONS OFFICE. Discharge Disposition: HOME WITH HOME HEALTH SERVICES
--- NOTE | 2024-11-18 11:39 | P.PN ---
Subjective Patient is seen in follow-up for acute kidney injury. Renal function fairly stable. Sitting up in chair. On room air. Denies chest pain or shortness of breath. Has been voiding. Vital signs are stable. General: No acute distress. HEENT: Head exam is unremarkable. LUNGS: No audible rhonchi or wheezes. HEART: Rate and Rhythm are regular. ABDOMEN: Obese, nontender. EXTREMITITES: 2+ edema. Objective - Vital Signs Vital signs: Vital Signs Temp 98.3 F 11/18/24 09:27 Pulse 78 11/18/24 09:27 Resp 17 11/18/24 09:27 BP 131/67 11/18/24 09:27 Pulse Ox 95 11/18/24 09:27 FiO2 21 11/17/24 08:43 Intake & Output 11/17/24 11/18/24 11/18/24 18:59 06:59 18:59 Intake Total 2296 550 Output Total 725 1150 400 Balance 1571 -600 -400 Weight 116.5 kg Intake: IV 10 Invasive Line 5 10 Oral 2296 540 Output: Urine 725 1150 400 Other: Voiding Method Urinal Toilet Toilet Urinal Urinal ABP, PAP, CO, CI - Last Documented Arterial Blood Pressure 92/45 Pulmonary Artery Pressure 17/6 Cardiac Output 6.3 Cardiac Index 2.7 - Labs CBC & Chem 7: 11/18/24 06:55 11/18/24 06:55 Labs: Abnormal Lab Results - Last 24 Hours (Table) 11/17/24 11/17/24 11/18/24 Range/Units 16:58 19:51 06:16 RBC (4.30-5.90) m/uL Hgb (13.0-17.5) gm/dL Hct (39.0-53.0) % BUN (9-20) mg/dL Creatinine (0.66-1.25) mg/dL Glucose (74-99) mg/dL POC Glucose (mg/dL) 120 H 177 H 175 H (70-110) mg/dL 11/18/24 11/18/24 Range/Units 06:55 06:55 RBC 2.74 L (4.30-5.90) m/uL Hgb 8.4 L (13.0-17.5) gm/dL Hct 26.7 L (39.0-53.0) % BUN 37 H (9-20) mg/dL Creatinine 1.60 H (0.66-1.25) mg/dL Glucose 156 H (74-99) mg/dL POC Glucose (mg/dL) (70-110) mg/dL Assessment and Plan Plan: Assessment: 1. Acute kidney injury secondary to ATN. Baseline creatinine 0.8. Creatinine peaked at 2.5 this admission and is fairly stable at 1.6 today. No hydronephrosis noted on kidney ultrasound. 2. Coronary artery disease status post coronary disease status post CABG November 08, 2024. 3. Volume overload. On Lasix. 4. Anemia, postoperative blood loss. Iron deficiency noted. 5. Benign hypertension. Stable. Plan: Maintain Lasix. Will give additional dose of 40 mg IV Lasix once today. Add maintenance potassium supplementation. Avoid nephrotoxins. Continue to monitor renal function and urine output. Repeat BMP and magnesium level 2 to 3 days postdischarge. Follow-up outpatient 1 week postdischarge. Case discussed with cardiothoracic team.
[2024-11-18 11:50] VITALS: BP 125/75; PULSE 74; RESP 18
[2024-11-18 12:02] LABS: Glucose,Whole Blood 131 mg/dL (70-110)
--- NOTE | 2024-11-18 15:10 | P.PN ---
Subjective Progress Note Date: 11/18/24 This is an 79-year-old male with history of coronary artery disease status post bypass surgery with PIERSON to LAD and radial artery graft sequentially to OM1 and OM 2. Patient has been transferred out of the intensive care unit and is seen today on the cardiac stepdown unit. Patient is doing well. Vital signs have been stable. He remains in a sinus rhythm. He is waiting for insurance authorization for IPR. Blood pressure 143/70, heart rate 88, pulse ox 94% on room air. Yesterday amlodipine was increased for blood pressure control. 11/17 Patient seen and examined. He is expecting to go to inpatient rehab today. Apparently authorization has been obtained from his insurance. No complaints of chest pain, lightheadedness or dizziness, shortness of breath. Patient has been ambulating in the hallway. Blood pressure 142/77, heart rate in the 70s, pulse ox 93% on room air. Repeat blood work reveals hemoglobin 8.5, BUN 34 creatinine 1.44. 11/18 Patient seen and examined. He is waiting to be transferred to inpatient rehab. Blood pressure 125/75, heart rate 74, pulse ox 95% on room air. Patient denies chest pain, shortness of breath. Repeat blood work reveals BUN 37 creatinine 1.6, hemoglobin 8.4. Physical examination: Gen: This rosette 79-year-old male in no acute distress VS: reviewed LUNGS: Diminished air entry at the bases. No intercostal retractions. HEART: Reveals first and second heart sounds. No gallop. No murmur. ABDOMEN: Soft No tenderness. EXTREMITIES: Mild pedal edema. Peripheral pulses are felt. NEUROLOGICAL: Patient is awake, alert and oriented x3. Assessment: Multivessel coronary artery disease status post micrographic surgery Paroxysmal episodes of atrial fibrillation Status post left atrial appendage occlusion Postop acute renal failure improving Plan: Continue current cardiac medications Continue current plan per cardiothoracic surgery Patient is scheduled for discharge to inpatient rehab. Follow-up with Dr. Satish Baxter in 1 week. Nurse practitioner note has been reviewed, I agree with documented findings and plan of care. Patient was seen and examined. Objective - Vital Signs Vital signs: Vital Signs Temp 98.3 F 11/18/24 09:27 Pulse 74 11/18/24 11:49 Resp 18 11/18/24 11:49 BP 125/75 11/18/24 11:49 Pulse Ox 96 11/18/24 11:49 FiO2 21 11/17/24 08:43 Intake & Output 11/17/24 11/18/24 11/18/24 18:59 06:59 18:59 Intake Total 2296 550 Output Total 725 1150 400 Balance 1571 -600 -400 Weight 116.5 kg Intake: IV 10 Invasive Line 5 10 Oral 2296 540 Output: Urine 725 1150 400 Other: Voiding Method Urinal Toilet Toilet Urinal Urinal ABP, PAP, CO, CI - Last Documented Arterial Blood Pressure 92/45 Pulmonary Artery Pressure 17/6 Cardiac Output 6.3 Cardiac Index 2.7 - Labs CBC & Chem 7: 11/18/24 06:55 11/18/24 06:55 Labs: Abnormal Lab Results - Last 24 Hours (Table) 11/17/24 11/17/24 11/18/24 Range/Units 16:58 19:51 06:16 RBC (4.30-5.90) m/uL Hgb (13.0-17.5) gm/dL Hct (39.0-53.0) % BUN (9-20) mg/dL Creatinine (0.66-1.25) mg/dL Glucose (74-99) mg/dL POC Glucose (mg/dL) 120 H 177 H 175 H (70-110) mg/dL 11/18/24 11/18/24 11/18/24 Range/Units 06:55 06:55 12:01 RBC 2.74 L (4.30-5.90) m/uL Hgb 8.4 L (13.0-17.5) gm/dL Hct 26.7 L (39.0-53.0) % BUN 37 H (9-20) mg/dL Creatinine 1.60 H (0.66-1.25) mg/dL Glucose 156 H (74-99) mg/dL POC Glucose (mg/dL) 131 H (70-110) mg/dL
--- NOTE | 2024-11-18 20:51 | P.PN ---
Progress Note - Text Progress Note Date: 11/18/24 This is a pleasant 79 year old male with medical history of hypertension, hyperlipidemia, chest pain, osteoarthritis, cholecystectomy, Coronary artery disease. Patient comes in the hospital for scheduled off pump coronary artery bypass grafting x [address] Brennan. He is evaluated today in the intensive care unit currently sitting up in the chair with family at the bedside. He is having minimal pain. He has been extubated since 1630 yesterday. He remains on nasal cannula at 2L currently. Chest xray today reveals small bilateral pleural effusions with pulmonary vascular congestion and associated atelectasis. He remains on the IV insulin gtt protocol with plans to transition to Subcutaneous insulin tomorrow. Patient did develop a proximal atrial fibrillation post bypass and was started on IV amiodarone. labs today reveal a white blood cell count of 8.2, hemoglobin 11.3, sodium of 134, BUN is 17 creatinine 0.83. Total bilirubin of 1.7. 11/10/2024 Patient evaluated today sitting up in the chair in the ICU. Postoperative day #2, 3 vessel CABG. Bilateral chest tubes remain place. Patient had decreased urine output and was started on IV dopamine. Creatinine today was increased up to 1.94, BUN 32. He has been taken off the insulin infusion and transitioned to humalog achs. Blood glucose is fairly well controlled and will continue to make adjustments pending trends. He has been transitioned to oral amiodarone. 11/11/2024 Patient is eval today in the intensive care unit sitting up in the chair he is postoperative day #3, three-vessel CABG. Chest tubes have been removed [place]- Cecilia catheter remains in place. He continues with indwelling Jaquez catheter. Urine output remains marginal. His creatinine is up to 2.51 today patient remains on dopamine infusion. Chest x-ray reveals pulmonary edema similar to prior. He has been continued on Humalog ACHS and sliding scale insulin blood sugars are in the 110s to 140s and controlled with current regimen we will continue to monitor closely. 11/12/2024 Patient evaluated today sitting up in the chair. Patient reports decreased appetite. He is postoperative day #4 three vessel CABG. Blood glucose remains well controlled at this time. He remains on IV dopamine. Magnesium 1.8, BUN 59, creatinine 1.91. November 15: ICU. Sitting up in a chair. Did walk in the hallway. Mildly short of breath. Has passed flatus with no bowel movement. Lactulose ordered. Oral intake good. November 16: Did walk today. Breathing much better. Did have a good bowel movement. Eating well. Patient is pending going to [facility] re[facility]. November 17: Continues to ambulate. Eating well. No new issues. Looks like patient will be getting discharged home. Breathing stable. November 18: Doing much better. Breathing better. Tolerating diet. Cardiothoracic team planning for discharge today. Questions answered On examination: VITAL SIGNS: 98.3, 78, 17, 131 x 77, 95% room air GENERAL APPEARANCE: Comfortable HEENT: Normal external appearance of nose and ear. Oral cavity normal EYES: Pupils equal. Conjunctiva normal. NECK: JVD not raised. Mass not palpable. RESPIRATORY: Respiratory effort increased l. Decreased breath sounds CARDIOVASCULAR: First and second sounds normal. No edema. ABDOMEN: Soft. Liver and spleen not palpable. No tenderness. No mass palpable. PSYCHIATRY: Alert and oriented x3. Mood and affect normal. INVESTIGATIONS, reviewed in the clinical context: November 18: Hemoglobin 8.4 platelets 235 potassium 4 creatinine 1.6 November 17: White count 8.5 hemoglobin 8.5 platelets 274 potassium 4.1 creatinine 1.44 November 16: White count 8 hemoglobin 8.4 platelets 244 potassium 4.2 creatinine 1.39 November 15: White count 7.6 hemoglobin 8.9 platelets 200 sodium 143 potassium 4.2 BUN 37 creatinine 1.33 Assessment and plan Coronary artery disease s/p coronary artery bypass grafting three-vessel paroxysmal atrial fibrillation: Currently sinus rhythm. Amiodarone. Lopressor Acute kidney injury, prerenal. Creatinine peaked at 2.5. . Baseline 0.8. Follow-up with nephrology outpatient Dyslipidemia Left ICA stenosis of 70% Prostate cancer maintained on Casodex Essential hypertension. Lopressor. Amlodipine. Acute postop blood loss anemia expected from surgery-IV iron given Full Code Discussed with patient. Follow-up with PCP..
--- NOTE | 2024-11-18 22:38 | P.PN ---
Subjective Progress Note Date: 11/18/24 On 11/15/2024, the patient is being seen for a follow-up. The patient is following up on three-vessel bypass surgery and the patient is recovering well from his surgery. Cardiac rhythm is sinus. The patient encountered brief atrial fibrillation after surgery and since then the patient has remained in si nus rhythm. He had an acute kidney injury and renal function improved. He has hypertension hyperlipidemia carotid artery stenosis 70%, and he also has history of prostate cancer, and obesity. He is a lifetime non-smoker with an FEV1 of 83% of predicted. Hemoglobin today is at 8.9. BUN 37 with a creatinine of 1.33 and renal function continues to improve. Sodium levels at 143 with a potassium level of 4.2. White cell count 7.6 with a hemoglobin of 8.9. For now, the patient remains on aspirin 325 mg p.o. daily, Plavix 25 mg p.o. daily, amiodarone 4 mg p.o. once a day, he is also on metoprolol 25 mg p.o. twice a day. He is on sliding scale insulin coverage. He is on statins and the patient is currently on Lipitor 40 mg p.o. daily. No other significant events overnight. Chest tube removed. Chest x-ray from today shows small bilateral pleural effusion and postthoracotomy changes. He also has some cardiomegaly. No respiratory distress for now. Using incentive spirometer. On 11/16/2024, patient is doing well. No specific complaints. Calm and comfortable. He is on room air oxygen. Chest x-ray shows small bilateral pleural effusion. Urine output is adequate. Using incentive spirometer. Cardiac rhythm remains sinus. The white cell count is at 8 hemoglobin is 8.4 and a platelet count of 244. BUN 36 with a creatinine of 1.36 and the patient is recovering from his acute kidney injury. Remains on aspirin. Remains on Plavix. Remains on metoprolol 25 mg p.o. twice a day. Remains on high-dose statins with Lipitor 40 mg p.o. daily. Remains on Norvasc for blood pressure control 5 mg p.o. daily. Remains on amiodarone for A-fib prophylaxis 40 mg p.o. on a daily basis. No other significant events overnight. On 11/17/2024, the patient is being seen for a follow-up. Denies having any specific complaints the patient is afebrile, on room air oxygen with a pulse ox of 94%. The chest x-ray from today shows postsurgical changes along with cardiomegaly and pulm vascular congestion and trace bilateral pleural effusion. The patient is in normal sinus rhythm. Hemodynamically stable. Using incentive spirometer. Ambulating. Anticipate discharge to rehabilitation, awaiting insurance authorization. Hemoglobin today 0.5. BUN 34 with a creatinine 1.44 which is essentially stable compared to yesterday. Sodium is 138 with a potassium level of 4.1. Remains on aspirin. Remains on Plavix. Remains on metoprolol 25 mg p.o. twice daily. Remains on Norvasc 10 mg p.o. daily. He is on Lasix 20 mg p.o. daily and high-dose statins. On today's evaluation on 11/18/2024, the patient remains on room air oxygen. Doing well. He was not found to be a candidate for inpatient rehabilitation based on that the patient is going to be discharged home. Otherwise, the patient has no specific complaints. The patient is on room air oxygen with a pulse ox in the mid 90s. The patient is going to be discharged home on Lasix 40 mg p.o. daily, aspirin and Plavix, Norvasc 10 mg p.o. daily Lipitor 80 mg p.o. daily and metoprolol 50 mg p.o. daily. The labs from today shows a hemoglobin of 8.4, BUN 37 with a creatinine of 1.6 and a potassium level is at 4.0. Patient is on room air oxygen. Chest x-ray from today shows cardiomegaly and small bilateral pleural effusions. Poststernotomy changes. The patient has no significant chest pain. Surgical wound site is dry clean and intact. He is ambulating. No altered mentation. Objective - Vital Signs Vital signs: Vital Signs Temp 98.3 F 11/18/24 09:27 Pulse 78 11/18/24 09:27 Resp 17 11/18/24 09:27 BP 131/67 11/18/24 09:27 Pulse Ox 95 11/18/24 09:27 FiO2 21 11/17/24 08:43 Intake & Output 11/17/24 11/18/24 11/18/24 18:59 06:59 18:59 Intake Total 2296 550 Output Total 725 1150 400 Balance 1571 -600 -400 Weight 116.5 kg Intake: IV 10 Invasive Line 5 10 Oral 2296 540 Output: Urine 725 1150 400 Other: Voiding Method Urinal Toilet Toilet Urinal Urinal ABP, PAP, CO, CI - Last Documented Arterial Blood Pressure 92/45 Pulmonary Artery Pressure 17/6 Cardiac Output 6.3 Cardiac Index 2.7 - Exam CONSTITUTIONAL: Appears comfortable, cooperative, no acute distress. RESPIRATORY: Lungs sounds diminished to his bilateral bases, right greater than left. Respirations symmetrical, nonlabored. Currently on room air with oxygen saturation 97%. Able to achieve 1250 mL on his incentive spirometry. Strong cough. CARDIOVASCULAR: S1, S2 present. Regular rate and rhythm, normal sinus rhythm, with a first-degree heart block on telemetry, heart rate [address] able. Palpable peripheral pulses bilaterally. Trace generalized edema present. No calf pain or tenderness noted. Heart hugger in place with patient demonstrating appropriate use. Antiembolism stockings, SCDs present. GASTROINTESTINAL: Abdomen soft, nontender, nondistended. Active bowel sounds present 4 quadrants. Tolerating diet. Passing flatus. Bowel movement yesterday November 15, 2024. GENITOURINARY: Continues to void. Urine output 675 mL in the last 8 hours. INTEGUMENTARY: Skin is warm and dry with no clubbing or cyanosis present. Midline sternal chest incision well approximated and covered with dry intact dressing. Left radial artery harvest site well approximated without redness or drainage. NEUROLOGIC: Cranial nerves II through XII intact. No focal deficits. MUSKULOSKELETAL: Able to move all extremities, strength equal bilaterally, generalized weakness. PSYCHIATRIC: Alert and oriented to person place and time, appropriate affect, intact judgment and insight. - Labs CBC & Chem 7: 11/18/24 06:55 11/18/24 06:55 Labs: Abnormal Lab Results - Last 24 Hours (Table) 11/17/24 11/17/24 11/18/24 Range/Units 16:58 19:51 06:16 RBC (4.30-5.90) m/uL Hgb (13.0-17.5) gm/dL Hct (39.0-53.0) % BUN (9-20) mg/dL Creatinine (0.66-1.25) mg/dL Glucose (74-99) mg/dL POC Glucose (mg/dL) 120 H 177 H 175 H (70-110) mg/dL 11/18/24 11/18/24 Range/Units 06:55 06:55 RBC 2.74 L (4.30-5.90) m/uL Hgb 8.4 L (13.0-17.5) gm/dL Hct 26.7 L (39.0-53.0) % BUN 37 H (9-20) mg/dL Creatinine 1.60 H (0.66-1.25) mg/dL Glucose 156 H (74-99) mg/dL POC Glucose (mg/dL) (70-110) mg/dL Assessment and Plan Plan: Postoperative day # 9, S/P off-pump three-vessel bypass surgery, for coronary artery disease. Cardiac rhythm is sinus. Hemodynamically stable. Postthoracotomy and bypass surgery and the patient was extubated on 11/08/2024. Chest x-ray continues to show some small bilateral pleural effusions. Acute kidney injury, related to postop ATN, improving creatinine is stable for now Carotid artery stenosis, asymptomatic Obesity with a BMI of 38.2 History of hypertension. History of osteoarthritis. History of prostate cancer. Lifelong non-smoker. Plan: Clinically stable, was declined for inpatient rehab and the patient is being d ischarged home Chest x-ray was noted and shows small bilateral pleural effusion and patient to be discharged home on Lasix 40 mg p.o. daily Continue aspirin and Plavix Continue metoprolol 25 mg p.o. twice a day Norvasc for blood pressure control Amiodarone 400 mg p.o. once a day Cardiac rhythm is sinus Continues using incentive spirometer Increase mobility No issues with chest pain Stable renal function Ambulating and will continue to follow Discharged home today to be followed up on outpatient basis
[2024-11-19] MEDS ORDERED: FUROSEMIDE 20 MG TAB PO SCH (09:00)
--- NOTE | 2024-11-24 14:09 | CDI ---
Documentation Clarification Form Date: 11/24/2024 01:20:42 PM From: Syeda Leo RN CCDS Phone: [phone] Admit Date: 11/08/2024 05:37:00 AM Patient Name: Negrito Pederson Visit Number: [id number] Discharge Date: 11/18/2024 02:03:00 PM ATTENTION: The Clinical Documentation Specialists (CDI) and [facility] Coding Staff appreciate your assistance in clarifying documentation. Please respond to the clarification below the line at the bottom and electronically sign. The CDI & [facility] Coding staff will review the response and follow-up if needed. Please note: Queries are made part of the Legal Health Record. If you have any questions, please contact the author of this message via ITS. Provider: Matilde Ponce Postop acute renal failure is documented 11/15, Cardiology note and the patient had Off pump three vessel CABG 11/08. Additional clarification is requested regarding the relationship, if any, that exists between the diagnosis and the procedure. History/Risk Factors: Patients Admitting Diagnosis: Coronary artery disease Post-Operative Diagnosis: Coronary artery disease Procedure performed: Off-pump coronary bypass grafting x 3 with PIERSON to LAD, Sequential radial artery graft to first and second obtuse marginal coronary arteries as T graft off PIERSON, left radial artery endovascular harvest, occlusion of the left atrial appendage with 35mm AtriCure clip. Clinical Indicators: 11/08: Cr 0.82; BUN 19; GFR 83 11/10: Cr 1.94; BUN 32; GFR 32 11/11: Cr 2.51; BUN 51; GFR 23 11/13: Cr 1.71; BUN 57; GFR 38 11/15: Cr 1.33; BUN 37; GFR 50 11/12 Ultrasound of the Kidneys: No nephronephrosis or nephrolithiasis. Treatment: 11/12 Avoid nephrotic agents, low dose dopamine, oral sodium bicarb. 11/12 Ultrasound of the kidneys. 11/12 Lasix 20mg IV x 1; 11/13 11/14 Sodium Bicarbonate 650mg po daily ; 11/15 Lasix 20mg IV x 1; Consults: Nephrology consult, 11/12: 1.Acute kidney injury, ischemic ATN, initially oliguric currently nonoliguric with improving renal function.Check UA. Check ultrasound of the kidneys.No nephrotoxic agents on board. 2.Status post coronary artery bypass surgery x 3 on 11/08/2024.Extubated. Remains on low-dose dopamine for low heart rate and low blood pressure What relationship, if any, exists between the diagnosis of Postop Acute renal failure and the procedure: [ ] Postop Acute renal failure is not clinically significant and not a complication [ ] Postop Acute renal failure is clinically significant and not a complication [ ] Postop Acute renal failure is clinically significant and a complication X ] Other please specify _Acute kidney injury, ischemic ATN, likely due to brief hypotension, not clinically significant as patient recovered, not a complication [ ] Unable to determine (Template Last Revised: September 2024) MTDD
== END 2024-11-18 14:03 | disposition home health service (06) | DRG 235 ==
LOC: 2ORMAIN 05:37 → 2SICU 12:06 → 3SCARD 11-15 15:18
PROVIDERS: ADMIT Thoracic Surgery (Cardiothoracic Vascular Surgery); ATTEND Thoracic Surgery (Cardiothoracic Vascular Surgery)
PROC: 02L70CK Occlusion of Left Atrial Appendage with Extraluminal Device, Open Approach (ICD-10-PCS; 2024-11-08)
PROC: B24BZZ4 Ultrasonography of Heart with Aorta, Transesophageal (ICD-10-PCS; 2024-11-08)
PROC: 02100Z9 Bypass Coronary Artery, One Artery from Left Internal Mammary, Open Approach (ICD-10-PCS; principal; 2024-11-08 08:00)
PROC: 02110A3 Bypass Coronary Artery, Two Arteries from Coronary Artery with Autologous Arterial Tissue, Open Approach (ICD-10-PCS; 2024-11-08 08:00)
PROC: 03BC4ZZ Excision of Left Radial Artery, Percutaneous Endoscopic Approach (ICD-10-PCS; 2024-11-08 08:00)
DX: I25.110 Atherosclerotic heart disease of native coronary artery with unstable angina pectoris (principal); N17.0 Acute kidney failure with tubular necrosis; R34 Anuria and oliguria; C61 Malignant neoplasm of prostate; D69.6 Thrombocytopenia, unspecified; I73.9 Peripheral vascular disease, unspecified; I65.22 Occlusion and stenosis of left carotid artery; E66.9 Obesity, unspecified; I11.9 Hypertensive heart disease without heart failure; I07.1 Rheumatic tricuspid insufficiency; E87.20 Acidosis, unspecified; E87.1 Hypo-osmolality and hyponatremia; D62 Acute posthemorrhagic anemia; I48.0 Paroxysmal atrial fibrillation; E78.1 Pure hyperglyceridemia; M19.90 Unspecified osteoarthritis, unspecified site; H91.90 Unspecified hearing loss, unspecified ear; R53.81 Other malaise; E61.1 Iron deficiency; E78.00 Pure hypercholesterolemia, unspecified; K59.00 Constipation, unspecified; I87.8 Other specified disorders of veins; I95.9 Hypotension, unspecified; Z96.651 Presence of right artificial knee joint; E87.70 Fluid overload, unspecified; Z79.890 Hormone replacement therapy; Z68.38 Body mass index [BMI] 38.0-38.9, adult; Z82.49 Family history of ischemic heart disease and other diseases of the circulatory system; Z79.82 Long term (current) use of aspirin; Z79.899 Other long term (current) drug therapy
CPT/HCPCS: 71045; 71046; 76604; 76770; 80048; 80053; 81001; 82330; 82533; 82805; 83540; 83550; 83735; 85025; 85027; 85610; 85730; 86850; 86891; 86900; 86901; 86920; 94640; 94760